=== PATIENT | male | born 1960 | race Caucasian/White ===

== ENCOUNTER 2016-06-14 14:43 | Emergency (ER) | payer MEDICAID ==
--- NOTE | 2016-06-14 15:14 | ER Document Report ---
ED General - General Mode of Arrival: Medic Information source: Patient TRAVEL OUTSIDE OF THE [place] IN LAST 30 DAYS: No - HPI Onset: This morning Quality of pain: No pain Associated symptoms: Weakness Exacerbated by: Denies Relieved by: Denies Similar symptoms previously: Yes Recently seen / treated by doctor: No <KATJA FELTON - Last Filed: 06/14/16 19:02> <YRN ISRAEL - Last Filed: 06/15/16 01:12> - General Chief Complaint: Low Blood Sugar Stated Complaint: LOW BLOOD SUGAR,WEAKNESS Notes: Patient presents to the emergency department with complaints of hypoglycemia. Patient reports that he became very weak with blurred vision and was drooling this morning because his blood glucose was low. His blood glucose was 50 when EMS checked him pto. He reports he took his metformin 500 mg this morning. He also reports he's drank 3 boost, ate a PBJ sandwich. Patient has long history of CHF, NE hypo-kalemia diabete, pacemaker- AICD. Patient reports he has chronic short of breath. He denies change. Patient denies fever vomiting diarrhea. (KATJA FELTON) - Related Data Allergies/Adverse Reactions: No Known Allergies Allergy (Unverified 08/30/15 01:10) Past Medical History - General Information source: Patient - Social History Smoking Status: Current Every Day Smoker Cigarette use (# per day): Yes - 3-5 cpd Chew tobacco use (# tins/day): No Frequency of alcohol use: Heavy - 72 oz of strawmaritias Drug Abuse: None Lives with: Family Family History: None - Past Medical History Cardiac Medical History: Reports: Hx Congestive Heart Failure, Hx Heart Attack, Hx Hypercholesterolemia, Hx Hypertension Endocrine Medical History: Reports: Hx Diabetes Mellitus Type 2 Past Surgical History: Reports: Hx Appendectomy, Hx Cardiac Catheterization, Hx Cardiac Surgery - 5 stents, pacer/defib <KATJA FELTON - Last Filed: 06/14/16 19:02> Review of Systems <KATJA FELTON - Last Filed: 06/14/16 19:02> <YRN ISRAEL - Last Filed: 06/15/16 01:12> - Review of Systems Notes: Review HPI for review of systems., All other systems negative (KATJA FELTON) Physical Exam <KATJA FELTON - Last Filed: 06/14/16 19:02> <YRN ISRAEL - Last Filed: 06/15/16 01:12> - Vital signs Vitals: Resp Pulse Ox 14 100 06/14/16 15:27 06/14/16 15:27 (YRN ISRAEL) - Notes Notes: PHYSICAL EXAMINATION: GENERAL: Well-appearing and in no acute distress nontoxic HEAD: Atraumatic, normocephalic. EYES: Pupils equal round extraocular movements intact, sclera anicteric, conjunctiva are normal. ENT: nares patent, Moist mucous membranes. NECK: Normal range of motion, supple without lymphadenopathy LUNGS: CTAB and equal. No wheezes rales or rhonchi. HEART: Regular rate and rhythm without murmurs ABDOMEN:Tight, large, no tenderness. No guarding, no rebound - patient reports normal for him BACK: Denies pain EXTREMITIES: Normal range of motion, no pitting edema. No cyanosis. PVD NEUROLOGICAL: Cranial nerves grossly intact. Normal sensory/motor exams. PSYCH: Normal mood, normal affect. SKIN: Warm, Dry, normal turgor, no rashes (KATJA FELTON) Course - Laboratory Result Diagrams: 06/14/16 16:25 06/14/16 17:00 <KATJA FELTON - Last Filed: 06/14/16 19:02> - Laboratory Result Diagrams: 06/14/16 16:25 06/14/16 17:00 <YRN ISRAEL - Last Filed: 06/15/16 01:12> - Re-evaluation Re-evalutation: 06/14/16 18:15 Patient is sitting in bed eating [employer]. He reports he feels good no problems. patient updated on all labs. I have consulted the attending provider dr israel per [facility] guidelines, she agrees with discharge 06/14/16 dr israel in to assess patient agrees with discharge (KATJA FELTON) - Vital Signs Vital signs: Temp Pulse Resp BP Pulse Ox 97.4 F 69 18 113/80 96 06/14/16 19:01 06/14/16 19:01 06/14/16 19:01 06/14/16 19:01 06/14/16 19:01 (YRN ISRAEL) - Laboratory Laboratory results interpreted by me: 06/14/16 06/14/16 06/14/16 16:25 17:00 17:00 RBC 3.51 L Hgb 10.9 L Hct 31.8 L RDW 16.8 H Lymphocytes % 11.7 L Sodium 130.0 L Potassium 3.3 L Chloride 83 L Carbon Dioxide 37 H Creatinine 1.42 H Est GFR (Non-Af Amer) 52 L Glucose 69 L ALT 13 L NT-Pro-B Natriuret Pep 8910 H (YRN ISRAEL) Discharge <KATJA FELTON - Last Filed: 06/14/16 19:02> <YRN ISRAEL - Last Filed: 06/15/16 01:12> - Discharge Clinical Impression: Hypoglycemia, Weakness Condition: Stable Disposition: HOME, SELF-CARE Instructions: Hypoglycemia ([facility]), Hypoglycemia Diet ([facility]), Weakness ([facility]), Congestive Heart Failure ([facility]) Additional Instructions: *You have been evaluated for weakness hypoglycemia history of congestive heart failure *Take your medication as prescribed *Monitor your glucose *Monitor your diet *Follow up with dr lopez within 3 days for recheck *Return to ED for worsening condition, changes, needs, concerns, low blood glucose, difficulty breathing, Forms: Smoking Cessation Education
[2016-06-14 16:42] LABS: ABSOLUTE BASOPHILS # (AUTO) 0.1 10^3/uL (0.0-0.2); ABSOLUTE EOSINOPHILS # (AUTO) 0.1 10^3/uL (0.0-0.6); ABSOLUTE LYMPHOCYTES (AUTO) 0.9 10^3/uL (0.5-4.7); ABSOLUTE MONOCYTES (AUTO) 0.7 10^3/uL (0.1-1.4); ABSOLUTE NEUT (AUTO) 5.7 10^3/uL (1.7-8.2); EOSINOPHILS % (AUTO) 0.8 % (0-6); HEMATOCRIT 31.8 % (37.9-51.0); HEMOGLOBIN 10.9 g/dL (13.5-17.0); HGB HCT DIFFERENCE 0.9; LYMPHOCYTES % (AUTO) 11.7 % (13-45); MEAN CORPUSCULAR HEMOGLOBIN 31.1 pg (27.0-33.4); MEAN CORPUSCULAR HGB CONC 34.4 g/dL (32.0-36.0); MEAN CORPUSCULAR VOLUME 91 fl (80-97); MONOCYTES % (AUTO) 9.7 % (3-13); RED BLOOD COUNT 3.51 10^6/uL (4.35-5.55); RED CELL DISTRIBUTION WIDTH 16.8 % (11.5-14.0); SEGMENTED NEUTROPHILS % (AUTO) 76.8 % (42-78); WHITE BLOOD COUNT 7.4 10^3/uL (4.0-10.5)
[2016-06-14 17:19] LABS: ALANINE AMINOTRANSFERASE 13 U/L (21-72); ALBUMIN 3.5 g/dL (3.5-5.0); ALKALINE PHOSPHATASE 123 U/L (38-126); ANION GAP 10 (5-19); ASPARTATE AMINO TRANSFERASE 22 U/L (17-59); BILIRUBIN,TOTAL 1.2 mg/dL (0.2-1.3); BLOOD UREA NITROGEN 19 mg/dL (7-20); CALCIUM 9.4 mg/dL (8.4-10.2); CARBON DIOXIDE 37 mmol/L (22-30); CHLORIDE 83 mmol/L (98-107); CREATININE RESULT 1.42 mg/dL (0.52-1.25); GLUCOSE 69 mg/dL (75-110); POTASSIUM 3.3 mmol/L (3.6-5.0); TOTAL PROTEIN 6.8 g/dL (6.3-8.2)
[2016-06-14 19:07] VITALS: BP 113/80
--- NOTE | 2016-06-14 22:16 | EKG REPORT ---
SEVERITY:- ABNORMAL ECG - ATRIAL-SENSED VENTRICULAR-PACED RHYTHM : Confirmed by: Juliana Diaz 14-Jun-2016 22:16:29
== END 2016-06-14 18:36 | disposition home or self-care (01) ==
LOC: ER 14:43
DX: E11.649 Type 2 diabetes mellitus with hypoglycemia without coma (principal); R53.1 Weakness; H53.8 Other visual disturbances; R06.02 Shortness of breath; I25.2 Old myocardial infarction; I10 Essential (primary) hypertension; F17.210 Nicotine dependence, cigarettes, uncomplicated; Z79.84 Long term (current) use of oral hypoglycemic drugs; Z95.810 Presence of automatic (implantable) cardiac defibrillator; Z98.61 Coronary angioplasty status
CPT/HCPCS: 36415; 71010; 80053; 82962; 83880; 85025; 93005; 93010; 99285

== ENCOUNTER 2016-08-25 22:55 | Inpatient (IN) | payer MEDICAID, MEDICARE ==
--- NOTE | 2016-08-25 23:01 | ER Document Report ---
ED General - General Stated Complaint: SHORTNESS OF BREATH Notes: Patient is 56-year-old male presents with complaint of severe swelling and edema throughout the entire body. Feels short of breath. His lab edema in his lower extremities and his abdomen. Patient has a history of cardiomyopathy with the ejection fraction of less than 50%. He has a history of myocardial infarction in the past. Last stent was placed in 2013. Currently is not on any blood thinning medications. He denies taking aspirin. Patient does mention that there are several other medications he is supposed to be on including diabetes medications. Patient says he stopped taking those because his blood sugar was dropping and he was feeling unwell. He says the only medications he actually takes currently are his medications to help take off fluid. No recent chest pain. Patient is followed by Dr. Diaz. He does have an AICD in place. TRAVEL OUTSIDE OF THE [place] IN LAST 30 DAYS: No - Related Data Allergies/Adverse Reactions: No Known Allergies Allergy (Verified 08/26/16 02:06) Past Medical History - Social History Smoking Status: Current Every Day Smoker Frequency of alcohol use: Occasional Drug Abuse: None Family History: None - Past Medical History Cardiac Medical History: Reports: Hx Congestive Heart Failure, Hx Heart Attack, Hx Hypercholesterolemia, Hx Hypertension Pulmonary Medical History: Reports: Hx Bronchitis Endocrine Medical History: Reports: Hx Diabetes Mellitus Type 2 Renal/ Medical History: Denies: Hx Peritoneal Dialysis Past Surgical History: Reports: Hx Appendectomy, Hx Cardiac Catheterization, Hx Cardiac Surgery - 5 stents, pacer/defib Review of Systems - Review of Systems Notes: My Normal Review Basic REVIEW OF SYSTEMS: CONSTITUTIONAL : Denies fever, chills, or sweats. Denies recent illness. EENT: Denies eye, ear, throat, or mouth pain or symptoms. Denies nasal or sinus congestion. CARDIOVASCULAR: Denies chest pain. RESPIRATORY: Some difficulty breathing. GASTROINTESTINAL: Denies abdominal pain. Distended abdomen. Denies nausea, vomiting, or diarrhea. Denies constipation. MUSCULOSKELETAL: Denies neck or back pain or joint pain or swelling. SKIN: Denies rash or skin lesions. NEUROLOGICAL: Denies altered mental status or loss of consciousness. Denies headache. Denies weakness or paralysis or loss of use of either side. Denies problems with gait or speech. Denies sensory or motor loss. ALL OTHER SYSTEMS REVIEWED AND NEGATIVE. Physical Exam - Vital signs Vitals: Resp Pulse Ox 21 H 98 08/25/16 23:11 08/25/16 23:11 - Notes Notes: General Appearance: Well nourished, alert, cooperative, no acute distress, no obvious discomfort. Vitals: reviewed, See vital signs table. Head: no swelling or tenderness to the head Eyes: PERRL, EOMI, Conjuctiva clear Mouth: No decreasd moisture Neck: Supple, no neck tenderness, No thyromegaly Lungs: No wheezing, No rales, No rhonci, No accessory muscle use, good air exchange bilaterally. Heart: Normal rate, Regular rythm, No murmur, no rub Abdomen: Normal BS, soft, No rigidity, No abdominal tenderness, No guarding, no rebound, no abdominal masses, no organomegaly. Very distended abdomen consistent with ascites. Abdomen is nontender to palpation. Extremities: strength 5/5 in all extremities, good pulses in all extremities, no swelling or tenderness in the extremities, 3+ bilateral lower extremity edema. Skin: warm, dry, appropriate color, no rash Neuro: speech clear, oriented x 3, normal affect, responds appropriately to questions. Course - Vital Signs Vital signs: Temp Pulse Resp BP Pulse Ox 97.5 F 89 20 131/92 H 100 08/26/16 03:55 08/26/16 03:55 08/26/16 03:55 08/26/16 03:55 08/26/16 03:55 - Laboratory Result Diagrams: 08/25/16 23:25 08/25/16 23:25 Laboratory results interpreted by me: 08/25/16 08/25/16 08/25/16 23:25 23:25 23:25 RBC 2.50 L Hgb 8.2 L Hct 23.1 L RDW 18.4 H PT 16.7 H Sodium 126.7 L Potassium 2.8 L* Chloride 84 L BUN 26 H Creatinine 1.60 H Est GFR ( Amer) 55 L Est GFR (Non-Af Amer) 45 L Glucose 153 H Magnesium Direct Bilirubin 0.7 H ALT 19 L NT-Pro-B Natriuret Pep Albumin 3.3 L 08/25/16 08/25/16 23:25 23:25 RBC Hgb Hct RDW PT Sodium Potassium Chloride BUN Creatinine Est GFR ( Amer) Est GFR (Non-Af Amer) Glucose Magnesium 1.4 L Direct Bilirubin ALT NT-Pro-B Natriuret Pep 79007 H Albumin - EKG Interpretation by Me Additional EKG results interpreted by me: 08/25/16 23:34 EKG is reviewed and interpreted by me. EKG shows a paced rhythm with a rate of [address] segment changes. No acute change in comparison to his old EKG from 06/14/2014. MA interval is within normal range. QRS duration QTC intervals are prolonged. - Transfer of Care Notes: 08/26/16 05:17 D the patient's excessive edema he will be admitted to the hospital. It's obvious impending dysfunction and stability breathe normally. I did speak with hospice agrees with the patient. I suspect patient says edema is partially due to noncompliance being that he is not taking his medications properly. Also suspect patient probably has some liver cirrhosis causing ascites even though he is not aware of this. I suspect this because patient has admitted to some alcohol use and his INR is 1.3. While this edema is probably related to right- sided heart failure as well. Dictation of this chart was performed using voice recognition software; therefore, there may be some unintended grammatical errors. Discharge - Discharge Clinical Impression: Dyspnea Qualifiers: Dyspnea type: unspecified Qualified Code(s): R06.00 - Dyspnea, unspecified Fluid overload Qualifiers: Hypervolemia type: unspecified Qualified Code(s): E87.70 - Fluid overload, unspecified Admitting Provider: Hospitalist Unit Admitted: [facility]
[2016-08-25] MEDS ORDERED: FUROSEMIDE INJ/PF 40 MG/4 ML SDV IV ONE (23:09)
[2016-08-25 23:52] LABS: ABSOLUTE BASOPHILS # (AUTO) 0.1 10^3/uL (0.0-0.2); ABSOLUTE MONOCYTES (AUTO) 0.9 10^3/uL (0.1-1.4); ABSOLUTE NEUT (AUTO) 5.5 10^3/uL (1.7-8.2); BASOPHILS % (AUTO) 1.1 % (0-2); EOSINOPHILS % (AUTO) 0.5 % (0-6); HEMATOCRIT 23.1 % (37.9-51.0); HEMOGLOBIN 8.2 g/dL (13.5-17.0); HGB HCT DIFFERENCE 1.5; LYMPHOCYTES % (AUTO) 13.1 % (13-45); MEAN CORPUSCULAR HEMOGLOBIN 32.7 pg (27.0-33.4); MEAN CORPUSCULAR HGB CONC 35.4 g/dL (32.0-36.0); MEAN CORPUSCULAR VOLUME 92 fl (80-97); MONOCYTES % (AUTO) 12.5 % (3-13); RED CELL DISTRIBUTION WIDTH 18.4 % (11.5-14.0); SEGMENTED NEUTROPHILS % (AUTO) 72.8 % (42-78); WHITE BLOOD COUNT 7.6 10^3/uL (4.0-10.5)
[2016-08-25 23:59] LABS: ALANINE AMINOTRANSFERASE 19 U/L (21-72); ALBUMIN 3.3 g/dL (3.5-5.0); ALKALINE PHOSPHATASE 109 U/L (38-126); ANION GAP 16 (5-19); ASPARTATE AMINO TRANSFERASE 21 U/L (17-59); BILIRUBIN,DIRECT 0.7 mg/dL (0.0-0.4); BILIRUBIN,TOTAL 1.2 mg/dL (0.2-1.3); BLOOD UREA NITROGEN 26 mg/dL (7-20); CALCIUM 8.5 mg/dL (8.4-10.2); CARBON DIOXIDE 27 mmol/L (22-30); CHLORIDE 84 mmol/L (98-107); CREATINE KINASE 151 U/L (55-170); GLUCOSE 153 mg/dL (75-110); SODIUM 126.7 mmol/L (137-145); TOTAL PROTEIN 6.5 g/dL (6.3-8.2)
[2016-08-26 00:03] LABS: POTASSIUM 2.8 mmol/L (3.6-5.0)
[2016-08-26 00:04] LABS: PROTHROMBIN TIME 16.7 SEC (11.4-15.4)
[2016-08-26 00:12] LABS: CREATINE KINASE MB 1.84 ng/mL (<4.55); TROPONIN I 0.018 ng/mL
[2016-08-26] MEDS ORDERED: POTASSIUM CHLORIDE 10 MEQ TABLET.SA PO ONE ×2 (00:35)
[2016-08-26] MEDS ORDERED: MAGNESIUM HYDROXIDE SUSP 30 ML UDCUP PO PRN (01:15)
[2016-08-26] MEDS ORDERED: ACETAMINOPHEN 325 MG TABLET PO PRN (01:15)
[2016-08-26] MEDS ORDERED: ENALAPRILAT DIHYDRATE INJ/PF 1.25 MG/1 ML SDV IV PRN (01:15)
[2016-08-26] MEDS ORDERED: MAG HYDROX/AL HYDROX/SIMETH SUSP 30 ML UDCUP PO PRN (01:15)
[2016-08-26] MEDS ORDERED: NITROGLYCERIN 5 MG (0.2 MG/HR) PATCH.TD24 TD SCH (01:15)
[2016-08-26] MEDS ORDERED: ONDANSETRON HCL INJ/PF 4 MG/2 ML SDV IV PRN (01:15)
[2016-08-26] MEDS: MAGNESIUM SULFATE/D5W 1 GM/100 ML RTUPB IV SCH ×2 (02:12→03:25)
[2016-08-26 02:22] LABS: URINE BARBITURATES SCREEN NEGATIVE; URINE METHADONE SCREEN NEGATIVE; URINE OPIATES LOW NEGATIVE; URINE PHENCYCLIDINE SCREEN NEGATIVE
--- NOTE | 2016-08-26 02:25 | PDOC H&P ---
History of Present Illness Admission Date/PCP: 08/26/16 01:15 Patient complains of: Shortness of breath and swelling History of Present Illness: KEN ZAYAS is a 56 year old male with a past medical history of diabetes, hypertension, coronary artery disease and congestive heart failure with an ejection fraction of 15% and AICD placed 2 years ago. He denies usual state of health until approximately 12 hours prior to presentation admitting to noncompliance of medications believing they cause both hyponatremia, hypokalemia and subsequently has discontinued all but his Lasix. He further admits to knowledge of a dietary restriction yet drinks strawberry wine and [place] sausage. In the emergency room he is grossly fluid overloaded with anasarca, with hyponatremia, hypokalemia, acute renal failure and anemia. He started on potassium, Lasix and referred to the hospitalist for admission Past Medical History Cardiac Medical History: Reports: Congestive Heart Failure, Myocardial Infarction, Hyperlipidema, Hypertension Pulmonary Medical History: Reports: Bronchitis Endocrine Medical History: Reports: Diabetes Mellitus Type 2 Past Surgical History Past Surgical History: Reports: Appendectomy, Cardiac Catheterization Social History Information Source: Patient Lives with: Family Smoking Status: Current Every Day Smoker Drugs: None Hx Prescription Drug Abuse: No - Advance Directive Resuscitation Status: Full Code Family History Family History: CAD Parental Family History Reviewed: Yes Children Family History Reviewed: Yes Sibling(s) Family History Reviewed.: Yes Medication/Allergy Home Medications: Atorvastatin Calcium [Lipitor 80 mg Tablet] 80 mg PO QHS 08/30/15 Carvedilol 6.25 mg PO BID 08/30/15 Clopidogrel Bisulfate [Plavix 75 mg Tablet] 75 mg PO DAILY 08/30/15 Glimepiride [Amaryl 4 mg Tablet] 4 mg PO DAILY 08/30/15 Lisinopril [Prinivil 2.5 mg Tablet] 5 mg PO BID 08/30/15 Metformin HCl 2 tab PO BID 08/30/15 Potassium Chloride 20 meq PO BID 08/30/15 Spironolactone 25 mg PO BID 08/30/15 Allergies/Adverse Reactions: No Known Allergies Allergy (Verified 08/26/16 02:06) Review of Systems Constitutional: PRESENT: as per HPI, fatigue, weakness, weight gain. ABSENT: fever(s), headache(s), night sweats Eyes: ABSENT: visual disturbances Ears: ABSENT: hearing changes Cardiovascular: PRESENT: dyspnea on exertion, edema, orthropnea. ABSENT: chest pain, palpitations Respiratory: PRESENT: cough, dyspnea. ABSENT: hemoptysis, sputum Gastrointestinal: PRESENT: bloating. ABSENT: abdominal pain, constipation, diarrhea, hematemesis, hematochezia, nausea, vomiting Genitourinary: ABSENT: dysuria, hematuria Musculoskeletal: ABSENT: joint swelling Integumentary: ABSENT: rash, wounds Neurological: ABSENT: abnormal gait, abnormal speech, confusion, dizziness, focal weakness, syncope Psychiatric: ABSENT: anxiety, depression, homidical ideation, suicidal ideation Endocrine: ABSENT: cold intolerance, heat intolerance, polydipsia, polyuria Hematologic/Lymphatic: ABSENT: easy bleeding, easy bruising Physical Exam Vital Signs: Temp Pulse Resp BP Pulse Ox 18 116/75 100 08/26/16 00:16 08/25/16 23:12 08/26/16 00:16 General appearance: PRESENT: cooperative, mild distress, obese Head exam: PRESENT: atraumatic, normocephalic Eye exam: PRESENT: conjunctiva pink, EOMI, PERRLA. ABSENT: scleral icterus Ear exam: PRESENT: normal external ear exam Mouth exam: PRESENT: moist, tongue midline Neck exam: ABSENT: carotid bruit, JVD, lymphadenopathy, thyromegaly Respiratory exam: PRESENT: accessory muscle use, crackles, symmetrical, tachypnea. ABSENT: chest wall tenderness, rales, rhonchi, stridor, wheezes Cardiovascular exam: PRESENT: gallop, RRR. ABSENT: diastolic murmur, rubs, systolic murmur Pulses: PRESENT: normal carotid pulses, normal dorsalis pedis pul Vascular exam: PRESENT: normal capillary refill GI/Abdominal exam: PRESENT: ascites, diminished bowel sounds, distended, firm, hypoactive bowel sounds, soft. ABSENT: guarding, hernia, tenderness Rectal exam: PRESENT: deferred Extremities exam: PRESENT: joint swelling, pedal edema, +2 edema Musculoskeletal exam: PRESENT: full ROM, tenderness Neurological exam: PRESENT: alert, awake, oriented to person, oriented to place , oriented to time, oriented to situation, CN II-XII grossly intact. ABSENT: motor sensory deficit Psychiatric exam: PRESENT: appropriate affect, normal mood. ABSENT: homicidal ideation, suicidal ideation Skin exam: PRESENT: dry, intact. ABSENT: abrasion, cyanosis, erythema Results Impressions: Chest X-Ray 08/25/16 23:10 IMPRESSION: NO ACUTE RADIOGRAPHIC FINDING IN THE CHEST. Assessment & Plan - Diagnosis (1) Acute exacerbation of congestive heart failure Qualifiers: Congestive heart failure type: combined Qualified Code(s): I50.43 - Acute on chronic combined systolic (congestive) and diastolic (congestive) heart failure Is this a current diagnosis for this admission?: YesPlan: Electrolyte repletion, resumption of spironolactone, Lasix and optimization of blood pressure. 2-D echo and education (2) Hypokalemia Is this a current diagnosis for this admission?: YesPlan: Secondary to loop diuretic and noncompliance with spironolactone repletion and reevaluation (3) Hyponatremia Is this a current diagnosis for this admission?: YesPlan: Secondary to noncompliance with dietary restriction. He'll be gently diuresed with reevaluating chemistries (4) Acute renal failure Is this a current diagnosis for this admission?: YesPlan: Secondary to decompensated congestive heart failure avoid nephrotoxic meds and doses gentle diuresis reevaluation of chemistry (5) Diabetes Is this a current diagnosis for this admission?: YesPlan: Discontinue metformin initiate sliding scale insulin and diabetic education (6) Dyspnea Qualifiers: Dyspnea type: unspecified Qualified Code(s): R06.00 - Dyspnea, unspecified Is this a current diagnosis for this admission?: YesPlan: Correction of 1 and supportive care with oxygen and when necessary BiPAP (7) Fluid overload Qualifiers: Hypervolemia type: unspecified Qualified Code(s): E87.70 - Fluid overload, unspecified Is this a current diagnosis for this admission?: YesPlan: Secondary to dietary and medication noncompliance please see above - Time Time Spent: 50 to 70 Minutes - Inpatient Certification Medical Necessity: Need Close Monitoring Due to Risk of Patient Decompensation
[2016-08-26 06:06] LABS: ABSOLUTE BASOPHILS # (AUTO) 0.1 10^3/uL (0.0-0.2); ABSOLUTE EOSINOPHILS # (AUTO) 0.1 10^3/uL (0.0-0.6); ABSOLUTE LYMPHOCYTES (AUTO) 0.9 10^3/uL (0.5-4.7); ABSOLUTE MONOCYTES (AUTO) 0.8 10^3/uL (0.1-1.4); ABSOLUTE NEUT (AUTO) 5.2 10^3/uL (1.7-8.2); BASOPHILS % (AUTO) 1.3 % (0-2); EOSINOPHILS % (AUTO) 0.9 % (0-6); HEMOGLOBIN 8.4 g/dL (13.5-17.0); HGB HCT DIFFERENCE 1.2; LYMPHOCYTES % (AUTO) 12.9 % (13-45); MEAN CORPUSCULAR HEMOGLOBIN 32.3 pg (27.0-33.4); MEAN CORPUSCULAR HGB CONC 35.2 g/dL (32.0-36.0); MEAN CORPUSCULAR VOLUME 92 fl (80-97); MONOCYTES % (AUTO) 11.7 % (3-13); RED BLOOD COUNT 2.61 10^6/uL (4.35-5.55); RED CELL DISTRIBUTION WIDTH 18.3 % (11.5-14.0); SEGMENTED NEUTROPHILS % (AUTO) 73.2 % (42-78); WHITE BLOOD COUNT 7.2 10^3/uL (4.0-10.5)
[2016-08-26] MEDS: HEPARIN SOD (PORCINE) 5,000 UNIT/ML 1 ML SYRINGE SUBCUT SCH ×3 (06:26→21:19)
[2016-08-26 06:28] LABS: ANION GAP 13 (5-19); BLOOD UREA NITROGEN 27 mg/dL (7-20); CALCIUM 8.9 mg/dL (8.4-10.2); CARBON DIOXIDE 31 mmol/L (22-30); CHLORIDE 84 mmol/L (98-107); CREATINE KINASE 142 U/L (55-170); CREATININE RESULT 1.57 mg/dL (0.52-1.25); GLUCOSE 117 mg/dL (75-110); POTASSIUM 3.1 mmol/L (3.6-5.0); SODIUM 128.2 mmol/L (137-145)
[2016-08-26 06:40] LABS: CREATINE KINASE MB 2.51 ng/mL (<4.55); TROPONIN I 0.019 ng/mL
[2016-08-26] MEDS ORDERED: POTASSI CL 20 MEQ/50 ML RIDER 50 ML IV SCH (07:45)
--- NOTE | 2016-08-26 09:08 | EKG REPORT ---
SEVERITY:- ABNORMAL ECG - ATRIAL-SENSED VENTRICULAR-PACED RHYTHM : Confirmed by: Yadiel Peter MD 26-Aug-2016 09:08:24
[2016-08-26] MEDS: FUROSEMIDE INJ/PF 40 MG/4 ML SDV IV SCH ×2 (09:50→21:19)
[2016-08-26] MEDS: POTASSIUM CHLORIDE 10 MEQ TABLET.SA PO SCH ×2 (09:51→21:20)
[2016-08-26] MEDS ORDERED: ASPIRIN 81 MG TABLET, ENT COATED PO SCH (10:00)
[2016-08-26] MEDS ORDERED: DOCUSATE SODIUM 100 MG CAPSULE PO SCH (10:00)
--- NOTE | 2016-08-26 10:58 | PDOC PROGRESS REPORT ---
Subjective Progress Note for:: 08/26/16 Subjective:: Patient reports that his shortness of breath has improved. Physical Exam Vital Signs: Temp Pulse Resp BP Pulse Ox 97.7 F 89 22 H 103/78 100 08/26/16 08:24 08/26/16 08:24 08/26/16 08:24 08/26/16 08:24 08/26/16 08:24 Intake & Output 08/25/16 08/26/16 08/27/16 06:59 06:59 06:59 Intake Total 10 Output Total 300 Balance -290 Weight 141.5 kg General appearance: PRESENT: no acute distress Eye exam: PRESENT: conjunctiva pink. ABSENT: scleral icterus Mouth exam: PRESENT: moist, tongue midline Neck exam: ABSENT: JVD Respiratory exam: PRESENT: crackles. ABSENT: wheezes Cardiovascular exam: PRESENT: RRR. ABSENT: diastolic murmur, rubs, systolic murmur GI/Abdominal exam: PRESENT: normal bowel sounds, soft. ABSENT: distended, guarding, mass, organolmegaly, rebound, tenderness Extremities exam: PRESENT: pedal edema. ABSENT: calf tenderness, clubbing Neurological exam: PRESENT: alert, awake, oriented to person, oriented to place , oriented to time, oriented to situation, CN II-XII grossly intact. ABSENT: motor sensory deficit Psychiatric exam: PRESENT: appropriate affect Skin exam: PRESENT: dry, intact, warm. ABSENT: cyanosis, rash Results Laboratory Results: 08/26/16 05:37 08/26/16 05:37 08/26/16 08/26/16 05:37 05:37 WBC 7.2 RBC 2.61 L Hgb 8.4 L Hct 24.0 L MCV 92 MCH 32.3 MCHC 35.2 RDW 18.3 H Plt Count 240 Seg Neutrophils % 73.2 Lymphocytes % 12.9 L Monocytes % 11.7 Eosinophils % 0.9 Basophils % 1.3 Absolute Neutrophils 5.2 Absolute Lymphocytes 0.9 Absolute Monocytes 0.8 Absolute Eosinophils 0.1 Absolute Basophils 0.1 Sodium 128.2 L Potassium 3.1 L Chloride 84 L Carbon Dioxide 31 H Anion Gap 13 BUN 27 H Creatinine 1.57 H Est GFR ( Amer) 56 L Est GFR (Non-Af Amer) 46 L Glucose 117 H Calcium 8.9 08/26/16 08/26/16 05:37 05:37 Creatine Kinase 142 CK-MB (CK-2) 2.51 Troponin I 0.019 Impressions: Chest X-Ray 08/25/16 23:10 IMPRESSION: NO ACUTE RADIOGRAPHIC FINDING IN THE CHEST. Assessment & Plan - Diagnosis (1) Acute exacerbation of congestive heart failure Qualifiers: Congestive heart failure type: combined Qualified Code(s): I50.43 - Acute on chronic combined systolic (congestive) and diastolic (congestive) heart failure Is this a current diagnosis for this admission?: YesPlan: We'll continue with the IV Lasix. (2) Acute renal failure Is this a current diagnosis for this admission?: YesPlan: Probably due to the congestive heart failure however will need to watch closely as we give IV diuretics. (3) Diabetes Is this a current diagnosis for this admission?: YesPlan: Continue with sliding scale insulin. (4) Hypokalemia Is this a current diagnosis for this admission?: YesPlan: We'll replace and continue to monitor. (5) Hyponatremia Is this a current diagnosis for this admission?: YesPlan: Most likely secondary to the diuretic use. - Time Time Spent with patient: 25-34 minutes - Inpatient Certification Medical Necessity: Need Close Monitoring Due to Risk of Patient Decompensation
[2016-08-26 12:19] LABS: ANION GAP 11 (5-19); BLOOD UREA NITROGEN 29 mg/dL (7-20); CARBON DIOXIDE 33 mmol/L (22-30); CHLORIDE 85 mmol/L (98-107); CREATINE KINASE 135 U/L (55-170); CREATININE RESULT 1.49 mg/dL (0.52-1.25); GLUCOSE 129 mg/dL (75-110); POTASSIUM 3.4 mmol/L (3.6-5.0); SODIUM 128.8 mmol/L (137-145)
[2016-08-26 12:34] LABS: CREATINE KINASE MB 2.24 ng/mL (<4.55); TROPONIN I 0.017 ng/mL
[2016-08-26 18:22] LABS: CREATINE KINASE MB 2.47 ng/mL (<4.55); TROPONIN I 0.019 ng/mL
[2016-08-26 22:36] LABS: ANION GAP 11 (5-19); BLOOD UREA NITROGEN 30 mg/dL (7-20); CARBON DIOXIDE 33 mmol/L (22-30); CHLORIDE 84 mmol/L (98-107); CREATININE RESULT 1.56 mg/dL (0.52-1.25); GLUCOSE 117 mg/dL (75-110); POTASSIUM 3.5 mmol/L (3.6-5.0); SODIUM 128.4 mmol/L (137-145)
[2016-08-27 04:53] LABS: ABSOLUTE BASOPHILS # (AUTO) 0.1 10^3/uL (0.0-0.2); ABSOLUTE EOSINOPHILS # (AUTO) 0.1 10^3/uL (0.0-0.6); ABSOLUTE LYMPHOCYTES (AUTO) 1.2 10^3/uL (0.5-4.7); ABSOLUTE MONOCYTES (AUTO) 0.9 10^3/uL (0.1-1.4); ABSOLUTE NEUT (AUTO) 4.8 10^3/uL (1.7-8.2); HEMATOCRIT 23.6 % (37.9-51.0); HEMOGLOBIN 8.4 g/dL (13.5-17.0); HGB HCT DIFFERENCE 1.6; LYMPHOCYTES % (AUTO) 16.7 % (13-45); MEAN CORPUSCULAR HEMOGLOBIN 32.9 pg (27.0-33.4); MEAN CORPUSCULAR HGB CONC 35.8 g/dL (32.0-36.0); MEAN CORPUSCULAR VOLUME 92 fl (80-97); MONOCYTES % (AUTO) 13.2 % (3-13); RED BLOOD COUNT 2.57 10^6/uL (4.35-5.55); RED CELL DISTRIBUTION WIDTH 18.7 % (11.5-14.0); SEGMENTED NEUTROPHILS % (AUTO) 68.1 % (42-78)
[2016-08-27 05:14] LABS: ANION GAP 12 (5-19); BLOOD UREA NITROGEN 29 mg/dL (7-20); CALCIUM 9.1 mg/dL (8.4-10.2); CARBON DIOXIDE 32 mmol/L (22-30); CHLORIDE 86 mmol/L (98-107); CHOLESTEROL 99.83 mg/dL (0-200); CREATININE RESULT 1.49 mg/dL (0.52-1.25); Direct HDL 30 mg/dL (>40); GLUCOSE 111 mg/dL (75-110); SODIUM 129.9 mmol/L (137-145); TRIGLYCERIDES 69 mg/dL (<150)
[2016-08-27 05:25] LABS: DIRECT LDL 46 mg/dL (<100)
[2016-08-27] MEDS: HEPARIN SOD (PORCINE) 5,000 UNIT/ML 1 ML SYRINGE SUBCUT SCH (06:46)
[2016-08-27 10:00] VITALS: BP 131/92
--- NOTE | 2016-08-27 15:39 | PDOC DISCHARGE SUMMARY ---
General - Admit/Disc Date/PCP Admission Date/Primary Care Provider: 08/26/16 01:15 Discharge Date: 08/27/16 - Discharge Diagnosis (1) Acute exacerbation of congestive heart failure Is this a current diagnosis for this admission?: Yes (2) Acute renal failure Is this a current diagnosis for this admission?: Yes (3) Diabetes Is this a current diagnosis for this admission?: Yes (4) Hypokalemia Is this a current diagnosis for this admission?: Yes (5) Hyponatremia Is this a current diagnosis for this admission?: Yes - Additional Information Resuscitation Status: Full Code Discharge Diet: Cardiac, Diabetic Discharge Activity: Activity As Tolerated, Weigh Daily Home Medications: Atorvastatin Calcium [Lipitor 80 mg Tablet] 80 mg PO QHS 08/30/15 Carvedilol 6.25 mg PO BID 08/30/15 Clopidogrel Bisulfate [Plavix 75 mg Tablet] 75 mg PO DAILY 08/30/15 Glimepiride [Amaryl 4 mg Tablet] 4 mg PO DAILY 08/30/15 Lisinopril [Prinivil 2.5 mg Tablet] 5 mg PO BID 08/30/15 Metformin HCl 2 tab PO BID 08/30/15 Potassium Chloride 20 meq PO BID 08/30/15 Spironolactone 25 mg PO BID 08/30/15 Aspirin [Ecotrin 81 mg EC Tablet] 81 mg PO DAILY tabec 08/27/16 Furosemide 20 mg PO BID #60 tablet 08/27/16 Nitroglycerin [Nitro-Dur 5 mg (0.2 mg/Hr) Transdermal Patch] 1 each TD DAILY # 30 patch.td24 08/27/16 History of Present Illness History of Present Illness: KEN ZAYAS is a 56 year old male who has a history of diabetes, hypertension and coronary artery disease as well as systolic congestive heart failure with ejection fraction of 15% who presented with shortness of breath. The patient was found to have acute on chronic congestive heart failure. Patient reports that he has been noncompliant with his diet has been eating pork sausage and drinking fine. The patient is admitted for diuresis. He also is noted have hyponatremia and hypokalemia along with acute renal failure felt secondary to his underlying congestive heart failure. Hospital Course Hospital Course: 56-year-old gentleman with diabetes, coronary artery disease, systolic congestive heart failure presented with acute on chronic systolic congestive heart failure. Patient had been noncompliant with his diet and eating pork sausage. Patient also reports that he had not been taking his Lasix either. Patient was started on IV Lasix and had improvement in his respiratory status. He also was noted to have hypokalemia and hyponatremia when he presented. His hyponatremia has improved but not resolved but his hypokalemia has resolved. The patient was noted have acute renal failure and with diuresis his creatinine did improve some. Patient was at his baseline respiratory status was felt that he was stable for discharge to home. He has been instructed on diet and weighing daily. He will start taking his Lasix again. His other medical palms were stable during this hospitalization. Physical Exam Vital Signs: Temp Pulse Resp BP Pulse Ox 98.0 F 87 18 131/92 H 100 08/27/16 09:58 08/27/16 09:58 08/27/16 09:58 08/27/16 09:58 08/27/16 09:58 Intake & Output 08/26/16 08/27/16 08/28/16 06:59 06:59 06:59 Intake Total 10 2487 Output Total 300 2295 Balance -290 192 Weight 141.5 kg 141.6 kg General appearance: PRESENT: no acute distress Eye exam: PRESENT: conjunctiva pink. ABSENT: scleral icterus Mouth exam: PRESENT: moist, tongue midline Neck exam: ABSENT: JVD Respiratory exam: PRESENT: clear to auscultation sanjeev. ABSENT: rales, rhonchi, wheezes Cardiovascular exam: PRESENT: RRR. ABSENT: diastolic murmur, rubs, systolic murmur GI/Abdominal exam: PRESENT: normal bowel sounds, soft. ABSENT: distended, guarding, mass, organolmegaly, rebound, tenderness Extremities exam: ABSENT: calf tenderness, clubbing, pedal edema Neurological exam: PRESENT: alert, awake, oriented to person, oriented to place , oriented to time, oriented to situation, CN II-XII grossly intact. ABSENT: motor sensory deficit Psychiatric exam: PRESENT: appropriate affect Skin exam: PRESENT: dry, intact, warm. ABSENT: cyanosis, rash Results Laboratory Results: 08/27/16 04:27 08/27/16 04:27 08/26/16 08/27/16 08/27/16 22:07 04:27 04:27 WBC 7.0 RBC 2.57 L Hgb 8.4 L Hct 23.6 L MCV 92 MCH 32.9 MCHC 35.8 RDW 18.7 H Plt Count 234 Seg Neutrophils % 68.1 Lymphocytes % 16.7 Monocytes % 13.2 H Eosinophils % 1.0 Basophils % 1.0 Absolute Neutrophils 4.8 Absolute Lymphocytes 1.2 Absolute Monocytes 0.9 Absolute Eosinophils 0.1 Absolute Basophils 0.1 Sodium 128.4 L 129.9 L Potassium 3.5 L 4.0 Chloride 84 L 86 L Carbon Dioxide 33 H 32 H Anion Gap 11 12 BUN 30 H 29 H Creatinine 1.56 H 1.49 H Est GFR ( Amer) 56 L 59 L Est GFR (Non-Af Amer) 46 L 49 L Glucose 117 H 111 H Calcium 9.0 9.1 Triglycerides 69 Cholesterol 99.83 LDL Cholesterol Direct 46 VLDL Cholesterol 14.0 HDL Cholesterol 30 L 08/26/16 08/26/16 08/26/16 05:37 05:37 11:35 Creatine Kinase 142 CK-MB (CK-2) 2.51 2.24 Troponin I 0.019 0.017 08/26/16 08/26/16 08/26/16 11:35 17:40 17:40 Creatine Kinase 135 115 CK-MB (CK-2) 2.47 Troponin I 0.019 Impressions: Chest X-Ray 08/25/16 23:10 IMPRESSION: NO ACUTE RADIOGRAPHIC FINDING IN THE CHEST. Qualifiers PATEINT BEING DISCHARGED WITH ANY OF THE FOLLOWING DIAGNOSIS?: Heart Failure HF Pt being discharged on ACEI for LVEF less than 40%?: Yes HF Pt being discharged on ARBS for LVEF less than 40%?: No HF Pt discharged on evidence-based Beta [place]:: Yes Plan Discharge Plan: Patient is discharged home in stable condition. He will follow-up with his primary care doctor in 2 weeks. He has been instructed to weigh daily and adjust his Lasix dose based on his weight. Time Spent: Greater than 30 Minutes
--- NOTE | 2016-08-27 19:14 | XCELERA REPORT ---
[address] [address] Transthoracic Echocardiogram Report Name: KEN ZAYAS Age: 56 yrs Gender: Male : 1960 Patient Status: Inpatient Patient Location: [id number]\S\335\S\A Study Date: 08/27/2016 09:39 AM Height: 75 in Weight: 311 lb BSA: 2.6 m2 Procedure: A complete two-dimensional transthoracic echocardiogram was performed (2D, M-mode, spectral and color flow Doppler). The study was technically difficult with many images being suboptimal in quality. Reason For Study: systolic murmur Ordering Physician: CHUY REYES Performed By: Ai Vila Interpretation Summary The study was technically difficult with many images being suboptimal in quality. The Ejection Fraction estimate is 40-45% Left ventricular systolic function is mildly reduced. There is borderline concentric left ventricular hypertrophy. The left ventricle is grossly normal size. Doppler measurements suggest pseudonormalized left ventricular relaxation, which is associated with grade II/IV or mild to moderate diastolic dysfunction Regional wall motion abnormalities cannot be excluded due to limited visualization. The right ventricle is moderately dilated. Right ventricular function cannot be assessed due to poor image quality. The left atrium is moderately dilated. The right atrium is moderately dilated. There is no mitral valve stenosis. There is a mild amount of mitral regurgitation There is no aortic valve stenosis There is a trace amount of aortic regurgitation There is a moderate amount of tricuspid regurgitation There is moderate pulmonary hypertension by echo Best estimated right ventricular systolic pressure is elevated at 50- 60mmHg. The aortic root is not well visualized. The inferior vena cava appeared normal and decreased < 50% with respiration (RAP 10-15 mmHg) There is no pericardial effusion. MMode/2D Measurements \T\ Calculations RVDd: 4.6 cm LVIDd: 5.7 cm FS: 19.3 % Ao root diam: 3.5 cm IVSd: 1.0 cm LVIDs: 4.6 cm EDV(Teich): 158.9 ml LVPWd: 0.96 cmESV(Teich): 96.5 ml Ao root area: 9.5 cm2 EF(Teich): 39.3 % LA dimension: 5.4 cm LVOT diam: 2.3 cm LVOT area: 4.0 cm2 Doppler Measurements \T\ Calculations MV E max johny: MV P1/2t max johny: Ao V2 max: LV V1 max P.6 cm/sec 111.1 cm/sec 112.0 cm/sec 4.5 mmHg MV A max johny: MV P1/2t: 47.0 msec Ao max PG: LV V1 max: 37.0 cm/sec MVA(P1/2t): 4.7 cm2 5.0 mmHg 105.9 cm/sec MV E/A: 3.0 MV dec slope: JOAQUIN(V,D): 3.8 cm2 691.8 cm/sec2 PA V2 max: PI end-d johny: TR max johny: 66.1 cm/sec 165.3 cm/sec 336.6 cm/sec PA max PG: TR max P.7 mmHg 45.3 mmHg Left Ventricle The left ventricle is grossly normal size. There is borderline concentric left ventricular hypertrophy. Left ventricular systolic function is mildly reduced. The Ejection Fraction estimate is 40-45%. Doppler measurements suggest pseudonormalized left ventricular relaxation, which is associated with grade II/IV or mild to moderate diastolic dysfunction. Regional wall motion abnormalities cannot be excluded due to limited visualization. Right Ventricle The right ventricle is moderately dilated. There is normal right ventricular wall thickness. Right ventricular function cannot be assessed due to poor image quality. Atria The right atrium is moderately dilated. The left atrium is moderately dilated. Interarterial septum not well visualized and not well dopplered. Cannot comment on ASD/PFO presence. Mitral Valve There is mild mitral leaflet calcification. There is mild mitral annular calcification. There is no mitral valve stenosis. There is a mild amount of mitral regurgitation. Aortic Valve The aortic valve is mildly calcified. There is no aortic valve stenosis. There is a trace amount of aortic regurgitation. Tricuspid Valve The tricuspid valve is not well visualized secondary to technical limitations. There is no tricuspid stenosis. There is a moderate amount of tricuspid regurgitation. There is moderate pulmonary hypertension by echo. Best estimated right ventricular systolic pressure is elevated at 50- 60mmHg. Pulmonic Valve The pulmonic valve is not well visualized. There is a mild amount of pulmonic regurgitation. Great Vessels The aortic root is not well visualized. The inferior vena cava appeared normal and decreased < 50% with respiration (RAP 10-15 mmHg). Effusions There is no pericardial effusion. : CHUY REYES > Juliana Diaz
== END 2016-08-27 10:27 | disposition home or self-care (01) | DRG 292 ==
LOC: ER 22:55 → EH 08-26 01:15 → UNDOADMIN 08-26 01:50 → EH 08-26 01:50 → 3S 08-26 03:44
PROVIDERS: ADMIT Internal Medicine; ATTEND Internal Medicine
DX: I11.0 Hypertensive heart disease with heart failure (principal); N17.9 Acute kidney failure, unspecified; E87.1 Hypo-osmolality and hyponatremia; R18.8 Other ascites; I50.43 Acute on chronic combined systolic (congestive) and diastolic (congestive) heart failure; E11.9 Type 2 diabetes mellitus without complications; E87.6 Hypokalemia; I25.10 Atherosclerotic heart disease of native coronary artery without angina pectoris; E78.5 Hyperlipidemia, unspecified; F17.210 Nicotine dependence, cigarettes, uncomplicated; E78.00 Pure hypercholesterolemia, unspecified; I25.2 Old myocardial infarction; Z79.899 Other long term (current) drug therapy; Z91.11 Patient's noncompliance with dietary regimen; Z82.49 Family history of ischemic heart disease and other diseases of the circulatory system
CPT/HCPCS: 36415; 71010; 80048; 80053; 80061; 80307; 82550; 82553; 82962; 83735; 83880; 84443; 84484; 85025; 85610; 93005; 93010; 93306; 96374; 99285; J1644; J1940; J3475; J3490

== ENCOUNTER 2016-10-14 23:59 | Inpatient (IN) | payer MEDICARE ==
[2016-10-15] MEDS ORDERED: FUROSEMIDE INJ/PF 40 MG/4 ML SDV IV ONE ×2 (00:24→10:00)
[2016-10-15 00:38] LABS: ABSOLUTE BASOPHILS # (AUTO) 0.1 10^3/uL (0.0-0.2); ABSOLUTE EOSINOPHILS # (AUTO) 0.1 10^3/uL (0.0-0.6); ABSOLUTE LYMPHOCYTES (AUTO) 1.3 10^3/uL (0.5-4.7); ABSOLUTE MONOCYTES (AUTO) 0.6 10^3/uL (0.1-1.4); ABSOLUTE NEUT (AUTO) 3.7 10^3/uL (1.7-8.2); BASOPHILS % (AUTO) 1.3 % (0-2); EOSINOPHILS % (AUTO) 1.8 % (0-6); HEMATOCRIT 27.6 % (37.9-51.0); HEMOGLOBIN 9.1 g/dL (13.5-17.0); HGB HCT DIFFERENCE -0.3; LYMPHOCYTES % (AUTO) 22.1 % (13-45); MEAN CORPUSCULAR HEMOGLOBIN 29.6 pg (27.0-33.4); MEAN CORPUSCULAR VOLUME 90 fl (80-97); MONOCYTES % (AUTO) 10.9 % (3-13); RED BLOOD COUNT 3.08 10^6/uL (4.35-5.55); RED CELL DISTRIBUTION WIDTH 18.2 % (11.5-14.0); SEGMENTED NEUTROPHILS % (AUTO) 63.9 % (42-78); WHITE BLOOD COUNT 5.7 10^3/uL (4.0-10.5)
--- NOTE | 2016-10-15 00:40 | ER Document Report ---
ED General - General Stated Complaint: ABDOMINAL PAIN Time Seen by Provider: 10/15/16 00:05 Mode of Arrival: Medic Information source: Patient, [facility] Records Notes: This is a 56-year-old male with a history of diabetes, hypertension, CHF and cardiomyopathy with an EF of less than 15%, who presents for severe swelling throughout his body. He specifically reporting increased abdominal swelling and scrotal swelling. He states that his swelling has been so severe that he has been unable to get up and walk for the past week. He states that he has not been taking his medication for the past few weeks because it is too difficult to get up and get his medicine. He has a history of noncompliance in the past with medications and with diet. His last food intake was fried Spam today. Chart review reveals his last admission was in August of this year for similar presentation. He denies any fevers or chills. He denies any vomiting or diarrhea. He has had no chest pain. TRAVEL OUTSIDE OF THE [place] IN LAST 30 DAYS: No - Related Data Allergies/Adverse Reactions: No Known Allergies Allergy (Verified 10/15/16 01:26) Past Medical History - General Information source: Patient, [facility] Records - Social History Smoking Status: Unknown if Ever Smoked Lives with: Alone Family History: None - Past Medical History Cardiac Medical History: Reports: Hx Congestive Heart Failure, Hx Heart Attack, Hx Hypercholesterolemia, Hx Hypertension Pulmonary Medical History: Reports: Hx Bronchitis Endocrine Medical History: Reports: Hx Diabetes Mellitus Type 2 Renal/ Medical History: Denies: Hx Peritoneal Dialysis Psychiatric Medical History: Reports: Hx Depression Past Surgical History: Reports: Hx Appendectomy, Hx Cardiac Catheterization, Hx Cardiac Surgery - 5 stents, pacer/defib - Immunizations Hx Diphtheria, Pertussis, Tetanus Vaccination: Yes Review of Systems - Review of Systems Constitutional: Weight gain. denies: Chills, Fever EENT: No symptoms reported Cardiovascular: No symptoms reported. denies: Chest pain Respiratory: See HPI, Short of breath Gastrointestinal: See HPI, Abdomen distended, Abdominal pain. denies: Nausea, Vomiting Genitourinary: See HPI, Other - scrotal edema. denies: Burning, Dysuria Musculoskeletal: See HPI, Leg swelling Skin: No symptoms reported Hematologic/Lymphatic: No symptoms reported Neurological/Psychological: No symptoms reported Physical Exam - Vital signs Vitals: Pulse Ox 100 10/15/16 00:23 - Notes Notes: PHYSICAL EXAMINATION: GENERAL: Alert adult male who is pleasant and conversant. He has mild conversational dyspnea. No acute distress. HEAD: Atraumatic, normocephalic. EYES: Pupils equal round and reactive to light, extraocular movements intact, sclera anicteric, conjunctiva are normal. ENT: nares patent, oropharynx clear without exudates. Moist mucous membranes. NECK: Normal range of motion, supple without lymphadenopathy LUNGS: Faint bibasilar crackles with good air movement bilaterally. No wheezes or rhonchi. HEART: Regular rate and rhythm without murmurs ABDOMEN: Tense and protuberant, nontender, bowel sounds active. No guarding rebound or rigidity. : Scrotum is edematous, no erythema/warmth/tenderness EXTREMITIES: 4+ pitting edema bilateral lower extremities with venous stasis changes. NEUROLOGICAL: Cranial nerves grossly intact. Motor strength +5/5 bilateral upper and lower extremities. Sensation grossly intact PSYCH: Normal mood, normal affect. SKIN: Warm, Dry Course - Re-evaluation Re-evalutation: 10/15/16 03:18 Patient is hemodynamically stable. He did refuse his chest x-ray. He has been given IV Lasix and at this point patient would benefit from admission for continued diuresis. He lives alone and is unable to take care of himself in the state and has been noncompliant with all his medications, for the reason that he states he is unable to get up and walk. Hospitalist has been paged. - Vital Signs Vital signs: Temp Pulse Resp BP Pulse Ox 98.2 F 13 139/91 H 99 10/15/16 03:30 10/15/16 03:30 10/15/16 03:30 10/15/16 03:30 - Laboratory Result Diagrams: 10/15/16 00:29 10/15/16 00:29 Laboratory results interpreted by me: 10/15/16 10/15/16 10/15/16 00:29 00:29 00:29 RBC 3.08 L Hgb 9.1 L Hct 27.6 L RDW 18.2 H Potassium 3.3 L BUN 23 H Creatinine 1.63 H Est GFR ( Amer) 53 L Est GFR (Non-Af Amer) 44 L Direct Bilirubin 0.6 H NT-Pro-B Natriuret Pep 55355 H Albumin 3.3 L Urine Protein Urine Blood Urine Urobilinogen Ur Leukocyte Esterase 10/15/16 01:47 RBC Hgb Hct RDW Potassium BUN Creatinine Est GFR ( Amer) Est GFR (Non-Af Amer) Direct Bilirubin NT-Pro-B Natriuret Pep Albumin Urine Protein 100 H Urine Blood SMALL H Urine Urobilinogen 2.0 H Ur Leukocyte Esterase TRACE H - Diagnostic Test Radiology results interpreted by me: 10/15/16 04:45 pt refused cxr Discharge - Discharge Clinical Impression: Non-compliance, Hypokalemia, Chronic anemia Acute exacerbation of congestive heart failure Qualifiers: Congestive heart failure type: combined Qualified Code(s): I50.43 - Acute on chronic combined systolic (congestive) and diastolic (congestive) heart failure Acute renal failure Qualifiers: Acute renal failure type: unspecified Qualified Code(s): N17.9 - Acute kidney failure, unspecified Condition: Fair Disposition: ADMITTED OBSERVATION Admitting Provider: Hospitalist - Dr. King Unit Admitted: [facility]
[2016-10-15 00:55] LABS: ALANINE AMINOTRANSFERASE 22 U/L (21-72); ALBUMIN 3.3 g/dL (3.5-5.0); ALCOHOL < 10 mg/dL (NONE DETECTED); ALKALINE PHOSPHATASE 109 U/L (38-126); ANION GAP 12 (5-19); ASPARTATE AMINO TRANSFERASE 19 U/L (17-59); BILIRUBIN,DIRECT 0.6 mg/dL (0.0-0.4); BILIRUBIN,TOTAL 1.2 mg/dL (0.2-1.3); BLOOD UREA NITROGEN 23 mg/dL (7-20); CALCIUM 8.9 mg/dL (8.4-10.2); CARBON DIOXIDE 28 mmol/L (22-30); CHLORIDE 99 mmol/L (98-107); CREATINE KINASE 119 U/L (55-170); CREATININE RESULT 1.63 mg/dL (0.52-1.25); GLUCOSE 100 mg/dL (75-110); POTASSIUM 3.3 mmol/L (3.6-5.0); SODIUM 138.9 mmol/L (137-145); TOTAL PROTEIN 7.4 g/dL (6.3-8.2)
[2016-10-15 01:06] LABS: CREATINE KINASE MB 2.48 ng/mL (<4.55); TROPONIN I 0.014 ng/mL
[2016-10-15 02:25] LABS: APPEARANCE,URINE CLEAR; BILIRUBIN,URINE NEGATIVE (NEGATIVE); GLUCOSE, URINE NEGATIVE (NEGATIVE); KETONES,URINE NEGATIVE (NEGATIVE); LEUKOCYTE ESTERASE,URINE TRACE (NEGATIVE); NITRITE,URINE NEGATIVE (NEGATIVE); PROTEIN,URINE 100 mg/dL (NEGATIVE); URINE SPECIFIC GRAVITY 1.014
[2016-10-15] MEDS ORDERED: POTASSIUM CHLORIDE 20 MEQ/15 ML UDCUP PO ONE ×3 (04:35→11:30)
[2016-10-15] MEDS ORDERED: DEXTROSE 40% GEL 15 GM TUBE PO PRN ×2 (07:46)
[2016-10-15] MEDS ORDERED: DEXTROSE 50%-WATER 25 GM/50 ML DISP.SYRIN IV PRN ×2 (07:46)
[2016-10-15] MEDS ORDERED: GLUCAGON,HUMAN RECOMB 1 MG INJ IM PRN (07:46)
[2016-10-15] MEDS ORDERED: INSULIN LISPRO 100 UNIT/ML 3 ML VIAL SUBCUT PRN (07:46)
[2016-10-15] MEDS ORDERED: ACETAMINOPHEN 325 MG TABLET PO PRN (07:58)
[2016-10-15 08:56] LABS: ANION GAP 11 (5-19); BLOOD UREA NITROGEN 24 mg/dL (7-20); CARBON DIOXIDE 28 mmol/L (22-30); CHLORIDE 100 mmol/L (98-107); CREATININE RESULT 1.51 mg/dL (0.52-1.25); GLUCOSE 88 mg/dL (75-110); MAGNESIUM 1.6 mg/dL (1.6-2.3); POTASSIUM 3.3 mmol/L (3.6-5.0); SODIUM 138.8 mmol/L (137-145)
[2016-10-15] MEDS ORDERED: NICOTINE 14 MG/24 HR PATCH.TD24 TD PRN (09:51)
--- NOTE | 2016-10-15 09:56 | PDOC H&P ---
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 Patient has been discussed with emergency room physician who evaluated the patient. Patient describes progressive dyspnea on exertion for the past week or so, along with abdominal and lower extremity swelling. He initially stated that the swelling was so great he was not able to get up and take his medicines. Subsequently simply said he had not been taking most of his medications, with essentially no reason given. Rizwan historian. Appears to have poor insight at best into acute and chronic medical issues and seems poorly motivated to be compliant with medications and diet. Denies fever or chills or chest pain. Half pack a day smoker. Bottle of wine every 2 days. Ate fried spam on the fourth. Currently resting quietly, chest pain-free. Hospitalized on our service basically overnight, with admission on August 26. Discharge diagnoses include acute on chronic congestive heart failure, and acute renal failure. Patient had been eating pork sausage and drinking wine. History and physical and discharge summary have been reviewed. Laboratory results are listed in [facility] and are reviewed. Patient initially refused chest x-ray, stating that he gets a bill each time and the x-ray shows "nothing." However, he has agreed to have the study, with study pending. EKG reviewed and compared to a tracing from August 25 of this year.. Social history/personal habits: . 4 children. Lives alone. Disability. Personal habits as noted above. Denies illicit drug use. No known drug allergies. Home medications initially autopopulated into [facility] may not accurately reflect patient's true medications, dosages, and/or frequencies. termite technician to reconcile medications. Unfortunately, patient not certain of all medications/dosages/frequencies. REVIEW OF SYSTEMS: Constitutional: No fever or chills. Eyes: Wears glasses. ENT: Occasional mild dysphagia without aspiration. Infrequent complaint. Strongly encouraged him to notify staff at Dr. Diaz's office of same. Denies hearing loss. Pulmonary: See history and present illness. Cardiovascular: No current complaints, including chest pain. Gastrointestinal: See history and present illness. Skin: Occasional tiny cracks in the skin of his calves, ankles, and feet due to repeated swelling and shrinkage. Hematologic: Denies easy bruising. Neurologic: Diabetic neuropathy involving his feet. Musculoskeletal: No current or chronic joint complaints, such as arthritis. Psychiatric: Mild anxiety and depression. Denies suicidal or homicidal ideation. Endocrine: No current complaints, including polyuria. Genitourinary: No current complaints, including dysuria. PHYSICAL EXAMINATION: 6 feet 2 inches tall. 143.6 kg. BMI 40.6 kg/m. Blood pressure 136/98. Pulse 88 and regular. 97% saturation on room air. Respirations are 18 and unlabored. Temperature 98.2. Morbidly obese somewhat chronically ill-appearing male who appears a bit older than his stated age. Reasonably pleasant, awake alert and cooperative. Mildly anxious, without agitation. Skin is warm and dry. No grossly obvious evidence of rash in areas of skin examined. No subcutaneous nodules palpated. Has chronic thickening and plaque like formation of his lower extremities, as is sometimes seen in venous stasis disease. No evidence of infection. ENT: Hearing grossly normal to normal conversation. Tongue midline on protrusion pink and slightly tacky. Eyes: No scleral icterus. Pupils equal and reactive to light at 4 mm. [place] conjunctivae. Neck is supple and nontender to gentle active range of motion and palpation. Midline trachea. No palpable thyroid nodule mass enlargement or tenderness. Lymphatic: No palpable cervical or clavicular nodes. Neck and lymphatic exams limited by patient body habitus. Psychiatric: At best poor insight into acute and chronic medical issues. Oriented to time location and why here. Lungs: Auscultation reveals clear and equal breath sounds bilaterally. No use of accessory respiratory muscles. Cardiovascular: Heart regular rate and rhythm, without gallop murmur or rub. No carotid or abdominal aortic bruits. Mild bilateral slightly pitting symmetric calf, ankle, and pedal edema. Not sure I can palpate dorsalis pedis or posterior tibial pulses on either side, due to swelling, but toes are warm and dry with excellent capillary refill. Abdomen:soft obese nontender with positive bowel sounds. Unable to adequately evaluate abdomen for masses or organomegaly due to body habitus. Extremities: Feet are warm and dry. No calf tenderness to compression. Gentle manipulation of lower extremities fails to reveal any obvious evidence of injury or instability to knees hips or ankles. Neurologic: Moves upper extremities grossly normally. Patellar reflexes absent. Absent Babinski. Light touch is decreased at feet, a chronic problem according to patient, without recent change.. Dorsiflexion and plantarflexion of feet 5 / 5 and symmetric. Past Medical History Cardiac Medical History: Reports: Congestive Heart Failure - Combined systolic and diastolic., Myocardial Infarction, Hyperlipidema, Hypertension Denies: Pulmonary Embolism Pulmonary Medical History: Reports: Bronchitis, Sleep Apnea - CPAP, pressure 15. No home oxygen. Denies: Chronic Obstructive Pulmonary Disease (COPD) EENT Medical History: Reports: Eyes - Glasses, Throat - Occasional mild dysphagia, without aspiration. Denies: Ears Neurological Medical History: Reports: Other - Diabetic neuropathy involving his feet, with decreased light touch sensation. Denies: Hemorrhagic CVA, Ischemic CVA, Seizures Endocrine Medical History: Reports: Diabetes Mellitus Type 2, Hypothyroidism - States he might be hypothyroid, according to recent test, but not sure. Denies: Diabetes Mellitus Type 1, Hyperthyroidism Renal/ Medical History: Reports: None GI Medical History: Denies: Cirrhosis, Gastroesophageal Reflux Disease, Hepatitis, Peptic Ulcer Disease Musculoskeltal Medical History: Denies: Arthritis Skin Medical History: Reports: Other - Occasional skin cracks in lower extremities, due to intermittent swelling and shrinkage. Psychiatric Medical History: Reports: Depression Hematology: Reports: None Infectious Medical History: Denies: Clostridium Difficile, Hepatitis B, Hepatitis C, Methicillin- Resistant Staph Aureus Past Surgical History Past Surgical History: Reports: Appendectomy, Cardiac Catheterization, Pacemaker - AICD Social History Information Source: Patient, Emergency Med Personnel, [facility] Records Lives with: Alone Smoking Status: Current Every Day Smoker Frequency of Alcohol Use: Social Hx Recreational Drug Use: No Drugs: None Hx Prescription Drug Abuse: No - Advance Directive Resuscitation Status: Full Code Surrogate healthcare decision maker:: Mother Family History Family History: None Parental Family History Reviewed: Yes - Mother with COPD. Father of uncertain cause. Children Family History Reviewed: Yes - Mental health issues. Sibling(s) Family History Reviewed.: Yes - Sister is diabetic. Medication/Allergy Home Medications: Atorvastatin Calcium [Lipitor 80 mg Tablet] 80 mg PO QHS 10/15/16 Carvedilol [Coreg 6.25 mg Tablet] 6.25 mg PO BID 10/15/16 Glimepiride [Amaryl 4 mg Tablet] 4 mg PO DAILY 10/15/16 Levothyroxine Sodium [Synthroid] 25 mcg PO QAM 10/15/16 Lisinopril [Zestril] 5 mg PO Q12 10/15/16 Metformin HCl [Glucophage] 1,000 mg PO BID 10/15/16 RX: Metolazone [Zaroxolyn 5 mg Tablet] 5 mg PO BID 10/15/16 RX: Midodrine HCl 2.5 mg PO QAM 10/15/16 RX: Potassium Chloride [K-Tab ER] 20 mg PO BID 10/15/16 RX: Torsemide [Demadex 20 mg Tablet] 20 mg PO QPM 10/15/16 RX: Torsemide [Demadex 20 mg Tablet] 40 mg PO QAM 10/15/16 Spironolactone [Aldactone 25 mg Tablet] 25 mg PO BID 10/15/16 Tamsulosin HCl [Flomax 0.4 mg Cap.sr] 0.4 mg PO QHS 10/15/16 Allergies/Adverse Reactions: No Known Allergies Allergy (Verified 10/15/16 01:26) Physical Exam Vital Signs: Temp Pulse Resp BP Pulse Ox 98.2 F 19 141/103 H 100 10/15/16 03:30 10/15/16 06:01 10/15/16 06:30 10/15/16 06:30 Assessment & Plan - Diagnosis (1) Abnormal urinalysis Is this a current diagnosis for this admission?: YesPlan: Urine culture. We will forego antibiotics at this point in time. (2) Acute on chronic combined systolic (congestive) and diastolic (congestive) heart failure Is this a current diagnosis for this admission?: YesPlan: Due in large part to noncompliance with both diet and medications. Patient will be admitted under CHF protocol. Repeat troponin. Parenteral Lasix 1 for next dose. Patient is a full code. I have strongly encouraged patient not to get out of bed without notifying staff , to avoid a fall with injury. Knee high SCDs for DVT prophylaxis, along with subcutaneous heparin. Impression and plans were discussed with patient, Time spent in evaluation and management of patient: 65 minutes (3) Chronic anemia Is this a current diagnosis for this admission?: Yes (4) Hypokalemia Is this a current diagnosis for this admission?: YesPlan: Potassium replacement with follow-up chemistry. (5) CKD (chronic kidney disease), stage III Is this a current diagnosis for this admission?: Yes (6) Diabetes mellitus type 2 in obese Is this a current diagnosis for this admission?: YesPlan: Diabetic cardiac prerenal diet. Accu-Cheks with appropriate sliding scale coverage. Resume home medications as appropriate once these have been determined and reviewed. (7) Noncompliance with diet and medication regimen Is this a current diagnosis for this admission?: YesPlan: Patient education. (8) ALEYDA (obstructive sleep apnea) Is this a current diagnosis for this admission?: YesPlan: CPAP per patient settings--room air, pressure 15.
[2016-10-15] MEDS ORDERED: HEPARIN SOD (PORCINE) 5,000 UNIT/ML 1 ML SYRINGE SUBCUT SCH (10:00)
--- NOTE | 2016-10-15 10:00 | Physician Advisory Note ---
Physician Advisor ProgressNote .: Pursuant to the plan for [facility], I have reviewed the medical record for this patient. Physician Advisor Statement: Please consider documentin. "acute on chronic systolic CHFw/EF 15% & ___ cardiomyopathy" [ischemic?] 2. "obesity w/BMI 40.6" 3. "CKD stage 3" 4. "CAD w/5 previous stents" 5. Medical necessity: This Medicare pt has been receiving care since just after MN today, so has spent no MN's yet. His degree of fluid overload is such that this reviewer would be rather surprised to hear he will be ready for d/c home after just 1 MN (severity if illness sounds significant), but initial orders indicate a plan for a couple doses IV Lasix this AM & then changing to a po regimen (intensity of service not clearly indicating need for Inpt care), so status of Observation sounds appropriate to start. If, on 10/16, he is deemed not sufficiently stable for d/c, please document reasons he needs to continue hospital care/monitoring at that point, & may then consider change to Inpt status. Thanks! CK
--- NOTE | 2016-10-15 11:21 | Progress Note ---
Provider Note Provider Note: reason for visit: f/u heart failure, CKD stage 3, medical noncompliance hospital course: per other's notes -"KEN ZAYAS is a 56 year old male with known severe combined systolic and diastolic congestive heart failure , recent ejection fraction noted less than 15%, and with known history of noncompliance with both medications and diet, who presents to the emergency room for evaluation of swelling and SOA. Patient describes progressive dyspnea on exertion for the past week or so, along with abdominal, scrotal and lower extremity swelling. He initially stated that the swelling was so great he was not able to get up and take his medicines. And he just simply said he had not been taking most of his medications, with essentially no reason given. Rizwan historian. Appears to have poor insight at best and do acute and chronic medical issues. Denies fever or chills or chest pain. Half pack a day smoker. Bottle of wine every 2 days. Ate fried spam on the fourth. Currently resting quietly, chest pain-free. Hospitalized on our service basically overnight, with admission on August 26. Discharge diagnoses include acute on chronic congestive heart failure, and acute renal failure. Patient had been eating pork sausage and drinking wine. History and physical and discharge summary have been reviewed. Patient initially refused chest x-ray, stating that he gets a bill each time and the x-ray shows "nothing." However, he has agreed to have the study, with study pending." I find him resting comfortably in the bed in acute distress, respiratory or otherwise, calm and cooperative. He continues to c/o mostly his scrotal swelling and very concerned that we need "to get that fluid out". He notes increased swelling of his abdomen and lower extremities and states it always starts in his abdomen and "goes down". he denies chest pain, he does get breathless with minimal exertion but denies N/V, anorexia, palpitations, total 10 systems reviewed, remaining systems negative. PE: vital reviewed and stable without tachycardia or desats and no fevers; morbidly obese, large neck pannus makes evaluation of JVD difficult, neck is supple, oral mucosa moist, sclera anicteric, EOMI, tongue midline, chest with rales at the bases but no wheeze and no acc muscle use or tachypnea for me, cardio is RRR with distant heart sounds though I think I hear a faint systolic murmur at apex, abdomen is massive, difficult to palpate organomegaly, shifting dullness or fluid wave but has pitting, woody edema from above the umbilicus distally to the feet with chronic acrocyanotic, dry scaling woody edema of the legs, massive scrotal edema swallowing his penis with contreras in place but no signs of ischemic changes to the skin and nontender to the touch; full ROM, no calf tenderness, skin is o/w damp and cool, mood/affect are normal. labs and imaging reviewed. Labs- All tests 24 hr 10/15/16 10/15/16 10/15/16 00:29 00:29 00:29 WBC 5.7 RBC 3.08 L Hgb 9.1 L Hct 27.6 L MCV 90 MCH 29.6 MCHC 33.0 RDW 18.2 H Plt Count 299 Seg Neutrophils % 63.9 Lymphocytes % 22.1 Monocytes % 10.9 Eosinophils % 1.8 Basophils % 1.3 Absolute Neutrophils 3.7 Absolute Lymphocytes 1.3 Absolute Monocytes 0.6 Absolute Eosinophils 0.1 Absolute Basophils 0.1 Sodium 138.9 Potassium 3.3 L Chloride 99 Carbon Dioxide 28 Anion Gap 12 BUN 23 H Creatinine 1.63 H Est GFR ( Amer) 53 L Est GFR (Non-Af Amer) 44 L Glucose 100 POC Glucose Calcium 8.9 Magnesium Total Bilirubin 1.2 Direct Bilirubin 0.6 H Indirect Bilirubin Not Reportable Neonat Total Bilirubin Not Reportable AST 19 ALT 22 Alkaline Phosphatase 109 Creatine Kinase 119 CK-MB (CK-2) 2.48 Troponin I 0.014 NT-Pro-B Natriuret Pep 84441 H Total Protein 7.4 Albumin 3.3 L Urine Color Urine Appearance Urine pH Ur Specific [place] Urine Protein Urine Glucose (UA) Urine Ketones Urine Blood Urine Nitrite Urine Bilirubin Urine Urobilinogen Ur Leukocyte Esterase Urine WBC (Auto) Urine RBC (Auto) Urine Bacteria (Auto) Squamous Epi Cells Auto Urine Mucus (Auto) Urine Ascorbic Acid Serum Alcohol < 10 10/15/16 10/15/16 10/15/16 01:47 08:18 08:18 WBC RBC Hgb Hct MCV MCH MCHC RDW Plt Count Seg Neutrophils % Lymphocytes % Monocytes % Eosinophils % Basophils % Absolute Neutrophils Absolute Lymphocytes Absolute Monocytes Absolute Eosinophils Absolute Basophils Sodium 138.8 Potassium 3.3 L Chloride 100 Carbon Dioxide 28 Anion Gap 11 BUN 24 H Creatinine 1.51 H Est GFR ( Amer) 58 L Est GFR (Non-Af Amer) 48 L Glucose 88 POC Glucose Calcium 9.0 Magnesium 1.6 Total Bilirubin Direct Bilirubin Indirect Bilirubin Neonat Total Bilirubin AST ALT Alkaline Phosphatase Creatine Kinase CK-MB (CK-2) Troponin I 0.016 NT-Pro-B Natriuret Pep Total Protein Albumin Urine Color YELLOW Urine Appearance CLEAR Urine pH 6.0 Ur Specific [place] 1.014 Urine Protein 100 H Urine Glucose (UA) NEGATIVE Urine Ketones NEGATIVE Urine Blood SMALL H Urine Nitrite NEGATIVE Urine Bilirubin NEGATIVE Urine Urobilinogen 2.0 H Ur Leukocyte Esterase TRACE H Urine WBC (Auto) 14 Urine RBC (Auto) 3 Urine Bacteria (Auto) TRACE Squamous Epi Cells Auto 1 Urine Mucus (Auto) RARE Urine Ascorbic Acid NEGATIVE Serum Alcohol 10/15/16 08:44 WBC RBC Hgb Hct MCV MCH MCHC RDW Plt Count Seg Neutrophils % Lymphocytes % Monocytes % Eosinophils % Basophils % Absolute Neutrophils Absolute Lymphocytes Absolute Monocytes Absolute Eosinophils Absolute Basophils Sodium Potassium Chloride Carbon Dioxide Anion Gap BUN Creatinine Est GFR ( Amer) Est GFR (Non-Af Amer) Glucose POC Glucose 90 Calcium Magnesium Total Bilirubin Direct Bilirubin Indirect Bilirubin Neonat Total Bilirubin AST ALT Alkaline Phosphatase Creatine Kinase CK-MB (CK-2) Troponin I NT-Pro-B Natriuret Pep Total Protein Albumin Urine Color Urine Appearance Urine pH Ur Specific [place] Urine Protein Urine Glucose (UA) Urine Ketones Urine Blood Urine Nitrite Urine Bilirubin Urine Urobilinogen Ur Leukocyte Esterase Urine WBC (Auto) Urine RBC (Auto) Urine Bacteria (Auto) Squamous Epi Cells Auto Urine Mucus (Auto) Urine Ascorbic Acid Serum Alcohol no cxr as yet A/P: - acute on chronic systolic heart failure with known severe ischemic CM, last EF 15% - CKD stage 3 - mild hypokalemia - morbid obesity with BMI >40 - chronic NC NC anemia - CAD with prior hx of stents - ALEYDA on home CPAP, possible Pickwickian Syndrome/cor pulmonale continue attempts at diuresis with IV lasix, strict I/Os and follow BMP for renal function, replace and monitor lytes, monitor H/H - no signs of blood loss at present. He has turned around quickly in the past with dietary discretion and resumption of his meds.
--- NOTE | 2016-10-15 14:30 | EKG REPORT ---
SEVERITY:- ABNORMAL ECG - ATRIAL-SENSED VENTRICULAR-PACED RHYTHM : Confirmed by: Juliana Diaz 15-Oct-2016 14:29:31
[2016-10-15] MEDS: HEPARIN SOD (PORCINE) 5,000 UNIT/ML 1 ML SYRINGE SUBCUT SCH ×2 (14:37→21:29)
[2016-10-15] MEDS: POTASSIUM CHLORIDE 10 MEQ TABLET.SA PO SCH (17:17)
[2016-10-15] MEDS: FUROSEMIDE INJ/PF 40 MG/4 ML SDV IV SCH (17:18)
[2016-10-15] MEDS ORDERED: SPIRONOLACTONE 25 MG TABLET PO SCH (18:00)
[2016-10-15] MEDS ORDERED: CARVEDILOL 3.125 MG TABLET PO SCH (18:00)
[2016-10-15] MEDS: CARVEDILOL 6.25 MG TABLET PO SCH (21:29)
[2016-10-15] MEDS: SPIRONOLACTONE 25 MG TABLET PO SCH (21:29)
[2016-10-15] MEDS: ATORVASTATIN CALCIUM 80 MG TABLET PO SCH (21:29)
[2016-10-15] MEDS ORDERED: FUROSEMIDE 20 MG TABLET PO SCH (22:00)
[2016-10-16 04:37] LABS: ABSOLUTE BASOPHILS # (AUTO) 0.1 10^3/uL (0.0-0.2); ABSOLUTE EOSINOPHILS # (AUTO) 0.2 10^3/uL (0.0-0.6); ABSOLUTE LYMPHOCYTES (AUTO) 1.2 10^3/uL (0.5-4.7); ABSOLUTE MONOCYTES (AUTO) 0.7 10^3/uL (0.1-1.4); ABSOLUTE NEUT (AUTO) 4.6 10^3/uL (1.7-8.2); BASOPHILS % (AUTO) 1.4 % (0-2); EOSINOPHILS % (AUTO) 2.3 % (0-6); HEMATOCRIT 27.1 % (37.9-51.0); HGB HCT DIFFERENCE -0.1; LYMPHOCYTES % (AUTO) 17.8 % (13-45); MEAN CORPUSCULAR HGB CONC 33.3 g/dL (32.0-36.0); MEAN CORPUSCULAR VOLUME 90 fl (80-97); MONOCYTES % (AUTO) 10.8 % (3-13); RED BLOOD COUNT 3.02 10^6/uL (4.35-5.55); RED CELL DISTRIBUTION WIDTH 18.6 % (11.5-14.0); SEGMENTED NEUTROPHILS % (AUTO) 67.7 % (42-78); WHITE BLOOD COUNT 6.8 10^3/uL (4.0-10.5)
[2016-10-16 05:00] LABS: ANION GAP 7 (5-19); BLOOD UREA NITROGEN 25 mg/dL (7-20); CALCIUM 8.9 mg/dL (8.4-10.2); CARBON DIOXIDE 30 mmol/L (22-30); CHLORIDE 100 mmol/L (98-107); CREATININE RESULT 1.59 mg/dL (0.52-1.25); GLUCOSE 123 mg/dL (75-110); MAGNESIUM 1.5 mg/dL (1.6-2.3); POTASSIUM 3.7 mmol/L (3.6-5.0); SODIUM 136.5 mmol/L (137-145)
[2016-10-16] MEDS: HEPARIN SOD (PORCINE) 5,000 UNIT/ML 1 ML SYRINGE SUBCUT SCH ×3 (06:44→22:45)
[2016-10-16] MEDS: FUROSEMIDE INJ/PF 40 MG/4 ML SDV IV SCH (06:44)
--- NOTE | 2016-10-16 07:04 | Physician Advisory Note ---
Physician Advisor ProgressNote .: Pursuant to the plan for [facility], I have reviewed the medical record for this patient. Physician Advisor Statement: Summary Physician Advisor note (no need to look at 1st one if reading this one): Please consider documenting [#1-4 are already included in 10/15 progress note]: 1. "acute on chronic systolic CHFw/EF 15% & ___ cardiomyopathy" [ischemic?] 2. "obesity w/BMI 40.6" 3. "CKD stage 3" 4. "CAD w/5 previous stents" 5. "acute hyponatremia, mild, likely due to " 6. Medical necessity: This Medicare pt has been receiving care since just after MN 10/15. His degree of fluid overload is tremendous. Attending on 10/15 changed orders in PM to continue IV Lasix q12h with KCL bid & adding spironolactone, consistent w/pt not responding as well as hoped to initial tx by that point. Nursing note at 22:00 indicates pt still w/3+ pitting edema of abd, BLEs, & scrotum, w/abd firm, distended, & rigid. I/O on 10/15 = net neg 1256ml. If, on 10/16, he is deemed not sufficiently stable for d/c, please document reasons he needs to continue hospital care/monitoring, & consider change to Inpt status. [In support of Inpt status, & for general education about status decision in CHF pts: This reviewer, based on documented extreme degree of fluid overload & response to tx so far - though not having seen this pt personally now or before - would expect several days of aggressive IV diuretic tx w/close monitoring of I /O's, lytes & renal function will be needed to diurese/stabilize pt sufficiently to consider a d/c safe from a quick "bounce-back" readmission. If admitting attending had had, & had documented, this expectation, & initial plan had been to continue IV diuretics initially without quick change to po diuretic , pt would have been appropriate to bring in initially as Inpt. However, given the initial impression of attendings that this pt could diurese profoundly in a very quick amount of time based on prior response, it was appropriate for him to be Obs status initially.] Thanks! CK
[2016-10-16] MEDS: CLOPIDOGREL BISULFATE 75 MG TABLET PO SCH (09:55)
[2016-10-16] MEDS: NITROGLYCERIN 5 MG (0.2 MG/HR) PATCH.TD24 TD SCH (09:55)
[2016-10-16] MEDS: CARVEDILOL 6.25 MG TABLET PO SCH ×2 (09:56→22:45)
[2016-10-16] MEDS: POTASSIUM CHLORIDE 10 MEQ TABLET.SA PO SCH ×2 (09:56→17:46)
[2016-10-16] MEDS: ASPIRIN 81 MG TABLET, ENT COATED PO SCH (09:56)
[2016-10-16] MEDS: SPIRONOLACTONE 25 MG TABLET PO SCH (09:56)
[2016-10-16] MEDS ORDERED: MAGNESIUM SULFATE/D5W 100 ML IV ONE (10:54)
[2016-10-16] MEDS ORDERED: BUMETANIDE INJ/PF 1 MG/4 ML SDV IV SCH (14:00)
--- NOTE | 2016-10-16 16:33 | PDOC PROGRESS REPORT ---
Subjective Progress Note for:: 10/16/16 Subjective:: This is a follow-up visit for acute on chronic combined congestive heart failure. The patient complains of scrotal edema. He is greatly concerned about how long he will need to be in the hospital for financial reasons. He does not think his breathing better, nor does he thinks his swelling is changed. Physical Exam Vital Signs: Temp Pulse Resp BP Pulse Ox 97.7 F 72 18 100/72 98 10/16/16 11:43 10/16/16 11:43 10/16/16 11:43 10/16/16 11:43 10/16/16 11:43 Intake & Output 10/15/16 10/16/16 10/17/16 06:59 06:59 06:59 Intake Total 2895 459 Output Total 3700 400 Balance -805 59 Weight 144 kg Physical exam: General: This is a well-developed and nourished appearing white male resting on the side of his bed currently in no acute distress. HEART: Regular rate and rhythm. No murmurs rubs or gallops Lungs: Diminished breath sounds bilaterally with equal rise and fall of the chest otherwise clear Abdomen: Distended Extremities: No clubbing or cyanosis. Patient has anasarca. The Skin on the legs is tight. Patient does not have any hair on his legs. Changes of venous stasis are obvious. Pulses are not able to be palpated. Neuro: Awake, alert oriented 3. Cranial nerves are grossly intact Results Laboratory Results: 10/16/16 04:26 10/16/16 04:26 10/16/16 10/16/16 04:26 04:26 WBC 6.8 RBC 3.02 L Hgb 9.0 L Hct 27.1 L MCV 90 MCH 30.0 MCHC 33.3 RDW 18.6 H Plt Count 309 Seg Neutrophils % 67.7 Lymphocytes % 17.8 Monocytes % 10.8 Eosinophils % 2.3 Basophils % 1.4 Absolute Neutrophils 4.6 Absolute Lymphocytes 1.2 Absolute Monocytes 0.7 Absolute Eosinophils 0.2 Absolute Basophils 0.1 Sodium 136.5 L Potassium 3.7 Chloride 100 Carbon Dioxide 30 Anion Gap 7 BUN 25 H Creatinine 1.59 H Est GFR ( Amer) 55 L Est GFR (Non-Af Amer) 45 L Glucose 123 H Calcium 8.9 Magnesium 1.5 L 10/15/16 10/16/16 08:18 04:26 Troponin I 0.016 NT-Pro-B Natriuret Pep 65318 H Assessment & Plan - Diagnosis (1) Acute on chronic combined systolic (congestive) and diastolic (congestive) heart failure Is this a current diagnosis for this admission?: YesPlan: The patient is currently on Lasix twice a day. At this point I do not think it is enough. I am going to change him to Bumex q. 8 hour. He is greatly edematous. Continue sodium restriction and fluid restriction. EF 30-35% (2) Diabetes Plan: Continue sliding scale insulin. ADA diet (3) ALEYDA (obstructive sleep apnea) Is this a current diagnosis for this admission?: YesPlan: Continue CPAP (4) Hypokalemia Is this a current diagnosis for this admission?: YesPlan: Resolved (5) CKD (chronic kidney disease), stage III Is this a current diagnosis for this admission?: YesPlan: Stable. Continue to monitor on diuretics (6) Hypomagnesemia Plan: Replace today. - Time Time Spent with patient: 25-34 minutes - Inpatient Certification Medical Necessity: Significant Comorbidiites Make Outpatient Treatment Too Risky
[2016-10-16] MEDS ORDERED: SPIRONOLACTONE 25 MG TABLET PO ONE (20:30)
[2016-10-16] MEDS: METOLAZONE 2.5 MG TABLET PO SCH (21:07)
[2016-10-16] MEDS: ATORVASTATIN CALCIUM 80 MG TABLET PO SCH (22:45)
[2016-10-16] MEDS: BUMETANIDE INJ/PF 1 MG/4 ML SDV IV SCH (22:45)
[2016-10-16] MEDS: TRAZODONE HCL 50 MG TABLET PO SCH (22:46)
[2016-10-17 04:57] LABS: ABSOLUTE BASOPHILS # (AUTO) 0.1 10^3/uL (0.0-0.2); ABSOLUTE EOSINOPHILS # (AUTO) 0.1 10^3/uL (0.0-0.6); ABSOLUTE LYMPHOCYTES (AUTO) 1.4 10^3/uL (0.5-4.7); ABSOLUTE MONOCYTES (AUTO) 0.8 10^3/uL (0.1-1.4); ABSOLUTE NEUT (AUTO) 3.7 10^3/uL (1.7-8.2); BASOPHILS % (AUTO) 1.3 % (0-2); HEMATOCRIT 25.3 % (37.9-51.0); HEMOGLOBIN 8.3 g/dL (13.5-17.0); HGB HCT DIFFERENCE -0.4; LYMPHOCYTES % (AUTO) 22.6 % (13-45); MEAN CORPUSCULAR HEMOGLOBIN 29.4 pg (27.0-33.4); MEAN CORPUSCULAR HGB CONC 33.1 g/dL (32.0-36.0); MEAN CORPUSCULAR VOLUME 89 fl (80-97); MONOCYTES % (AUTO) 13.5 % (3-13); RED BLOOD COUNT 2.84 10^6/uL (4.35-5.55); RED CELL DISTRIBUTION WIDTH 18.3 % (11.5-14.0); SEGMENTED NEUTROPHILS % (AUTO) 60.6 % (42-78); WHITE BLOOD COUNT 6.1 10^3/uL (4.0-10.5)
[2016-10-17 05:11] LABS: ANION GAP 8 (5-19); BLOOD UREA NITROGEN 26 mg/dL (7-20); CALCIUM 8.9 mg/dL (8.4-10.2); CARBON DIOXIDE 29 mmol/L (22-30); CHLORIDE 98 mmol/L (98-107); CREATININE RESULT 1.83 mg/dL (0.52-1.25); GLUCOSE 93 mg/dL (75-110); MAGNESIUM 1.6 mg/dL (1.6-2.3); SODIUM 134.9 mmol/L (137-145)
[2016-10-17] MEDS ORDERED: BUMETANIDE INJ/PF 1 MG/4 ML SDV ONE (05:18)
[2016-10-17] MEDS: METOLAZONE 2.5 MG TABLET PO SCH ×3 (05:23→21:57)
[2016-10-17] MEDS: BUMETANIDE INJ/PF 1 MG/4 ML SDV IV SCH ×3 (06:54→21:58)
[2016-10-17] MEDS: HEPARIN SOD (PORCINE) 5,000 UNIT/ML 1 ML SYRINGE SUBCUT SCH ×3 (06:54→22:10)
[2016-10-17] MEDS: NITROGLYCERIN 5 MG (0.2 MG/HR) PATCH.TD24 TD SCH (10:16)
[2016-10-17] MEDS: SPIRONOLACTONE 25 MG TABLET PO SCH ×2 (10:18→17:47)
[2016-10-17] MEDS: CLOPIDOGREL BISULFATE 75 MG TABLET PO SCH (10:18)
[2016-10-17] MEDS: POTASSIUM CHLORIDE 10 MEQ TABLET.SA PO SCH ×2 (10:19→17:47)
[2016-10-17] MEDS: CARVEDILOL 6.25 MG TABLET PO SCH ×2 (10:19→21:59)
[2016-10-17] MEDS: ASPIRIN 81 MG TABLET, ENT COATED PO SCH (10:19)
[2016-10-17] MEDS: AMOXICILLIN TR/POT CLAVULANATE 500-125 MG TAB PO SCH ×2 (13:38→21:59)
--- NOTE | 2016-10-17 14:55 | PDOC PROGRESS REPORT ---
Subjective Subjective:: This is a follow-up visit for acute on chronic combined congestive heart failure. It did not sleep well last night. He does not think his swelling is any better. Chest pain or worsening shortness of breath Physical Exam Vital Signs: Temp Pulse Resp BP Pulse Ox 98.0 F 67 18 105/77 91 L 10/17/16 04:46 10/17/16 07:00 10/17/16 04:46 10/17/16 04:46 10/17/16 04:46 Intake & Output 10/16/16 10/17/16 10/18/16 06:59 06:59 06:59 Intake Total 2895 1903 Output Total 3700 2145 Balance -805 -242 Weight 144 kg Physical exam: General: This is a well-developed and nourished appearing white male resting on the side of his bed currently in no acute distress. HEART: Regular rate and rhythm. No murmurs rubs or gallops Lungs: Patient is resting on CPAP sleeping. Anteriorly he is clear to auscultation with equal rise and fall of the chest. Abdomen: Distended, tight Extremities: No clubbing or cyanosis. Patient has anasarca. The Skin on the legs is slightly less tight. Patient does not have any hair on his legs. Changes of venous stasis are obvious. Pulses are not able to be palpated. : Large scrotal edema Neuro: Sleeping initially. Then Awake, alert oriented 3. Cranial nerves are grossly intact Results Laboratory Results: 10/17/16 04:04 10/17/16 04:04 10/17/16 10/17/16 04:04 04:04 WBC 6.1 RBC 2.84 L Hgb 8.3 L Hct 25.3 L MCV 89 MCH 29.4 MCHC 33.1 RDW 18.3 H Plt Count 277 Seg Neutrophils % 60.6 Lymphocytes % 22.6 Monocytes % 13.5 H Eosinophils % 2.0 Basophils % 1.3 Absolute Neutrophils 3.7 Absolute Lymphocytes 1.4 Absolute Monocytes 0.8 Absolute Eosinophils 0.1 Absolute Basophils 0.1 Sodium 134.9 L Potassium 4.0 Chloride 98 Carbon Dioxide 29 Anion Gap 8 BUN 26 H Creatinine 1.83 H Est GFR ( Amer) 47 L Est GFR (Non-Af Amer) 39 L Glucose 93 Calcium 8.9 Magnesium 1.6 10/15/16 10/16/16 08:18 04:26 Troponin I 0.016 NT-Pro-B Natriuret Pep 55914 H Assessment & Plan - Diagnosis (1) Acute on chronic combined systolic (congestive) and diastolic (congestive) heart failure Is this a current diagnosis for this admission?: YesPlan: Continue Bumex 2 mg every 8 hours. Continue sodium restriction and fluid restriction 1500. EF 30-35% (2) Diabetes Qualifiers: Diabetes mellitus type: type 2 Diabetes mellitus complication status: with unspecified complications Is this a current diagnosis for this admission?: YesPlan: Continue sliding scale insulin. ADA diet (3) ALEYDA (obstructive sleep apnea) Is this a current diagnosis for this admission?: YesPlan: Continue CPAP (4) Hypokalemia Is this a current diagnosis for this admission?: YesPlan: Resolved (5) CKD (chronic kidney disease), stage III Is this a current diagnosis for this admission?: YesPlan: Stable. Continue to monitor on diuretics (6) Hypomagnesemia Plan: Resolved (7) UTI (urinary tract infection) Plan: Gram positive cocci in chains. Will begin augmentin and await final cultures. No WBC elevation at this point. - Time Time Spent with patient: 25-34 minutes
--- NOTE | 2016-10-17 19:30 | PDOC CONSULTATION ---
Consultation Consult Date: 10/16/16 Attending physician:: ETHAN GARCIA Consult reason:: Anasarca History of Present Illness Admission Date/PCP: 10/15/16 07:42 Patient complains of: Dyspnea and anasarca History of Present Illness: KEN ZAYAS is a 56 year old male with known severe combined systolic and diastolic congestive heart failure, recent ejection fraction noted less than 15%, and with known history of noncompliance with both medications and diet, admitted through the emergency room for evaluation of dyspnea and general anasarca. Patient has been seen in the office in the past. Patient has a history of tobacco smoking and also previous heavy drinking. Patient describes history of prior myocardial infarction. He has been noted to be noncompliant and has poor motivation. Patient describes progressive dyspnea on exertion for the past week or so, along with abdominal and lower extremity swelling. He initially stated that the swelling was so great he was not able to get up and take his medicines. And he just simply said he had not been taking most of his medications, with essentially no reason given. Rizwan historian. Appears to have poor insight at best and do acute and chronic medical issues. Hospitalized overnight, with admission on August 26. Discharge diagnoses include acute on chronic congestive heart failure, and acute renal failure. Patient had been eating pork sausage and drinking wine. This history was reviewed, supplemented and confirmed by me. Past Medical History Cardiac Medical History: Reports: Congestive Heart Failure - Combined systolic and diastolic., Myocardial Infarction, Hyperlipidema, Hypertension, Peripheral Vascular Disease Denies: Pulmonary Embolism Pulmonary Medical History: Reports: Bronchitis, Sleep Apnea - CPAP, pressure 15. No home oxygen. Denies: Chronic Obstructive Pulmonary Disease (COPD) EENT Medical History: Reports: Eyes - Glasses, Throat - Occasional mild dysphagia, without aspiration. Denies: Ears Neurological Medical History: Reports: Other - Diabetic neuropathy involving his feet, with decreased light touch sensation. Denies: Hemorrhagic CVA, Ischemic CVA, Seizures Endocrine Medical History: Reports: Diabetes Mellitus Type 2, Hypothyroidism - States he might be hypothyroid, according to recent test, but not sure. Denies: Diabetes Mellitus Type 1, Hyperthyroidism Renal/ Medical History: Reports: None GI Medical History: Reports: Gastroesophageal Reflux Disease Denies: Cirrhosis, Hepatitis, Peptic Ulcer Disease Musculoskeltal Medical History: Denies: Arthritis Skin Medical History: Reports: Other - Occasional skin cracks in lower extremities, due to intermittent swelling and decrease in swelling. Psychiatric Medical History: Reports: Depression Hematology: Reports: None Infectious Medical History: Denies: Clostridium Difficile, Hepatitis B, Hepatitis C, Methicillin- Resistant Staph Aureus Past Surgical History Past Surgical History: Reports: Appendectomy, Cardiac Catheterization, Internal Defibrillator, Pacemaker - AICD Social History Information Source: Patient Lives with: Alone Smoking Status: Current Every Day Smoker Cigarettes Packs Per Day: 2 Number of Years Smokin Frequency of Alcohol Use: Social Hx Recreational Drug Use: No Drugs: None Hx Prescription Drug Abuse: No - Advance Directive Resuscitation Status: Full Code Surrogate healthcare decision maker:: Patient's son. Family History Family History: None, CAD Parental Family History Reviewed: Yes Children Family History Reviewed: Yes Sibling(s) Family History Reviewed.: Yes Medication/Allergy Home Medications: Atorvastatin Calcium [Lipitor 80 mg Tablet] 80 mg PO QHS 10/15/16 Carvedilol [Coreg 6.25 mg Tablet] 6.25 mg PO BID 10/15/16 Glimepiride [Amaryl 4 mg Tablet] 4 mg PO DAILY 10/15/16 Levothyroxine Sodium [Synthroid] 25 mcg PO QAM 10/15/16 Lisinopril [Zestril] 5 mg PO Q12 10/15/16 Metformin HCl [Glucophage] 1,000 mg PO BID 10/15/16 Metolazone [Zaroxolyn 5 mg Tablet] 5 mg PO BID 10/15/16 Midodrine HCl 2.5 mg PO QAM 10/15/16 Potassium Chloride [K-Tab ER] 20 mg PO BID 10/15/16 Spironolactone [Aldactone 25 mg Tablet] 25 mg PO BID 10/15/16 Tamsulosin HCl [Flomax 0.4 mg Cap.sr] 0.4 mg PO QHS 10/15/16 Torsemide [Demadex 20 mg Tablet] 20 mg PO QPM 10/15/16 Torsemide [Demadex 20 mg Tablet] 40 mg PO QAM 10/15/16 Allergies/Adverse Reactions: No Known Allergies Allergy (Verified 10/15/16 01:26) Review of Systems Constitutional: PRESENT: fatigue, weakness, weight gain. ABSENT: chills, fever( s), headache(s), weight loss Eyes: ABSENT: visual disturbances Ears: ABSENT: hearing changes Cardiovascular: PRESENT: dyspnea on exertion, edema, orthropnea. ABSENT: chest pain, palpitations Respiratory: ABSENT: cough, hemoptysis Gastrointestinal: PRESENT: bloating. ABSENT: abdominal pain, constipation, diarrhea, hematemesis, hematochezia, nausea, vomiting Genitourinary: PRESENT: nocturia. ABSENT: dysuria, hematuria Musculoskeletal: PRESENT: muscle weakness. ABSENT: joint swelling Integumentary: ABSENT: rash, wounds Neurological: PRESENT: weakness. ABSENT: abnormal gait, abnormal speech, confusion, dizziness, focal weakness, syncope Psychiatric: PRESENT: depression. ABSENT: anxiety, homidical ideation, suicidal ideation Endocrine: ABSENT: cold intolerance, heat intolerance, polydipsia, polyuria Hematologic/Lymphatic: ABSENT: easy bleeding, easy bruising Physical Exam Vital Signs: Temp Pulse Resp BP Pulse Ox 97.3 F 78 20 105/73 99 10/16/16 16:42 10/16/16 16:42 10/16/16 16:42 10/16/16 16:42 10/16/16 16:42 Intake & Output 10/15/16 10/16/16 10/17/16 06:59 06:59 06:59 Intake Total 2895 796 Output Total 3700 775 Balance -805 21 Weight 144 kg General appearance: PRESENT: no acute distress, well-developed, well-nourished Head exam: PRESENT: atraumatic, normocephalic Eye exam: PRESENT: conjunctiva pink, EOMI, PERRLA. ABSENT: scleral icterus Ear exam: PRESENT: normal external ear exam Mouth exam: PRESENT: moist, tongue midline Neck exam: PRESENT: JVD - 14 cm. ABSENT: carotid bruit, lymphadenopathy, thyromegaly Respiratory exam: PRESENT: crackles - fine, both bases., rhonchi. ABSENT: rales , wheezes Cardiovascular exam: PRESENT: gallop - S3+, RRR, +S1, +S2, systolic murmur - 1/ 6 EKATERINA Aortic Area and 1/6 EKATERINA apex. ABSENT: diastolic murmur, rubs Pulses: PRESENT: normal dorsalis pedis pul, +1 pedal pulses bilateral Vascular exam: PRESENT: normal capillary refill GI/Abdominal exam: PRESENT: normal bowel sounds, soft. ABSENT: distended, guarding, mass, organolmegaly, rebound, tenderness Rectal exam: PRESENT: deferred Gentrourinary exam: PRESENT: scrotal swelling Extremities exam: PRESENT: full ROM, pedal edema, +2 edema. ABSENT: calf tenderness, clubbing Neurological exam: PRESENT: alert, awake, oriented to person, oriented to place , oriented to time, oriented to situation, CN II-XII grossly intact. ABSENT: motor sensory deficit Psychiatric exam: PRESENT: appropriate affect, normal mood. ABSENT: homicidal ideation, suicidal ideation Skin exam: PRESENT: dry, intact, rash, warm. ABSENT: cyanosis Results Laboratory Results: 10/16/16 04:26 10/16/16 04:26 10/16/16 10/16/16 04:26 04:26 WBC 6.8 RBC 3.02 L Hgb 9.0 L Hct 27.1 L MCV 90 MCH 30.0 MCHC 33.3 RDW 18.6 H Plt Count 309 Seg Neutrophils % 67.7 Lymphocytes % 17.8 Monocytes % 10.8 Eosinophils % 2.3 Basophils % 1.4 Absolute Neutrophils 4.6 Absolute Lymphocytes 1.2 Absolute Monocytes 0.7 Absolute Eosinophils 0.2 Absolute Basophils 0.1 Sodium 136.5 L Potassium 3.7 Chloride 100 Carbon Dioxide 30 Anion Gap 7 BUN 25 H Creatinine 1.59 H Est GFR ( Amer) 55 L Est GFR (Non-Af Amer) 45 L Glucose 123 H Calcium 8.9 Magnesium 1.5 L 10/15/16 10/16/16 08:18 04:26 Troponin I 0.016 NT-Pro-B Natriuret Pep 41916 H EKG Comments: Ventricular paced rhythm Assessment & Plan - Diagnosis (1) Anasarca Is this a current diagnosis for this admission?: Yes (2) Acute on chronic combined systolic (congestive) and diastolic (congestive) heart failure Is this a current diagnosis for this admission?: Yes (3) Diabetes Qualifiers: Diabetes mellitus type: type 2 Diabetes mellitus complication status: with unspecified complications Is this a current diagnosis for this admission?: Yes (4) HLD (hyperlipidemia) Qualifiers: Hyperlipidemia type: other hyperlipidemia Qualified Code(s): E78.4 - Other hyperlipidemia Is this a current diagnosis for this admission?: Yes (5) AELYDA (obstructive sleep apnea) Is this a current diagnosis for this admission?: Yes (6) Tobacco dependency Is this a current diagnosis for this admission?: Yes (7) COPD (chronic obstructive pulmonary disease) Qualifiers: Emphysema type: unspecified Is this a current diagnosis for this admission?: Yes - Notes Notes: Generalized anasarca: Related to CHF. Continue diuretic therapy. Acute on chronic systolic and diastolic heart failure: Have ordered a 2D echo. Continue diuretic therapy, KULDEEP inhibitor/ARB, beta-john therapy. Patient has significant contribution from right heart failure. Improving oxygenation and treatment of COPD will help. Obstructive sleep apnea: Patient has a history of obstructive sleep apnea. Patient will benefit from CPAP therapy. COPD: Patient seems to have severe COPD. Continue aggressive treatment. May consider oxygen supplementation if patient qualifies. Tobacco dependency: Patient has been advised to quit smoking. Diabetes: Recommend good control of blood sugar. However should avoid any hypoglycemia. Patient being expertly managed by primary care M.D. Hyperlipidemia: LDL goal is less than 70. Recommend statin therapy at least intermediate or high dose, of high potency status. - Time Time Spent: 30 to 50 Minutes - CODE STATUS was discussed, patient remains full code. Surrogate decision-maker patient's son. Multiple medical problems were addressed. More than 50% of the time spent coordinating care, discussing management plans with involved caregivers. Management plans discussed with involved personnels. Medical decision making was of moderate to high complexity , patient's has multiple comorbidities. Medications reviewed and adjusted accordingly: Yes
[2016-10-17] MEDS: ATORVASTATIN CALCIUM 80 MG TABLET PO SCH (21:59)
[2016-10-17] MEDS: TRAZODONE HCL 50 MG TABLET PO SCH (21:59)
[2016-10-18] MEDS: BUMETANIDE INJ/PF 1 MG/4 ML SDV IV SCH ×3 (05:43→21:57)
[2016-10-18] MEDS: AMOXICILLIN TR/POT CLAVULANATE 500-125 MG TAB PO SCH ×3 (05:43→21:56)
[2016-10-18] MEDS: METOLAZONE 2.5 MG TABLET PO SCH ×3 (05:45→21:56)
[2016-10-18] MEDS: HEPARIN SOD (PORCINE) 5,000 UNIT/ML 1 ML SYRINGE SUBCUT SCH ×2 (05:53→13:24)
[2016-10-18 08:41] LABS: ABSOLUTE BASOPHILS # (AUTO) 0.1 10^3/uL (0.0-0.2); ABSOLUTE EOSINOPHILS # (AUTO) 0.1 10^3/uL (0.0-0.6); ABSOLUTE LYMPHOCYTES (AUTO) 1.1 10^3/uL (0.5-4.7); ABSOLUTE MONOCYTES (AUTO) 0.8 10^3/uL (0.1-1.4); ABSOLUTE NEUT (AUTO) 4.2 10^3/uL (1.7-8.2); BASOPHILS % (AUTO) 1.2 % (0-2); HEMATOCRIT 26.2 % (37.9-51.0); HEMOGLOBIN 8.7 g/dL (13.5-17.0); HGB HCT DIFFERENCE -0.1; LYMPHOCYTES % (AUTO) 17.1 % (13-45); MEAN CORPUSCULAR HEMOGLOBIN 29.5 pg (27.0-33.4); MEAN CORPUSCULAR HGB CONC 33.3 g/dL (32.0-36.0); MEAN CORPUSCULAR VOLUME 89 fl (80-97); RED BLOOD COUNT 2.96 10^6/uL (4.35-5.55); RED CELL DISTRIBUTION WIDTH 18.2 % (11.5-14.0); SEGMENTED NEUTROPHILS % (AUTO) 67.7 % (42-78); WHITE BLOOD COUNT 6.2 10^3/uL (4.0-10.5)
[2016-10-18 08:54] LABS: ANION GAP 12 (5-19); BLOOD UREA NITROGEN 28 mg/dL (7-20); CARBON DIOXIDE 29 mmol/L (22-30); CHLORIDE 95 mmol/L (98-107); CREATININE RESULT 1.95 mg/dL (0.52-1.25); GLUCOSE 95 mg/dL (75-110); MAGNESIUM 1.5 mg/dL (1.6-2.3); POTASSIUM 3.9 mmol/L (3.6-5.0); SODIUM 135.7 mmol/L (137-145)
[2016-10-18] MEDS: POTASSIUM CHLORIDE 10 MEQ TABLET.SA PO SCH ×2 (09:20→18:01)
[2016-10-18] MEDS: CLOPIDOGREL BISULFATE 75 MG TABLET PO SCH (09:20)
[2016-10-18] MEDS: SPIRONOLACTONE 25 MG TABLET PO SCH ×2 (09:21→18:01)
[2016-10-18] MEDS: NITROGLYCERIN 5 MG (0.2 MG/HR) PATCH.TD24 TD SCH (09:22)
[2016-10-18] MEDS: CARVEDILOL 6.25 MG TABLET PO SCH ×2 (09:22→21:57)
[2016-10-18] MEDS: ASPIRIN 81 MG TABLET, ENT COATED PO SCH (09:23)
--- NOTE | 2016-10-18 16:53 | PDOC PROGRESS REPORT ---
Subjective Progress Note for:: 10/17/16 Subjective:: Patient was seen on morning rounds. He claims to be doing a little bit better than before. Still has significant swelling of his abdomen, scrotum and lower extremities. Patient denied any defibrillator shocks. Patient claims that he has difficulty ambulating because of swelling. Patient claims that he is still smoking until presentation to the hospital but claims to have quit drinking. As noted before his noncompliant with medications. He is also noncompliant with appointments. Physical Exam Vital Signs: Temp Pulse Resp BP Pulse Ox 98.3 F 73 22 H 116/78 98 10/17/16 17:10 10/17/16 17:10 10/17/16 17:10 10/17/16 17:10 10/17/16 17:10 Intake & Output 10/16/16 10/17/16 10/18/16 06:59 06:59 06:59 Intake Total 1444 706 Output Total 1745 1100 Balance -301 -394 Exam: General appearance: PRESENT: no acute distress, well-developed, well-nourished Head exam: PRESENT: atraumatic, normocephalic Eye exam: PRESENT: conjunctiva pink, EOMI, PERRLA. ABSENT: scleral icterus Ear exam: PRESENT: normal external ear exam Mouth exam: PRESENT: moist, tongue midline Neck exam: PRESENT: JVD - 14 cm. ABSENT: carotid bruit, lymphadenopathy, thyromegaly Respiratory exam: PRESENT: crackles - fine, both bases., rhonchi. ABSENT: rales , wheezes Cardiovascular exam: PRESENT: gallop - S3+, RRR, +S1, +S2, systolic murmur - 1/ 6 EKATERINA Aortic Area and 1/6 EKATERINA apex. ABSENT: diastolic murmur, rubs Pulses: PRESENT: normal dorsalis pedis pul, +1 pedal pulses bilateral Vascular exam: PRESENT: normal capillary refill GI/Abdominal exam: PRESENT: normal bowel sounds, Distended with significant ascites being suspected ABSENT: distended, guarding, mass, organolmegaly, rebound, tenderness Rectal exam: PRESENT: deferred Gentrourinary exam: PRESENT: scrotal swelling Extremities exam: PRESENT: full ROM, +3 edema. ABSENT: calf tenderness, clubbing, Neurological exam: PRESENT: alert, awake, oriented to person, oriented to place , oriented to time, oriented to situation, CN II-XII grossly intact. ABSENT: motor sensory deficit Psychiatric exam: PRESENT: appropriate affect, normal mood. ABSENT: homicidal ideation, suicidal ideation Skin exam: PRESENT: dry, intact, Chronic dermatitis rash noted both legs, warm. ABSENT: cyanosis Results Laboratory Results: 10/17/16 04:04 10/17/16 04:04 10/17/16 10/17/16 04:04 04:04 WBC 6.1 RBC 2.84 L Hgb 8.3 L Hct 25.3 L MCV 89 MCH 29.4 MCHC 33.1 RDW 18.3 H Plt Count 277 Seg Neutrophils % 60.6 Lymphocytes % 22.6 Monocytes % 13.5 H Eosinophils % 2.0 Basophils % 1.3 Absolute Neutrophils 3.7 Absolute Lymphocytes 1.4 Absolute Monocytes 0.8 Absolute Eosinophils 0.1 Absolute Basophils 0.1 Sodium 134.9 L Potassium 4.0 Chloride 98 Carbon Dioxide 29 Anion Gap 8 BUN 26 H Creatinine 1.83 H Est GFR ( Amer) 47 L Est GFR (Non-Af Amer) 39 L Glucose 93 Calcium 8.9 Magnesium 1.6 Assessment & Plan - Diagnosis (1) Anasarca Is this a current diagnosis for this admission?: Yes (2) Acute on chronic combined systolic (congestive) and diastolic (congestive) heart failure Is this a current diagnosis for this admission?: Yes (3) Diabetes Qualifiers: Diabetes mellitus type: type 2 Diabetes mellitus complication status: with unspecified complications Is this a current diagnosis for this admission?: Yes (4) HLD (hyperlipidemia) Qualifiers: Hyperlipidemia type: other hyperlipidemia Qualified Code(s): E78.4 - Other hyperlipidemia Is this a current diagnosis for this admission?: Yes (5) ALEYDA (obstructive sleep apnea) Is this a current diagnosis for this admission?: Yes (6) Tobacco dependency Is this a current diagnosis for this admission?: Yes (7) COPD (chronic obstructive pulmonary disease) Qualifiers: Emphysema type: unspecified Is this a current diagnosis for this admission?: Yes (8) Ascites Qualifiers: Ascites type: other type Qualified Code(s): R18.8 - Other ascites Is this a current diagnosis for this admission?: Yes - Notes Notes: Generalized anasarca: Related to CHF. Continue diuretic therapy. Acute on chronic systolic and diastolic heart failure: Have ordered a 2D echo. Continue diuretic therapy, KULDEEP inhibitor/ARB, beta-john therapy. Patient has significant contribution from right heart failure. Improving oxygenation and treatment of COPD will help. Patient noted to have significant ascites. It may be worthwhile to consider ultrasound of the abdomen. Did increase spironolactone yesterday. Patient should continue with salt and fluid restriction. Obstructive sleep apnea: Patient has a history of obstructive sleep apnea. Patient will benefit from CPAP therapy. COPD: Patient seems to have severe COPD. Continue aggressive treatment. May consider oxygen supplementation if patient qualifies. Tobacco dependency: Patient has been advised to quit smoking. Diabetes: Recommend good control of blood sugar. However should avoid any hypoglycemia. Patient being expertly managed by primary care M.D. Hyperlipidemia: LDL goal is less than 70. Recommend statin therapy at least intermediate or high dose, of high potency status. - Time Time with patient: Greater than 35 minutes - Patient currently a full code. Patient's surrogate decision maker is his son. Multiple medical problems were discussed. Patient has severe and significant comorbid diagnosis.
--- NOTE | 2016-10-18 17:11 | PDOC PROGRESS REPORT ---
Subjective Progress Note for:: 10/18/16 Subjective:: Patient was seen on morning rounds. He claims to be doing a little bit better than before. Still has significant swelling of his abdomen, scrotum and lower extremities. Patient denied any defibrillator shocks. Patient claims that he has difficulty ambulating because of swelling. Patient claims that he is still smoking until presentation to the hospital but claims to have quit drinking. Patient was seen again in the morning. It seems patient is unhappy with the progress. He wanted to go home. Patient however he still has significant edema, asitis and scrotal edema. He wanted to see urologist but we do not have one on staff. Patient was recommended that he stays a few days more to see what we can achieve although he was also told that we may not be able to achieve much as he has severe ongoing comorbid problems. I also talked with Dr. Choi and plan is to do a ultrasound of the abdomen, possibly also the scrotum, consider paracentesis. Physical Exam Vital Signs: Temp Pulse Resp BP Pulse Ox 97.6 F 70 16 122/87 H 97 10/18/16 07:46 10/18/16 07:46 10/18/16 07:46 10/18/16 07:46 10/18/16 07:46 Intake & Output 10/17/16 10/18/16 10/19/16 06:59 06:59 06:59 Intake Total 1444 1146 Output Total 1745 2775 Balance -301 -1629 Exam: GEN: NAD, patient alert oriented x3. Appearance and grooming WNL HEENT : Eyes: ASPEN, Ears: No significant abnormalities, Nose: No significant abnormalities. normocephalic atraumatic. Flat midface (-), Receding chin (-) ORAL : Mallampati class III, highly arched palate (-) Tonsils: Not enlarged. NECK: no thyromegaly, no masses, trachea is central, JVD is 12 elevated, carotids are 2+ with bruit (-) RESP: lungs clear to auscultation bilaterally, no rales, wheezes or rhonchi., nonlabored, no use of accessory muscles of respiration CV: NL S1 and S2. 2/6 ejection systolic murmur noted in the aortic area and left sternal border. 1/6 pansystolic murmur noted at the apex. no S3, no S4 noted. No rub noted., gallops, rubs, clicks GI: abd NT to palpation, moderate distention with significant asitis being suspected no masses, bowel sounds present, no guarding or rigidity noted. EXT: no clubbing, (-) cyanosis, edema (2-3+), perpheral pulses diminished (+) MUSC/SKEL: no acute joint swelling noted. Muscle strength is generally intact. NEURO: no tremors. no significant focal neurological deficits are noted., sensation grossly intact, AO x 3 PSYCH: NL mood and affect. judgment and insight noted to be intact.. SKIN: (+) rash, (-)Signs of pruritus, (-) other significant abnormality Results Laboratory Results: 10/18/16 07:58 10/18/16 07:58 10/18/16 10/18/16 07:58 07:58 WBC 6.2 RBC 2.96 L Hgb 8.7 L Hct 26.2 L MCV 89 MCH 29.5 MCHC 33.3 RDW 18.2 H Plt Count 276 Seg Neutrophils % 67.7 Lymphocytes % 17.1 Monocytes % 13.0 Eosinophils % 1.0 Basophils % 1.2 Absolute Neutrophils 4.2 Absolute Lymphocytes 1.1 Absolute Monocytes 0.8 Absolute Eosinophils 0.1 Absolute Basophils 0.1 Sodium 135.7 L Potassium 3.9 Chloride 95 L Carbon Dioxide 29 Anion Gap 12 BUN 28 H Creatinine 1.95 H Est GFR ( Amer) 43 L Est GFR (Non-Af Amer) 36 L Glucose 95 Calcium 9.0 Magnesium 1.5 L Assessment & Plan - Diagnosis (1) Anasarca Is this a current diagnosis for this admission?: Yes (2) Acute on chronic combined systolic (congestive) and diastolic (congestive) heart failure Is this a current diagnosis for this admission?: Yes (3) Diabetes Qualifiers: Diabetes mellitus type: type 2 Diabetes mellitus complication status: with unspecified complications Is this a current diagnosis for this admission?: Yes (4) HLD (hyperlipidemia) Qualifiers: Hyperlipidemia type: other hyperlipidemia Qualified Code(s): E78.4 - Other hyperlipidemia Is this a current diagnosis for this admission?: Yes (5) ALEYDA (obstructive sleep apnea) Is this a current diagnosis for this admission?: Yes (6) Tobacco dependency Is this a current diagnosis for this admission?: Yes (7) COPD (chronic obstructive pulmonary disease) Qualifiers: Emphysema type: unspecified Is this a current diagnosis for this admission?: Yes (8) Ascites Qualifiers: Ascites type: other type Qualified Code(s): R18.8 - Other ascites Is this a current diagnosis for this admission?: Yes - Notes Notes: Generalized anasarca: Related to CHF. Continue diuretic therapy. These were optimized on the day of admission. Acute on chronic systolic and diastolic heart failure: Continue diuretic therapy , KULDEEP inhibitor/ARB, beta-john therapy. Patient has significant contribution from right heart failure. Improving oxygenation and treatment of COPD will help. Ascitis: Patient noted to have significant ascites. It may be worthwhile to consider ultrasound of the abdomen. Did increase spironolactone yesterday. Patient should continue with salt and fluid restriction. Obstructive sleep apnea: Patient has a history of obstructive sleep apnea. Patient will benefit from nightly CPAP therapy. COPD: Patient seems to have severe COPD. Continue aggressive treatment. May consider oxygen supplementation if patient qualifies. Tobacco dependency: Patient has been advised to quit smoking. Diabetes: Recommend good control of blood sugar. However should avoid any hypoglycemia. Patient being expertly managed by primary care MMistyDMisty Hyperlipidemia: LDL goal is less than 70. Recommend statin therapy at least intermediate or high dose, of high potency status. - Time Time with patient: Greater than 35 minutes Medications reviewed and adjusted accordingly: Yes
--- NOTE | 2016-10-18 18:02 | RADIOLOGY REPORT (SQ) ---
EXAM DESCRIPTION: CHEST PA/LAT COMPLETED DATE/TIME: 10/18/2016 5:30 pm REASON FOR STUDY: followup CHF COMPARISON: 08/30/2015 EXAM PARAMETERS: NUMBER OF VIEWS: two views TECHNIQUE: Digital Frontal and Lateral radiographic views of the chest acquired. RADIATION DOSE: NA LIMITATIONS: none FINDINGS: LUNGS AND PLEURA: Lung volumes are low. Subsegmental atelectasis is present in the right base. MEDIASTINUM AND HILAR STRUCTURES: No masses or contour abnormalities. HEART AND VASCULAR STRUCTURES: Cardiomegaly with no evidence of failure. BONES: No acute findings. HARDWARE: Pacemaker/defibrillator on the left. OTHER: No other significant finding. IMPRESSION: Cardiomegaly without CHF. TECHNICAL DOCUMENTATION: JOB ID: [id number] [employer]- All Rights Reserved
[2016-10-18 18:49] LABS: ARTERIAL BLOOD BASE EXCESS 7.7 mmol/L; ARTERIAL BLOOD O2 SATURATION 95.9 % (94-98)
--- NOTE | 2016-10-18 19:09 | PDOC PROGRESS REPORT ---
Subjective Subjective:: This is a follow-up visit for acute on chronic combined congestive heart failure. The patient is quite upset. He wants to leave and go home she feels like nothing is being done for him and that he is made no progress. Physical Exam Vital Signs: Temp Pulse Resp BP Pulse Ox 97.6 F 70 16 122/87 H 97 10/18/16 07:46 10/18/16 07:46 10/18/16 07:46 10/18/16 07:46 10/18/16 07:46 Intake & Output 10/17/16 10/18/16 10/19/16 06:59 06:59 06:59 Intake Total 1444 1146 Output Total 1747 7625 Balance -301 -1099 Physical exam: General: This is a well-developed and nourished appearing white male resting on the side of his bed currently in no acute distress. HEART: Regular rate and rhythm. No murmurs rubs or gallops Lungs: Anteriorly he is clear to auscultation with equal rise and fall of the chest. Abdomen: Distended, tight Extremities: No clubbing or cyanosis. Patient has anasarca. The Skin on the legs is less tight. Patient does not have any hair on his legs. Changes of venous stasis are obvious. Pulses are not able to be palpated. : Large scrotal edema Neuro: Then Awake, alert oriented 3. Cranial nerves are grossly intact Results Laboratory Results: 10/18/16 07:58 10/18/16 07:58 10/18/16 10/18/16 07:58 07:58 WBC 6.2 RBC 2.96 L Hgb 8.7 L Hct 26.2 L MCV 89 MCH 29.5 MCHC 33.3 RDW 18.2 H Plt Count 276 Seg Neutrophils % 67.7 Lymphocytes % 17.1 Monocytes % 13.0 Eosinophils % 1.0 Basophils % 1.2 Absolute Neutrophils 4.2 Absolute Lymphocytes 1.1 Absolute Monocytes 0.8 Absolute Eosinophils 0.1 Absolute Basophils 0.1 Sodium 135.7 L Potassium 3.9 Chloride 95 L Carbon Dioxide 29 Anion Gap 12 BUN 28 H Creatinine 1.95 H Est GFR ( Amer) 43 L Est GFR (Non-Af Amer) 36 L Glucose 95 Calcium 9.0 Magnesium 1.5 L Assessment & Plan - Diagnosis (1) Acute on chronic combined systolic (congestive) and diastolic (congestive) heart failure Is this a current diagnosis for this admission?: YesPlan: Continue Bumex 2 mg every 8 hours. Continue sodium restriction and fluid restriction 1500. EF 30-35% discontinued the patient's orders for ABG because he wants to go home. I will ask Dr. Diaz to come by and speak with him I have encouraged him to stay as well. (2) Diabetes Qualifiers: Diabetes mellitus type: type 2 Diabetes mellitus complication status: with unspecified complications Is this a current diagnosis for this admission?: YesPlan: Continue sliding scale insulin. ADA diet (3) ALEYDA (obstructive sleep apnea) Is this a current diagnosis for this admission?: YesPlan: Continue CPAP (4) Hypokalemia Is this a current diagnosis for this admission?: YesPlan: Resolved (5) CKD (chronic kidney disease), stage III Is this a current diagnosis for this admission?: YesPlan: Stable. Continue to monitor on diuretics (6) Hypomagnesemia Plan: Resolved (7) UTI (urinary tract infection) Plan: Gram positive cocci in chains. Will begin augmentin and await final cultures. No WBC elevation at this point.
[2016-10-18] MEDS: ATORVASTATIN CALCIUM 80 MG TABLET PO SCH (21:56)
[2016-10-18] MEDS: TRAZODONE HCL 50 MG TABLET PO SCH (21:57)
[2016-10-19 05:00] LABS: ABSOLUTE BASOPHILS # (AUTO) 0.1 10^3/uL (0.0-0.2); ABSOLUTE EOSINOPHILS # (AUTO) 0.1 10^3/uL (0.0-0.6); ABSOLUTE MONOCYTES (AUTO) 0.9 10^3/uL (0.1-1.4); ABSOLUTE NEUT (AUTO) 4.7 10^3/uL (1.7-8.2); BASOPHILS % (AUTO) 1.4 % (0-2); EOSINOPHILS % (AUTO) 1.2 % (0-6); HEMATOCRIT 26.3 % (37.9-51.0); HEMOGLOBIN 8.9 g/dL (13.5-17.0); HGB HCT DIFFERENCE 0.4; LYMPHOCYTES % (AUTO) 14.5 % (13-45); MEAN CORPUSCULAR HEMOGLOBIN 29.8 pg (27.0-33.4); MEAN CORPUSCULAR HGB CONC 33.8 g/dL (32.0-36.0); MEAN CORPUSCULAR VOLUME 88 fl (80-97); RED BLOOD COUNT 2.99 10^6/uL (4.35-5.55); SEGMENTED NEUTROPHILS % (AUTO) 69.9 % (42-78); WHITE BLOOD COUNT 6.8 10^3/uL (4.0-10.5)
[2016-10-19 05:07] LABS: PROTHROMBIN TIME 15.5 SEC (11.4-15.4)
[2016-10-19 05:20] LABS: ANION GAP 13 (5-19); BLOOD UREA NITROGEN 30 mg/dL (7-20); CALCIUM 9.1 mg/dL (8.4-10.2); CARBON DIOXIDE 28 mmol/L (22-30); CHLORIDE 95 mmol/L (98-107); CREATININE RESULT 2.02 mg/dL (0.52-1.25); GLUCOSE 103 mg/dL (75-110); MAGNESIUM 1.5 mg/dL (1.6-2.3); POTASSIUM 4.1 mmol/L (3.6-5.0); SODIUM 135.8 mmol/L (137-145)
[2016-10-19] MEDS: METOLAZONE 2.5 MG TABLET PO SCH ×3 (05:43→21:11)
[2016-10-19] MEDS: AMOXICILLIN TR/POT CLAVULANATE 500-125 MG TAB PO SCH ×3 (05:43→21:11)
[2016-10-19] MEDS: BUMETANIDE INJ/PF 1 MG/4 ML SDV IV SCH ×3 (05:44→21:11)
--- NOTE | 2016-10-19 07:03 | RADIOLOGY REPORT (SQ) ---
EXAM DESCRIPTION: U/S ABDOMEN COMPLETE W/O DOP COMPLETED DATE/TIME: 10/19/2016 6:50 am REASON FOR STUDY: abdominal distention R82.90 UNSPECIFIED ABNORMAL FINDINGS IN URINE D64.9 ANEMIA, UNSPECIFIED I50.21 ACUTE SYSTOLIC (CONGESTIVE) HEART FAILURE COMPARISON: None. TECHNIQUE: Dynamic and static grayscale images acquired of the abdomen and recorded on PACS. Additio nal selected color Doppler and spectral images recorded. LIMITATIONS: None. FINDINGS: PANCREAS: Obscured. LIVER: No masses. Echotexture normal. LIVER VASCULATURE: Normal directional flow of the main portal vein and hepatic veins. GALLBLADDER: Echogenic debris -sludge. No acute findings. ULTRASOUND-DETECTED PUENTE'S SIGN: Negative. INTRAHEPATIC DUCTS AND COMMON DUCT: 0.4 cm diameter CBD and intrahepatic ducts normal caliber. No fi lling defects. INFERIOR VENA CAVA: Normal flow. AORTA: No aneurysm. RIGHT KIDNEY: Normal size. Normal echogenicity. No solid or suspicious masses. No hydronephros is. No calcifications. LEFT KIDNEY: Normal size. Normal echogenicity. No solid or suspicious masses. No hydronephrosi s. No calcifications. SPLEEN: Mild enlargement measuring 15.1 cm. PERITONEAL AND PLEURAL SPACES: Moderate-marked ascites. OTHER: No other significant finding. IMPRESSION: Moderate -marked ascites. Mild splenomegaly. Gallbladder sludge. TECHNICAL DOCUMENTATION: JOB ID: [id number]- All Rights Reserved
[2016-10-19] MEDS ORDERED: MAGNESIUM SULFATE/D5W 1 GM/100 ML RTUPB IV ONE (08:00)
[2016-10-19] MEDS: POTASSIUM CHLORIDE 10 MEQ TABLET.SA PO SCH ×2 (09:41→16:58)
[2016-10-19] MEDS: CARVEDILOL 6.25 MG TABLET PO SCH ×2 (09:41→21:11)
[2016-10-19] MEDS: ASPIRIN 81 MG TABLET, ENT COATED PO SCH (09:41)
[2016-10-19] MEDS: NITROGLYCERIN 5 MG (0.2 MG/HR) PATCH.TD24 TD SCH (09:41)
[2016-10-19] MEDS: SPIRONOLACTONE 25 MG TABLET PO SCH ×2 (09:42→16:58)
[2016-10-19] MEDS: CLOPIDOGREL BISULFATE 75 MG TABLET PO SCH (09:48)
--- NOTE | 2016-10-19 11:06 | PDOC PROGRESS REPORT ---
Subjective Progress Note for:: 10/19/16 Subjective:: Patient was seen on morning rounds. He claims to be doing a little bit better than before. Still has significant swelling of his abdomen, scrotum and lower extremities. Patient denied any defibrillator shocks. Patient claims that he has difficulty ambulating because of swelling. Ultrasound of the abdomen report was reviewed. It showed moderate ascites. Leg edema has improved. Patient noted to have good urine output. He still not ambulated much. Telemetry strips reviewed. It showed a sensed V paced rhythm. Physical Exam Vital Signs: Temp Pulse Resp BP Pulse Ox 98.3 F 73 20 125/83 98 10/19/16 07:27 10/19/16 07:27 10/19/16 07:27 10/19/16 07:27 10/19/16 07:27 Intake & Output 10/18/16 10/19/16 10/20/16 06:59 06:59 06:59 Intake Total 1146 780 Output Total 2775 4450 Balance -1629 -3670 Weight 140.6 kg Exam: GENERAL: well-nourished and in no acute distress. Alert and oriented x3 HEAD: Atraumatic, normocephalic. EYES: Pupils equal round and reactive to light, extraocular movements intact, sclera anicteric, conjunctiva are normal. ENT: TMs normal, nares patent, oropharynx clear without exudates. Moist mucous membranes. No oral ulcerations or bleeding gums noted NECK: supple without lymphadenopathy. Trachea is central. No cervical or axillary lymphadenopathy noted. Carotids are 2+, JVD 10-12 cm LUNGS: Respiration seems nonlabored, no significant accessory muscle action noted. Breath sounds clear to auscultation bilaterally and equal noted. No wheezes rales or rhonchi noted. No significant dullness noted on percussion. CHEST: Palpation of the chest wall shows no significant chest wall tenderness. No other significant abnormalities noted. 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 ABDOMEN: Softer, significant ascites noted, no significant tenderness appreciated, normoactive bowel sounds. No guarding, no rebound. No rigidity noted . No masses appreciated. Scrotal edema noted. EXTREMITIES: Pedal pulses are 1-2+, no calf tenderness noted. No clubbing or cyanosis. 2 + pedal edema noted NEUROLOGICAL: Focused neurological exam showed no significant neurologic deficit. Normal speech, no focal weakness appreciated. PSYCH: Normal mood, normal affect. Judgment and insight within normal limits. SKIN: No significant ecchymosis, dermatitis rash noted. MUSCULOSKELETAL EXAM: No significant joint swelling noted. Results Laboratory Results: 10/19/16 04:08 10/19/16 04:08 10/18/16 10/19/16 10/19/16 18:35 04:08 04:08 WBC 6.8 RBC 2.99 L Hgb 8.9 L Hct 26.3 L MCV 88 MCH 29.8 MCHC 33.8 RDW 18.0 H Plt Count 285 Seg Neutrophils % 69.9 Lymphocytes % 14.5 Monocytes % 13.0 Eosinophils % 1.2 Basophils % 1.4 Absolute Neutrophils 4.7 Absolute Lymphocytes 1.0 Absolute Monocytes 0.9 Absolute Eosinophils 0.1 Absolute Basophils 0.1 Carbonic Acid 1.29 HCO3/H2CO3 Ratio 24:1 ABG pH 7.49 H ABG pCO2 42.8 ABG pO2 74.4 L ABG HCO3 31.8 H ABG O2 Saturation 95.9 ABG Base Excess 7.7 FiO2 ROOM AIR Sodium 135.8 L Potassium 4.1 Chloride 95 L Carbon Dioxide 28 Anion Gap 13 BUN 30 H Creatinine 2.02 H Est GFR ( Amer) 42 L Est GFR (Non-Af Amer) 34 L Glucose 103 Calcium 9.1 Magnesium 1.5 L Impressions: Chest X-Ray 10/18/16 16:54 IMPRESSION: Cardiomegaly without CHF. Abdomen Ultrasound 10/19/16 00:00 IMPRESSION: Moderate -marked ascites. Mild splenomegaly. Gallbladder sludge. Assessment & Plan - Diagnosis (1) Anasarca Is this a current diagnosis for this admission?: Yes (2) Acute on chronic combined systolic (congestive) and diastolic (congestive) heart failure Is this a current diagnosis for this admission?: Yes (3) Diabetes Qualifiers: Diabetes mellitus type: type 2 Diabetes mellitus complication status: with unspecified complications Is this a current diagnosis for this admission?: Yes (4) HLD (hyperlipidemia) Qualifiers: Hyperlipidemia type: other hyperlipidemia Qualified Code(s): E78.4 - Other hyperlipidemia Is this a current diagnosis for this admission?: Yes (5) ALEYDA (obstructive sleep apnea) Is this a current diagnosis for this admission?: Yes (6) Tobacco dependency Is this a current diagnosis for this admission?: Yes (7) COPD (chronic obstructive pulmonary disease) Qualifiers: Emphysema type: unspecified Is this a current diagnosis for this admission?: Yes (8) Ascites Qualifiers: Ascites type: other type Qualified Code(s): R18.8 - Other ascites Is this a current diagnosis for this admission?: Yes - Notes Notes: Generalized anasarca: Related to CHF. Continue diuretic therapy. Acute on chronic systolic and diastolic heart failure: Have ordered a 2D echo. Continue diuretic therapy, KULDEEP inhibitor/ARB, beta-john therapy. Patient has significant contribution from right heart failure. Improving oxygenation and treatment of COPD will help. Ascites: Patient noted to have significant ascites. Continue spironolactone therapy. Patient should continue with salt and fluid restriction. Obstructive sleep apnea: Patient has a history of obstructive sleep apnea. Patient will benefit from CPAP therapy. Patient currently wearing CPAP therapy while in the hospital. COPD: Patient seems to have severe COPD. Continue aggressive treatment. May consider oxygen supplementation if patient qualifies. Tobacco dependency: Patient has been advised to quit smoking. Diabetes: Recommend good control of blood sugar. However should avoid any hypoglycemia. Patient being expertly managed by primary care M.D. Hyperlipidemia: LDL goal is less than 70. Recommend statin therapy at least intermediate or high dose, of high potency status. Ascites: Significant. Possible paracentesis later on today. - Time Time with patient: 15-25 minutes - CODE STATUS was discussed, patient remains full code. Surrogate decision-maker unchanged. Multiple medical problems were addressed. More than 50% of the time spent coordinating care, discussing management plans with involved caregivers. Management plans discussed with involved personnels. Medical decision making was of moderate to high complexity , patient's has multiple comorbidities.
--- NOTE | 2016-10-19 12:52 | PDOC PROGRESS REPORT ---
Subjective Progress Note for:: 10/19/16 Subjective:: This is a follow-up visit for acute on chronic combined congestive heart failure. The the patient diuresis 3.6 L overnight. He feels reassured by this. Currently, his paracentesis was not able to be performed because he is currently on Plavix. Physical Exam Vital Signs: Temp Pulse Resp BP Pulse Ox 98.3 F 73 20 125/83 98 10/19/16 07:27 10/19/16 07:27 10/19/16 07:27 10/19/16 07:27 10/19/16 07:27 Intake & Output 10/18/16 10/19/16 10/20/16 06:59 06:59 06:59 Intake Total 1146 780 Output Total 2775 5270 Balance -1629 -3670 Weight 140.6 kg Physical exam: General: This is a well-developed and nourished appearing white male resting in bed on CPAP currently in no acute distress. HEART: Regular rate and rhythm. No murmurs rubs or gallops Lungs: Anteriorly he is clear to auscultation with equal rise and fall of the chest. Abdomen: Distended, tight Extremities: No clubbing or cyanosis. Patient has anasarca. The Skin on the legs is less tight overall somewhat improved. Patient does not have any hair on his legs. Changes of venous stasis are obvious. Pulses are not able to be palpated. : Large scrotal edema Neuro: Then Awake, alert oriented 3. Cranial nerves are grossly intact Results Laboratory Results: 10/19/16 04:08 10/19/16 04:08 10/18/16 10/19/16 10/19/16 18:35 04:08 04:08 WBC 6.8 RBC 2.99 L Hgb 8.9 L Hct 26.3 L MCV 88 MCH 29.8 MCHC 33.8 RDW 18.0 H Plt Count 285 Seg Neutrophils % 69.9 Lymphocytes % 14.5 Monocytes % 13.0 Eosinophils % 1.2 Basophils % 1.4 Absolute Neutrophils 4.7 Absolute Lymphocytes 1.0 Absolute Monocytes 0.9 Absolute Eosinophils 0.1 Absolute Basophils 0.1 Carbonic Acid 1.29 HCO3/H2CO3 Ratio 24:1 ABG pH 7.49 H ABG pCO2 42.8 ABG pO2 74.4 L ABG HCO3 31.8 H ABG O2 Saturation 95.9 ABG Base Excess 7.7 FiO2 ROOM AIR Sodium 135.8 L Potassium 4.1 Chloride 95 L Carbon Dioxide 28 Anion Gap 13 BUN 30 H Creatinine 2.02 H Est GFR ( Amer) 42 L Est GFR (Non-Af Amer) 34 L Glucose 103 Calcium 9.1 Magnesium 1.5 L Impressions: Chest X-Ray 10/18/16 16:54 IMPRESSION: Cardiomegaly without CHF. Abdomen Ultrasound 10/19/16 00:00 IMPRESSION: Moderate -marked ascites. Mild splenomegaly. Gallbladder sludge. Assessment & Plan - Diagnosis (1) Acute on chronic combined systolic (congestive) and diastolic (congestive) heart failure Is this a current diagnosis for this admission?: YesPlan: Continue Bumex 2 mg every 8 hours. Continue sodium restriction and fluid restriction 1500. EF 30-35%. Patient is making slow improvement. (2) Diabetes Qualifiers: Diabetes mellitus type: type 2 Diabetes mellitus complication status: with unspecified complications Is this a current diagnosis for this admission?: YesPlan: Continue sliding scale insulin. ADA diet (3) ALEYDA (obstructive sleep apnea) Is this a current diagnosis for this admission?: YesPlan: Continue CPAP (4) Hypokalemia Is this a current diagnosis for this admission?: YesPlan: Resolved (5) CKD (chronic kidney disease), stage III Is this a current diagnosis for this admission?: YesPlan: Stable. Continue to monitor on diuretics (6) Hypomagnesemia Plan: Resolved (7) UTI (urinary tract infection) Plan: UTI with Enterococcus faecalis. Continue Augmentin. (8) Obesity (BMI 30-39.9) Plan: Oxygen was needed with bilevel Pap for management of ALEYDA in the setting of obesity. The patient is technically obese, he has significant volume overload suspect that his weight and current BMI is actually secondary to this - Time Time Spent with patient: 15-24 minutes - Inpatient Certification Medical Necessity: Need Close Monitoring Due to Risk of Patient Decompensation
[2016-10-19] MEDS: ONDANSETRON HCL INJ/PF 4 MG/2 ML SDV IV PRN (17:28)
[2016-10-19] MEDS: TRAZODONE HCL 50 MG TABLET PO SCH (21:11)
[2016-10-19] MEDS: ATORVASTATIN CALCIUM 80 MG TABLET PO SCH (21:11)
[2016-10-20] MEDS: ONDANSETRON HCL INJ/PF 4 MG/2 ML SDV IV PRN ×3 (02:45→16:19)
[2016-10-20] MEDS: HEPARIN SOD (PORCINE) 5,000 UNIT/ML 1 ML SYRINGE SUBCUT SCH ×3 (05:10→22:07)
[2016-10-20] MEDS: BUMETANIDE INJ/PF 1 MG/4 ML SDV IV SCH ×3 (05:16→21:51)
[2016-10-20] MEDS: METOLAZONE 2.5 MG TABLET PO SCH ×3 (05:17→22:00)
[2016-10-20] MEDS: AMOXICILLIN TR/POT CLAVULANATE 500-125 MG TAB PO SCH ×3 (05:17→21:51)
[2016-10-20 05:47] LABS: ABSOLUTE BASOPHILS # (AUTO) 0.1 10^3/uL (0.0-0.2); ABSOLUTE EOSINOPHILS # (AUTO) 0.1 10^3/uL (0.0-0.6); ABSOLUTE NEUT (AUTO) 4.4 10^3/uL (1.7-8.2); EOSINOPHILS % (AUTO) 1.1 % (0-6); HEMATOCRIT 26.3 % (37.9-51.0); HEMOGLOBIN 8.9 g/dL (13.5-17.0); HGB HCT DIFFERENCE 0.4; MEAN CORPUSCULAR HEMOGLOBIN 29.8 pg (27.0-33.4); MEAN CORPUSCULAR HGB CONC 33.8 g/dL (32.0-36.0); MEAN CORPUSCULAR VOLUME 88 fl (80-97); MONOCYTES % (AUTO) 15.3 % (3-13); RED BLOOD COUNT 2.98 10^6/uL (4.35-5.55); RED CELL DISTRIBUTION WIDTH 17.9 % (11.5-14.0); SEGMENTED NEUTROPHILS % (AUTO) 67.6 % (42-78); WHITE BLOOD COUNT 6.5 10^3/uL (4.0-10.5)
[2016-10-20 05:59] LABS: ANION GAP 9 (5-19); BLOOD UREA NITROGEN 31 mg/dL (7-20); CALCIUM 8.9 mg/dL (8.4-10.2); CARBON DIOXIDE 31 mmol/L (22-30); CHLORIDE 94 mmol/L (98-107); CREATININE RESULT 2.09 mg/dL (0.52-1.25); GLUCOSE 89 mg/dL (75-110); MAGNESIUM 1.5 mg/dL (1.6-2.3); POTASSIUM 4.2 mmol/L (3.6-5.0)
[2016-10-20] MEDS: MAGNESIUM SULFATE/D5W 100 ML IV SCH ×2 (08:57→09:56)
[2016-10-20] MEDS ORDERED: MAGNESIUM OXIDE 400 MG TABLET PO SCH (10:00)
[2016-10-20] MEDS: ASPIRIN 81 MG TABLET, ENT COATED PO SCH (10:24)
[2016-10-20] MEDS: NITROGLYCERIN 5 MG (0.2 MG/HR) PATCH.TD24 TD SCH (10:27)
[2016-10-20] MEDS: CARVEDILOL 6.25 MG TABLET PO SCH ×2 (10:27→21:51)
[2016-10-20] MEDS: SPIRONOLACTONE 25 MG TABLET PO SCH ×2 (10:28→17:45)
[2016-10-20] MEDS: POTASSIUM CHLORIDE 10 MEQ TABLET.SA PO SCH ×2 (10:28→17:45)
--- NOTE | 2016-10-20 11:32 | PDOC PROGRESS REPORT ---
Subjective Progress Note for:: 10/20/16 Subjective:: Patient was seen on morning rounds. He claims to be doing a little bit better than before. Still has significant swelling of his abdomen, scrotum and lower extremities. Patient denied any defibrillator shocks. Patient claims that he has difficulty ambulating because of swelling. Ultrasound of the abdomen report was reviewed. It showed moderate ascites. Leg edema has improved. Patient noted to have good urine output. He still not ambulated much. Telemetry strips reviewed. It showed A sensed V paced rhythm. Patient has had good urine output and his stomach is less firm. Physical Exam Vital Signs: Temp Pulse Resp BP Pulse Ox 97.7 F 73 12 116/72 94 10/20/16 07:10 10/20/16 07:10 10/20/16 07:10 10/20/16 07:10 10/20/16 07:10 Intake & Output 10/19/16 10/20/16 10/21/16 06:59 06:59 06:59 Intake Total 780 477 Output Total 4450 4700 Balance -3670 -4223 Weight 140.6 kg 133.5 kg Exam: GENERAL: well-nourished and in no acute distress. Alert and oriented x3 HEAD: Atraumatic, normocephalic. EYES: Pupils equal round and reactive to light, extraocular movements intact, sclera anicteric, conjunctiva are normal. ENT: TMs normal, nares patent, oropharynx clear without exudates. Moist mucous membranes. No oral ulcerations or bleeding gums noted NECK: supple without lymphadenopathy. Trachea is central. No cervical or axillary lymphadenopathy noted. Carotids are 2+, JVD 8 cm LUNGS: Respiration seems nonlabored, no significant accessory muscle action noted. Breath sounds clear to auscultation bilaterally and equal noted. No wheezes rales or rhonchi noted. No significant dullness noted on percussion. CHEST: Palpation of the chest wall shows no significant chest wall tenderness. No other significant abnormalities noted. 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 ABDOMEN: Soft, abdominal distention is less, no significant tenderness appreciated, normoactive bowel sounds. No guarding, no rebound. No rigidity noted . No masses appreciated. EXTREMITIES: Pedal pulses are 1-2+, no calf tenderness noted. No clubbing or cyanosis. 1+ pedal edema noted NEUROLOGICAL: Focused neurological exam showed no significant neurologic deficit. Normal speech, no focal weakness appreciated. PSYCH: Normal mood, normal affect. Judgment and insight within normal limits. SKIN: No significant ecchymosis, bilateral chronic dermatitis changes noted lower extremities. MUSCULOSKELETAL EXAM: No significant joint swelling noted. Results Laboratory Results: 10/20/16 04:51 10/20/16 04:51 10/20/16 10/20/16 04:51 04:51 WBC 6.5 RBC 2.98 L Hgb 8.9 L Hct 26.3 L MCV 88 MCH 29.8 MCHC 33.8 RDW 17.9 H Plt Count 271 Seg Neutrophils % 67.6 Lymphocytes % 15.0 Monocytes % 15.3 H Eosinophils % 1.1 Basophils % 1.0 Absolute Neutrophils 4.4 Absolute Lymphocytes 1.0 Absolute Monocytes 1.0 Absolute Eosinophils 0.1 Absolute Basophils 0.1 Sodium 134.0 L Potassium 4.2 Chloride 94 L Carbon Dioxide 31 H Anion Gap 9 BUN 31 H Creatinine 2.09 H Est GFR ( Amer) 40 L Est GFR (Non-Af Amer) 33 L Glucose 89 Calcium 8.9 Magnesium 1.5 L Impressions: Chest X-Ray 10/18/16 16:54 IMPRESSION: Cardiomegaly without CHF. Abdomen Ultrasound 10/19/16 00:00 IMPRESSION: Moderate -marked ascites. Mild splenomegaly. Gallbladder sludge. Assessment & Plan - Diagnosis (1) Anasarca Is this a current diagnosis for this admission?: Yes (2) Acute on chronic combined systolic (congestive) and diastolic (congestive) heart failure Is this a current diagnosis for this admission?: Yes (3) Diabetes Qualifiers: Diabetes mellitus type: type 2 Diabetes mellitus complication status: with unspecified complications Is this a current diagnosis for this admission?: Yes (4) HLD (hyperlipidemia) Qualifiers: Hyperlipidemia type: other hyperlipidemia Qualified Code(s): E78.4 - Other hyperlipidemia Is this a current diagnosis for this admission?: Yes (5) ALEYDA (obstructive sleep apnea) Is this a current diagnosis for this admission?: Yes (6) Tobacco dependency Is this a current diagnosis for this admission?: Yes (7) COPD (chronic obstructive pulmonary disease) Qualifiers: Emphysema type: unspecified Is this a current diagnosis for this admission?: Yes (8) Ascites Qualifiers: Ascites type: other type Qualified Code(s): R18.8 - Other ascites Is this a current diagnosis for this admission?: Yes - Notes Notes: Generalized anasarca: Related to CHF. Continue diuretic therapy. This has improved. Continue to monitor electrolytes. Acute on chronic systolic and diastolic heart failure: Continue diuretic therapy , KULDEEP inhibitor/ARB, beta-john therapy. Patient has significant contribution from right heart failure. Improving oxygenation and treatment of COPD will help. Ascites: Patient noted to have significant ascites. Continue spironolactone therapy. Patient should continue with salt and fluid restriction. Obstructive sleep apnea: Patient has a history of obstructive sleep apnea. Patient will benefit from CPAP therapy. Patient currently wearing CPAP therapy while in the hospital. COPD: Patient seems to have severe COPD. Continue aggressive treatment. May consider oxygen supplementation if patient qualifies. Tobacco dependency: Patient has been advised to quit smoking. Diabetes: Recommend good control of blood sugar. However should avoid any hypoglycemia. Patient being expertly managed by primary care MMistyD. Hyperlipidemia: LDL goal is less than 70. Recommend statin therapy at least intermediate or high dose, of high potency status. Ascites: Significant. Possible paracentesis later on Saturday. - Time Time with patient: 15-25 minutes - CODE STATUS was discussed, patient remains full code. Surrogate decision-maker unchanged. Multiple medical problems were addressed. More than 50% of the time spent coordinating care, discussing management plans with involved caregivers. Management plans discussed with involved personnels. Medical decision making was of moderate to high complexity , patient's has multiple comorbidities. Medications reviewed and adjusted accordingly: Yes
--- NOTE | 2016-10-20 13:30 | PDOC PROGRESS REPORT ---
Subjective Progress Note for:: 10/20/16 Subjective:: This is a follow-up visit for acute on chronic combined congestive heart failure. The the patient diuresis 4 L overnight. Is angry today because of his current situation. Currently, his paracentesis was not able to be performed because he is currently on Plavix. Denies chest pain or shortness of breath. Physical Exam Vital Signs: Temp Pulse Resp BP Pulse Ox 97.7 F 73 12 116/72 94 10/20/16 07:10 10/20/16 07:10 10/20/16 07:10 10/20/16 07:10 10/20/16 07:10 Intake & Output 10/19/16 10/20/16 10/21/16 06:59 06:59 06:59 Intake Total 780 477 Output Total 4450 4700 Balance -3670 -4223 Weight 140.6 kg 133.5 kg Physical exam: General: This is a well-developed and nourished appearing white male resting in bed on CPAP currently in no acute distress. HEART: Regular rate and rhythm. No murmurs rubs or gallops Lungs: Anteriorly he is clear to auscultation with equal rise and fall of the chest. Abdomen: Distended, tight Extremities: No clubbing or cyanosis. Patient has anasarca. The Skin on the legs is overall somewhat improved. Patient does not have any hair on his legs. Changes of venous stasis are obvious. : Large scrotal edema is less edematous today. Neuro: Then Awake, alert oriented 3. Cranial nerves are grossly intact Results Laboratory Results: 10/20/16 04:51 10/20/16 04:51 10/20/16 10/20/16 04:51 04:51 WBC 6.5 RBC 2.98 L Hgb 8.9 L Hct 26.3 L MCV 88 MCH 29.8 MCHC 33.8 RDW 17.9 H Plt Count 271 Seg Neutrophils % 67.6 Lymphocytes % 15.0 Monocytes % 15.3 H Eosinophils % 1.1 Basophils % 1.0 Absolute Neutrophils 4.4 Absolute Lymphocytes 1.0 Absolute Monocytes 1.0 Absolute Eosinophils 0.1 Absolute Basophils 0.1 Sodium 134.0 L Potassium 4.2 Chloride 94 L Carbon Dioxide 31 H Anion Gap 9 BUN 31 H Creatinine 2.09 H Est GFR ( Amer) 40 L Est GFR (Non-Af Amer) 33 L Glucose 89 Calcium 8.9 Magnesium 1.5 L Impressions: Chest X-Ray 10/18/16 16:54 IMPRESSION: Cardiomegaly without CHF. Abdomen Ultrasound 10/19/16 00:00 IMPRESSION: Moderate -marked ascites. Mild splenomegaly. Gallbladder sludge. Assessment & Plan - Diagnosis (1) Acute on chronic combined systolic (congestive) and diastolic (congestive) heart failure Is this a current diagnosis for this admission?: YesPlan: Continue Bumex 2 mg every 8 hours. Continue sodium restriction and fluid restriction 1500. EF 30-35%. Patient is making slow improvement. (2) Diabetes Qualifiers: Diabetes mellitus type: type 2 Diabetes mellitus complication status: with unspecified complications Is this a current diagnosis for this admission?: YesPlan: Continue sliding scale insulin. ADA diet (3) ALEYDA (obstructive sleep apnea) Is this a current diagnosis for this admission?: YesPlan: Continue CPAP (4) Hypokalemia Is this a current diagnosis for this admission?: YesPlan: Resolved (5) CKD (chronic kidney disease), stage III Is this a current diagnosis for this admission?: YesPlan: Stable. Continue to monitor on diuretics (6) Hypomagnesemia Plan: Resolved (7) UTI (urinary tract infection) Plan: UTI with Enterococcus faecalis. Continue Augmentin. (8) Obesity (BMI 30-39.9) Plan: Oxygen was needed with bilevel Pap for management of ALEYDA in the setting of obesity. The patient is technically obese, he has significant volume overload suspect that his weight and current BMI is actually secondary to this - Time Time Spent with patient: 25-34 minutes - Inpatient Certification Medical Necessity: Need Close Monitoring Due to Risk of Patient Decompensation
[2016-10-20] MEDS: TRAZODONE HCL 50 MG TABLET PO SCH (21:51)
[2016-10-20] MEDS: ATORVASTATIN CALCIUM 80 MG TABLET PO SCH (21:51)
[2016-10-21] MEDS: HEPARIN SOD (PORCINE) 5,000 UNIT/ML 1 ML SYRINGE SUBCUT SCH ×3 (05:08→22:10)
[2016-10-21 05:12] LABS: ANION GAP 12 (5-19); BLOOD UREA NITROGEN 32 mg/dL (7-20); CALCIUM 8.8 mg/dL (8.4-10.2); CARBON DIOXIDE 31 mmol/L (22-30); CHLORIDE 92 mmol/L (98-107); CREATININE RESULT 2.26 mg/dL (0.52-1.25); GLUCOSE 79 mg/dL (75-110); MAGNESIUM 1.6 mg/dL (1.6-2.3); POTASSIUM 4.3 mmol/L (3.6-5.0)
[2016-10-21] MEDS: BUMETANIDE INJ/PF 1 MG/4 ML SDV IV SCH ×3 (06:41→22:18)
[2016-10-21] MEDS: METOLAZONE 2.5 MG TABLET PO SCH ×3 (06:41→22:18)
[2016-10-21] MEDS: AMOXICILLIN TR/POT CLAVULANATE 500-125 MG TAB PO SCH ×3 (06:42→22:18)
[2016-10-21] MEDS ORDERED: MAGNESIUM SULFATE/D5W 1 GM/100 ML RTUPB IV ONE ×2 (07:18→07:35)
[2016-10-21] MEDS: NITROGLYCERIN 5 MG (0.2 MG/HR) PATCH.TD24 TD SCH (07:38)
[2016-10-21] MEDS: CARVEDILOL 6.25 MG TABLET PO SCH ×2 (07:39→22:18)
[2016-10-21] MEDS: POTASSIUM CHLORIDE 10 MEQ TABLET.SA PO SCH ×2 (07:39→18:26)
[2016-10-21] MEDS: SPIRONOLACTONE 25 MG TABLET PO SCH ×2 (07:39→18:25)
[2016-10-21] MEDS: ASPIRIN 81 MG TABLET, ENT COATED PO SCH (07:40)
[2016-10-21] MEDS: MAGNESIUM OXIDE 400 MG TABLET PO SCH ×2 (09:17→18:25)
--- NOTE | 2016-10-21 12:15 | PDOC PROGRESS REPORT ---
Subjective Progress Note for:: 10/21/16 Subjective:: Patient was seen on morning rounds. He claims to be doing a little bit better than before very slow progress. Patient to weight has gone down by approximately 13 kg since admission. Still has significant swelling of his abdomen, scrotum and lower extremities. Patient denied any defibrillator shocks. Patient claims that he has difficulty ambulating because of swelling. Ultrasound of the abdomen report was reviewed. It showed moderate ascites. Leg edema has improved. Patient noted to have good urine output. He still not ambulated much. Telemetry strips reviewed. It showed A sensed V paced rhythm. Patient has had good urine output and his stomach is less firm. Physical Exam Vital Signs: Temp Pulse Resp BP Pulse Ox 98.1 F 67 16 110/74 98 10/21/16 07:22 10/21/16 07:22 10/21/16 08:10 10/21/16 07:22 10/21/16 08:10 Intake & Output 10/20/16 10/21/16 10/22/16 06:59 06:59 06:59 Intake Total 477 1396 Output Total 4700 3750 Balance -4223 -2354 Weight 133.5 kg 131.5 kg Exam: GENERAL: well-nourished and in no acute distress. Alert and oriented x3 HEAD: Atraumatic, normocephalic. EYES: Pupils equal round and reactive to light, extraocular movements intact, sclera anicteric, conjunctiva are normal. ENT: TMs normal, nares patent, oropharynx clear without exudates. Moist mucous membranes. No oral ulcerations or bleeding gums noted NECK: supple without lymphadenopathy. Trachea is central. No cervical or axillary lymphadenopathy noted. Carotids are 2+, JVD WNL LUNGS: Respiration seems nonlabored, no significant accessory muscle action noted. Breath sounds clear to auscultation bilaterally and equal noted. No wheezes rales or rhonchi noted. No significant dullness noted on percussion. CHEST: Palpation of the chest wall shows no significant chest wall tenderness. No other significant abnormalities noted. HEART: [place] [employer]GER, No PSH, 1/6 EKATERINA aortic area, 1/6 negron systolic murmur mitral area, no rubs, no gallops. ABDOMEN: Soft, distention noted with moderate ascites being present. No significant tenderness appreciated, normoactive bowel sounds. No guarding, no rebound. No rigidity noted . No masses appreciated. EXTREMITIES: Pedal pulses are 1-2+, no calf tenderness noted. No clubbing or cyanosis.trace to 1+ pedal edema noted NEUROLOGICAL: Focused neurological exam showed no significant neurologic deficit. Normal speech, no focal weakness appreciated. PSYCH: Normal mood, normal affect. Judgment and insight within normal limits. SKIN: No significant ecchymosis, dermatitis changes, chronic both lower legs but no signs of pruritus noted. MUSCULOSKELETAL EXAM: No significant joint swelling noted. Results Laboratory Results: 10/20/16 04:51 10/21/16 04:05 10/21/16 04:05 Sodium 135.0 L Potassium 4.3 Chloride 92 L Carbon Dioxide 31 H Anion Gap 12 BUN 32 H Creatinine 2.26 H Est GFR ( Amer) 37 L Est GFR (Non-Af Amer) 30 L Glucose 79 Calcium 8.8 Magnesium 1.6 Impressions: Chest X-Ray 10/18/16 16:54 IMPRESSION: Cardiomegaly without CHF. Abdomen Ultrasound 10/19/16 00:00 IMPRESSION: Moderate -marked ascites. Mild splenomegaly. Gallbladder sludge. Assessment & Plan - Diagnosis (1) Anasarca Is this a current diagnosis for this admission?: Yes (2) Acute on chronic combined systolic (congestive) and diastolic (congestive) heart failure Is this a current diagnosis for this admission?: Yes (3) Diabetes Qualifiers: Diabetes mellitus type: type 2 Diabetes mellitus complication status: with unspecified complications Is this a current diagnosis for this admission?: Yes (4) HLD (hyperlipidemia) Qualifiers: Hyperlipidemia type: other hyperlipidemia Qualified Code(s): E78.4 - Other hyperlipidemia Is this a current diagnosis for this admission?: Yes (5) ALEYDA (obstructive sleep apnea) Is this a current diagnosis for this admission?: Yes (6) Tobacco dependency Is this a current diagnosis for this admission?: Yes (7) COPD (chronic obstructive pulmonary disease) Qualifiers: Emphysema type: unspecified Is this a current diagnosis for this admission?: Yes (8) Ascites Qualifiers: Ascites type: other type Qualified Code(s): R18.8 - Other ascites Is this a current diagnosis for this admission?: Yes (9) CKD (chronic kidney disease), stage III Is this a current diagnosis for this admission?: Yes - Notes Notes: Anasarca: Significantly improved. Pedal edema has resolved. Patient now noted to have just ascites which may take several days to reabsorb. CHF: Seems compensated except for ascites being present. Diabetes: Stable Chronic kidney disease: Possibly currently may be at baseline BUN creatinine. Obstructive sleep apnea: Continue with nightly bilevel therapy. COPD: Continue with management plans as outlined. Ascites: Patient for paracentesis hopefully tomorrow. - Time Time with patient: 15-25 minutes - CODE STATUS was discussed, patient remains full code. Surrogate decision-maker patient's mother, previously used to be his son. Multiple medical problems were addressed. More than 50% of the time spent coordinating care, discussing management plans with involved caregivers. Management plans discussed with involved personnels. Medical decision making was of moderate to high complexity, patient's has multiple comorbidities.
--- NOTE | 2016-10-21 12:57 | PDOC PROGRESS REPORT ---
Subjective Progress Note for:: 10/21/16 Subjective:: This is a follow-up visit for acute on chronic combined congestive heart failure. The the patient diuresis 2.2 L overnight. Paracentesis was not able to be performed because he is currently on Plavix. Hopefully it will get done tomorrow. Denies chest pain or shortness of breath. Physical Exam Vital Signs: Temp Pulse Resp BP Pulse Ox 98.1 F 67 16 110/74 98 10/21/16 07:22 10/21/16 07:22 10/21/16 08:10 10/21/16 07:22 10/21/16 08:10 Intake & Output 10/20/16 10/21/16 10/22/16 06:59 06:59 06:59 Intake Total 477 1396 Output Total 4700 0630 Balance -1153 -0832 Weight 133.5 kg 131.5 kg Physical exam: General: This is a well-developed and nourished appearing white male resting in bed on CPAP currently in no acute distress. HEART: Regular rate and rhythm. No murmurs rubs or gallops Lungs: Anteriorly he is clear to auscultation with equal rise and fall of the chest. Abdomen: Distended, tight Extremities: No clubbing or cyanosis. Patient has anasarca. The Skin on the legs is overall significantly improved. Patient does not have any hair on his legs. Changes of venous stasis are obvious. : Large scrotal edema is less edematous today. Neuro: Then Awake, alert oriented 3. Cranial nerves are grossly intact Results Laboratory Results: 10/20/16 04:51 10/21/16 04:05 10/21/16 04:05 Sodium 135.0 L Potassium 4.3 Chloride 92 L Carbon Dioxide 31 H Anion Gap 12 BUN 32 H Creatinine 2.26 H Est GFR ( Amer) 37 L Est GFR (Non-Af Amer) 30 L Glucose 79 Calcium 8.8 Magnesium 1.6 Impressions: Chest X-Ray 10/18/16 16:54 IMPRESSION: Cardiomegaly without CHF. Abdomen Ultrasound 10/19/16 00:00 IMPRESSION: Moderate -marked ascites. Mild splenomegaly. Gallbladder sludge. Assessment & Plan - Diagnosis (1) Acute on chronic combined systolic (congestive) and diastolic (congestive) heart failure Is this a current diagnosis for this admission?: YesPlan: Reduce bumex 1.5 mg every 8 hours due to worsening renal failure. Continue sodium restriction and fluid restriction 1500. EF 30-35%. Patient is making slow improvement. (2) Diabetes Qualifiers: Diabetes mellitus type: type 2 Diabetes mellitus complication status: with unspecified complications Is this a current diagnosis for this admission?: YesPlan: Continue sliding scale insulin. ADA diet (3) ALEYDA (obstructive sleep apnea) Is this a current diagnosis for this admission?: YesPlan: Continue CPAP (4) Hypokalemia Is this a current diagnosis for this admission?: YesPlan: Resolved (5) CKD (chronic kidney disease), stage III Is this a current diagnosis for this admission?: YesPlan: Acute on chronic kidney failure stage III. His creatinine is starting to creep up. It is due to aggressive diuresis for his anasarca. We are going to back down some on the patient's dose of medications and continue to follow. Continue to monitor on diuretics (6) Hypomagnesemia Plan: Replaced. (7) UTI (urinary tract infection) Plan: UTI with Enterococcus faecalis. Continue Augmentin. (8) Obesity (BMI 30-39.9) Plan: Oxygen was needed with bilevel Pap for management of ALEYDA in the setting of obesity. The patient is technically obese, he has significant volume overload suspect that his weight and current BMI is actually secondary to this - Time Time Spent with patient: 15-24 minutes - Inpatient Certification Based on my medical assessment, after consideration of the patient's comorbidities, presenting symptoms, or acuity I expect that the services needed warrant INPATIENT care.: Yes Medical Necessity: Need Close Monitoring Due to Risk of Patient Decompensation
[2016-10-21] MEDS: ATORVASTATIN CALCIUM 80 MG TABLET PO SCH (22:18)
[2016-10-21] MEDS: TRAZODONE HCL 50 MG TABLET PO SCH (22:18)
[2016-10-22 05:16] LABS: ANION GAP 11 (5-19); BLOOD UREA NITROGEN 37 mg/dL (7-20); CALCIUM 9.2 mg/dL (8.4-10.2); CARBON DIOXIDE 34 mmol/L (22-30); CHLORIDE 90 mmol/L (98-107); CREATININE RESULT 2.41 mg/dL (0.52-1.25); GLUCOSE 101 mg/dL (75-110); MAGNESIUM 1.8 mg/dL (1.6-2.3); POTASSIUM 4.7 mmol/L (3.6-5.0); SODIUM 135.3 mmol/L (137-145)
[2016-10-22] MEDS: HEPARIN SOD (PORCINE) 5,000 UNIT/ML 1 ML SYRINGE SUBCUT SCH ×3 (05:42→23:32)
[2016-10-22] MEDS: BUMETANIDE INJ/PF 1 MG/4 ML SDV IV SCH ×3 (05:45→23:32)
[2016-10-22] MEDS: AMOXICILLIN TR/POT CLAVULANATE 500-125 MG TAB PO SCH ×3 (05:46→23:29)
[2016-10-22] MEDS: METOLAZONE 2.5 MG TABLET PO SCH ×3 (05:46→23:32)
[2016-10-22] MEDS: ONDANSETRON HCL INJ/PF 4 MG/2 ML SDV IV PRN (07:22)
--- NOTE | 2016-10-22 09:36 | EKG REPORT ---
SEVERITY:- ABNORMAL ECG - ATRIAL-SENSED VENTRICULAR-PACED COMPLEXES RBBB AND LPFB : Confirmed by: Juliana Diaz 22-Oct-2016 09:34:41
[2016-10-22] MEDS: NITROGLYCERIN 5 MG (0.2 MG/HR) PATCH.TD24 TD SCH (10:42)
[2016-10-22] MEDS: CARVEDILOL 6.25 MG TABLET PO SCH ×2 (10:43→23:29)
[2016-10-22] MEDS: POTASSIUM CHLORIDE 10 MEQ TABLET.SA PO SCH ×2 (10:43→17:58)
[2016-10-22] MEDS: ASPIRIN 81 MG TABLET, ENT COATED PO SCH (10:43)
[2016-10-22] MEDS: SPIRONOLACTONE 25 MG TABLET PO SCH ×2 (10:43→17:58)
[2016-10-22] MEDS: MAGNESIUM OXIDE 400 MG TABLET PO SCH ×2 (10:43→17:58)
--- NOTE | 2016-10-22 16:22 | RADIOLOGY REPORT (SQ) ---
EXAM DESCRIPTION: U/S ABD PARACENTESIS COMPLETED DATE/TIME: 10/22/2016 4:12 pm REASON FOR STUDY: abdominal distention/ascities COMPARISON None. LIMITATIONS: None. PROCEDURE: After obtaining informed consent, the patient was brought to the ultrasound suite. The p rocedure was performed with the patient on a gurney. Ultrasound was used to identify a prominent poc ket of ascites in the right lower quadrant.. An appropriate access site was selected. The patient w as prepped and draped in usual sterile fashion. The access site was anesthetized with 10 mL 1% lido анна. A Civn-K-Xwmhlcyu needle was advanced into the fluid. After aspiration of fluid the needle, the catheter was advanced off the needle into the fluid. A total of 6,000 mL of yellow fluid was rem davonte. The patient tolerated the procedure well left the department in satisfactory condition. IMPRESSION: Successful ultrasound-guided paracentesis. Fluid was sent for laboratory testing. COMMENT: Patient medication list reviewed: Yes- Quality ID# [id number]:Eligible professional attests to doc umenting in the medical record they obtained, updated, or reviewed the patient's current medications. Quality ID #[id number]: The patient was prepped and draped using maximum sterile barrier technique including cap, mask, sterile gown, sterile gloves, a large sterile sheet, hand hygiene, and 2% Chlorhexidine fo r cutaneous antisepsis. When ultrasound is used, sterile ultrasound techniques are followed requiring sterile gel and sterile probes. Quality ID #[id number]: Final reports for procedures using fluoroscopy that document radiation exposure hong victorina, or exposure time and number of fluorographic images (if radiation exposure indices are not avail able) TECHNICAL DOCUMENTATION: JOB ID: [id number] [employer]- All Rights Reserved
[2016-10-22 16:54] LABS: FLUID TYPE PERITONEAL
[2016-10-22 16:55] LABS: FLUID APPEARANCE CLEAR; FLUID RBC DILUENT USED NONE USED; FLUID RBC DILUTION FACTOR 1; FLUID RBC SIDE 1 19; FLUID RBC SIDE 2 29; TOTAL RBC SQUARES COUNTED FLD 225
--- NOTE | 2016-10-22 18:25 | PDOC DISCHARGE SUMMARY ---
General - Admit/Disc Date/PCP Admission Date/Primary Care Provider: 10/16/16 17:50 Discharge Date: 10/22/16 - Discharge Diagnosis (1) Acute on chronic combined systolic (congestive) and diastolic (congestive) heart failure Is this a current diagnosis for this admission?: YesSummary: Patient was initially being diuresed with Lasix. This was changed to Bumex 1 mg 3 times daily. Subsequently this was changed to Bumex 2 mg 3 times daily. With this the patient diuresed over 12 L while he was here and also underwent paracentesis and for another 6 L to be removed. Albumin prior to leaving. And will be sent home on Bumex 2 mg twice a day. Follow-up with Dr. Diaz in 1 week. (2) Diabetes Is this a current diagnosis for this admission?: YesSummary: Controlled continue home medicines. Diabetic diet. (3) ALEYDA (obstructive sleep apnea) Is this a current diagnosis for this admission?: YesSummary: Continue CPAP (4) Hypokalemia Is this a current diagnosis for this admission?: YesSummary: Resolved. (5) CKD (chronic kidney disease), stage III Is this a current diagnosis for this admission?: YesSummary: Acute on chronic CKD 3. This is secondary to paresis. We have backed down from the dose of diuretics. Hopefully this will help. He should have a repeat Chem-7 in the office with Dr. Diaz. (6) Hypomagnesemia Summary: Replaced and resolved. (7) UTI (urinary tract infection) Summary: Enterococcus faecalis UTI. It was discovered on admission and not a catheter related urinary tract infection. Continue antibiotic treatment for another 2 days. - Additional Information Resuscitation Status: Full Code Discharge Activity: Activity As Tolerated, Balance Activity w/Rest, Weigh Daily Home Medications: Atorvastatin Calcium [Lipitor 80 mg Tablet] 80 mg PO QHS 10/15/16 Carvedilol [Coreg 6.25 mg Tablet] 6.25 mg PO BID 10/15/16 Glimepiride [Amaryl 4 mg Tablet] 4 mg PO DAILY 10/15/16 Levothyroxine Sodium [Synthroid] 25 mcg PO QAM 10/15/16 Metformin HCl [Glucophage] 1,000 mg PO BID 10/15/16 Tamsulosin HCl [Flomax 0.4 mg Cap.sr] 0.4 mg PO QHS 10/15/16 Amox Tr/Potassium Clavulanate [Augmentin "500" Tablet] 1 tab PO Q8 #6 tablet Aspirin [Ecotrin 81 mg EC Tablet] 81 mg PO DAILY tabec 10/22/16 Atorvastatin Calcium [Lipitor 80 mg Tablet] 80 mg PO QHS tablet 10/22/16 Clopidogrel Bisulfate [Plavix 75 mg Tablet] 75 mg PO DAILY tablet 10/22/16 Magnesium Oxide [Mag-Ox 400 mg Tablet] 400 mg PO BID #14 tablet 10/22/16 Metolazone [Zaroxolyn 2.5 mg Tablet] 2.5 mg PO BIDLS #60 tablet 10/23/16 History of Present Illness History of Present Illness: This is the patient's H&P as per the admitting physician: History of Present Illness Admission Date/PCP: 10/15/16 04:45 PCP & Cards Emily Patient complains of: SOB, LE swelling History of Present Illness: KEN ZAYAS is a 56 year old male with known severe combined systolic and diastolic congestive heart failure, recent ejection fraction noted less than 15%, and with known history of noncompliance with both medications and diet, who presents to the emergency room for evaluation of above complaints. Patient has been discussed with emergency room physician who evaluated the patient. Patient describes progressive dyspnea on exertion for the past week or so, along with abdominal and lower extremity swelling. He initially stated that the swelling was so great he was not able to get up and take his medicines. Subsequently simply said he had not been taking most of his medications, with essentially no reason given. Rizwan historian. Appears to have poor insight at best into acute and chronic medical issues and seems poorly motivated to be compliant with medications and diet. Denies fever or chills or chest pain. Half pack a day smoker. Bottle of wine every 2 days. Ate fried spam on the fourth. Currently resting quietly, chest pain-free. Hospitalized on our service basically overnight, with admission on August 26. Discharge diagnoses include acute on chronic congestive heart failure, and acute renal failure. Patient had been eating pork sausage and drinking wine. History and physical and discharge summary have been reviewed. Laboratory results are listed in [facility] and are reviewed. Patient initially refused chest x-ray, stating that he gets a bill each time and the x-ray shows "nothing." However, he has agreed to have the study, with study pending. EKG reviewed and compared to a tracing from August 25 of this year.. Hospital Course Hospital Course: For the last 7 days the patient has been aggressively diuresed. He was switched from Lasix to Bumex. Cardiology consult was then placed and they increase his Bumex to 2 mg 3 times daily. Patient diuresed about 12 L off after that change was made. He then went for paracentesis where they took off 4 L of fluid. A marked reduction in his scrotal size. As well as reduced edema of the lower extremities. Fortunately, even with these efforts the patient with still disheartened that he did not have as much function leaving the hospital. I did encourage the patient to stay continue to get diuresis a little bit more. To this I encouraged him to stay so that he could be placed in a rehab facility for week or 2 to get his strength back. He did work with physical therapy and was quite weekend during his hospital stay here. The patient however refused and wanted to go home. After discussing it with her pt sitter, Dr. Diaz, it was decided to let the patient follow up with Dr. Diaz in 1 week. Physical Exam Vital Signs: Temp Pulse Resp BP Pulse Ox 98.4 F 71 19 103/70 89 L 10/22/16 11:13 10/22/16 16:19 10/22/16 11:13 10/22/16 11:13 10/22/16 11:13 Intake & Output 10/21/16 10/22/16 10/23/16 06:59 06:59 06:59 Intake Total 1396 960 0 Output Total 3750 3600 1000 Balance -8237 -0220 -1000 Weight 131.5 kg 126.7 kg Physical exam: General: This is a well-developed and nourished appearing white male resting in bed on CPAP currently in no acute distress. HEART: Regular rate and rhythm. No murmurs rubs or gallops Lungs: Anteriorly he is clear to auscultation with equal rise and fall of the chest. Abdomen: Distended, tight Extremities: No clubbing or cyanosis. Patient has anasarca. The Skin on the legs is overall significantly improved. Patient does not have any hair on his legs. Changes of venous stasis are obvious. : Large scrotal edema is less edematous today. Neuro: Then Awake, alert oriented 3. Cranial nerves are grossly intact Results Laboratory Results: 10/20/16 04:51 10/22/16 03:44 10/22/16 10/22/16 03:44 15:05 Sodium 135.3 L Potassium 4.7 Chloride 90 L Carbon Dioxide 34 H Anion Gap 11 BUN 37 H Creatinine 2.41 H Est GFR ( Amer) 34 L Est GFR (Non-Af Amer) 28 L Glucose 101 Calcium 9.2 Magnesium 1.8 Fluid Type PERITONEAL Fluid Source ASCITES Fluid Color YELLOW Fluid Appearance CLEAR Fluid Viscosity LIQUID Fluid WBC 14 Fluid RBC 26 10/22/16 03:44 NT-Pro-B Natriuret Pep 56167 H Impressions: Chest X-Ray 10/18/16 16:54 IMPRESSION: Cardiomegaly without CHF. Abdomen Ultrasound 10/19/16 00:00 IMPRESSION: Moderate -marked ascites. Mild splenomegaly. Gallbladder sludge. Paracentesis Ultrasound 10/22/16 00:00 IMPRESSION: Successful ultrasound-guided paracentesis. Fluid was sent for laboratory testing. Qualifiers PATEINT BEING DISCHARGED WITH ANY OF THE FOLLOWING DIAGNOSIS?: No Plan Time Spent: Greater than 30 Minutes
[2016-10-22] MEDS ORDERED: ALBUMIN HUMAN 50 ML IV ONE (18:30)
--- NOTE | 2016-10-22 20:17 | PDOC PROGRESS REPORT ---
Subjective Progress Note for:: 10/22/16 Subjective:: Patient was seen on morning rounds. He claims to be doing a little bit better than before very slow progress. Patient had paracentesis today. He had approximately 6 L removed. Results are pending. Leg edema has improved. Patient noted to have good urine output. Telemetry strips reviewed. It showed A sensed V paced rhythm. Patient has had good urine output and his stomach is less firm. Physical Exam Vital Signs: Temp Pulse Resp BP Pulse Ox 98.4 F 71 19 103/70 89 L 10/22/16 11:13 10/22/16 16:19 10/22/16 11:13 10/22/16 11:13 10/22/16 11:13 Intake & Output 10/21/16 10/22/16 10/23/16 06:59 06:59 06:59 Intake Total 1396 960 588 Output Total 3750 3600 1400 Balance -2354 -2640 -812 Weight 131.5 kg 126.7 kg Exam: GENERAL: well-nourished and in no acute distress. Alert and oriented x3 HEAD: Atraumatic, normocephalic. EYES: Pupils equal round and reactive to light, extraocular movements intact, sclera anicteric, conjunctiva are normal. ENT: TMs normal, nares patent, oropharynx clear without exudates. Moist mucous membranes. No oral ulcerations or bleeding gums noted NECK: supple without lymphadenopathy. Trachea is central. No cervical or axillary lymphadenopathy noted. Carotids are 2+, JVD WNL LUNGS: Respiration seems nonlabored, no significant accessory muscle action noted. Breath sounds clear to auscultation bilaterally and equal noted. No wheezes rales or rhonchi noted. No significant dullness noted on percussion. CHEST: Palpation of the chest wall shows no significant chest wall tenderness. No other significant abnormalities noted. Defibrillator noted on the left side. 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 ABDOMEN: Soft, moderate ascites noted, no significant tenderness appreciated, normoactive bowel sounds. No guarding, no rebound. No rigidity noted . No masses appreciated. EXTREMITIES: Pedal pulses are 1-2+, no calf tenderness noted. No clubbing or cyanosis. 1+ pedal edema noted NEUROLOGICAL: Focused neurological exam showed no significant neurologic deficit. Normal speech, no focal weakness appreciated. PSYCH: Normal mood, normal affect. Judgment and insight within normal limits. SKIN: No significant ecchymosis, rash, ulcerations or signs of pruritus noted. MUSCULOSKELETAL EXAM: No significant joint swelling noted. Results Laboratory Results: 10/20/16 04:51 10/22/16 03:44 10/22/16 10/22/16 03:44 15:05 Sodium 135.3 L Potassium 4.7 Chloride 90 L Carbon Dioxide 34 H Anion Gap 11 BUN 37 H Creatinine 2.41 H Est GFR ( Amer) 34 L Est GFR (Non-Af Amer) 28 L Glucose 101 Calcium 9.2 Magnesium 1.8 Fluid Type PERITONEAL Fluid Source ASCITES Fluid Color YELLOW Fluid Appearance CLEAR Fluid Viscosity LIQUID Fluid WBC 14 Fluid RBC 26 10/22/16 03:44 NT-Pro-B Natriuret Pep 39352 H Impressions: Chest X-Ray 10/18/16 16:54 IMPRESSION: Cardiomegaly without CHF. Abdomen Ultrasound 10/19/16 00:00 IMPRESSION: Moderate -marked ascites. Mild splenomegaly. Gallbladder sludge. Paracentesis Ultrasound 10/22/16 00:00 IMPRESSION: Successful ultrasound-guided paracentesis. Fluid was sent for laboratory testing. Assessment & Plan - Diagnosis (1) Anasarca Is this a current diagnosis for this admission?: Yes (2) Acute on chronic combined systolic (congestive) and diastolic (congestive) heart failure Is this a current diagnosis for this admission?: Yes (3) Diabetes Qualifiers: Diabetes mellitus type: type 2 Diabetes mellitus complication status: with unspecified complications Is this a current diagnosis for this admission?: Yes (4) HLD (hyperlipidemia) Qualifiers: Hyperlipidemia type: other hyperlipidemia Qualified Code(s): E78.4 - Other hyperlipidemia Is this a current diagnosis for this admission?: Yes (5) ALEYDA (obstructive sleep apnea) Is this a current diagnosis for this admission?: Yes (6) Tobacco dependency Is this a current diagnosis for this admission?: Yes (7) COPD (chronic obstructive pulmonary disease) Qualifiers: Emphysema type: unspecified Is this a current diagnosis for this admission?: Yes (8) Ascites Qualifiers: Ascites type: other type Qualified Code(s): R18.8 - Other ascites Is this a current diagnosis for this admission?: Yes (9) CKD (chronic kidney disease), stage III Is this a current diagnosis for this admission?: Yes - Notes Notes: Anasarca: Significantly improved. Pedal edema has resolved. Patient now noted to have just ascites which may take several days to reabsorb. Patient is also status post paracentesis of 6 L. CHF: Seems compensated except for ascites being present. Diabetes: Stable Chronic kidney disease: There has been some slight worsening but I believe that this will be stabilized. Obstructive sleep apnea: Continue with nightly bilevel therapy. COPD: Continue with management plans as outlined. Patient encouraged in compliance with medication and diet. Patient's overall prognosis is guarded because of severely depressed LVEF. Patient claims that he is being discharged tomorrow otherwise he will just leave by himself.. - Time Time with patient: 15-25 minutes - CODE STATUS was discussed, patient remains full code. Surrogate decision-maker patient's mother. Multiple medical problems were addressed. More than 50% of the time spent coordinating care, discussing management plans with involved caregivers. Management plans discussed with involved personnels. Medical decision making was of moderate to high complexity, patient's has multiple comorbidities. Medications reviewed and adjusted accordingly: Yes
[2016-10-22] MEDS: ATORVASTATIN CALCIUM 80 MG TABLET PO SCH (23:29)
[2016-10-22] MEDS: TRAZODONE HCL 50 MG TABLET PO SCH (23:30)
[2016-10-23] MEDS: METOLAZONE 2.5 MG TABLET PO SCH (05:21)
[2016-10-23] MEDS: BUMETANIDE INJ/PF 1 MG/4 ML SDV IV SCH (05:21)
[2016-10-23] MEDS: HEPARIN SOD (PORCINE) 5,000 UNIT/ML 1 ML SYRINGE SUBCUT SCH (05:21)
[2016-10-23] MEDS: AMOXICILLIN TR/POT CLAVULANATE 500-125 MG TAB PO SCH (05:23)
[2016-10-23 05:45] LABS: ANION GAP 7 (5-19); BLOOD UREA NITROGEN 38 mg/dL (7-20); CALCIUM 8.5 mg/dL (8.4-10.2); CARBON DIOXIDE 34 mmol/L (22-30); CHLORIDE 89 mmol/L (98-107); CREATININE RESULT 2.74 mg/dL (0.52-1.25); GLUCOSE 88 mg/dL (75-110); SODIUM 130.4 mmol/L (137-145)
[2016-10-23 06:15] LABS: POTASSIUM 4.7 mmol/L (3.6-5.0)
[2016-10-23] MEDS: CARVEDILOL 6.25 MG TABLET PO SCH (10:15)
[2016-10-23] MEDS: SPIRONOLACTONE 25 MG TABLET PO SCH (10:15)
[2016-10-23] MEDS: NITROGLYCERIN 5 MG (0.2 MG/HR) PATCH.TD24 TD SCH (10:15)
[2016-10-23] MEDS: MAGNESIUM OXIDE 400 MG TABLET PO SCH (10:29)
[2016-10-23] MEDS: CLOPIDOGREL BISULFATE 75 MG TABLET PO SCH (10:29)
[2016-10-23] MEDS: ASPIRIN 81 MG TABLET, ENT COATED PO SCH (10:29)
[2016-10-23] MEDS: POTASSIUM CHLORIDE 10 MEQ TABLET.SA PO SCH (10:30)
[2016-10-23 12:13] LABS: PATH REVIEW PATHOLOGIST REVIEWED
[2016-10-23 12:19] VITALS: BP 74/45
--- NOTE | 2016-10-23 16:40 | Progress Note ---
Provider Note Provider Note: the patient was kept overnight due to borderline low BPs and his diuretic therapy was adjusted with stabilization in his condition. He should continue the Bumex bid and f/u with dr lopez as instructed. return to the hospital for worsening condition. at the time of discharge he is sitting up in bed in no acute distress, breathing easily, abdomen less distended than presentation, wrinkles in his lower extremities but with persistent 1+ edema, he is ambulatory in the room, speech is clear and lucid, mood and affect are appropriate. he is stable for d/ c home at this time. labs reviewed, d/c orders reviewed.
--- NOTE | 2016-10-23 19:34 | PDOC PROGRESS REPORT ---
Subjective Progress Note for:: 10/23/16 Subjective:: Patient was seen on morning rounds. He is expecting to be discharged today. He is quite happy with the progress have been lost significant weight and also significant improvement in his ascites. His renal function abnormality is of some concern. Patient denied any defibrillator shocks. Patient claims that he has difficulty ambulating because of swelling. Ultrasound of the abdomen report was reviewed. It showed moderate ascites. Leg edema has improved. Patient noted to have good urine output. He still not ambulated much. Telemetry strips reviewed. It showed A sensed V paced rhythm. Physical Exam Vital Signs: Temp Pulse Resp BP Pulse Ox 98.2 F 64 19 74/45 L 99 10/23/16 11:26 10/23/16 11:26 10/23/16 11:26 10/23/16 11:26 10/23/16 11:26 Intake & Output 10/22/16 10/23/16 10/24/16 06:59 06:59 06:59 Intake Total 960 1188 355 Output Total 3600 2200 275 Balance -2640 -1012 80 Weight 126.7 kg 121.3 kg Exam: GENERAL: well-nourished and in no acute distress. Alert and oriented x3 HEAD: Atraumatic, normocephalic. EYES: Pupils equal round and reactive to light, extraocular movements intact, sclera anicteric, conjunctiva are normal. ENT: TMs normal, nares patent, oropharynx clear without exudates. Moist mucous membranes. No oral ulcerations or bleeding gums noted NECK: supple without lymphadenopathy. Trachea is central. No cervical or axillary lymphadenopathy noted. Carotids are 2+, JVD WNL LUNGS: Respiration seems nonlabored, no significant accessory muscle action noted. Breath sounds clear to auscultation bilaterally and equal noted. No wheezes rales or rhonchi noted. No significant dullness noted on percussion. CHEST: Palpation of the chest wall shows no significant chest wall tenderness. No other significant abnormalities noted. 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 ABDOMEN: Much more soft, ascites significantly decreased, no significant tenderness appreciated, normoactive bowel sounds. No guarding, no rebound. No rigidity noted . No masses appreciated. EXTREMITIES: Pedal pulses are 1-2+, no calf tenderness noted. No clubbing or cyanosis.trace to 1+ pedal edema noted NEUROLOGICAL: Focused neurological exam showed no significant neurologic deficit. Normal speech, no focal weakness appreciated. PSYCH: Normal mood, normal affect. Judgment and insight within normal limits. SKIN: No significant ecchymosis, rash, superficial ulceration and signs of dermatitis noted both lower legs. MUSCULOSKELETAL EXAM: No significant joint swelling noted. Results Laboratory Results: 10/20/16 04:51 10/23/16 04:29 10/22/16 10/23/16 15:05 04:29 Sodium 130.4 L Potassium 4.7 Chloride 89 L Carbon Dioxide 34 H Anion Gap 7 BUN 38 H Creatinine 2.74 H Est GFR ( Amer) 29 L Est GFR (Non-Af Amer) 24 L Glucose 88 Calcium 8.5 Fluid Type PERITONEAL Fluid Source ASCITES Fluid Color YELLOW Fluid Appearance CLEAR Fluid Viscosity LIQUID Fluid WBC 14 Fluid RBC 26 10/22/16 03:44 NT-Pro-B Natriuret Pep 99233 H Impressions: Chest X-Ray 10/18/16 16:54 IMPRESSION: Cardiomegaly without CHF. Abdomen Ultrasound 10/19/16 00:00 IMPRESSION: Moderate -marked ascites. Mild splenomegaly. Gallbladder sludge. Paracentesis Ultrasound 10/22/16 00:00 IMPRESSION: Successful ultrasound-guided paracentesis. Fluid was sent for laboratory testing. Assessment & Plan - Diagnosis (1) Anasarca Is this a current diagnosis for this admission?: Yes (2) Acute on chronic combined systolic (congestive) and diastolic (congestive) heart failure Is this a current diagnosis for this admission?: Yes (3) Diabetes Qualifiers: Diabetes mellitus type: type 2 Diabetes mellitus complication status: with unspecified complications Is this a current diagnosis for this admission?: Yes (4) HLD (hyperlipidemia) Qualifiers: Hyperlipidemia type: other hyperlipidemia Qualified Code(s): E78.4 - Other hyperlipidemia Is this a current diagnosis for this admission?: Yes (5) ALEYDA (obstructive sleep apnea) Is this a current diagnosis for this admission?: Yes (6) Tobacco dependency Is this a current diagnosis for this admission?: Yes (7) COPD (chronic obstructive pulmonary disease) Qualifiers: Emphysema type: unspecified Is this a current diagnosis for this admission?: Yes (8) Ascites Qualifiers: Ascites type: other type Qualified Code(s): R18.8 - Other ascites Is this a current diagnosis for this admission?: Yes (9) CKD (chronic kidney disease), stage III Is this a current diagnosis for this admission?: Yes - Notes Notes: Anasarca: Significantly improved. Pedal edema has resolved. Patient now noted to have just ascites which may take several days to reabsorb. Patient is also status post paracentesis of 6 L. Patient tolerated paracentesis well. CHF: Seems compensated except for ascites being present. This is significantly improved Diabetes: Stable Chronic kidney disease: There has been significant worsening of renal function since admission but I believe that this will be stabilized. Will follow renal functions as an outpatient Obstructive sleep apnea: Continue with nightly bilevel therapy. COPD: Continue with management plans as outlined. Patient encouraged in compliance with medication and diet. Patient's overall prognosis is guarded because of severely depressed LVEF. Patient claims that he is being discharged. 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 - Time Time with patient: 15-25 minutes - CODE STATUS was discussed, patient remains full code. Surrogate decision-maker patient's mother. Multiple medical problems were addressed. More than 50% of the time spent coordinating care, discussing management plans with involved caregivers. Management plans discussed with involved personnels. Medical decision making was of moderate to high complexity, patient's has multiple comorbidities. Medications reviewed and adjusted accordingly: Yes
== END 2016-10-23 12:44 | disposition home or self-care (01) | DRG 291 ==
LOC: ER 23:59 → UNDOADMOB 10-15 04:45 → EH 10-15 04:45 → 3N 10-15 14:13 → OBSVTOIN 10-16 17:50
PROVIDERS: ADMIT Family Medicine; ATTEND Family Medicine
PROC: 5A09557 Assistance with Respiratory Ventilation, Greater than 96 Consecutive Hours, Continuous Positive Airway Pressure (ICD-10-PCS; 2016-10-15)
PROC: 0W9G3ZZ Drainage of Peritoneal Cavity, Percutaneous Approach (ICD-10-PCS; principal; 2016-10-22)
DX: I13.0 Hypertensive heart and chronic kidney disease with heart failure and stage 1 through stage 4 chronic kidney disease, or unspecified chronic kidney disease (principal); I50.43 Acute on chronic combined systolic (congestive) and diastolic (congestive) heart failure; N39.0 Urinary tract infection, site not specified; R18.8 Other ascites; N17.9 Acute kidney failure, unspecified; Z68.41 Body mass index [BMI] 40.0-44.9, adult; N18.3 Chronic kidney disease, stage 3 (moderate); E11.22 Type 2 diabetes mellitus with diabetic chronic kidney disease; G47.33 Obstructive sleep apnea (adult) (pediatric); E87.6 Hypokalemia; E83.42 Hypomagnesemia; B95.2 Enterococcus as the cause of diseases classified elsewhere; E78.5 Hyperlipidemia, unspecified; E11.51 Type 2 diabetes mellitus with diabetic peripheral angiopathy without gangrene; E11.40 Type 2 diabetes mellitus with diabetic neuropathy, unspecified; N50.89 Other specified disorders of the male genital organs; F32.9 Major depressive disorder, single episode, unspecified; J44.9 Chronic obstructive pulmonary disease, unspecified; F17.210 Nicotine dependence, cigarettes, uncomplicated; F41.9 Anxiety disorder, unspecified; I42.9 Cardiomyopathy, unspecified; E66.01 Morbid (severe) obesity due to excess calories; I25.2 Old myocardial infarction; Z95.5 Presence of coronary angioplasty implant and graft; Z60.2 Problems related to living alone; Z79.899 Other long term (current) drug therapy; Z91.11 Patient's noncompliance with dietary regimen; Z91.14 Patient's other noncompliance with medication regimen; Z95.810 Presence of automatic (implantable) cardiac defibrillator; Z82.49 Family history of ischemic heart disease and other diseases of the circulatory system; Z83.6 Family history of other diseases of the respiratory system; Z83.3 Family history of diabetes mellitus
CPT/HCPCS: 36415; 36600; 49083; 51702; 71020; 76700; 80048; 80053; 80307; 81001; 82550; 82553; 82803; 82962; 83735; 83880; 84484; 85025; 85610; 87070; 87075; 87086; 87088; 87186; 87205; 89050; 93005; 93010; 94660; 96374; 96376; 99285; G0378; G8978-GP; G8979-GP; J1644; J1815; J1940; J2405; J3475; J3490; P9047

== ENCOUNTER 2017-01-12 22:03 | Inpatient (IN) | payer MEDICARE ==
--- NOTE | 2017-01-12 22:33 | ER Document Report ---
ED General - General Mode of Arrival: Ambulatory Information source: Patient TRAVEL OUTSIDE OF THE [place] IN LAST 30 DAYS: No <VIKA HUTCHISON - Last Filed: 01/13/17 03:01> <YRN SPRAGUE - Last Filed: 01/13/17 03:45> - General Chief Complaint: Low Blood Pressure Stated Complaint: BLOOD SUGAR PROBLEMS Time Seen by Provider: 01/12/17 22:07 Notes: Patient is a 56 year old male that presents to the emergency department today with complaints of a low BGL. According to the patient, his mom found him passed out, and on EMS arrival the patient had a BGL of 21. Patient has extensive ascites which he states he believes is from his EF of 50%. Patient states to his knowledge he has not been diagnosed with any liver disease. Patient states he is very non-complaint with his medications and he is usually unable to eat secondary to not being able to keep anything down because of his abdominal swelling. Patient states he "randomly took a glipizide" today and he believes that bottomed out his glucose level. Patient states he has never had his abdomen drained because "he was told they do not do that here". (VIKA HUTCHISON) - Related Data Allergies/Adverse Reactions: No Known Allergies Allergy (Verified 01/12/17 22:34) Home Medications: Current Home Medications Lisinopril [Prinivil 5 mg Tablet] 5 mg PO BID 01/13/17 [History] Sacubitril/Valsartan [Entresto 24 mg-26 mg Tablet] 1 tab PO BID 01/13/17 [ History] Torsemide [Demadex 20 mg Tablet] 40 mg PO ASDIR PRN 01/13/17 [History] Past Medical History - General Information source: Patient - Social History Smoking Status: Never Smoker Cigarette use (# per day): No Frequency of alcohol use: None Drug Abuse: None Lives with: Family Family History: None - Past Medical History Cardiac Medical History: Reports: Hx Congestive Heart Failure - Combined systolic and diastolic., Hx Heart Attack, Hx Hypercholesterolemia, Hx Hypertension, Hx Peripheral Vascular Disease Pulmonary Medical History: Reports: Hx Bronchitis, Hx Sleep Apnea - CPAP, pressure 15. No home oxygen. Endocrine Medical History: Reports: Hx Diabetes Mellitus Type 2, Hx Hypothyroidism - States he might be hypothyroid, according to recent test, but not sure. Psychiatric Medical History: Reports: Hx Depression Past Surgical History: Reports: Hx Appendectomy, Hx Cardiac Catheterization, Hx Cardiac Surgery - 5 stents, pacer/defib, Hx Internal Defibrillator, Hx Pacemaker - AICD - Immunizations Hx Diphtheria, Pertussis, Tetanus Vaccination: Yes <VIKA HUTCHISON - Last Filed: 01/13/17 03:01> Review of Systems - Review of Systems Constitutional: See HPI, Other - low blood sugar EENT: No symptoms reported Cardiovascular: No symptoms reported Respiratory: See HPI, Short of breath Gastrointestinal: See HPI, Other - ascities Genitourinary: No symptoms reported Male Genitourinary: No symptoms reported Musculoskeletal: See HPI, Joint pain Skin: No symptoms reported Hematologic/Lymphatic: No symptoms reported Neurological/Psychological: No symptoms reported -: Yes All other systems reviewed and negative <VIKA HUTCHISON - Last Filed: 01/13/17 03:01> Physical Exam <VIKA HUTCHISON - Last Filed: 01/13/17 03:01> <YRN SPRAGUE - Last Filed: 01/13/17 03:45> - Vital signs Vitals: Resp Pulse Ox 18 100 01/12/17 22:07 01/12/17 22:07 - Notes Notes: Physical Exam: General: Alert, appears uncomfortable. HEENT: Normocephalic. Atraumatic. PERRL. Extraocular movements intact. Oropharynx clear. Neck: Supple. Non-tender. Respiratory: No respiratory distress. Clear and equal breath sounds bilaterally. Cardiovascular: Regular rate and rhythm. Abdominal: Protuberant and tense. Normal Bowel Sounds. Back: Non-tender. No deformity or step off. Extremities: Moves all four extremities. Upper extremities: Normal inspection. Normal ROM. Lower extremities: Normal inspection. No edema. Normal ROM. Neurological: Normal cognition. AAOx4. Normal speech. Psychological: Normal affect. Normal Mood. Skin: Warm. Dry. Normal color. (VIKA HUTCHISON) Course - Laboratory Result Diagrams: 01/12/17 23:03 01/12/17 23:03 <VIKA HUTCHISON - Last Filed: 01/13/17 03:01> - Laboratory Result Diagrams: 01/12/17 23:03 01/12/17 23:03 <YRN SPRAGUE - Last Filed: 01/13/17 03:45> - Re-evaluation Re-evalutation: 01/13/17 01:38 Patient presents emergency department via EMS with low blood sugar. Patient got called out to EMS and his home earlier today with low blood sugar they gave him an amp of D50 and he refused to come to the ER. Long his mother again found him as he lives at home alone unresponsive Accu-Chek at 21. They gave him an amp of D50 prior to arrival. Persistently hypoglycemic when he got here. We gave an additional amp of D50 and gave him something to eat he persistently continued to drop his blood sugars. He is very noncompliant with his medications and randomly takes them. He randomly decided to take his oral hypoglycemic today which he does not take on a regular basis. He has a history of congestive heart failure for MIs with 5 stents. In addition to that he is hypertensive and last known ejection fraction of 15% with a history of massive ascites and anasarca. He is on chronic diuretics and has paracentesis done last admission 612 where they radha 6000 mL off. He has not been told he had chronic cirrhosis but is a drinker and continues to drink and smoke on occasion. He states in terms of his primary care physician he sees Dr. 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 He has numerous medications listed but that takes them randomly. He will at times take potassium and increase his Lasix without being monitored and is historically noncompliant. He also has such massive ascites in his abdomen that he does not eat. Due to the increased weight he has to sit upright and barely ambulates out of his home. He has chronic knee and back pain as well. He is not short of breath on arrival he denies any chest pain or chest pressure. He has a right bundle branch block on EKG paced. 01/13/17 01:42 Patient is baseline anemic no white count elevation BNP slightly elevated chest x-ray nonacute no overt congestive heart failure respiratory distress and negative acute troponin no acute renal failure. Will admit on iv dextrose fluids with suspected consultation for ascites upon admission 01/13/17 02:16 (YRN SPRAGUE) - Vital Signs Vital signs: Temp Pulse Resp BP Pulse Ox 97.3 F 79 21 H 101/80 100 01/13/17 03:08 01/13/17 03:08 01/13/17 03:08 01/13/17 03:08 01/13/17 03:08 - Laboratory Laboratory results interpreted by me: 01/12/17 01/12/17 01/12/17 23:03 23:03 23:03 RBC 3.49 L Hgb 10.0 L Hct 28.7 L RDW 19.1 H Seg Neutrophils % 80.9 H Lymphocytes % 9.9 L Sodium 135.9 L Potassium 3.5 L Chloride 96 L BUN 22 H Glucose 27 L* POC Glucose Direct Bilirubin ALT NT-Pro-B Natriuret Pep 92812 H Albumin TSH 01/12/17 01/12/17 01/12/17 23:03 23:03 23:44 RBC Hgb Hct RDW Seg Neutrophils % Lymphocytes % Sodium Potassium Chloride BUN Glucose POC Glucose 46 L Direct Bilirubin 0.6 H ALT 10 L NT-Pro-B Natriuret Pep Albumin 3.2 L TSH 13.40 H 01/13/17 00:48 RBC Hgb Hct RDW Seg Neutrophils % Lymphocytes % Sodium Potassium Chloride BUN Glucose POC Glucose 43 L Direct Bilirubin ALT NT-Pro-B Natriuret Pep Albumin TSH - EKG Interpretation by Me Additional EKG results interpreted by me: 01/13/17 02:31 Paced rhythm (YRN SPRAGUE) Critical Care Note - Critical Care Note Total time excluding time spent on procedures (mins): 65 <YRN SPRAGUE - Last Filed: 01/13/17 03:45> Discharge <VIKA HUTCHISON - Last Filed: 01/13/17 03:01> - Discharge Admitting Provider: Hospitalist Unit Admitted: [facility] <YRN SPRAGUE - Last Filed: 01/13/17 03:45> - Discharge Clinical Impression: Acute hypoglycemia on oral hypoglycemic, chronic systolic heart failure Ascites Qualifiers: Ascites type: other type Qualified Code(s): R18.8 - Other ascites Condition: Stable Disposition: ADMITTED INPATIENT Scribe Attestation: 01/13/17 02:30 I personally performed the services described in the documentation reviewed the documentation recorded by my scribe in my presence and it accurately and completely records my words and actions (YRN SPRAGUE) Scribe Documentation - Scribe Written by Coral:: Coral Montes De Oca, 01/12/2017 [id number] acting as scribe for :: Chris <VIKA HUTCHISON - Last Filed: 01/13/17 03:01>
--- NOTE | 2017-01-12 23:17 | EKG REPORT ---
SEVERITY:- ABNORMAL ECG - VENTRICULAR-PACED COMPLEXES RIGHT BUNDLE BRANCH BLOCK : Confirmed by: Juliana Diaz 12-Jan-2017 23:16:56
[2017-01-12 23:23] LABS: ABSOLUTE BASOPHILS # (AUTO) 0.1 10^3/uL (0.0-0.2); ABSOLUTE EOSINOPHILS # (AUTO) 0.1 10^3/uL (0.0-0.6); ABSOLUTE LYMPHOCYTES (AUTO) 0.8 10^3/uL (0.5-4.7); ABSOLUTE MONOCYTES (AUTO) 0.6 10^3/uL (0.1-1.4); ABSOLUTE NEUT (AUTO) 6.9 10^3/uL (1.7-8.2); BASOPHILS % (AUTO) 0.9 % (0-2); EOSINOPHILS % (AUTO) 1.3 % (0-6); HEMATOCRIT 28.7 % (37.9-51.0); HGB HCT DIFFERENCE 1.3; LYMPHOCYTES % (AUTO) 9.9 % (13-45); MEAN CORPUSCULAR HEMOGLOBIN 28.5 pg (27.0-33.4); MEAN CORPUSCULAR HGB CONC 34.7 g/dL (32.0-36.0); MEAN CORPUSCULAR VOLUME 82 fl (80-97); RED BLOOD COUNT 3.49 10^6/uL (4.35-5.55); RED CELL DISTRIBUTION WIDTH 19.1 % (11.5-14.0); SEGMENTED NEUTROPHILS % (AUTO) 80.9 % (42-78); WHITE BLOOD COUNT 8.5 10^3/uL (4.0-10.5)
[2017-01-12 23:35] LABS: ANION GAP 10 (5-19); BLOOD UREA NITROGEN 22 mg/dL (7-20); CALCIUM 9.1 mg/dL (8.4-10.2); CARBON DIOXIDE 30 mmol/L (22-30); CHLORIDE 96 mmol/L (98-107); POTASSIUM 3.5 mmol/L (3.6-5.0); SODIUM 135.9 mmol/L (137-145)
[2017-01-12 23:42] LABS: GLUCOSE 27 mg/dL (75-110)
[2017-01-12] MEDS ORDERED: DEXTROSE 50%-WATER 25 GM/50 ML DISP.SYRIN IV ONE (23:49)
[2017-01-13] MEDS ORDERED: KETOROLAC TROMETHAMINE 60 MG/2 ML SDV IM ONE (00:04)
[2017-01-13] MEDS ORDERED: DEXTROSE 50%-WATER 25 GM/50 ML DISP.SYRIN IV ONE ×2 (00:51→00:53)
[2017-01-13] MEDS ORDERED: DEXTROSE 5%-1/2 NORMAL SALINE 500 ML IV ONE (00:51)
--- NOTE | 2017-01-13 01:13 | RADIOLOGY REPORT (SQ) ---
EXAM DESCRIPTION: CHEST SINGLE VIEW COMPLETED DATE/TIME: 01/13/2017 1:03 am REASON FOR STUDY: history chf COMPARISON: Chest x-ray 10/18/2016, 06/14/2016. EXAM PARAMETERS: NUMBER OF VIEWS: One view. TECHNIQUE: Single frontal radiographic view of the chest acquired. RADIATION DOSE: NA LIMITATIONS: None. FINDINGS: LUNGS AND PLEURA: Atelectatic changes at the right lung base. No pleural effusion or pneu mothorax. MEDIASTINUM AND HILAR STRUCTURES: No masses. Contour normal. HEART AND VASCULAR STRUCTURES: The heart is upper normal limit in size. No overt vascular congestion . BONES: No acute findings. HARDWARE: There is a left-sided pacemaker. IMPRESSION: Right basilar atelectasis. TECHNICAL DOCUMENTATION: JOB ID: [id number]
[2017-01-13 01:49] LABS: ALANINE AMINOTRANSFERASE 10 U/L (21-72); ALBUMIN 3.2 g/dL (3.5-5.0); ALKALINE PHOSPHATASE 99 U/L (38-126); ASPARTATE AMINO TRANSFERASE 21 U/L (17-59); BILIRUBIN,DIRECT 0.6 mg/dL (0.0-0.4); BILIRUBIN,TOTAL 0.8 mg/dL (0.2-1.3); TOTAL PROTEIN 7.3 g/dL (6.3-8.2)
[2017-01-13] MEDS ORDERED: MAG HYDROX/AL HYDROX/SIMETH SUSP 30 ML UDCUP PO PRN (02:23)
[2017-01-13] MEDS ORDERED: GLUCAGON,HUMAN RECOMB 1 MG INJ IM PRN (02:23)
[2017-01-13] MEDS ORDERED: DEXTROSE 50%-WATER 25 GM/50 ML DISP.SYRIN IV PRN (02:23)
[2017-01-13] MEDS ORDERED: DEXTROSE 40% GEL 15 GM TUBE PO PRN ×2 (02:23)
[2017-01-13 02:48] LABS: MAGNESIUM 1.9 mg/dL (1.6-2.3)
[2017-01-13] MEDS: DEXTROSE 50%-WATER 25 GM/50 ML DISP.SYRIN IV PRN ×9 (03:15→19:21)
--- NOTE | 2017-01-13 04:12 | PDOC H&P ---
History of Present Illness Admission Date/PCP: 01/13/17 02:23 Patient complains of: Hypoglycemia and abdominal pain History of Present Illness: KEN ZAYAS is a 56 year old male with a past medical history of diabetes, hypertension, coronary artery disease, congestive heart failure with ejection fraction 50% and AICD placement 2 years ago, recurrent abdominal ascites and dietary indiscretion. Patient been in his usual state of health until approximately 12 hours prior to presentation he was found difficult to arouse from sleep EMS was called discovering hyperglycemia in the 20s he received D50 but refused ER evaluation however several hours later he became unresponsive and EMS returned finding his blood sugar at 27 he receives dextrose and brought to the emergency room for evaluation. He complains of new abdominal pain and sudden worsening of distention and is referred to the hospitalist for admission. Patient admits to reinitiating his home Amaryl with poor p.o. intake. In addition to new abdominal pain some nausea without fever or diarrhea. Past Medical History Cardiac Medical History: Reports: Congestive Heart Failure - Combined systolic and diastolic., Myocardial Infarction, Hyperlipidema, Hypertension, Peripheral Vascular Disease Denies: Pulmonary Embolism Pulmonary Medical History: Reports: Bronchitis, Sleep Apnea - CPAP, pressure 15. No home oxygen. Denies: Chronic Obstructive Pulmonary Disease (COPD) Neurological Medical History: Denies: Seizures Endocrine Medical History: Reports: Diabetes Mellitus Type 2, Hypothyroidism - States he might be hypothyroid, according to recent test, but not sure. Denies: Diabetes Mellitus Type 1, Hyperthyroidism GI Medical History: Denies: Cirrhosis, Gastroesophageal Reflux Disease, Hepatitis Musculoskeltal Medical History: Denies: Arthritis Psychiatric Medical History: Reports: Depression Infectious Medical History: Denies: Clostridium Difficile, Methicillin-Resistant Staph Aureus Past Surgical History Past Surgical History: Reports: Appendectomy, Cardiac Catheterization, Internal Defibrillator, Pacemaker - AICD Social History Information Source: [facility], [facility], [facility] Records Lives with: Family Smoking Status: Never Smoker Frequency of Alcohol Use: Social Hx Recreational Drug Use: No Drugs: None Hx Prescription Drug Abuse: No - Advance Directive Resuscitation Status: Full Code Family History Family History: Hypertension Parental Family History Reviewed: Yes Children Family History Reviewed: Yes Sibling(s) Family History Reviewed.: Yes Medication/Allergy Home Medications: Atorvastatin Calcium [Lipitor 80 mg Tablet] 80 mg PO QHS 10/15/16 Carvedilol [Coreg 6.25 mg Tablet] 6.25 mg PO BID 10/15/16 Glimepiride [Amaryl 4 mg Tablet] 4 mg PO DAILY 10/15/16 Tamsulosin HCl [Flomax 0.4 mg Cap.sr] 0.4 mg PO QHS 10/15/16 Lisinopril [Prinivil 5 mg Tablet] 5 mg PO BID 01/13/17 Sacubitril/Valsartan [Entresto 24 mg-26 mg Tablet] 1 tab PO BID 01/13/17 Torsemide [Demadex 20 mg Tablet] 40 mg PO ASDIR PRN 01/13/17 Allergies/Adverse Reactions: No Known Allergies Allergy (Verified 01/12/17 22:34) Review of Systems Constitutional: PRESENT: anorexia, chills, fatigue, weakness, weight gain. ABSENT: headache(s) Eyes: ABSENT: visual disturbances Ears: ABSENT: hearing changes Cardiovascular: PRESENT: dyspnea on exertion, edema, orthropnea. ABSENT: chest pain, palpitations Respiratory: PRESENT: dyspnea. ABSENT: cough, hemoptysis, sputum Gastrointestinal: PRESENT: abdominal pain, bloating, nausea. ABSENT: coffee ground emesis, constipation, diarrhea, dysphagia, heartburn, vomiting Genitourinary: ABSENT: dysuria, hematuria Musculoskeletal: ABSENT: joint swelling Integumentary: ABSENT: rash, wounds Neurological: ABSENT: abnormal gait, abnormal speech, confusion, dizziness, focal weakness, syncope Psychiatric: ABSENT: anxiety, depression, homidical ideation, suicidal ideation Endocrine: ABSENT: cold intolerance, heat intolerance, polydipsia, polyuria Hematologic/Lymphatic: ABSENT: easy bleeding, easy bruising Physical Exam Vital Signs: Temp Pulse Resp BP Pulse Ox 97.3 F 79 21 H 101/80 100 01/13/17 03:08 01/13/17 03:08 01/13/17 03:08 01/13/17 03:08 01/13/17 03:08 General appearance: PRESENT: no acute distress, cooperative Head exam: PRESENT: atraumatic, normocephalic Eye exam: PRESENT: conjunctiva pink, EOMI, PERRLA. ABSENT: scleral icterus Ear exam: PRESENT: normal external ear exam Mouth exam: PRESENT: moist, tongue midline Neck exam: ABSENT: carotid bruit, JVD, lymphadenopathy, thyromegaly Respiratory exam: PRESENT: accessory muscle use, crackles, decreased breath sounds, prolonged expiratory phas, symmetrical, tachypnea. ABSENT: chest wall tenderness, clear to auscultation sanjeev, rhonchi, stridor, wheezes Cardiovascular exam: PRESENT: +S1, +S2, tachycardia Pulses: PRESENT: normal dorsalis pedis pul GI/Abdominal exam: PRESENT: ascites, diminished bowel sounds, distended, firm, hypoactive bowel sounds, tenderness. ABSENT: guarding, Sofia's sign, normal bowel sounds, organolmegaly Rectal exam: PRESENT: deferred Extremities exam: PRESENT: +2 edema Neurological exam: PRESENT: alert, awake, oriented to person, oriented to place , oriented to time, oriented to situation, CN II-XII grossly intact. ABSENT: motor sensory deficit Psychiatric exam: PRESENT: appropriate affect, normal mood. ABSENT: homicidal ideation, suicidal ideation Skin exam: PRESENT: dry, intact, warm. ABSENT: cyanosis, rash Results Impressions: Chest X-Ray 01/13/17 00:47 IMPRESSION: Right basilar atelectasis. Assessment & Plan - Diagnosis (1) Spontaneous bacterial peritonitis Is this a current diagnosis for this admission?: Yes Plan: New abdominal pain with rapid increase of abdominal distention, severe ascites and hyperglycemia concerning for SBP, ultrasound-guided paracentesis for therapeutic and diagnostic evaluation. Empiric Rocephin initiated follow-up CBC and cultures (2) Hypoglycemia Is this a current diagnosis for this admission?: Yes Plan: Likely secondary to sepsis discontinue Amaryl sliding scale insulin only. (3) Heart failure Is this a current diagnosis for this admission?: Yes Plan: Compensated though hypotensive will likely require midodrine or dobutamine to tolerate paracentesis, will consult cardiology. (4) ALEYDA (obstructive sleep apnea) Is this a current diagnosis for this admission?: Yes Plan: BiPAP - Time Time Spent: 50 to 70 Minutes - Inpatient Certification Medical Necessity: Need Close Monitoring Due to Risk of Patient Decompensation
[2017-01-13] MEDS ORDERED: ALBUMIN HUMAN 100 ML IV ONE (04:31)
[2017-01-13] MEDS: ALBUMIN HUMAN 50 ML IV SCH ×4 (04:39→08:59)
[2017-01-13] MEDS: HEPARIN SOD (PORCINE) 5,000 UNIT/ML 1 ML SYRINGE SUBCUT SCH ×2 (05:42→13:43)
[2017-01-13 05:53] LABS: PROTHROMBIN TIME 15.3 SEC (11.4-15.4)
[2017-01-13 05:57] LABS: AMORPHOUS SEDIMENT,URINE TRACE /HPF; APPEARANCE,URINE SLIGHTLY-CLOUDY; BILIRUBIN,URINE NEGATIVE (NEGATIVE); GLUCOSE, URINE NEGATIVE (NEGATIVE); KETONES,URINE NEGATIVE (NEGATIVE); LEUKOCYTE ESTERASE,URINE NEGATIVE (NEGATIVE); NITRITE,URINE NEGATIVE (NEGATIVE); PROTEIN,URINE 30 mg/dL (NEGATIVE); URINE SPECIFIC GRAVITY 1.011; UROBILINOGEN,URINE NEGATIVE mg/dL (<2.0)
[2017-01-13 06:01] LABS: ALANINE AMINOTRANSFERASE 13 U/L (21-72); ALBUMIN 3.2 g/dL (3.5-5.0); ALKALINE PHOSPHATASE 94 U/L (38-126); ANION GAP 11 (5-19); ASPARTATE AMINO TRANSFERASE 21 U/L (17-59); BILIRUBIN,DIRECT 0.6 mg/dL (0.0-0.4); BILIRUBIN,TOTAL 0.8 mg/dL (0.2-1.3); BLOOD UREA NITROGEN 23 mg/dL (7-20); CALCIUM 8.5 mg/dL (8.4-10.2); CARBON DIOXIDE 29 mmol/L (22-30); CHLORIDE 97 mmol/L (98-107); CREATININE RESULT 1.36 mg/dL (0.52-1.25); POTASSIUM 3.6 mmol/L (3.6-5.0); SODIUM 136.8 mmol/L (137-145); TOTAL PROTEIN 7.2 g/dL (6.3-8.2)
[2017-01-13 06:02] LABS: URINE BARBITURATES SCREEN NEGATIVE; URINE METHADONE SCREEN NEGATIVE; URINE OPIATES LOW NEGATIVE; URINE PHENCYCLIDINE SCREEN NEGATIVE
[2017-01-13] MEDS ORDERED: ALBUMIN HUMAN 50 ML IV ONE ×2 (06:02→09:00)
[2017-01-13 06:26] LABS: GLUCOSE 36 mg/dL (75-110)
[2017-01-13] MEDS ORDERED: DEXTROSE 10%-WATER 1,000 ML IV PRN (08:04)
[2017-01-13] MEDS: IPRATROPIUM/ALBUTEROL 0.5-2.5 MG/3 ML AMPUL NEB SCH ×3 (08:06→23:38)
[2017-01-13] MEDS: CARVEDILOL 6.25 MG TABLET PO SCH ×2 (09:35→18:48)
[2017-01-13] MEDS: DEXTROSE 10%-WATER 1,000 ML with SODIUM CHLORIDE 77 MEQ IV PRN ×4 (09:36→19:22)
[2017-01-13] MEDS ORDERED: LISINOPRIL 5 MG TABLET PO SCH (10:00)
[2017-01-13] MEDS ORDERED: TORSEMIDE 20 MG TABLET PO SCH (10:00)
[2017-01-13] MEDS ORDERED: LIDOCAINE 1% INJ-PF (10 MG/ML) 30 ML SDV ONE (10:45)
--- NOTE | 2017-01-13 12:11 | PDOC CONSULTATION ---
Consultation Consult Date: 01/13/17 Attending physician:: CHUY REYES Consult reason:: Congestive heart failure History of Present Illness Admission Date/PCP: 01/13/17 02:23 Patient complains of: Abdominal distention History of Present Illness: KEN ZAYAS is a 56 year old male with a past medical history of diabetes, hypertension, coronary artery disease, congestive heart failure with low ejection fraction and AICD placement 2 years ago, recurrent abdominal ascites and dietary indiscretion. Patient been in his usual state of health until approximately 12 hours prior to presentation he was found difficult to arouse from sleep. EMS was called discovering hypoglycemia in the 20s he received D50 but refused ER evaluation however several hours later he became unresponsive and EMS returned finding his blood sugar at 27. He receives dextrose and brought to the emergency room for evaluation. He complains of new abdominal pain and sudden worsening of distention and is referred to the hospitalist for admission. Patient admits to reinitiating his home Amaryl with poor p.o. intake. In addition to new abdominal pain some nausea without fever or diarrhea. On questioning patient admitted to progressive abdominal distention and some mild increased pedal edema. Patient however denied any chest pain. Patient has been noncompliant with physician visits and also medications. Patient tells me that his son decided not to take care of him therefore he does not have much transportation. Past Medical History Cardiac Medical History: Reports: Congestive Heart Failure - Combined systolic and diastolic., Myocardial Infarction, Hyperlipidema, Hypertension, Peripheral Vascular Disease Denies: Pulmonary Embolism Pulmonary Medical History: Reports: Bronchitis, Sleep Apnea - CPAP, pressure 15. No home oxygen. Denies: Chronic Obstructive Pulmonary Disease (COPD) Neurological Medical History: Denies: Seizures Endocrine Medical History: Reports: Diabetes Mellitus Type 2, Hypothyroidism - States he might be hypothyroid, according to recent test, but not sure. Denies: Diabetes Mellitus Type 1, Hyperthyroidism GI Medical History: Denies: Cirrhosis, Gastroesophageal Reflux Disease, Hepatitis Musculoskeltal Medical History: Denies: Arthritis Psychiatric Medical History: Reports: Depression Infectious Medical History: Denies: Clostridium Difficile, Methicillin-Resistant Staph Aureus Past Surgical History Past Surgical History: Reports: Appendectomy, Cardiac Catheterization, Internal Defibrillator, Pacemaker - AICD Social History Information Source: Patient Lives with: Family Smoking Status: Smoker,Current Status Unk Cigarettes Packs Per Day: 1 Number of Years Smokin Frequency of Alcohol Use: Social Hx Recreational Drug Use: No Drugs: None Hx Prescription Drug Abuse: No - Advance Directive Resuscitation Status: Full Code Surrogate healthcare decision maker:: Patient did not want to identify a surrogate decision maker. Family History Family History: Hypertension Parental Family History Reviewed: Yes Children Family History Reviewed: Yes Sibling(s) Family History Reviewed.: Yes Medication/Allergy Home Medications: Atorvastatin Calcium [Lipitor 80 mg Tablet] 80 mg PO QHS 10/15/16 Carvedilol [Coreg 6.25 mg Tablet] 6.25 mg PO Q12 10/15/16 Glimepiride [Amaryl 4 mg Tablet] 4 mg PO DAILY 10/15/16 Tamsulosin HCl [Flomax 0.4 mg Cap.sr] 0.4 mg PO QHS 10/15/16 Lisinopril [Prinivil 5 mg Tablet] 5 mg PO Q12 01/13/17 Sacubitril/Valsartan [Entresto 24 mg-26 mg Tablet] 1 tab PO Q12 01/13/17 Torsemide [Demadex 20 mg Tablet] 20 mg PO QHS 01/13/17 Torsemide [Demadex 20 mg Tablet] 40 mg PO DAILY 01/13/17 Allergies/Adverse Reactions: No Known Allergies Allergy (Verified 01/12/17 22:34) Review of Systems Review of Systems: Please see history of present illness and past medical history as wall. Constitutional: No fever or chills reported. Head : No recent chronic headaches, recent head injury. Eyes: No recent eye pain, diplopia, redness, discharge, acute visual changes. Ears: No recent chronic ear pain, acute hearing loss, ear discharge. Oral cavity: No recent ulcerations, bleeding, oral cavity discomfort. Neck: No recent acute neck pain reported. Hematologic: No recent easy bruising or bleeding or hematologic malignancy reported. Lymphatic: No recent lymphatic malignancy, chronic lymphadenopathy reported yet Cardiovascular system review: See history of present illness. Respiratory system review: No recent chronic cough, hemoptysis, blood clots in the lungs reported. Moderate shortness of breath on exertion. Chronic pedal edema Gastrointestinal system review: Negative for any recent acute or chronic abdominal pain, hematemesis, melena, recent change in bowel habits. Patient claims increased abdominal distention. Genitourinary system review: No recent acute or chronic hematuria, flank pain, UTI etc. reported. Skin system review: Negative for any recent abnormal bruising, no rash, no pruritus reported. Neurologic: No prior history of strokes, mini strokes, seizure disorder. Psychologic: No history of major psychosis or major depression reported. Musculoskeletal: Minor aches and pains reported. No acute joint swelling reported. Endocrine: No recent polyuria, polydipsia, recent heat or cold intolerance. Physical Exam Vital Signs: Temp Pulse Resp BP Pulse Ox 97.1 F 82 14 115/71 98 01/13/17 07:27 01/13/17 08:08 01/13/17 08:08 01/13/17 07:27 01/13/17 08:08 Intake & Output 01/12/17 01/13/17 01/14/17 06:59 06:59 06:59 Intake Total 100 Output Total 100 Balance 0 Weight 142.9 kg Exam: GENERAL: well-nourished and in no acute distress. Alert and oriented x3 HEAD: Atraumatic, normocephalic. EYES: Pupils equal round and reactive to light, extraocular movements intact, sclera anicteric, conjunctiva are normal. ENT: TMs normal, nares patent, oropharynx clear without exudates. Moist mucous membranes. No oral ulcerations or bleeding gums noted NECK: supple without lymphadenopathy. Trachea is central. No cervical or axillary lymphadenopathy noted. Carotids are 2+, JVD 12 cm LUNGS: Respiration seems nonlabored, no significant accessory muscle action noted. Breath sounds clear to auscultation bilaterally and equal noted. No wheezes rales or rhonchi noted. No significant dullness noted on percussion. CHEST: Palpation of the chest wall shows no significant chest wall tenderness. No other significant abnormalities noted. 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 ABDOMEN: Soft, no significant tenderness appreciated, normoactive bowel sounds. No guarding, no rebound. No rigidity noted . No masses appreciated. Marked distention noted from ascites. EXTREMITIES: Pedal pulses are 1-2+, no calf tenderness noted. No clubbing or cyanosis. 2 + pedal edema noted NEUROLOGICAL: Focused neurological exam showed no significant neurologic deficit. Normal speech, no focal weakness appreciated. PSYCH: Normal mood, normal affect. Judgment and insight within normal limits. SKIN: No significant ecchymosis, no signs of pruritus but ichthyosis noted both lower legs.. MUSCULOSKELETAL EXAM: No significant joint swelling noted. Results Laboratory Results: 01/13/17 05:32 01/13/17 01/13/17 05:10 05:32 Sodium 136.8 L Potassium 3.6 Chloride 97 L Carbon Dioxide 29 Anion Gap 11 BUN 23 H Creatinine 1.36 H Est GFR ( Amer) > 60 Est GFR (Non-Af Amer) 54 L Glucose 36 L* Calcium 8.5 Total Bilirubin 0.8 AST 21 ALT 13 L Alkaline Phosphatase 94 Total Protein 7.2 Albumin 3.2 L Urine Color YELLOW Urine Appearance SLIGHTLY-CLOUDY Urine pH 5.0 Ur Specific [place] 1.011 Urine Protein 30 H Urine Glucose (UA) NEGATIVE Urine Ketones NEGATIVE Urine Blood LARGE H Urine Nitrite NEGATIVE Ur Leukocyte Esterase NEGATIVE Urine WBC (Auto) 2 Urine RBC (Auto) 9 EKG Comments: AV paced rhythm. Impressions: Chest X-Ray 01/13/17 00:47 IMPRESSION: Right basilar atelectasis. Assessment & Plan - Diagnosis (1) Ascites Qualifiers: Ascites type: other type Qualified Code(s): R18.8 - Other ascites Is this a current diagnosis for this admission?: Yes (2) Acute on chronic combined systolic (congestive) and diastolic (congestive) heart failure Is this a current diagnosis for this admission?: Yes (3) COPD (chronic obstructive pulmonary disease) Qualifiers: Emphysema type: unspecified Is this a current diagnosis for this admission?: Yes (4) Hyponatremia Is this a current diagnosis for this admission?: Yes (5) ALEYDA (obstructive sleep apnea) Is this a current diagnosis for this admission?: Yes (6) Hypoglycemia Is this a current diagnosis for this admission?: Yes (7) Cardiomyopathy Qualifiers: Cardiomyopathy type: ischemic Qualified Code(s): I25.5 - Ischemic cardiomyopathy Is this a current diagnosis for this admission?: Yes (8) Coronary artery disease Qualifiers: Coronary Disease-Associated Artery/Lesion type: sun'aq artery [place] vs. transplanted heart: sun'aq heart Associated angina: angina presence unspecified Qualified Code(s): I25.10 - Atherosclerotic heart disease of sun'aq coronary artery without angina pectoris Is this a current diagnosis for this admission?: Yes (9) Cardiac defibrillator in situ Is this a current diagnosis for this admission?: Yes - Notes Notes: Ascites: This is a chronic recurrent problem. Agree with paracentesis for symptomatic relief. Recommend spironolactone and other diuretic therapy. Patient would benefit from salt and fluid restriction and also compliance with medications. Acute on chronic combined systolic and diastolic heart failure. Patient has some right heart failure as well. Continue with salt and fluid restriction and also diuretic therapy. Will try optimize CHF management. Cardiomyopathy: Ischemic in nature but no ongoing ischemia clinically. Will try optimize medical management. COPD: Currently stable. Patient has been advised on tobacco cessation. Hyponatremia: Most likely related to CHF and fluid retention. Recommend fluid restriction. Obstructive sleep apnea: Patient has been advised once compliance with CPAP therapy. Hypoglycemia: Currently improved. Patient at risk for future hypoglycemia. Patient may have underlying cirrhosis of the liver. Defibrillator in situ: Patient does have a functioning biventricular defibrillator in place. No recent shocks reported by the patient. - Time Time Spent: 30 to 50 Minutes - CODE STATUS was discussed, patient remains full code. Surrogate decision-maker: Patient does not want to identify a surrogate decision-maker. Multiple medical problems were addressed. More than 50% of the time spent coordinating care, discussing management plans with involved caregivers. Management plans discussed with involved personnels. Medical decision making was of moderate to high complexity, patient's has multiple comorbidities. Medications reviewed and adjusted accordingly: Yes
--- NOTE | 2017-01-13 12:12 | RADIOLOGY REPORT (SQ) ---
EXAM DESCRIPTION: U/S ABD PARACENTESIS COMPLETED DATE/TIME: 01/13/2017 12:00 pm REASON FOR STUDY: Therapeutic and diagnostic para, firm ascites, COMPARISON Abdominal ultrasound dated 10/19/2016. LIMITATIONS: Procedure was discontinued due to hypotension. PROCEDURE: After obtaining informed consent, the patient was brought to the ultrasound suite. The p rocedure was performed with the patient on a gurney. Ultrasound was used to identify a prominent poc ket of ascites right lower left quadrant. An appropriate access site was selected. The patient was prepped and draped in usual sterile fashion. The access site was anesthetized with 3 mL 1% lidocain e. A [id number] needle was advanced into the fluid. After aspiration of fluid the needle, the catheter was advanced off the needle into the fluid. A total of 4,000 mL of yellow straw-colored flu id was removed. The patient tolerated the procedure well left the department in satisfactory conditio n. The procedure was discussed due to hypertension. Patient's blood pressure was 79/56 after discontinu ing paracentesis and patient having a 250 cc bolus of fluids. Patient's heart rate remained normal y ears maintaining well. Ordering physician was notified. IMPRESSION: Successful ultrasound-guided paracentesis COMMENT: Patient medication list reviewed: Yes- Quality ID# [id number]:Eligible professional attests to doc umenting in the medical record they obtained, updated, or reviewed the patient's current medications. Quality ID #[id number]: The patient was prepped and draped using maximum sterile barrier technique including cap, mask, sterile gown, sterile gloves, a large sterile sheet, hand hygiene, and 2% Chlorhexidine fo r cutaneous antisepsis. When ultrasound is used, sterile ultrasound techniques are followed requiring sterile gel and sterile probes. Quality ID #[id number]: Final reports for procedures using fluoroscopy that document radiation exposure hong victorina, or exposure time and number of fluorographic images (if radiation exposure indices are not avail able) TECHNICAL DOCUMENTATION: JOB ID: [id number] NC-62 2010 [employer]- All Rights Reserved
[2017-01-13 12:39] LABS: FLUID TYPE PERITONEAL
[2017-01-13 12:49] LABS: FLUID APPEARANCE SLIGHTLY HAZY
[2017-01-13 12:50] LABS: FLUID RBC AVERAGE 14.5; FLUID RBC DILUENT USED NONE USED; FLUID RBC DILUTION FACTOR 1; FLUID RBC SIDE 1 15; FLUID RBC SIDE 2 14; TOTAL RBC SQUARES COUNTED FLD 225
[2017-01-13] MEDS ORDERED: THIAMINE HCL 100 MG TABLET PO ONE (17:04)
--- NOTE | 2017-01-13 18:13 | Progress Note ---
Provider Note Provider Note: Patient was admitted earlier today. He is a 56-year-old male that presents with tense ascites. I have reviewed the history and physical. I have examined the patient. I have reviewed the patient's labs and studies to date. I have also reviewed the patient's previous hospitalizations. Does not appear that the patient has had an evaluation for his ascites. We are assuming this is from heart failure. At this point time the patient will need further evaluation by a GI specialist. He did have a 4 L paracentesis today studies are pending. He is being covered for SBP. His hypoglycemia was likely induced by taking Amaryl and drinking 3 beers yesterday. This has corrected with several doses of dextrose, a D10 drip and glucagon. He is receiving thiamine for prophylaxis. Once his blood pressure stabilizes I agree with adding Spironolactone and Lasix.
[2017-01-13] MEDS ORDERED: THIAMINE HCL 100 MG in NORMAL SALINE 50 ML IV ONE (18:30)
[2017-01-13] MEDS ORDERED: THIAMINE HCL INJ 200 MG/2 ML VIAL ONE (18:54)
[2017-01-13] MEDS: TAMSULOSIN HCL 0.4 MG CAP.SR.24H PO SCH (21:22)
[2017-01-13] MEDS: ATORVASTATIN CALCIUM 80 MG TABLET PO SCH (21:22)
[2017-01-14 06:45] LABS: ALANINE AMINOTRANSFERASE 15 U/L (21-72); ALBUMIN 2.6 g/dL (3.5-5.0); ALKALINE PHOSPHATASE 79 U/L (38-126); ANION GAP 6 (5-19); ASPARTATE AMINO TRANSFERASE 18 U/L (17-59); BILIRUBIN,DIRECT 0.6 mg/dL (0.0-0.4); BILIRUBIN,TOTAL 0.7 mg/dL (0.2-1.3); BLOOD UREA NITROGEN 26 mg/dL (7-20); CALCIUM 8.5 mg/dL (8.4-10.2); CARBON DIOXIDE 29 mmol/L (22-30); CHLORIDE 97 mmol/L (98-107); GLUCOSE 75 mg/dL (75-110); POTASSIUM 3.9 mmol/L (3.6-5.0); SODIUM 131.7 mmol/L (137-145); TOTAL PROTEIN 5.8 g/dL (6.3-8.2)
[2017-01-14] MEDS: IPRATROPIUM/ALBUTEROL 0.5-2.5 MG/3 ML AMPUL NEB SCH (08:08)
--- NOTE | 2017-01-14 10:47 | PDOC PROGRESS REPORT ---
Subjective Progress Note for:: 01/14/17 Subjective:: The patient is a 56-year-old male who has a history of known ascites. He was last hospitalized in November and underwent large-volume paracentesis. I have reviewed the patient's notes that are available and I do not see that an evaluation has been completed regarding why the patient has ascites. The patient has biventricular heart failure. In the past, he has had an ejection fraction as low as 15%, but, according to his most recent echocardiogram in August 2016 his ejection fraction was 30-35%. The patient does have known coronary artery disease. The patient is status post pacemaker with AICD. The patient came into the hospital 2 days ago with severe and refractory hypoglycemia. The patient apparently took 1 dose of glimepiride. He drank 3 beers in an attempt to get his sugars up. He initially refused transport by EMS , but, his mother whom he lives with called EMS after he became comatose and he was brought to the hospital. The patient was given multiple amps of dextrose. This was followed by glucagon and a D10 drip. Yesterday, the patient underwent a large volume paracentesis with removal of 4 L of fluid. The PMN count appears to be borderline at 240. The patient is receiving SBP treatment with Rocephin. Patient has a long history of noncompliance. He generally takes his diuretics but has not been using his Aldactone at home. Again, the patient has not been evaluated by a examining chair assembler as far as I can tell in the medical records and according to what the patient does tell me. He states that he would be willing to go to a GI specialist. I have recommended that he see [facility] for gastroenterology as they are closest to where he lives. Physical Exam Vital Signs: Temp Pulse Resp BP Pulse Ox 98.0 F 69 15 96/69 L 100 01/14/17 07:20 01/14/17 07:20 01/14/17 07:20 01/14/17 07:20 01/14/17 07:20 Intake & Output 01/13/17 01/14/17 01/15/17 06:59 06:59 06:59 Intake Total 100 3267 Output Total 100 1475 Balance 0 1792 Weight 142.9 kg 141.5 kg General appearance: PRESENT: no acute distress, cooperative Head exam: PRESENT: atraumatic Eye exam: PRESENT: conjunctiva pale, EOMI Ear exam: PRESENT: normal external ear exam Mouth exam: PRESENT: moist, neck supple Respiratory exam: PRESENT: decreased breath sounds, unlabored Cardiovascular exam: PRESENT: RRR GI/Abdominal exam: PRESENT: distended, firm, normal bowel sounds Rectal exam: PRESENT: deferred Extremities exam: PRESENT: +2 edema Neurological exam: PRESENT: alert, awake Psychiatric exam: PRESENT: appropriate affect - Patient's skin has changes consistent with chronic venous stasis with darkening of the color. He has some flakiness but no areas of weeping are noted. Results Laboratory Results: 01/14/17 05:13 01/13/17 01/14/17 10:44 05:13 Sodium 131.7 L Potassium 3.9 Chloride 97 L Carbon Dioxide 29 Anion Gap 6 BUN 26 H Creatinine 1.60 H Est GFR ( Amer) 55 L Est GFR (Non-Af Amer) 45 L Glucose 75 Calcium 8.5 Total Bilirubin 0.7 AST 18 ALT 15 L Alkaline Phosphatase 79 Total Protein 5.8 L Albumin 2.6 L Fluid Type PERITONEAL Fluid Source ASCITES Fluid Color YELLOW Fluid Appearance SLIGHTLY HAZY Fluid Viscosity SLIGHTLY VISCOUS Fluid WBC 21 Fluid RBC 16 Impressions: Paracentesis Ultrasound 01/13/17 00:00 IMPRESSION: Successful ultrasound-guided paracentesis Chest X-Ray 01/13/17 00:47 IMPRESSION: Right basilar atelectasis. Assessment & Plan - Diagnosis (1) Ascites Qualifiers: Ascites type: other type Qualified Code(s): R18.8 - Other ascites Is this a current diagnosis for this admission?: Yes Plan: The patient is status post large volume paracentesis with removal of 4 L. Will consult gastroenterology. Patient will need serologies, hepatitis panel, etc. to exclude diagnoses such as hemochromatosis, Pete's disease, hepatitis, etc. (2) Cardiomyopathy Qualifiers: Cardiomyopathy type: ischemic Qualified Code(s): I25.5 - Ischemic cardiomyopathy Is this a current diagnosis for this admission?: Yes Plan: Most recent ejection fraction is 30-35%. (3) Coronary artery disease Qualifiers: Coronary Disease-Associated Artery/Lesion type: [place] artery [place] vs. transplanted heart: [place] heart Associated angina: angina presence unspecified Qualified Code(s): I25.10 - Atherosclerotic heart disease of [place] coronary artery without angina pectoris Is this a current diagnosis for this admission?: Yes Plan: Continue medical management. Cardiology is following. (4) Hypoglycemia Is this a current diagnosis for this admission?: Yes Plan: I have decreased blood sugars checks to before meals and at bedtime. Hypoglycemia is significantly improved. (5) Spontaneous bacterial peritonitis Is this a current diagnosis for this admission?: Yes Plan: PMN count is borderline. Continue ceftriaxone. (6) Acute renal failure Qualifiers: Acute renal failure type: unspecified Qualified Code(s): N17.9 - Acute kidney failure, unspecified Plan: I do not recommend repeat paracentesis at this point. Patient has had a slight increase in creatinine overnight. Will very gradually add diuretic therapy. (7) Non-compliance Plan: I do not think that the patient understands the gravity of his situation. Yesterday, I discussed how serious his liver failure is. We discussed his drinking. He told me that he started drinking again 4 years ago but says he does not drink very much. He is not willing to cease alcohol consumption. (8) Diabetes mellitus type 2 in obese Plan: The patient should not be on any long-acting hypoglycemics at this time. (9) Acute on chronic combined systolic (congestive) and diastolic (congestive) heart failure Is this a current diagnosis for this admission?: Yes Plan: I appreciate assistance from cardiology. They can assist with management of diuretics, but, I would recommend the traditional Lasix and Aldactone at this point. - Time Time Spent with patient: 25-34 minutes - Inpatient Certification Medical Necessity: Significant Comorbidiites Make Outpatient Treatment Too Risky , Need Close Monitoring Due to Risk of Patient Decompensation, Need for IV Antibiotics, Risk of Complication if Not Cared For in Hospital
[2017-01-14] MEDS: THIAMINE HCL 100 MG in NORMAL SALINE 50 ML IV SCH (11:47)
[2017-01-14] MEDS: THIAMINE HCL 100 MG TABLET PO SCH (11:48)
[2017-01-14] MEDS: CEFTRIAXONE 1 GM/D5W RTU 1 GM/50 ML RTUPB IV SCH (11:48)
[2017-01-14 12:01] LABS: ABSOLUTE BASOPHILS # (AUTO) 0.1 10^3/uL (0.0-0.2); ABSOLUTE EOSINOPHILS # (AUTO) 0.2 10^3/uL (0.0-0.6); ABSOLUTE LYMPHOCYTES (AUTO) 1.3 10^3/uL (0.5-4.7); ABSOLUTE MONOCYTES (AUTO) 0.7 10^3/uL (0.1-1.4); ABSOLUTE NEUT (AUTO) 3.9 10^3/uL (1.7-8.2); BASOPHILS % (AUTO) 1.7 % (0-2); EOSINOPHILS % (AUTO) 2.5 % (0-6); HEMATOCRIT 24.2 % (37.9-51.0); HEMOGLOBIN 8.2 g/dL (13.5-17.0); HGB HCT DIFFERENCE 0.4; LYMPHOCYTES % (AUTO) 20.6 % (13-45); MEAN CORPUSCULAR HEMOGLOBIN 28.4 pg (27.0-33.4); MEAN CORPUSCULAR HGB CONC 33.7 g/dL (32.0-36.0); MEAN CORPUSCULAR VOLUME 84 fl (80-97); MONOCYTES % (AUTO) 10.7 % (3-13); RED BLOOD COUNT 2.87 10^6/uL (4.35-5.55); RED CELL DISTRIBUTION WIDTH 19.2 % (11.5-14.0); SEGMENTED NEUTROPHILS % (AUTO) 64.5 % (42-78); WHITE BLOOD COUNT 6.1 10^3/uL (4.0-10.5)
[2017-01-14 12:21] LABS: ANION GAP 8 (5-19); BLOOD UREA NITROGEN 26 mg/dL (7-20); CALCIUM 8.4 mg/dL (8.4-10.2); CARBON DIOXIDE 27 mmol/L (22-30); CHLORIDE 96 mmol/L (98-107); CREATININE RESULT 1.55 mg/dL (0.52-1.25); GLUCOSE 92 mg/dL (75-110); MAGNESIUM 1.9 mg/dL (1.6-2.3); POTASSIUM 4.1 mmol/L (3.6-5.0); SODIUM 131.1 mmol/L (137-145)
--- NOTE | 2017-01-14 12:30 | PDOC PROGRESS REPORT ---
Subjective Progress Note for:: 01/14/17 Subjective:: Patient claims to be feeling somewhat better. He said paracentesis was stopped after 4 L because of problems with low blood pressure. Currently blood pressure is more stable. Patient did get some albumin infusion yesterday. Telemetry strips shows AV paced rhythm.. Physical Exam Vital Signs: Temp Pulse Resp BP Pulse Ox 98.0 F 71 15 96/69 L 100 01/14/17 07:20 01/14/17 08:08 01/14/17 08:08 01/14/17 07:20 01/14/17 08:08 Intake & Output 01/13/17 01/14/17 01/15/17 06:59 06:59 06:59 Intake Total 100 3267 Output Total 100 1475 Balance 0 1792 Weight 142.9 kg 141.5 kg Exam: GENERAL: well-nourished and in no acute distress. Alert and oriented x3 HEAD: Atraumatic, normocephalic. EYES: Pupils equal round and reactive to light, extraocular movements intact, sclera anicteric, conjunctiva are normal. ENT: TMs normal, nares patent, oropharynx clear without exudates. Moist mucous membranes. No oral ulcerations or bleeding gums noted NECK: supple without lymphadenopathy. Trachea is central. No cervical or axillary lymphadenopathy noted. Carotids are 2+, JVD 10 cm LUNGS: Respiration seems nonlabored, no significant accessory muscle action noted. Breath sounds clear to auscultation bilaterally and equal noted. No wheezes rales or rhonchi noted. No significant dullness noted on percussion. CHEST: Palpation of the chest wall shows no significant chest wall tenderness. No other significant abnormalities noted. HEART: [place] TAX ADJUSTER, No PSH, 1/6 [place] aortic area, 1/6 negron systolic murmur mitral area, no rubs, no gallops. ABDOMEN: Soft, no significant tenderness appreciated, normoactive bowel sounds. No guarding, no rebound. No rigidity noted . No masses appreciated. Marked abdominal distention consistent with ascites noted. EXTREMITIES: Pedal pulses are 1-2+, no calf tenderness noted. No clubbing or cyanosis. 1-2 + pedal edema noted NEUROLOGICAL: Focused neurological exam showed no significant neurologic deficit. Normal speech, no focal weakness appreciated. PSYCH: Normal mood, normal affect. Judgment and insight within normal limits. SKIN: No significant ecchymosis, rash, ulcerations or signs of pruritus noted. Ichthyosis noted both legs. MUSCULOSKELETAL EXAM: No significant joint swelling noted. Results Laboratory Results: 01/14/17 11:54 01/13/17 01/14/17 01/14/17 10:44 05:13 11:54 WBC 6.1 RBC 2.87 L Hgb 8.2 L Hct 24.2 L MCV 84 MCH 28.4 MCHC 33.7 RDW 19.2 H Plt Count 244 Seg Neutrophils % 64.5 Lymphocytes % 20.6 Monocytes % 10.7 Eosinophils % 2.5 Basophils % 1.7 Absolute Neutrophils 3.9 Absolute Lymphocytes 1.3 Absolute Monocytes 0.7 Absolute Eosinophils 0.2 Absolute Basophils 0.1 Sodium 131.7 L Potassium 3.9 Chloride 97 L Carbon Dioxide 29 Anion Gap 6 BUN 26 H Creatinine 1.60 H Est GFR ( Amer) 55 L Est GFR (Non-Af Amer) 45 L Glucose 75 Calcium 8.5 Total Bilirubin 0.7 AST 18 ALT 15 L Alkaline Phosphatase 79 Total Protein 5.8 L Albumin 2.6 L Fluid Type PERITONEAL Fluid Source ASCITES Fluid Color YELLOW Fluid Appearance SLIGHTLY HAZY Fluid Viscosity SLIGHTLY VISCOUS Fluid WBC 21 Fluid RBC 16 Impressions: Paracentesis Ultrasound 01/13/17 00:00 IMPRESSION: Successful ultrasound-guided paracentesis Chest X-Ray 01/13/17 00:47 IMPRESSION: Right basilar atelectasis. Assessment & Plan - Diagnosis (1) Ascites Qualifiers: Ascites type: other type Qualified Code(s): R18.8 - Other ascites Is this a current diagnosis for this admission?: Yes (2) Acute on chronic combined systolic (congestive) and diastolic (congestive) heart failure Is this a current diagnosis for this admission?: Yes (3) COPD (chronic obstructive pulmonary disease) Qualifiers: Emphysema type: unspecified Is this a current diagnosis for this admission?: Yes (4) Hyponatremia Is this a current diagnosis for this admission?: Yes (5) ALEYDA (obstructive sleep apnea) Is this a current diagnosis for this admission?: Yes (6) Hypoglycemia Is this a current diagnosis for this admission?: Yes (7) Cardiomyopathy Qualifiers: Cardiomyopathy type: ischemic Qualified Code(s): I25.5 - Ischemic cardiomyopathy Is this a current diagnosis for this admission?: Yes (8) Coronary artery disease Qualifiers: Coronary Disease-Associated Artery/Lesion type: [place] artery [place] vs. transplanted heart: [place] heart Associated angina: angina presence unspecified Qualified Code(s): I25.10 - Atherosclerotic heart disease of [place] coronary artery without angina pectoris Is this a current diagnosis for this admission?: Yes - Notes Notes: Ascites: This is a chronic recurrent problem. Patient had yesterday paracentesis for symptomatic relief. Recommend spironolactone and other diuretic therapy. Patient would benefit from salt and fluid restriction and also compliance with medications. Acute on chronic combined systolic and diastolic heart failure. Patient has some right heart failure as well. Continue with salt and fluid restriction and also diuretic therapy. Will try optimize CHF management. Cardiomyopathy: Ischemic in nature but no ongoing ischemia clinically. Will try optimize medical management. Patient does have a functioning biventricular pacemaker. Patient today claims that he was compliant with entresto therapy. There is some difficulty in optimizing patient's medications because of low blood pressure. COPD: Currently stable. Patient has been advised on tobacco cessation. Hyponatremia: Most likely related to CHF and fluid retention. Recommend fluid restriction. Obstructive sleep apnea: Patient has been advised compliance with PAP therapy. Currently in hospital Pap therapy. Hypoglycemia: Currently improved. Patient at risk for future hypoglycemia. Patient may have underlying cirrhosis of the liver. Patient has history of prior alcohol abuse. Dr. Arce to cover from tomorrow. - Time Time with patient: Greater than 35 minutes - CODE STATUS was discussed, patient remains full code. Surrogate decision-maker currently patient's mother. Multiple medical problems were addressed. More than 50% of the time spent coordinating care, discussing management plans with involved caregivers. Management plans discussed with involved personnels. Medical decision making was of moderate to high complexity, patient's has multiple comorbidities. Medications reviewed and adjusted accordingly: Yes
[2017-01-14] MEDS: ATORVASTATIN CALCIUM 80 MG TABLET PO SCH (21:22)
[2017-01-14] MEDS: TAMSULOSIN HCL 0.4 MG CAP.SR.24H PO SCH (21:23)
[2017-01-14] MEDS: CARVEDILOL 3.125 MG TABLET PO SCH (21:23)
[2017-01-15 05:35] VITALS: BP 102/75
[2017-01-15] MEDS ORDERED: SPIRONOLACTONE 25 MG TABLET PO SCH (10:00)
[2017-01-15] MEDS ORDERED: FUROSEMIDE 20 MG TABLET PO SCH (10:00)
[2017-01-15] MEDS: CARVEDILOL 3.125 MG TABLET PO SCH (10:08)
[2017-01-15] MEDS: THIAMINE HCL 100 MG TABLET PO SCH (10:08)
[2017-01-15] MEDS: CEFTRIAXONE 1 GM/D5W RTU 1 GM/50 ML RTUPB IV SCH (10:08)
[2017-01-15] MEDS: THIAMINE HCL 100 MG in NORMAL SALINE 50 ML IV SCH (11:00)
--- NOTE | 2017-01-15 17:42 | PDOC DISCHARGE SUMMARY ---
General - Admit/Disc Date/PCP Admission Date/Primary Care Provider: 01/13/17 02:23 Discharge Date: 01/15/17 - Discharge Diagnosis (1) Acute on chronic combined systolic (congestive) and diastolic (congestive) heart failure Is this a current diagnosis for this admission?: Yes (3) Ascites Is this a current diagnosis for this admission?: Yes (4) Cardiomyopathy Is this a current diagnosis for this admission?: Yes (5) Coronary artery disease Is this a current diagnosis for this admission?: Yes (7) Hypoglycemia Is this a current diagnosis for this admission?: Yes (9) Spontaneous bacterial peritonitis Is this a current diagnosis for this admission?: Yes - Additional Information Resuscitation Status: Full Code Discharge Diet: Cardiac, Diabetic Discharge Activity: Activity As Tolerated, Balance Activity w/Rest, Weigh Daily Home Medications: Atorvastatin Calcium [Lipitor 80 mg Tablet] 80 mg PO QHS 10/15/16 Carvedilol [Coreg 6.25 mg Tablet] 6.25 mg PO Q12 10/15/16 Glimepiride [Amaryl 4 mg Tablet] 4 mg PO DAILY 10/15/16 Tamsulosin HCl [Flomax 0.4 mg Cap.sr] 0.4 mg PO QHS 10/15/16 Lisinopril [Prinivil 5 mg Tablet] 5 mg PO Q12 01/13/17 Sacubitril/Valsartan [Entresto 24 mg-26 mg Tablet] 1 tab PO Q12 01/13/17 Torsemide [Demadex 20 mg Tablet] 20 mg PO QHS 01/13/17 Torsemide [Demadex 20 mg Tablet] 40 mg PO DAILY 01/13/17 History of Present Illness History of Present Illness: KEN ZAYAS is a 56 year old male with a past medical history of diabetes, hypertension, coronary artery disease, congestive heart failure with ejection fraction 50% and AICD placement 2 years ago, recurrent abdominal ascites and dietary indiscretion. Patient been in his usual state of health until approximately 12 hours prior to presentation he was found difficult to arouse from sleep EMS was called discovering hyperglycemia in the 20s he received D50 but refused ER evaluation however several hours later he became unresponsive and EMS returned finding his blood sugar at 27 he receives dextrose and brought to the emergency room for evaluation. He complains of new abdominal pain and sudden worsening of distention and is referred to the hospitalist for admission. Patient admits to reinitiating his home Am[place] with poor p.o. intake. In addition to new abdominal pain some nausea without fever or diarrhea. Hospital Course Hospital Course: Ascites. Patient underwent a large-volume paracentesis with removal of 4 L of fluid. Gastroenterology was consulted. Additional workup was being considered to find out the cause of patient's hepatic failure however patient left AGAINST MEDICAL ADVICE on 01/15/2017. Cardiomyopathy patient has EF of 30-35%. Patient was evaluated being evaluated by cardiology however did become upset with the probation worker and left AGAINST MEDICAL ADVICE. Hypo-glycemia is thought to be due to medication patient was initially started on dextrose drip which was weaned off and patient sugars were maintaining. Continues bacterial peritonitis. PMN count borderline patient was started on ceftriaxone Acute renal failure patient appears to have underlying CKD stage III with his creatinine being 1.55. This could be a result of patient having hepatic failure in addition to cardiomyopathy. Noncompliance. Patient has hepatic failure most likely the result of drinking which patient has started drinking again about 4 years ago. Patient states that he does not drink very much and therefore is not willing to change his drinking habits. Type 2 diabetes and obese. Patient should not be on any long-acting hypoglycemics as this resulted in his persistent hypoglycemia on this admission. On chronic combined systolic and diastolic heart failure. Patient is being followed by cardiology in this regard. Medications are being adjusted by them. Patient was on Lasix and Aldactone. Physical Exam Vital Signs: Temp Pulse Resp BP Pulse Ox 98.0 F 76 17 102/75 98 01/15/17 03:51 01/15/17 07:00 01/15/17 08:00 01/15/17 03:51 01/15/17 04:24 Intake & Output 01/14/17 01/15/17 01/16/17 06:59 06:59 06:59 Intake Total 3267 1385 Output Total 1475 1575 Balance 1792 -190 Weight 141.5 kg 145.2 kg Additional comments: Patient left AGAINST MEDICAL ADVICE prior to being seen therefore no physical examination was completed. Results Laboratory Results: 01/14/17 11:54 01/14/17 11:54 Impressions: Paracentesis Ultrasound 01/13/17 00:00 IMPRESSION: Successful ultrasound-guided paracentesis Chest X-Ray 01/13/17 00:47 IMPRESSION: Right basilar atelectasis. Plan Time Spent: Less than 30 Minutes - Patient left AGAINST MEDICAL ADVICE
== END 2017-01-15 11:28 | disposition left against medical advice (07) | DRG 637 ==
LOC: ER 22:03 → EH 01-13 02:23 → 3S 01-13 03:37
PROVIDERS: ADMIT Internal Medicine; ATTEND Internal Medicine
PROC: 0W9G3ZX Drainage of Peritoneal Cavity, Percutaneous Approach, Diagnostic (ICD-10-PCS; principal; 2017-01-13)
DX: E11.649 Type 2 diabetes mellitus with hypoglycemia without coma (principal); K65.2 Spontaneous bacterial peritonitis; I50.43 Acute on chronic combined systolic (congestive) and diastolic (congestive) heart failure; I13.0 Hypertensive heart and chronic kidney disease with heart failure and stage 1 through stage 4 chronic kidney disease, or unspecified chronic kidney disease; R18.8 Other ascites; E87.1 Hypo-osmolality and hyponatremia; N17.9 Acute kidney failure, unspecified; E11.22 Type 2 diabetes mellitus with diabetic chronic kidney disease; N18.3 Chronic kidney disease, stage 3 (moderate); I25.5 Ischemic cardiomyopathy; G47.33 Obstructive sleep apnea (adult) (pediatric); E78.5 Hyperlipidemia, unspecified; I73.9 Peripheral vascular disease, unspecified; E03.9 Hypothyroidism, unspecified; I25.10 Atherosclerotic heart disease of native coronary artery without angina pectoris; F32.9 Major depressive disorder, single episode, unspecified; Z79.899 Other long term (current) drug therapy; Z91.11 Patient's noncompliance with dietary regimen; Z95.810 Presence of automatic (implantable) cardiac defibrillator; I25.2 Old myocardial infarction
CPT/HCPCS: 36415; 49083; 71010; 80048; 80053; 80076; 80307; 81001; 82042; 82962; 83735; 83880; 84100; 84157; 84439; 84443; 84484; 85025; 85610; 85730; 87070; 87075; 87205; 89050; 93005; 93010; 94640; 94660; 96365; 96372; 96375; 99291; J0696; J1610; J1644; J1885; J3411; J3490; J7620; P9047

== ENCOUNTER 2017-05-14 19:11 | Inpatient (IN) | payer MEDICARE ==
--- NOTE | 2017-05-14 19:38 | ER Document Report ---
ED General - General Stated Complaint: SHORTNESS OF BREATH Time Seen by Provider: 05/14/17 19:23 Notes: 57-year-old male presents with shortness of breath "there is too much fluid on me" and on for about a week. He complains of increasing abdominal distention and leg edema. He has no wheezing. He has no chest pain. He has a history of congestive heart failure and is on torsemide, but this is not helping. He is now so dyspneic he can barely move. He has been using his nighttime CPAP to help him breathe during the day. TRAVEL OUTSIDE OF THE [place] IN LAST 30 DAYS: No - Related Data Allergies/Adverse Reactions: No Known Allergies Allergy (Verified 01/12/17 22:34) Past Medical History - Social History Smoking Status: Current Every Day Smoker Smoking Education Provided: Yes - The patient ED visit today was directly related to their abuse of tobacco. Family History: Hypertension - Past Medical History Cardiac Medical History: Reports: Hx Congestive Heart Failure - Combined systolic and diastolic., Hx Heart Attack, Hx Hypercholesterolemia, Hx Hypertension, Hx Peripheral Vascular Disease Denies: Hx Pulmonary Embolism Pulmonary Medical History: Reports: Hx Bronchitis, Hx Sleep Apnea - CPAP, pressure 15. No home oxygen. Denies: Hx COPD Neurological Medical History: Denies: Hx Seizures Endocrine Medical History: Reports: Hx Diabetes Mellitus Type 2, Hx Hypothyroidism - States he might be hypothyroid, according to recent test, but not sure.. Denies: Hx Diabetes Mellitus Type 1, Hx Hyperthyroidism Renal/ Medical History: Denies: Hx Peritoneal Dialysis GI Medical History: Denies: Hx Cirrhosis, Hx Gastroesophageal Reflux Disease, Hx Hepatitis Musculoskeltal Medical History: Denies Hx Arthritis Psychiatric Medical History: Reports: Hx Depression Infectious Medical History: Denies: Hx C-Diff, Hx Hepatitis, Hx MRSA Past Surgical History: Reports: Hx Appendectomy, Hx Cardiac Catheterization, Hx Cardiac Surgery - 5 stents, pacer/defib, Hx Internal Defibrillator, Hx Pacemaker - AICD - Immunizations Hx Diphtheria, Pertussis, Tetanus Vaccination: Yes Review of Systems - Review of Systems Notes: REVIEW OF SYSTEMS GEN: Denies fever, chills, weight loss ENT: Denies sore throat, nasal discharge, ear pain EYES: Denies blurry vision, eye pain, discharge CV: Denies chest pain, palpitations, edema RESP: S of breath, swelling GI: Denies abdominal pain, nausea, vomiting, diarrhea MSK: Denies joint pain/swelling, edema, SKIN: Denies rash, skin lesions LYMPH: Denies swollen glands/lymph nodes NEURO: Denies headache, focal weakness or numbness, dizziness PSYCH: Denies depression, suicidal or homicidal ideation PHYSICAL EXAMINATION General: Mild distress Head: Atraumatic, normocephalic ENT: Mouth normal, oropharynx moist, no exudates or tonsillar enlargement Eyes: Conjunctiva normal, pupils equal, lids normal Neck: No JVD, supple, no guarding CVS: Normal rate, regular rhythm, no murmurs Resp: No resp distress, equal and normal breath sounds bilaterally GI: Grossly distended abdomen nontender, firm Ext: No deformities, chronic symmetric edema in both legs. Back: No CVA or midline TTP Skin: No rash, warm Lymphatic: No lymphadeopathy noted Neuro: Awake, alert. Face symmetric. GCS 15. Physical Exam - Vital signs Vitals: Resp 24 H 05/14/17 19:21 Course - Re-evaluation Re-evalutation: 05/14/17 19:38 57-year-old male with CHF presents with abdominal distention leg swelling and shortness of breath. He was hypoxic prehospital been stable on a couple of liters of nasal oxygen. He has signs of right heart failure on exam. His EKG is unchanged although is read paced I think that is actually a bundle branch block. His differential includes exacerbation less likely COPD exacerbation. Sent labs. 05/14/17 20:33 Patient has pleural effusion on the right. He has a tense abdomen but it is not tender so I doubt bacterial peritonitis. BNP is grossly elevated. We will give a dose of Lasix. Discussed with Dr. Gandara for admission to [facility]. - Vital Signs Vital signs: Temp Pulse Resp BP Pulse Ox 97.9 F 34 H 132/114 H 05/14/17 19:22 05/14/17 19:22 05/14/17 19:22 - Laboratory Result Diagrams: 05/14/17 19:25 05/14/17 19:25 Laboratory results interpreted by me: 05/14/17 05/14/17 05/14/17 19:25 19:25 19:25 RBC 3.50 L Hgb 9.3 L Hct 28.1 L MCH 26.4 L RDW 18.6 H BUN 25 H Creatinine 1.26 H Est GFR (Non-Af Amer) 59 L Glucose 145 H NT-Pro-B Natriuret Pep 93863 H - Diagnostic Test Radiology reviewed: Image reviewed, Reports reviewed - EKG Interpretation by Me EKG shows normal: Sinus rhythm Rate: Normal, Tachycardia Rhythm: NSR [place]/QRS: LBBB When compared to previous EKG there are: No significant change Discharge - Discharge Clinical Impression: Pleural effusion Acute exacerbation of CHF (congestive heart failure) Qualifiers: Congestive heart failure type: combined Qualified Code(s): I50.43 - Acute on chronic combined systolic (congestive) and diastolic (congestive) heart failure Condition: Fair Disposition: ADMITTED INPATIENT Admitting Provider: Hospitalist Unit Admitted: [facility]
[2017-05-14 19:44] LABS: ABSOLUTE BASOPHILS # (AUTO) 0.1 10^3/uL (0.0-0.2); ABSOLUTE EOSINOPHILS # (AUTO) 0.1 10^3/uL (0.0-0.6); ABSOLUTE LYMPHOCYTES (AUTO) 0.9 10^3/uL (0.5-4.7); ABSOLUTE MONOCYTES (AUTO) 0.5 10^3/uL (0.1-1.4); ABSOLUTE NEUT (AUTO) 4.8 10^3/uL (1.7-8.2); BASOPHILS % (AUTO) 1.3 % (0-2); EOSINOPHILS % (AUTO) 1.5 % (0-6); HEMATOCRIT 28.1 % (37.9-51.0); HEMOGLOBIN 9.3 g/dL (13.5-17.0); LYMPHOCYTES % (AUTO) 14.5 % (13-45); MEAN CORPUSCULAR HEMOGLOBIN 26.4 pg (27.0-33.4); MEAN CORPUSCULAR VOLUME 80 fl (80-97); PLATELET COUNT 328 10^3/uL (150-450); RED CELL DISTRIBUTION WIDTH 18.6 % (11.5-14.0); SEGMENTED NEUTROPHILS % (AUTO) 74.7 % (42-78); TOTAL CELLS COUNTED % (AUTO) 100 %; WHITE BLOOD COUNT 6.4 10^3/uL (4.0-10.5)
--- NOTE | 2017-05-14 19:56 | RADIOLOGY REPORT (SQ) ---
EXAM DESCRIPTION: CHEST SINGLE VIEW COMPLETED DATE/TIME: 05/14/2017 7:44 pm REASON FOR STUDY: CHF SOB COMPARISON: 01/13/2017 EXAM PARAMETERS: NUMBER OF VIEWS: One view. TECHNIQUE: Single frontal radiographic view of the chest acquired. RADIATION DOSE: NA LIMITATIONS: None. FINDINGS: LUNGS AND PLEURA: A large right pleural effusion is now seen, covering 1/2 the lower right chest. infiltrate/atelectatic change right lung field as well. Left lung field grossly clear. MEDIASTINUM AND HILAR STRUCTURES: Stable. HEART AND VASCULAR STRUCTURES: Cardiomegaly. No overt CHF. BONES: No acute findings. HARDWARE: Transvenous pacer. OTHER: No other significant finding. IMPRESSION: New large right pleural effusion with some parenchymal consolidation. TECHNICAL DOCUMENTATION: JOB ID: [id number] [employer]- All Rights Reserved
[2017-05-14 20:08] LABS: ANION GAP 10 (5-19); BLOOD UREA NITROGEN 25 mg/dL (7-20); CALCIUM 9.2 mg/dL (8.4-10.2); CARBON DIOXIDE 28 mmol/L (22-30); CHLORIDE 102 mmol/L (98-107); GLUCOSE 145 mg/dL (75-110); POTASSIUM 4.4 mmol/L (3.6-5.0)
[2017-05-14 20:18] LABS: TROPONIN I 0.019 ng/mL
[2017-05-14] MEDS ORDERED: FUROSEMIDE INJ/PF 40 MG/4 ML SDV IV ONE (20:32)
[2017-05-14] MEDS ORDERED: ENALAPRILAT DIHYDRATE INJ/PF 1.25 MG/1 ML SDV IV PRN (20:34)
[2017-05-14] MEDS ORDERED: MAG HYDROX/AL HYDROX/SIMETH SUSP 30 ML UDCUP PO PRN (20:34)
[2017-05-14] MEDS ORDERED: DEXTROSE 40% GEL 15 GM TUBE PO PRN ×2 (20:38)
[2017-05-14] MEDS ORDERED: GLUCAGON,HUMAN RECOMB 1 MG INJ IM PRN (20:38)
[2017-05-14] MEDS ORDERED: DEXTROSE 50%-WATER 25 GM/50 ML DISP.SYRIN IV PRN ×2 (20:38)
[2017-05-14] MEDS ORDERED: INSULIN LISPRO 100 UNIT/ML 3 ML VIAL SUBCUT PRN (20:38)
[2017-05-14 20:47] LABS: INTERNATIONAL RATION (INR) 1.26; PROTHROMBIN TIME 16.6 SEC (11.4-15.4)
[2017-05-14 20:54] LABS: ALANINE AMINOTRANSFERASE 14 U/L (21-72); ALBUMIN 3.5 g/dL (3.5-5.0); ALKALINE PHOSPHATASE 105 U/L (38-126); ASPARTATE AMINO TRANSFERASE 14 U/L (17-59); BILIRUBIN,DIRECT 0.6 mg/dL (0.0-0.4); BILIRUBIN,TOTAL 0.8 mg/dL (0.2-1.3); CREATINE KINASE 125 U/L (55-170); TOTAL PROTEIN 7.5 g/dL (6.3-8.2)
[2017-05-14] MEDS ORDERED: LACTULOSE SYRUP 20 GM/30 ML UDCUP PO ONE (21:30)
[2017-05-14] MEDS: TAMSULOSIN HCL 0.4 MG CAP.SR.24H PO SCH (22:02)
[2017-05-14] MEDS: FUROSEMIDE INJ/PF 40 MG/4 ML SDV IV SCH (22:03)
[2017-05-14] MEDS: ATORVASTATIN CALCIUM 80 MG TABLET PO SCH (22:03)
[2017-05-14] MEDS: HEPARIN SOD (PORCINE) 5,000 UNIT/ML 1 ML SYRINGE SUBCUT SCH (22:04)
[2017-05-15 02:06] LABS: CREATINE KINASE MB 2.33 ng/mL (<4.55); TROPONIN I 0.02 ng/mL
[2017-05-15] MEDS: LISINOPRIL 5 MG TABLET PO SCH ×2 (03:36→11:41)
--- NOTE | 2017-05-15 05:00 | PDOC H&P ---
History of Present Illness Admission Date/PCP: 05/14/17 20:40 Patient complains of: Shortness of breath, abdominal distention and leg edema History of Present Illness: KEN ZAYAS is a 57 year old male with a past medical history of coronary artery disease, cardiac stents, permanent pacemaker diastolic and systolic congestive heart heart failure with ejection fraction of 30% pulmonary hypertension with an RVSP of 60, obstructive sleep apnea, noncompliance with BiPAP, tobacco dependence, diabetes, end-stage liver disease from unknown cause and noncompliance. Patient presents with approximately a week of acute on chronic leg and abdominal distention, orthopnea and dyspnea with exertion. Patient denies recent change in medications he denies dietary indiscretion. In the emergency room is found to have anasarca with bilateral pleural effusions, ascites and a BNP of 20,000. He started on IV Lasix and referred to the hospitalist for admission. Patient denies chest pain Past Medical History Cardiac Medical History: Reports: Congestive Heart Failure - Combined systolic and diastolic., Myocardial Infarction, Hyperlipidema, Hypertension, Peripheral Vascular Disease Denies: Pulmonary Embolism Pulmonary Medical History: Reports: Bronchitis, Sleep Apnea - CPAP, pressure 15. No home oxygen. Denies: Chronic Obstructive Pulmonary Disease (COPD) Neurological Medical History: Denies: Seizures Endocrine Medical History: Reports: Diabetes Mellitus Type 2, Hypothyroidism - States he might be hypothyroid, according to recent test, but not sure. Denies: Diabetes Mellitus Type 1, Hyperthyroidism GI Medical History: Denies: Cirrhosis, Gastroesophageal Reflux Disease, Hepatitis Musculoskeltal Medical History: Denies: Arthritis Psychiatric Medical History: Denies: Depression Infectious Medical History: Denies: Clostridium Difficile, Methicillin-Resistant Staph Aureus Past Surgical History Past Surgical History: Reports: Appendectomy, Cardiac Catheterization, Internal Defibrillator, Pacemaker - AICD Social History Information Source: Patient Smoking Status: Current Every Day Smoker Cigarettes Packs Per Day: 0.2 Number of Years Smokin Last Time Smoked: 05/14/2016 Frequency of Alcohol Use: Rare Hx Recreational Drug Use: No Drugs: None Hx Prescription Drug Abuse: No Family History Family History: Hypertension Parental Family History Reviewed: Yes Children Family History Reviewed: Yes Sibling(s) Family History Reviewed.: Yes Medication/Allergy Home Medications: Atorvastatin Calcium [Lipitor 80 mg Tablet] 80 mg PO QHS 05/14/17 Sacubitril/Valsartan [Entresto 24 mg-26 mg Tablet] 1 tab PO Q12 05/14/17 Torsemide [Demadex 20 mg Tablet] 20 mg PO QPM 05/14/17 Torsemide [Demadex 20 mg Tablet] 40 mg PO QAM 05/14/17 Allergies/Adverse Reactions: No Known Allergies Allergy (Verified 01/12/17 22:34) Review of Systems Constitutional: PRESENT: as per HPI, fatigue, weakness, weight gain. ABSENT: fever(s), headache(s), night sweats Eyes: ABSENT: visual disturbances Ears: ABSENT: hearing changes Cardiovascular: PRESENT: as per HPI, dyspnea on exertion, edema, orthropnea. ABSENT: palpitations Respiratory: PRESENT: as per HPI, cough, dyspnea Gastrointestinal: PRESENT: as per HPI, abdominal pain, bloating, nausea. ABSENT : coffee ground emesis, constipation, diarrhea, dysphagia Genitourinary: ABSENT: dysuria, hematuria Musculoskeletal: ABSENT: joint swelling Integumentary: ABSENT: rash, wounds Neurological: ABSENT: abnormal gait, abnormal speech, confusion, dizziness, focal weakness, syncope Psychiatric: ABSENT: anxiety, depression, homidical ideation, suicidal ideation Endocrine: ABSENT: cold intolerance, heat intolerance, polydipsia, polyuria Hematologic/Lymphatic: ABSENT: easy bleeding, easy bruising Physical Exam Vital Signs: Temp Pulse Resp BP Pulse Ox 97.6 F 98 26 H 142/94 H 100 05/14/17 23:18 05/14/17 23:32 05/15/17 00:00 05/14/17 23:18 05/14/17 23:18 Intake & Output 05/13/17 05/14/17 05/15/17 11:59 11:59 11:59 Weight 144.8 kg General appearance: PRESENT: mild distress, morbidly obese Head exam: PRESENT: atraumatic, normocephalic Eye exam: PRESENT: conjunctiva pink, EOMI, PERRLA. ABSENT: scleral icterus Ear exam: PRESENT: normal external ear exam Mouth exam: PRESENT: moist, tongue midline Neck exam: PRESENT: JVD. ABSENT: carotid bruit, lymphadenopathy, thyromegaly Respiratory exam: PRESENT: accessory muscle use, crackles, decreased breath sounds, prolonged expiratory phas, retraction, tachypnea. ABSENT: rhonchi, wheezes Cardiovascular exam: PRESENT: gallop, RRR, +S1, +S2, systolic murmur, tachycardia Pulses: PRESENT: normal dorsalis pedis pul Vascular exam: PRESENT: normal capillary refill GI/Abdominal exam: PRESENT: ascites, distended, firm. ABSENT: guarding, hernia , tenderness Rectal exam: PRESENT: deferred Extremities exam: PRESENT: full ROM, +2 edema. ABSENT: calf tenderness, clubbing, pedal edema Neurological exam: PRESENT: alert, awake, oriented to person, oriented to place , oriented to time, oriented to situation, CN II-XII grossly intact. ABSENT: motor sensory deficit Psychiatric exam: PRESENT: appropriate affect, normal mood. ABSENT: homicidal ideation, suicidal ideation Skin exam: PRESENT: dry, intact, warm. ABSENT: cyanosis, rash Results Laboratory Results: 05/15/17 01:27 CK-MB (CK-2) 2.33 Troponin I 0.020 Impressions: Chest X-Ray 05/14/17 19:23 IMPRESSION: New large right pleural effusion with some parenchymal consolidation. Assessment & Plan - Diagnosis (1) Acute exacerbation of congestive heart failure Qualifiers: Congestive heart failure type: combined Qualified Code(s): I50.43 - Acute on chronic combined systolic (congestive) and diastolic (congestive) heart failure Is this a current diagnosis for this admission?: Yes Plan: Congestive heart failure exacerbation care set, education, fluid restriction, diuresis and nitrates follow-up chemistry, CBC and cardiac enzymes. (2) Pleural effusion Is this a current diagnosis for this admission?: Yes Plan: Secondary to CHF conservative management with diuresis. Consider reevaluation of imaging or thoracentesis. (3) Anasarca Is this a current diagnosis for this admission?: Yes Plan: Secondary to #1 and reevaluate TSH. Continue diuresis. (4) Ascites Qualifiers: Ascites type: other type Qualified Code(s): R18.8 - Other ascites Is this a current diagnosis for this admission?: Yes Plan: Secondary to #1 medical management. (5) Diabetes Qualifiers: Diabetes mellitus type: type 2 Diabetes mellitus complication status: with unspecified complications Is this a current diagnosis for this admission?: Yes Plan: Home regiment, sliding scale insulin (6) Noncompliance with diet and medication regimen Is this a current diagnosis for this admission?: Yes Plan: Education (7) ALEYDA (obstructive sleep apnea) Is this a current diagnosis for this admission?: Yes Plan: BiPAP and education (8) Tobacco dependency Is this a current diagnosis for this admission?: Yes Plan: Tobacco Dependence patient received tobacco cessation counseling and offered nicotine replacement options - Time Time Spent: 50 to 70 Minutes - Inpatient Certification Medical Necessity: Need Close Monitoring Due to Risk of Patient Decompensation
[2017-05-15] MEDS: FUROSEMIDE INJ/PF 40 MG/4 ML SDV IV SCH ×3 (06:32→22:11)
[2017-05-15] MEDS: HEPARIN SOD (PORCINE) 5,000 UNIT/ML 1 ML SYRINGE SUBCUT SCH ×3 (06:33→22:11)
[2017-05-15 07:48] LABS: ABSOLUTE BASOPHILS # (AUTO) 0.1 10^3/uL (0.0-0.2); ABSOLUTE EOSINOPHILS # (AUTO) 0.1 10^3/uL (0.0-0.6); ABSOLUTE MONOCYTES (AUTO) 0.6 10^3/uL (0.1-1.4); ABSOLUTE NEUT (AUTO) 3.9 10^3/uL (1.7-8.2); BASOPHILS % (AUTO) 1.3 % (0-2); EOSINOPHILS % (AUTO) 2.5 % (0-6); HEMATOCRIT 25.8 % (37.9-51.0); HEMOGLOBIN 8.6 g/dL (13.5-17.0); LYMPHOCYTES % (AUTO) 17.2 % (13-45); MEAN CORPUSCULAR HGB CONC 33.3 g/dL (32.0-36.0); MEAN CORPUSCULAR VOLUME 81 fl (80-97); MONOCYTES % (AUTO) 10.6 % (3-13); PLATELET COUNT 310 10^3/uL (150-450); RED BLOOD COUNT 3.19 10^6/uL (4.35-5.55); RED CELL DISTRIBUTION WIDTH 18.5 % (11.5-14.0); SEGMENTED NEUTROPHILS % (AUTO) 68.4 % (42-78); TOTAL CELLS COUNTED % (AUTO) 100 %; WHITE BLOOD COUNT 5.7 10^3/uL (4.0-10.5)
[2017-05-15] MEDS ORDERED: INFLUENZA ADLT QUAD (36MOS+) 2017-18 VAC 0.5 ML SYR IM PRN (07:52)
[2017-05-15 08:15] LABS: ANION GAP 9 (5-19); BLOOD UREA NITROGEN 24 mg/dL (7-20); CALCIUM 9.1 mg/dL (8.4-10.2); CARBON DIOXIDE 30 mmol/L (22-30); CHLORIDE 103 mmol/L (98-107); GLUCOSE 87 mg/dL (75-110); POTASSIUM 4.3 mmol/L (3.6-5.0); SODIUM 142.3 mmol/L (137-145)
[2017-05-15 08:28] LABS: CREATINE KINASE MB 1.87 ng/mL (<4.55); TROPONIN I 0.018 ng/mL
[2017-05-15] MEDS ORDERED: GLIMEPIRIDE 4 MG TABLET PO SCH (10:00)
[2017-05-15] MEDS ORDERED: NITROGLYCERIN 5 MG (0.2 MG/HR) PATCH.TD24 TD SCH (10:00)
--- NOTE | 2017-05-15 10:29 | EKG REPORT ---
SEVERITY:- ABNORMAL ECG - VENTRICULAR-PACED RHYTHM : Confirmed by: Juliana Diaz 15-May-2017 10:28:54
[2017-05-15] MEDS: ASPIRIN 81 MG TABLET, ENT COATED PO SCH (10:56)
[2017-05-15] MEDS: SACUBITRIL/VALSARTAN 24 MG/26 MG TABLET PO SCH ×2 (11:41→22:13)
--- NOTE | 2017-05-15 13:02 | RADIOLOGY REPORT (SQ) ---
EXAM DESCRIPTION: CHEST SINGLE VIEW COMPLETED DATE/TIME: 05/15/2017 12:45 pm REASON FOR STUDY: dyspnea; eval stability of pleural effusion COMPARISON: 05/14/2017 EXAM PARAMETERS: NUMBER OF VIEWS: One view. TECHNIQUE: Single frontal radiographic view of the chest acquired. RADIATION DOSE: NA LIMITATIONS: None. FINDINGS: LUNGS AND PLEURA: The previously described right pleural effusion demonstrates only minima l if any interval decrease in size. There is associated airspace consolidation. The left lung remai ns clear. MEDIASTINUM AND HILAR STRUCTURES: No masses. Contour normal. HEART AND VASCULAR STRUCTURES: The configuration of the heart and mediastinal structures is unchanged . BONES: No acute findings. HARDWARE: AICD device is unchanged in position. OTHER: No other significant finding. IMPRESSION: Only minimal if any interval decrease in size of the right pleural effusion. There is a ssociated air space consolidation. Other findings as noted above TECHNICAL DOCUMENTATION: JOB ID: [id number] [email or web address]- All Rights Reserved
--- NOTE | 2017-05-15 13:29 | PDOC PROGRESS REPORT ---
Subjective Progress Note for:: 05/15/17 Subjective:: The patient is seen on morning rounds. He is found resting in bed comfortably on BiPAP. He tells me that he continues to have difficulty breathing, especially lying supine or left lateral. He is most comfortable lying the right tilt. He states that he has had generalized edema and some abdominal swelling chronically for several months to years but that it suddenly became worse approximately 1 week ago. He reports that he is breathing worsened approximately the same time. He asks that we do "whatever is necessary to help me breathe." He also asks to have his diet change to a regular diet, stating that he eats a very small amount secondary to early satiety and abdominal fullness. He denies fever, chills, body aches, headache, chest pain, cough, abdominal pain , nausea vomiting or diarrhea. He has no other questions or concerns at this time. Reason For Visit: PLEURAL EFF,ACITIES,END STAGE LIVER,HEART FAILURE, Physical Exam Vital Signs: Temp Pulse Resp BP Pulse Ox 97.7 F 84 18 90/76 L 100 05/15/17 10:55 05/15/17 10:55 05/15/17 12:00 05/15/17 12:19 05/15/17 12:00 Intake & Output 05/14/17 05/15/17 05/16/17 06:59 06:59 06:59 Intake Total 4 Output Total 1700 Balance -1696 Weight 144.3 kg General appearance: PRESENT: no acute distress, well-developed, other - Anasarca. ABSENT: well-nourished Head exam: PRESENT: atraumatic, normocephalic Eye exam: PRESENT: conjunctiva pink, EOMI, PERRLA. ABSENT: scleral icterus Ear exam: PRESENT: normal external ear exam Mouth exam: PRESENT: moist, tongue midline Neck exam: ABSENT: carotid bruit, JVD, lymphadenopathy, thyromegaly Respiratory exam: PRESENT: crackles, decreased breath sounds - Left base; absent to the right lower field, prolonged expiratory phas, symmetrical, other - Currently on continuous BiPAP. ABSENT: rales, rhonchi, wheezes Cardiovascular exam: PRESENT: gallop, RRR, +S1, systolic murmur, tachycardia. ABSENT: diastolic murmur, rubs Pulses: PRESENT: normal dorsalis pedis pul Vascular exam: PRESENT: normal capillary refill GI/Abdominal exam: PRESENT: ascites - Taught, distended, firm, normal bowel sounds. ABSENT: guarding, mass, organolmegaly, rebound, tenderness Rectal exam: PRESENT: deferred Extremities exam: PRESENT: full ROM, +2 edema. ABSENT: calf tenderness, clubbing, pedal edema Neurological exam: PRESENT: alert, awake, oriented to person, oriented to place , oriented to time, oriented to situation, CN II-XII grossly intact. ABSENT: motor sensory deficit Psychiatric exam: PRESENT: appropriate affect, normal mood. ABSENT: homicidal ideation, suicidal ideation Skin exam: PRESENT: dry, intact, warm. ABSENT: cyanosis, rash Results Laboratory Results: 05/15/17 07:17 05/15/17 07:17 05/15/17 05/15/17 07:17 07:17 WBC 5.7 RBC 3.19 L Hgb 8.6 L Hct 25.8 L MCV 81 MCH 27.0 MCHC 33.3 RDW 18.5 H Plt Count 310 Seg Neutrophils % 68.4 Lymphocytes % 17.2 Monocytes % 10.6 Eosinophils % 2.5 Basophils % 1.3 Absolute Neutrophils 3.9 Absolute Lymphocytes 1.0 Absolute Monocytes 0.6 Absolute Eosinophils 0.1 Absolute Basophils 0.1 Sodium 142.3 Potassium 4.3 Chloride 103 Carbon Dioxide 30 Anion Gap 9 BUN 24 H Creatinine 1.34 H Est GFR ( Amer) > 60 Est GFR (Non-Af Amer) 55 L Glucose 87 Calcium 9.1 05/15/17 05/15/17 05/15/17 01:27 07:17 07:17 Creatine Kinase 78 CK-MB (CK-2) 2.33 1.87 Troponin I 0.020 0.018 Impressions: Chest X-Ray 05/15/17 00:00 IMPRESSION: Only minimal if any interval decrease in size of the right pleural effusion. There is associated air space consolidation. Other findings as noted above Assessment & Plan - Diagnosis (1) Acute on chronic combined systolic (congestive) and diastolic (congestive) heart failure Is this a current diagnosis for this admission?: Yes Plan: The patient is admitted to [facility] on continuous cardiac telemetry. He is receiving scheduled IV furosemide for diuresis. He is supported with BiPAP and supplemental oxygen. We will continue Vasotec, lisinopril, and Entresto, and spironolactone as blood pressures allow. Cardiology is consulted; appreciate their recommendations. Will ask Palliative Care to meet with the patient. (2) Pleural effusion Is this a current diagnosis for this admission?: Yes Plan: Secondary to CHF exacerbation. Repeat CXR today is essentially unchanged. Will continue with diuresis, BiPAP and supplemental oxygen. Anticipate some improvement following paracentesis scheduled today. (3) Anasarca Is this a current diagnosis for this admission?: Yes Plan: Secondary to CHF exacerbation. Plan as above. (4) Ascites Qualifiers: Ascites type: other type Qualified Code(s): R18.8 - Other ascites Is this a current diagnosis for this admission?: Yes Plan: Secondary to CHF exacerbation. Paracentesis has been scheduled for today. Remaining plan as above. (5) Diabetes Qualifiers: Diabetes mellitus type: type 2 Diabetes mellitus complication status: with unspecified complications Is this a current diagnosis for this admission?: Yes Plan: We will continue the patient's home medications. He has provided Humalog for sliding scale coverage. Will ask the patient educator and registered dietitian to meet with him. (6) ALEYDA (obstructive sleep apnea) Is this a current diagnosis for this admission?: Yes Plan: BiPAP qHS and as needed (7) Tobacco dependency Is this a current diagnosis for this admission?: Yes Plan: Smoking cessation is encouraged and tobacco replacement therapies are offered. (8) Non-compliance Is this a current diagnosis for this admission?: Yes Plan: Will ask the patient navigator, transitions gymnastics coach or instructor, tobacco prevention health educator and registered pharmacy technician to meet with him. - Time Time Spent with patient: 35 or more minutes Medications reviewed and adjusted accordingly: Yes - Inpatient Certification Based on my medical assessment, after consideration of the patient's comorbidities, presenting symptoms, or acuity I expect that the services needed warrant INPATIENT care.: Yes I certify that my determination is in accordance with my understanding of Medicare's requirements for reasonable and necessary INPATIENT services [42 CFR 412.3e].: Yes Medical Necessity: Failure to Improve With Outpatient Therapy, Need Close Monitoring Due to Risk of Patient Decompensation, Need For Continuous Telemetry Monitoring
[2017-05-15] MEDS ORDERED: LIDOCAINE 1% INJ-PF (10 MG/ML) 30 ML SDV ONE (13:47)
[2017-05-15 13:57] LABS: CREATINE KINASE MB 1.84 ng/mL (<4.55); TROPONIN I 0.02 ng/mL
--- NOTE | 2017-05-15 14:55 | PDOC CONSULTATION ---
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 Patient presents with approximately a week of acute on chronic leg and abdominal distention, orthopnea and dyspnea with exertion. Patient denies recent change in medications he denies dietary indiscretion. In the emergency room is found to have anasarca with bilateral pleural effusions, ascites and a BNP of 20,000. He started on IV Lasix and referred to the hospitalist for admission. Patient denies chest pain. Patient well-known to me from previous admission and also at least one office visit. Patient has known history of noncompliance both to dietary restrictions as well as to medication. He also does not seem to have much of social support. His only support is an elderly mother. She is also the surrogate decision maker. Past Medical History Cardiac Medical History: Reports: Congestive Heart Failure - Combined systolic and diastolic., Myocardial Infarction, Hyperlipidema, Hypertension, Peripheral Vascular Disease Denies: Pulmonary Embolism Pulmonary Medical History: Reports: Bronchitis, Sleep Apnea - CPAP, pressure 15. No home oxygen. Denies: Chronic Obstructive Pulmonary Disease (COPD) Neurological Medical History: Denies: Seizures Endocrine Medical History: Reports: Diabetes Mellitus Type 2, Hypothyroidism - States he might be hypothyroid, according to recent test, but not sure. Denies: Diabetes Mellitus Type 1, Hyperthyroidism GI Medical History: Denies: Cirrhosis, Gastroesophageal Reflux Disease, Hepatitis Musculoskeltal Medical History: Denies: Arthritis Psychiatric Medical History: Denies: Depression Infectious Medical History: Denies: Clostridium Difficile, Methicillin-Resistant Staph Aureus Past Surgical History Past Surgical History: Reports: Appendectomy, Cardiac Catheterization, Internal Defibrillator, Pacemaker - AICD Social History Information Source: Patient Smoking Status: Current Every Day Smoker Cigarettes Packs Per Day: 0.2 Number of Years Smokin Last Time Smoked: 05/14/2016 Frequency of Alcohol Use: Rare Hx Recreational Drug Use: No Drugs: None Hx Prescription Drug Abuse: No - Advance Directive Resuscitation Status: Full Code Surrogate healthcare decision maker:: Patient's mother is the surrogate decision-maker Family History Family History: Hypertension Parental Family History Reviewed: Yes Children Family History Reviewed: Yes Sibling(s) Family History Reviewed.: Yes Medication/Allergy Home Medications: Atorvastatin Calcium [Lipitor 80 mg Tablet] 80 mg PO QHS 05/14/17 Sacubitril/Valsartan [Entresto 24 mg-26 mg Tablet] 1 tab PO Q12 05/14/17 Torsemide [Demadex 20 mg Tablet] 20 mg PO QPM 05/14/17 Torsemide [Demadex 20 mg Tablet] 40 mg PO QAM 05/14/17 Allergies/Adverse Reactions: glimepiride Allergy (Severe, Verified 05/15/17 11:41) Coma Review of Systems Review of Systems: Please see history of present illness and past medical history as wall. Constitutional: No fever or chills reported. Head : No recent chronic headaches, recent head injury. Eyes: No recent eye pain, diplopia, redness, discharge, acute visual changes. Ears: No recent chronic ear pain, acute hearing loss, ear discharge. Oral cavity: No recent ulcerations, bleeding, oral cavity discomfort. Neck: No recent acute neck pain reported. Hematologic: No recent easy bruising or bleeding or hematologic malignancy reported. Lymphatic: No recent lymphatic malignancy, chronic lymphadenopathy reported yet Cardiovascular system review: See history of present illness. No recent defibrillator discharges Respiratory system review: No recent chronic cough, hemoptysis, blood clots in the lungs reported. Shortness of breath on exertion. Increasing pedal edema Gastrointestinal system review: Negative for any recent acute or chronic abdominal pain, hematemesis, melena, recent change in bowel habits. Increasing ascites, abdominal distention. Genitourinary system review: No recent acute or chronic hematuria, flank pain, UTI etc. reported. Skin system review: Negative for any recent abnormal bruising, no rash, no pruritus reported. Neurologic: No prior history of strokes, mini strokes, seizure disorder. Psychologic: No history of major psychosis or major depression reported. Musculoskeletal: Minor aches and pains reported. No acute joint swelling reported. Endocrine: No recent polyuria, polydipsia, recent heat or cold intolerance. I Physical Exam Vital Signs: Temp Pulse Resp BP Pulse Ox 97.7 F 84 18 90/76 L 100 05/15/17 10:55 05/15/17 10:55 05/15/17 12:00 05/15/17 12:19 05/15/17 12:00 Intake & Output 05/14/17 05/15/17 05/16/17 06:59 06:59 06:59 Intake Total 4 Output Total 1700 Balance -1696 Weight 144.3 kg 144.3 kg Exam: GENERAL: well-nourished and in no acute distress. Alert and oriented x3 HEAD: Atraumatic, normocephalic. EYES: Pupils equal round and reactive to light, extraocular movements intact, sclera anicteric, conjunctiva are normal. ENT: TMs normal, nares patent, oropharynx clear without exudates. Moist mucous membranes. No oral ulcerations or bleeding gums noted NECK: supple without lymphadenopathy. Trachea is central. No cervical or axillary lymphadenopathy noted. Carotids are 2+, JVD 8-10 cm LUNGS: Respiration seems nonlabored, no significant accessory muscle action noted. Bibasilar fine crackles noted. No wheezes rales or rhonchi noted. No significant dullness noted on percussion. CHEST: Palpation of the chest wall shows no significant chest wall tenderness. No other significant abnormalities noted. HEART: Leigh [employer], No PSH, 1/6 EKATERINA aortic area, 1/6 negron systolic murmur mitral area, no rubs, no gallops. ABDOMEN: Soft with massive distention secondary to ascites, no significant tenderness appreciated, normoactive bowel sounds. No guarding, no rebound. No rigidity noted . No masses appreciated but difficult to exclude due to significant ascites. EXTREMITIES: Pedal pulses are 1-2+, no calf tenderness noted. No clubbing or cyanosis. 3 + pedal edema noted NEUROLOGICAL: Focused neurological exam showed no significant neurologic deficit. Normal speech, no focal weakness appreciated. PSYCH: Normal mood, normal affect. Judgment and insight within normal limits. SKIN: No significant ecchymosis, rash, ulcerations or signs of pruritus noted. MUSCULOSKELETAL EXAM: No significant joint swelling noted. Results Laboratory Results: 05/15/17 07:17 05/15/17 07:17 05/15/17 05/15/17 07:17 07:17 WBC 5.7 RBC 3.19 L Hgb 8.6 L Hct 25.8 L MCV 81 MCH 27.0 MCHC 33.3 RDW 18.5 H Plt Count 310 Seg Neutrophils % 68.4 Lymphocytes % 17.2 Monocytes % 10.6 Eosinophils % 2.5 Basophils % 1.3 Absolute Neutrophils 3.9 Absolute Lymphocytes 1.0 Absolute Monocytes 0.6 Absolute Eosinophils 0.1 Absolute Basophils 0.1 Sodium 142.3 Potassium 4.3 Chloride 103 Carbon Dioxide 30 Anion Gap 9 BUN 24 H Creatinine 1.34 H Est GFR ( Amer) > 60 Est GFR (Non-Af Amer) 55 L Glucose 87 Calcium 9.1 05/15/17 05/15/17 05/15/17 01:27 07:17 07:17 Creatine Kinase 78 CK-MB (CK-2) 2.33 1.87 Troponin I 0.020 0.018 05/15/17 05/15/17 13:10 13:10 Creatine Kinase 77 CK-MB (CK-2) 1.84 Troponin I 0.020 Impressions: Chest X-Ray 05/15/17 00:00 IMPRESSION: Only minimal if any interval decrease in size of the right pleural effusion. There is associated air space consolidation. Other findings as noted above Assessment & Plan - Diagnosis (1) Acute on chronic combined systolic (congestive) and diastolic (congestive) heart failure Is this a current diagnosis for this admission?: Yes (2) Anasarca Is this a current diagnosis for this admission?: Yes (3) Ascites Qualifiers: Ascites type: other type Qualified Code(s): R18.8 - Other ascites Is this a current diagnosis for this admission?: Yes (4) COPD (chronic obstructive pulmonary disease) Qualifiers: Emphysema type: unspecified Is this a current diagnosis for this admission?: Yes (5) Cardiac defibrillator in situ Is this a current diagnosis for this admission?: Yes (6) Cardiomyopathy Qualifiers: Cardiomyopathy type: ischemic Qualified Code(s): I25.5 - Ischemic cardiomyopathy Is this a current diagnosis for this admission?: Yes (7) Diabetes Qualifiers: Diabetes mellitus type: type 2 Diabetes mellitus complication status: with unspecified complications Diabetes mellitus rn long term care insulin use: unspecified rn long term care insulin use status Qualified Code(s): E11.8 - Type 2 diabetes mellitus with unspecified complications Is this a current diagnosis for this admission?: Yes (8) CKD (chronic kidney disease), stage III Is this a current diagnosis for this admission?: Yes (9) Noncompliance with diet and medication regimen Is this a current diagnosis for this admission?: Yes (10) ALEYDA (obstructive sleep apnea) Is this a current diagnosis for this admission?: Yes (11) Tobacco dependency Is this a current diagnosis for this admission?: Yes - Notes Notes: Have stopped enalapril since patient on entresto. Recommend adding carvedilol once blood pressure is stable. Currently blood pressure is somewhat on the low side. We will add digoxin. Acute on chronic congestive heart failure. Patient has both significant systolic and diastolic dysfunction with component of right heart failure. This is primarily being aggravated by noncompliance to dietary restrictions, medications etc. Recommend salt and fluid restriction, dietary and social work associate consultation as patient has basically very little social support. Coronary artery disease: Patient has history of prior myocardial infarction and history of stents. Currently stable with cardiac enzymes being negative. Patient also without any chest pain. Ascites: This is a chronic recurrent problem. Agree with paracentesis for symptomatic relief. Recommend spironolactone and other diuretic therapy. Patient would benefit from salt and fluid restriction and also compliance with medications. Cardiomyopathy: Ischemic in nature but no ongoing ischemia clinically. Will try optimize medical management. COPD: Currently stable. Patient has been advised on tobacco cessation. Obstructive sleep apnea: Patient has been advised once compliance with CPAP therapy. Defibrillator in situ: Patient does have a functioning biventricular defibrillator in place. No recent shocks reported by the patient. - Time Time Spent: 30 to 50 Minutes - CODE STATUS was discussed, patient remains full code. Surrogate decision-maker patient's mother. Multiple medical problems were addressed. More than 50% of the time spent coordinating care, discussing management plans with involved caregivers. Management plans discussed with involved personnels. Medical decision making was of moderate to high complexity , patient's has multiple comorbidities. Medications reviewed and adjusted accordingly: Yes
[2017-05-15 15:29] LABS: FLUID APPEARANCE SLIGHTLY HAZY; FLUID COLOR YELLOW; FLUID SOURCE ASCITES; FLUID TYPE PERITONEAL; FLUID VISCOSITY LIQUID
--- NOTE | 2017-05-15 15:37 | PDOC CONSULTATION ---
Consultation Consult Date: 05/15/17 Attending physician:: EVENS SCHWARTZ Consult reason:: ? liver failure History of Present Illness Admission Date/PCP: 05/14/17 20:40 History of Present Illness: I am asked to see this patient for possible liver failure. He did present with ascites however patient has a poor systolic EF, previous 30%, perhaps much less now, but also with pedal edema and a pleural effusion patient likely has significant passive congestion as well in the liver parenchyma patient's LFT actually are normal with low transaminase levels as well denies any hematemesis patient has had significant cardiac history long with stent placement and other hardware patient likely having secondary effects of poor systolic output with passive congestion of the liver, pleural effusion and dependant edema based on more cardiac issues than with the liver did discuss case with the hospitalist physician Past Medical History Cardiac Medical History: Reports: Congestive Heart Failure - Combined systolic and diastolic., Myocardial Infarction, Hyperlipidema, Hypertension, Peripheral Vascular Disease Denies: Pulmonary Embolism Pulmonary Medical History: Reports: Bronchitis, Sleep Apnea - CPAP, pressure 15. No home oxygen. Denies: Chronic Obstructive Pulmonary Disease (COPD) Neurological Medical History: Denies: Seizures Endocrine Medical History: Reports: Diabetes Mellitus Type 2, Hypothyroidism - States he might be hypothyroid, according to recent test, but not sure. Denies: Diabetes Mellitus Type 1, Hyperthyroidism GI Medical History: Denies: Cirrhosis, Gastroesophageal Reflux Disease, Hepatitis Musculoskeltal Medical History: Denies: Arthritis Psychiatric Medical History: Denies: Depression Infectious Medical History: Denies: Clostridium Difficile, Methicillin-Resistant Staph Aureus Past Surgical History Past Surgical History: Reports: Appendectomy, Cardiac Catheterization, Internal Defibrillator, Pacemaker - AICD Social History Smoking Status: Current Every Day Smoker Cigarettes Packs Per Day: 0.2 Number of Years Smokin Last Time Smoked: 05/14/2016 Frequency of Alcohol Use: Rare Hx Recreational Drug Use: No Drugs: None Hx Prescription Drug Abuse: No - Advance Directive Resuscitation Status: Full Code Family History Family History: Hypertension Parental Family History Reviewed: Yes Children Family History Reviewed: Unknown Sibling(s) Family History Reviewed.: Unknown Medication/Allergy Home Medications: Atorvastatin Calcium [Lipitor 80 mg Tablet] 80 mg PO QHS 05/14/17 Sacubitril/Valsartan [Entresto 24 mg-26 mg Tablet] 1 tab PO Q12 05/14/17 Torsemide [Demadex 20 mg Tablet] 20 mg PO QPM 05/14/17 Torsemide [Demadex 20 mg Tablet] 40 mg PO QAM 05/14/17 Allergies/Adverse Reactions: glimepiride Allergy (Severe, Verified 05/15/17 11:41) Coma Review of Systems Constitutional: ABSENT: fever(s), headache(s), night sweats, weakness Eyes: ABSENT: visual disturbances Ears: ABSENT: hearing changes Nose, Mouth, and Throat: ABSENT: mouth pain, sore throat Cardiovascular: PRESENT: dyspnea on exertion, orthropnea Respiratory: PRESENT: dyspnea. ABSENT: hemoptysis Gastrointestinal: ABSENT: diarrhea, hematemesis, hematochezia, melena Genitourinary: ABSENT: dysuria, hematuria Musculoskeletal: ABSENT: joint swelling Neurological: ABSENT: focal weakness, syncope, tingling, tremor(s), vertigo Endocrine: ABSENT: polydipsia, polyphagia, polyuria Physical Exam Vital Signs: Temp Pulse Resp BP Pulse Ox 97.7 F 84 18 90/76 L 100 05/15/17 10:55 05/15/17 10:55 05/15/17 12:00 05/15/17 12:19 05/15/17 12:00 Intake & Output 05/14/17 05/15/17 05/16/17 06:59 06:59 06:59 Intake Total 4 Output Total 1700 Balance -1696 Weight 144.3 kg 144.3 kg General appearance: PRESENT: well-developed, well-nourished Head exam: PRESENT: atraumatic, normocephalic Eye exam: PRESENT: EOMI, PERRLA. ABSENT: nystagmus, periorbital swelling, scleral icterus Throat exam: ABSENT: tonsillar exudate, tonsillogmegaly Neck exam: ABSENT: meningismus, tenderness, thyromegaly Respiratory exam: PRESENT: rhonchi, symmetrical, tachypnea. ABSENT: unlabored Cardiovascular exam: PRESENT: RRR, +S1, +S2 GI/Abdominal exam: PRESENT: ascites, diminished bowel sounds, firm. ABSENT: rebound Extremities exam: PRESENT: pedal edema. ABSENT: joint swelling Musculoskeletal exam: PRESENT: full ROM Neurological exam: PRESENT: oriented to time, oriented to situation, CN II-XII grossly intact Skin exam: PRESENT: normal color. ABSENT: mottled, pallor, petechiae, urticaria , vesicles Results Laboratory Results: 05/15/17 07:17 05/15/17 07:17 05/15/17 05/15/17 07:17 07:17 WBC 5.7 RBC 3.19 L Hgb 8.6 L Hct 25.8 L MCV 81 MCH 27.0 MCHC 33.3 RDW 18.5 H Plt Count 310 Seg Neutrophils % 68.4 Lymphocytes % 17.2 Monocytes % 10.6 Eosinophils % 2.5 Basophils % 1.3 Absolute Neutrophils 3.9 Absolute Lymphocytes 1.0 Absolute Monocytes 0.6 Absolute Eosinophils 0.1 Absolute Basophils 0.1 Sodium 142.3 Potassium 4.3 Chloride 103 Carbon Dioxide 30 Anion Gap 9 BUN 24 H Creatinine 1.34 H Est GFR ( Amer) > 60 Est GFR (Non-Af Amer) 55 L Glucose 87 Calcium 9.1 05/15/17 05/15/17 05/15/17 01:27 07:17 07:17 Creatine Kinase 78 CK-MB (CK-2) 2.33 1.87 Troponin I 0.020 0.018 05/15/17 05/15/17 13:10 13:10 Creatine Kinase 77 CK-MB (CK-2) 1.84 Troponin I 0.020 Impressions: Chest X-Ray 05/15/17 00:00 IMPRESSION: Only minimal if any interval decrease in size of the right pleural effusion. There is associated air space consolidation. Other findings as noted above Assessment & Plan - Diagnosis (1) Anasarca Is this a current diagnosis for this admission?: Yes Plan: patient has symptoms to suggest end stage heart failure there is a pleural effusion, along with anasarca, and edema patient has normal liver functions likely has passive congestion of the liver as well if ascites is significant, then may need paracentesis but may not be helpful since reaccumulation may rapidly reoccur does not need GI intervention for now consult cardiology for further recommendations regarding his poor systolic output ? possible repeat ECHO etc - Time Time Spent: 50 to 70 Minutes
[2017-05-15] MEDS ORDERED: DIGOXIN 0.125 MG TABLET PO ONE (16:00)
--- NOTE | 2017-05-15 19:02 | XCELERA REPORT ---
[address] [address] Transthoracic Echocardiogram Report Name: KEN ZAYAS Age: 57 yrs Gender: Male : 1960 Patient Status: Inpatient Patient Location: [address] [place] [address] Study Date: 05/15/2017 04:18 PM Height: 75 in Weight: 318 lb BSA: 2.7 m2 Procedure: A complete two-dimensional transthoracic echocardiogram was performed (2D, M-mode, spectral and color flow Doppler). The study was technically difficult with many images being suboptimal in quality. Reason For Study: CHF exacerbation Ordering Physician: JACKY WHALEN Performed By: Ai Vila Interpretation Summary Left ventricular systolic function is moderately reduced. The Ejection Fraction estimate is 35-40% Doppler measurements suggest reversible restrictive left ventricular relaxation, which is associated with grade III/IV or moderate diastolic dysfunction There is mild concentric left ventricular hypertrophy. The left ventricle is mildly dilated. There is distal anterior wall akinesis There is apical wall akinesis The right ventricular systolic function is mildly reduced. The right ventricle is mild to moderately dilated. The right ventricle appears to be hypertrophied The left atrium is moderately dilated. The right atrium is moderately dilated. There is a mild amount of mitral regurgitation There is no mitral valve stenosis. No aortic regurgitation is present. There is no aortic valve stenosis There is a mild to moderate amount of tricuspid regurgitation There is moderate pulmonary hypertension by echo Right ventricular systolic pressure is estimated to be elevated at 50- 60mmHg. The aortic root is not well visualized but is probably normal size. The inferior vena cava appeared normal and decreased < 50% with respiration (RAP 10-15 mmHg) Minimal pericardial effusion. MMode/2D Measurements & Calculations RVDd: 4.7 cm LVIDd: 6.3 cm FS: 17.1 % Ao root diam: 3.4 cm IVSd: 1.1 cm LVIDs: 5.2 cm EDV(Teich): 199.7 ml LVPWd: 0.96 cmESV(Teich): 129.7 mlAo root area: 9.0 cm2 EF(Teich): 35.1 % LVOT diam: 2.2 cm LVOT area: 3.6 cm2 Doppler Measurements & Calculations MV E max johny: MV dec slope: Ao V2 max: LV V1 max P.3 cm/sec 740.7 cm/sec2 140.0 cm/sec 6.1 mmHg MV A max johny: MV dec time: Ao max PG: LV V1 max: 35.9 cm/sec 0.16 sec 7.8 mmHg 123.8 cm/sec MV E/A: 3.4 JOAQUIN(V,D): 3.2 cm2 PA V2 max: PI end-d johny: TR max johny: 73.3 cm/sec 139.9 cm/sec 322.6 cm/sec PA max P.1 mmHg TR max P.0 mmHg Left Ventricle The left ventricle is mildly dilated. There is mild concentric left ventricular hypertrophy. Left ventricular systolic function is moderately reduced. The Ejection Fraction estimate is 35-40%. Doppler measurements suggest reversible restrictive left ventricular relaxation, which is associated with grade III/IV or moderate diastolic dysfunction. There is distal anterior wall akinesis. There is apical wall akinesis. Right Ventricle The right ventricle is mild to moderately dilated. The right ventricle appears to be hypertrophied. The right ventricular systolic function is mildly reduced. Atria The right atrium is moderately dilated. The left atrium is moderately dilated. Interarterial septum not well visualized and not well dopplered. Cannot comment on ASD/PFO presence. Mitral Valve The mitral valve leaflets are sclerotic, but show no functional abnormalities. There is no mitral valve stenosis. There is a mild amount of mitral regurgitation. Aortic Valve The aortic valve is not well visualized secondary to technical limitations. There is no aortic valve stenosis. No aortic regurgitation is present. Tricuspid Valve The tricuspid valve is not well visualized, but is grossly normal. There is no tricuspid stenosis. There is a mild to moderate amount of tricuspid regurgitation. There is moderate pulmonary hypertension by echo. Right ventricular systolic pressure is estimated to be elevated at 50-60mmHg. Pulmonic Valve The pulmonic valve is not well visualized. Great Vessels The aortic root is not well visualized but is probably normal size. The inferior vena cava appeared normal and decreased < 50% with respiration (RAP 10-15 mmHg). Effusions Minimal pericardial effusion. Incidental Findings Pacemaker wire noted. : JACKY WHALEN > Juliana Diaz
--- NOTE | 2017-05-15 19:06 | EKG REPORT ---
SEVERITY:- ABNORMAL ECG - VENTRICULAR-PACED RHYTHM : Confirmed by: Juliana Diaz 15-May-2017 19:05:44
[2017-05-15] MEDS: TAMSULOSIN HCL 0.4 MG CAP.SR.24H PO SCH (22:11)
[2017-05-15] MEDS: ATORVASTATIN CALCIUM 80 MG TABLET PO SCH (22:11)
[2017-05-16 05:02] LABS: HEMATOCRIT 23.2 % (37.9-51.0); MEAN CORPUSCULAR HGB CONC 33.6 g/dL (32.0-36.0); MEAN CORPUSCULAR VOLUME 81 fl (80-97); PLATELET COUNT 251 10^3/uL (150-450); RED BLOOD COUNT 2.88 10^6/uL (4.35-5.55); RED CELL DISTRIBUTION WIDTH 18.3 % (11.5-14.0)
[2017-05-16 05:03] LABS: HEMOGLOBIN 7.8 g/dL (13.5-17.0)
[2017-05-16 05:12] LABS: ANION GAP 6 (5-19); BLOOD UREA NITROGEN 27 mg/dL (7-20); CALCIUM 8.4 mg/dL (8.4-10.2); CARBON DIOXIDE 29 mmol/L (22-30); CHLORIDE 103 mmol/L (98-107); GLUCOSE 94 mg/dL (75-110); POTASSIUM 4.2 mmol/L (3.6-5.0)
[2017-05-16] MEDS: HEPARIN SOD (PORCINE) 5,000 UNIT/ML 1 ML SYRINGE SUBCUT SCH ×3 (05:48→21:33)
[2017-05-16] MEDS: MIDODRINE HCL 5 MG TABLET PO SCH ×3 (05:48→15:02)
[2017-05-16] MEDS: FUROSEMIDE INJ/PF 40 MG/4 ML SDV IV SCH (05:51)
--- NOTE | 2017-05-16 08:14 | RADIOLOGY REPORT (SQ) ---
EXAM DESCRIPTION: U/S ABD PARACENTESIS COMPLETED DATE/TIME: 05/15/2017 4:21 pm REASON FOR STUDY: Massive ascietes COMPARISON Abdominal ultrasound 10/19/2016, 10/22/2016 Paracentesis 01/13/2017 LIMITATIONS: None. PROCEDURE: After obtaining informed consent, the patient was brought to the ultrasound suite. The p rocedure was performed with the patient on a gurney. Ultrasound was used to identify a prominent poc ket of ascites in the left lower quadrant. An appropriate access site was selected. The patient was prepped and draped in usual sterile fashion. The access site was anesthetized with 8 mL 1% lidocai ne. A [id number] needle was advanced into the fluid. After aspiration of fluid the needle, the catheter was advanced off the needle into the fluid. A total of 13,200 mL of clear yellow fluid was removed. The patient tolerated the procedure well left the department in satisfactory condition. Fluid was sent for testing. Patient received IV albumin after the procedure IMPRESSION: Successful ultrasound-guided diagnostic and therapeutic paracentesis COMMENT: Patient medication list reviewed: Yes- Quality ID# [id number]:Eligible professional attests to doc umenting in the medical record they obtained, updated, or reviewed the patient's current medications. Quality ID #[id number]: The patient was prepped and draped using maximum sterile barrier technique including cap, mask, sterile gown, sterile gloves, a large sterile sheet, hand hygiene, and 2% Chlorhexidine fo r cutaneous antisepsis. When ultrasound is used, sterile ultrasound techniques are followed requiring sterile gel and sterile probes. Quality ID #[id number]: Final reports for procedures using fluoroscopy that document radiation exposure hong victorina, or exposure time and number of fluorographic images (if radiation exposure indices are not avail able) TECHNICAL DOCUMENTATION: JOB ID: [id number] [employer]- All Rights Reserved
[2017-05-16] MEDS: SACUBITRIL/VALSARTAN 24 MG/26 MG TABLET PO SCH ×2 (09:24→21:32)
[2017-05-16] MEDS: DIGOXIN 0.125 MG TABLET PO SCH (09:26)
[2017-05-16] MEDS: SPIRONOLACTONE 25 MG TABLET PO SCH (09:26)
[2017-05-16] MEDS: ASPIRIN 81 MG TABLET, ENT COATED PO SCH (09:27)
[2017-05-16] MEDS ORDERED: MIDODRINE HCL 5 MG TABLET PO SCH (10:00)
[2017-05-16] MEDS: ALBUMIN HUMAN 50 ML IV SCH ×4 (10:46→12:57)
[2017-05-16] MEDS ORDERED: NORMAL SALINE 250 ML IV PRN ×2 (11:42)
--- NOTE | 2017-05-16 11:57 | PDOC PROGRESS REPORT ---
Subjective Progress Note for:: 05/16/17 Subjective:: The patient is seen on morning rounds. He is found resting in bed comfortably on BiPAP. He states that he continues to have difficulty breathing, especially when sitting upright and feels most comfortable when reclined to approximately 30. He reports relief of pressure to his abdomen and right hip, however, reports that he feels that the fluid is already beginning to reaccumulate. He seems to be in poor spirits today and asks how long he has to live. We discussed having palliative care meet with him, to which he is agreeable. Reason For Visit: PLEURAL EFF,ACITIES,END STAGE LIVER,HEART FAILURE, Physical Exam Vital Signs: Temp Pulse Resp BP Pulse Ox 97.8 F 72 15 95/55 L 99 05/16/17 07:24 05/16/17 07:24 05/16/17 07:56 05/16/17 07:24 05/16/17 07:56 Intake & Output 05/15/17 05/16/17 05/17/17 06:59 06:59 06:59 Intake Total 4 636 Output Total 1700 2400 Balance -1696 -1764 Weight 144.3 kg 143 kg General appearance: PRESENT: no acute distress, well-developed, well-nourished Head exam: PRESENT: atraumatic, normocephalic Eye exam: PRESENT: conjunctiva pink, EOMI, PERRLA. ABSENT: scleral icterus Ear exam: PRESENT: normal external ear exam Mouth exam: PRESENT: moist, tongue midline Neck exam: ABSENT: carotid bruit, JVD, lymphadenopathy, thyromegaly Respiratory exam: PRESENT: crackles, decreased breath sounds - Right greater than left, rhonchi, symmetrical, tachypnea. ABSENT: rales, wheezes Cardiovascular exam: PRESENT: RRR, +S1, +S2. ABSENT: diastolic murmur, rubs, systolic murmur Pulses: PRESENT: normal dorsalis pedis pul Vascular exam: PRESENT: normal capillary refill GI/Abdominal exam: PRESENT: ascites, distended, normal bowel sounds, soft. ABSENT: guarding, mass, organolmegaly, rebound, tenderness Rectal exam: PRESENT: deferred Extremities exam: PRESENT: full ROM, +2 edema. ABSENT: calf tenderness, clubbing, pedal edema Neurological exam: PRESENT: alert, awake, oriented to person, oriented to place , oriented to time, oriented to situation, CN II-XII grossly intact. ABSENT: motor sensory deficit Psychiatric exam: PRESENT: appropriate affect, normal mood - Appropriately sad. ABSENT: homicidal ideation, suicidal ideation Skin exam: PRESENT: dry, intact, warm. ABSENT: cyanosis, rash Results Laboratory Results: 05/16/17 04:28 05/16/17 04:28 05/15/17 05/16/17 05/16/17 14:07 04:28 04:28 WBC 5.0 RBC 2.88 L Hgb 7.8 L Hct 23.2 L MCV 81 MCH 27.0 MCHC 33.6 RDW 18.3 H Plt Count 251 Sodium 138.0 Potassium 4.2 Chloride 103 Carbon Dioxide 29 Anion Gap 6 BUN 27 H Creatinine 1.37 H Est GFR ( Amer) > 60 Est GFR (Non-Af Amer) 54 L Glucose 94 Calcium 8.4 Fluid Type PERITONEAL Fluid Source ASCITES Fluid Color YELLOW Fluid Appearance SLIGHTLY HAZY Fluid Viscosity LIQUID Fluid WBC 15 Fluid RBC 718 05/15/17 16:30 Ascities Fluid Nocardia Susceptibility - Final Not Reportable 05/15/17 16:30 Ascities Fluid Microbiology Comment - Final Not Reportable 05/15/17 05/15/17 05/15/17 01:27 07:17 07:17 Creatine Kinase 78 CK-MB (CK-2) 2.33 1.87 Troponin I 0.020 0.018 NT-Pro-B Natriuret Pep 05/15/17 05/15/17 05/16/17 13:10 13:10 04:28 Creatine Kinase 77 CK-MB (CK-2) 1.84 Troponin I 0.020 NT-Pro-B Natriuret Pep 01700 H Impressions: Chest X-Ray 05/15/17 00:00 IMPRESSION: Only minimal if any interval decrease in size of the right pleural effusion. There is associated air space consolidation. Other findings as noted above Paracentesis Ultrasound 05/15/17 12:06 IMPRESSION: Successful ultrasound-guided diagnostic and therapeutic paracentesis Assessment & Plan - Diagnosis (1) Hypotension Is this a current diagnosis for this admission?: Yes Plan: Hypotension secondary to fluid volume depletion in the setting stage CHF and status post paracentesis with removal of 12 L of fluid. We will hold furosemide. He has been started on Midodrine 3 times daily. He is currently receiving albumin. Will transfuse 2 units packed red blood cells. (2) Acute on chronic combined systolic (congestive) and diastolic (congestive) heart failure Is this a current diagnosis for this admission?: Yes Plan: The patient is admitted to [facility] on continuous cardiac telemetry. He is supported with BiPAP and supplemental oxygen. He underwent paracentesis yesterday with removal of 12 L of fluid. He is now hypotensive so we will hold Lasix and monitor for additional diuretic need in the future. Cardiology is consulted; appreciate their recommendations. Continue digoxin, Entresto, and Aldactone. Will ask Palliative Care to meet with the patient. (3) Pleural effusion Is this a current diagnosis for this admission?: Yes Plan: Secondary to CHF exacerbation. Repeat CXR yesterday was essentially unchanged following diuresis with IV Lasix. Will continue BiPAP and supplemental oxygen. (4) Anasarca Is this a current diagnosis for this admission?: Yes Plan: Secondary to CHF exacerbation. Plan as above. (5) Ascites Qualifiers: Ascites type: other type Qualified Code(s): R18.8 - Other ascites Is this a current diagnosis for this admission?: Yes Plan: Secondary to CHF exacerbation. The patient underwent paracentesis yesterday with removal of 12 L of clear, yellow, fluid. Remaining plan as above. (6) Diabetes Qualifiers: Diabetes mellitus type: type 2 Diabetes mellitus complication status: with unspecified complications Diabetes mellitus retirement insulin use: unspecified retirement insulin use status Qualified Code(s): E11.8 - Type 2 diabetes mellitus with unspecified complications Is this a current diagnosis for this admission?: Yes Plan: We will continue the patient's home medications. Will liberalize diet as the patient has poor overall p.o. intake. He has been provided Humalog for sliding scale coverage. Will ask the patient educator and registered dietitian to meet with him. (7) ALEYDA (obstructive sleep apnea) Is this a current diagnosis for this admission?: Yes Plan: BiPAP qHS and as needed (8) Tobacco dependency Is this a current diagnosis for this admission?: Yes Plan: Smoking cessation is encouraged and tobacco replacement therapies are offered. (9) Non-compliance Is this a current diagnosis for this admission?: Yes Plan: Will ask the patient navigator, transitions dramatic coach, chemical educator and travel registered nurse oncology to meet with him. - Time Time Spent with patient: 25-34 minutes Medications reviewed and adjusted accordingly: Yes
--- NOTE | 2017-05-16 14:06 | EKG REPORT ---
SEVERITY:- ABNORMAL ECG - VENTRICULAR-PACED RHYTHM : Confirmed by: Juliana Diaz 16-May-2017 14:05:32
[2017-05-16 15:51] LABS: ABSOLUTE BASOPHILS # (AUTO) 0.1 10^3/uL (0.0-0.2); ABSOLUTE EOSINOPHILS # (AUTO) 0.1 10^3/uL (0.0-0.6); ABSOLUTE MONOCYTES (AUTO) 0.6 10^3/uL (0.1-1.4); ABSOLUTE NEUT (AUTO) 3.7 10^3/uL (1.7-8.2); BASOPHILS % (AUTO) 1.2 % (0-2); EOSINOPHILS % (AUTO) 2.5 % (0-6); HEMATOCRIT 23.8 % (37.9-51.0); LYMPHOCYTES % (AUTO) 17.6 % (13-45); MEAN CORPUSCULAR HEMOGLOBIN 26.3 pg (27.0-33.4); MEAN CORPUSCULAR VOLUME 80 fl (80-97); MONOCYTES % (AUTO) 10.7 % (3-13); PLATELET COUNT 270 10^3/uL (150-450); RED BLOOD COUNT 2.98 10^6/uL (4.35-5.55); RED CELL DISTRIBUTION WIDTH 18.3 % (11.5-14.0); TOTAL CELLS COUNTED % (AUTO) 100 %; WHITE BLOOD COUNT 5.4 10^3/uL (4.0-10.5)
[2017-05-16 16:00] LABS: HEMOGLOBIN 7.8 g/dL (13.5-17.0)
[2017-05-16] MEDS: ATORVASTATIN CALCIUM 80 MG TABLET PO SCH (21:32)
[2017-05-16] MEDS: TAMSULOSIN HCL 0.4 MG CAP.SR.24H PO SCH (21:32)
[2017-05-17] MEDS: MIDODRINE HCL 5 MG TABLET PO SCH ×3 (05:05→15:25)
[2017-05-17] MEDS: HEPARIN SOD (PORCINE) 5,000 UNIT/ML 1 ML SYRINGE SUBCUT SCH ×3 (05:06→21:25)
[2017-05-17 05:45] LABS: HEMATOCRIT 26.7 % (37.9-51.0); HEMOGLOBIN 9.1 g/dL (13.5-17.0); MEAN CORPUSCULAR HGB CONC 34.2 g/dL (32.0-36.0); MEAN CORPUSCULAR VOLUME 79 fl (80-97); PLATELET COUNT 260 10^3/uL (150-450); RED BLOOD COUNT 3.39 10^6/uL (4.35-5.55); RED CELL DISTRIBUTION WIDTH 17.9 % (11.5-14.0); WHITE BLOOD COUNT 5.5 10^3/uL (4.0-10.5)
[2017-05-17 06:11] LABS: ANION GAP 6 (5-19); BLOOD UREA NITROGEN 26 mg/dL (7-20); CALCIUM 8.7 mg/dL (8.4-10.2); CARBON DIOXIDE 30 mmol/L (22-30); CHLORIDE 103 mmol/L (98-107); GLUCOSE 85 mg/dL (75-110); SODIUM 138.8 mmol/L (137-145)
--- NOTE | 2017-05-17 10:45 | PDOC PROGRESS REPORT ---
Subjective Progress Note for:: 05/17/17 Subjective:: The patient is seen on morning rounds for follow-up of dyspnea related to CHF exacerbation, right pleural effusion, ascites. The patient states that his breathing has not improved much overnight. He continues to have orthopnea especially when lying supine, left lateral, or sitting upright related to his massive ascites. He does state that he feels that his abdomen is beginning to enlarge again, however, it does remain soft. He denies chest pain, cough, abdominal pain, nausea vomiting and diarrhea. He asks about his prognosis and is agreeable and appreciative of a palliative care consult. He also expresses hopefulness to be ready for discharge within the next 2-3 days. He does state that he understands that his respiratory status will not allow for that today and unlikely tomorrow. He also expresses understanding that his symptoms will likely recur secondary to his heart failure. He seems understandably sad today. Reason For Visit: PLEURAL EFF,ACITIES,END STAGE LIVER,HEART FAILURE, Physical Exam Vital Signs: Temp Pulse Resp BP Pulse Ox 97.5 F 72 18 100/62 98 05/17/17 08:24 05/17/17 08:24 05/17/17 08:25 05/17/17 08:24 05/17/17 08:25 Intake & Output 05/16/17 05/17/17 05/18/17 06:59 06:59 06:59 Intake Total 636 1936 Output Total 2400 600 Balance -1764 1336 Weight 143 kg General appearance: PRESENT: no acute distress, well-developed, other - Anasarca. ABSENT: well-nourished Head exam: PRESENT: atraumatic, normocephalic Eye exam: PRESENT: conjunctiva pink, EOMI, PERRLA. ABSENT: scleral icterus Ear exam: PRESENT: normal external ear exam Mouth exam: PRESENT: moist, tongue midline Neck exam: ABSENT: carotid bruit, JVD, lymphadenopathy, thyromegaly Respiratory exam: PRESENT: crackles, decreased breath sounds - Right middle and lower [place], rhonchi, tachypnea, other - Continuous BiPAP use. ABSENT: rales, wheezes Cardiovascular exam: PRESENT: RRR. ABSENT: diastolic murmur, rubs, systolic murmur Pulses: PRESENT: normal dorsalis pedis pul Vascular exam: PRESENT: normal capillary refill GI/Abdominal exam: PRESENT: ascites, distended, normal bowel sounds, soft. ABSENT: guarding, mass, organolmegaly, rebound, tenderness Rectal exam: PRESENT: deferred Extremities exam: PRESENT: full ROM. ABSENT: calf tenderness, clubbing, pedal edema Neurological exam: PRESENT: alert, awake, oriented to person, oriented to place , oriented to time, oriented to situation, CN II-XII grossly intact. ABSENT: motor sensory deficit Psychiatric exam: PRESENT: appropriate affect - Understandably sad, normal mood. ABSENT: homicidal ideation, suicidal ideation Skin exam: PRESENT: dry, intact, warm. ABSENT: cyanosis, rash Results Laboratory Results: 05/17/17 04:42 05/17/17 04:42 05/16/17 05/16/17 05/17/17 12:17 15:25 04:42 WBC 5.4 RBC 2.98 L Hgb 7.8 L Hct 23.8 L MCV 80 MCH 26.3 L MCHC 33.0 RDW 18.3 H Plt Count 270 Seg Neutrophils % 68.0 Lymphocytes % 17.6 Monocytes % 10.7 Eosinophils % 2.5 Basophils % 1.2 Absolute Neutrophils 3.7 Absolute Lymphocytes 1.0 Absolute Monocytes 0.6 Absolute Eosinophils 0.1 Absolute Basophils 0.1 Sodium 138.8 Potassium 4.0 Chloride 103 Carbon Dioxide 30 Anion Gap 6 BUN 26 H Creatinine 1.32 H Est GFR ( Amer) > 60 Est GFR (Non-Af Amer) 56 L Glucose 85 Calcium 8.7 Blood Type A POSITIVE Antibody Screen NEGATIVE 05/17/17 04:42 WBC 5.5 RBC 3.39 L Hgb 9.1 L Hct 26.7 L MCV 79 L MCH 27.0 MCHC 34.2 RDW 17.9 H Plt Count 260 Seg Neutrophils % Lymphocytes % Monocytes % Eosinophils % Basophils % Absolute Neutrophils Absolute Lymphocytes Absolute Monocytes Absolute Eosinophils Absolute Basophils Sodium Potassium Chloride Carbon Dioxide Anion Gap BUN Creatinine Est GFR ( Amer) Est GFR (Non-Af Amer) Glucose Calcium Blood Type Antibody Screen 05/15/17 05/15/17 05/15/17 01:27 07:17 07:17 Creatine Kinase 78 CK-MB (CK-2) 2.33 1.87 Troponin I 0.020 0.018 NT-Pro-B Natriuret Pep 05/15/17 05/15/17 05/16/17 13:10 13:10 04:28 Creatine Kinase 77 CK-MB (CK-2) 1.84 Troponin I 0.020 NT-Pro-B Natriuret Pep 01309 H 05/17/17 04:42 Creatine Kinase CK-MB (CK-2) Troponin I NT-Pro-B Natriuret Pep 73802 H Impressions: Chest X-Ray 05/15/17 00:00 IMPRESSION: Only minimal if any interval decrease in size of the right pleural effusion. There is associated air space consolidation. Other findings as noted above Paracentesis Ultrasound 05/15/17 12:06 IMPRESSION: Successful ultrasound-guided diagnostic and therapeutic paracentesis Assessment & Plan - Diagnosis (1) Anemia Qualifiers: Chronic kidney disease stage: stage 3 (moderate) Is this a current diagnosis for this admission?: Yes Plan: Anemia of chronic disease that was worsened secondary to fluid volume overloaded in the setting of end-stage heart failure. Is improved today following 2 units packed red blood cells transfused overnight. Current hemoglobin of 9.1 with a baseline of 9. No signs of active bleeding. Will continue to monitor and transfuse for hemoglobin less than 8. (2) Hypotension Is this a current diagnosis for this admission?: Yes Plan: The patient remains mildly hypotensive; this is somewhat improved today. Hypotension secondary to fluid volume depletion in the setting stage CHF and status post paracentesis with removal of 12 L of fluid. We will hold furosemide. He has been started on Midodrine 3 times daily. He has received albumin and 2 units packed red blood cells. We will continue to monitor closely. (3) Acute on chronic combined systolic (congestive) and diastolic (congestive) heart failure Is this a current diagnosis for this admission?: Yes Plan: The patient is admitted to [facility] on continuous cardiac telemetry. BNP is trending down, however, the patient continues to be symptomatic with fatigue, dyspnea, and orthopnea requiring continuous BiPAP use. He is supported with BiPAP and supplemental oxygen. He underwent paracentesis with removal of 12 L of fluid. He is now mildly hypotensive so we will hold Lasix and monitor for additional diuretic need in the future. Cardiology is consulted; appreciate their recommendations. Continue digoxin, Entresto, and Aldactone. Will ask Palliative Care to meet with the patient. (4) Pleural effusion Is this a current diagnosis for this admission?: Yes Plan: Secondary to CHF exacerbation. Repeat CXR was essentially unchanged following diuresis with IV Lasix. The patient underwent paracentesis with 12 L of fluid removed. His lung sounds remain diminished to the right middle and lower [place]. Consider follow-up imaging. Will continue BiPAP and supplemental oxygen. (5) Anasarca Is this a current diagnosis for this admission?: Yes Plan: Secondary to CHF exacerbation. Plan as above. (6) Ascites Qualifiers: Ascites type: other type Qualified Code(s): R18.8 - Other ascites Is this a current diagnosis for this admission?: Yes Plan: Secondary to CHF exacerbation. The patient underwent paracentesis with removal of 12 L of clear, yellow, fluid. Laboratory evaluation is pending. Remaining plan as above. (7) Diabetes Qualifiers: Diabetes mellitus type: type 2 Diabetes mellitus complication status: with unspecified complications Diabetes mellitus long-term insulin use: unspecified long-term insulin use status Qualified Code(s): E11.8 - Type 2 diabetes mellitus with unspecified complications Is this a current diagnosis for this admission?: Yes Plan: We will continue the patient's home medications. Will liberalize diet as the patient has poor overall p.o. intake. He has been provided Humalog for sliding scale coverage. Will ask the patient educator and registered dietitian to meet with him. (8) ALEYDA (obstructive sleep apnea) Is this a current diagnosis for this admission?: Yes Plan: BiPAP qHS and as needed (9) Tobacco dependency Is this a current diagnosis for this admission?: Yes Plan: Smoking cessation is encouraged and tobacco replacement therapies are offered. (10) Non-compliance Is this a current diagnosis for this admission?: Yes Plan: Will ask the patient navigator, transitions assistant golf coach, harness maker and registered nursing professor to meet with him. He has been appropriate and cooperative with me thus far. - Time Time Spent with patient: 25-34 minutes Medications reviewed and adjusted accordingly: Yes
[2017-05-17] MEDS: DIGOXIN 0.125 MG TABLET PO SCH (10:51)
[2017-05-17] MEDS: ASPIRIN 81 MG TABLET, ENT COATED PO SCH (10:52)
[2017-05-17] MEDS: SPIRONOLACTONE 25 MG TABLET PO SCH (10:52)
[2017-05-17] MEDS: SACUBITRIL/VALSARTAN 24 MG/26 MG TABLET PO SCH ×2 (10:54→21:25)
--- NOTE | 2017-05-17 13:34 | Physician Advisory Note ---
Physician Advisor ProgressNote .: Pursuant to the plan for Jamin Childress, I have reviewed the medical record for this patient. Physician Advisor Statement: Nice documentation of Anemia of CKD, Ac-on-chr syst & diast CHF. Please consider documenting, if you agree: 1. "Acute Hypoxemic Respiratory Failure initially, evidenced by being ' hypoxemic pre-hospital' & 'so dyspneic he can barely move' & needing to use his nighttime CPAP during the day, ongoing need for Bipap & O2." (per ED dr note) Thanks! CK
[2017-05-17] MEDS: TAMSULOSIN HCL 0.4 MG CAP.SR.24H PO SCH (21:24)
[2017-05-17] MEDS: ATORVASTATIN CALCIUM 80 MG TABLET PO SCH (21:24)
--- NOTE | 2017-05-17 23:58 | PROGRESS NOTE E ---
Progress Note NAME: KEN ZAYAS : 1960 AGE: 57Y DATE: 05/17/2017 ROOM: 313 SUBJECTIVE: The patient denies any chest pain or discomfort. He continues to have orthopnea and shortness of breath. The shortness of breath has occurred since the increase of his ascites. He still has leg edema. He has no anginal chest pains. There is no PND. There is no firing of his defibrillator. He now is using CPAP. He still has pedal edema with some chronic venous stasis dermatitis changes. OBJECTIVE: VITAL SIGNS: The patient is afebrile with a temperature of 97.5 degrees Fahrenheit. Pulse is 68 beats per minute. Blood pressure is 104/70. Respirations are 18 per minute. O2 sat is 100% on CPAP with FiO2 of 30%. GENERAL: The patient is in mild respiratory distress but appears to be chronically ill. He is alert and oriented x3. HEAD: Atraumatic, normocephalic. EYES: Pupils equal, round, and reactive to light and accommodation. Extraocular movements are normal. Sclerae are without any icterus. There is no conjunctival pallor. EARS: Tympanic membranes are normal. NOSE: Nares are patent. There is no inflammation of the nasal mucous membranes. MOUTH AND THROAT: Oropharynx is clear without exudates. There is no redness of the oropharynx. The mucous membranes are moist. There are no ulcerations or bleeding from the gums noted. NECK: Supple, without lymphadenopathy. Trachea is central. There is mild JVD present. Carotids are 2+ without any bruits. There is no goiter. LUNGS: No axillary muscles of respiration used. He has bibasilar fine crackles noted. No wheezes or rales or rhonchi. There is no chest-wall tenderness. HEART: S1 and S2 are heard. There is no S3 gallop. There is no S4 gallop. There is no rub. There is a systolic murmur in the aorta area and a systolic murmur in the mitral area. ABDOMEN: Soft with massive distention secondary to ascites. There is shifting dullness present. There is no tenderness. There is no hepatosplenomegaly. There is no guarding, no rebound, no rigidity, no masses appreciated, but difficult to exclude due to significant ascites. EXTREMITIES: Pedal pulses are reduced. There is no calf tenderness noted. There is no clubbing or cyanosis. There is 2- pedal edema with chronic venous stasis dermatitis changes. CENTRAL NERVOUS SYSTEM: The patient is conscious, awake, alert, oriented x3, with no focal deficits. PSYCHIATRIC: The patient's judgement and insight are intact. His affect is normal. SKIN: There is chronic venous stasis dermatitis of his legs, but otherwise there are no petechiae or ecchymosis. There is no evidence of cellulitis of the extremities. MUSCULOSKELETAL: There is no significant joint swelling. INTAKE/OUTPUT: The patient's 24-hour intake is 1936 mL, output is 600 mL. LABORATORY DATA: The patient's sodium is 138.8, potassium is 4.0, chloride is 103, CO2 is 30. The patient's BUN is 26, creatinine is 1.32, GFR is reduced at 56 mL. His glucose is 102, and his calcium is 8.7. His NT-ProBNP is 10,300; this has come down from 14,400. The patient's white blood cell count is 5500, hemoglobin is 9.1, hematocrit is 26.7, and his platelet count is 260,000. ASSESSMENT: 1. ACUTE ON CHRONIC, COMBINED SYSTOLIC AND DIASTOLIC HEART FAILURE. *------* ASCITES CAUSING SHORTNESS OF BREATH. 2. ANASARCA. 3. ASCITES. THE CAUSE OF THIS IS MOST LIKELY CIRRHOSIS. 4. SYNCOPE. 5. CORONARY ARTERY DISEASE, HISTORY OF STENTS. NO ANGINAL SYMPTOMS. 6. CARDIAC DEFIBRILLATOR IN SITU. IT HAS NOT FIRED. 7. CARDIOMYOPATHY, ISCHEMIC, WITH AN EJECTION FRACTION OF 30%. 8. DIABETES MELLITUS TYPE 2 WITH CHRONIC KIDNEY DISEASE. 9. CHRONIC KIDNEY DISEASE, STAGE 3. GFR IS SLIGHTLY IMPROVED FROM 54 TO NOW 56. 10. NONCOMPLIANCE OF DIET AND MEDICATION REGIMEN. 11. OBSTRUCTIVE SLEEP APNEA. THE PATIENT AT PRESENT IS WEARING CPAP. 12. TOBACCO DEPENDENCY. THE PATIENT HAS PROMISED TO QUIT. RECOMMENDATIONS: Note that the patient is now on Entresto; continue this and increase as tolerated. Continue aspirin, and would recommend putting the patient on Corgard, since not only he will be on a beta john, but this will also help his ascites / presumed cirrhosis. The patient is being educated on dietary and medication compliance and also physician visit, and also has been asked to take his weight, and if there is any weight gain, to report to the physician. Of note, the patient has a history of prior myocardial infarction and history of stents, and patient has no anginal symptoms. Note, the patient has recurrent ascites, though if TIPS will be indicated, I will let the product marketing programs manager decide this. Note, 30 minutes spent on this patient, with more than 50% of the time spent on direct patient care. Note, his medications have been reviewed. His blood pressure is slightly better; will wait and see. Would recommend discussions with the product marketing programs manager to see if anything else can be done for his recurrent ascites. Note, medical decision making is of high complexity, in view of the recurrent ascites in addition to cardiomyopathy and coronary artery disease and chronic kidney disease. Discussed with other physicians and planned management plan of care of the patient. DICTATING PHYSICIAN: JOHNATHON HARDEN M.D. [id number] COLE#: [id number] ID: [id number] JOB#: [id number] ACCT: [id number] cc: >
[2017-05-18 05:09] LABS: HEMATOCRIT 27.7 % (37.9-51.0); HEMOGLOBIN 9.2 g/dL (13.5-17.0); MEAN CORPUSCULAR HEMOGLOBIN 26.5 pg (27.0-33.4); MEAN CORPUSCULAR HGB CONC 33.2 g/dL (32.0-36.0); MEAN CORPUSCULAR VOLUME 80 fl (80-97); PLATELET COUNT 260 10^3/uL (150-450); RED BLOOD COUNT 3.47 10^6/uL (4.35-5.55); RED CELL DISTRIBUTION WIDTH 17.6 % (11.5-14.0); WHITE BLOOD COUNT 6.2 10^3/uL (4.0-10.5)
[2017-05-18] MEDS: MIDODRINE HCL 5 MG TABLET PO SCH ×3 (05:13→14:27)
[2017-05-18] MEDS: HEPARIN SOD (PORCINE) 5,000 UNIT/ML 1 ML SYRINGE SUBCUT SCH ×3 (05:13→22:05)
[2017-05-18 05:31] LABS: ANION GAP 6 (5-19); BLOOD UREA NITROGEN 26 mg/dL (7-20); CALCIUM 8.8 mg/dL (8.4-10.2); CARBON DIOXIDE 32 mmol/L (22-30); CHLORIDE 101 mmol/L (98-107); GLUCOSE 104 mg/dL (75-110); POTASSIUM 4.7 mmol/L (3.6-5.0); SODIUM 138.5 mmol/L (137-145)
[2017-05-18] MEDS: SPIRONOLACTONE 25 MG TABLET PO SCH (09:33)
[2017-05-18] MEDS: ASPIRIN 81 MG TABLET, ENT COATED PO SCH (09:33)
[2017-05-18] MEDS: SACUBITRIL/VALSARTAN 24 MG/26 MG TABLET PO SCH ×2 (09:34→22:02)
[2017-05-18] MEDS: DIGOXIN 0.125 MG TABLET PO SCH (09:34)
--- NOTE | 2017-05-18 14:36 | PROGRESS NOTE E ---
Progress Note NAME: KEN ZAYAS : 1960 AGE: 57Y DATE: 05/16/2017 ROOM: 313 SUBJECTIVE: The patient states that he is short of breath because his ascites has come back. He denies any chest pain or discomfort. He is wearing the BiPAP but lying down flat. There is no . OBJECTIVE: GENERAL: On examination, the patient is mildly obese, in some distress due to shortness of breath. The patient complains of being slightly short of breath in spite of the BiPAP but he states that he is better than yesterday. He attributes this to his ascites recurrence. VITAL SIGNS: He is afebrile with a temperature of 97.5 degrees Fahrenheit, pulse is 60 beats per minute, blood pressure is 95/65, respirations are 18 per minute, O2 sats are 98% on a BiPAP with an oxygen percentage of 40%. HEENT: Head atraumatic, normocephalic. Eyes: Pupils are equal, round, regular, reactive to light and accommodation. Extraocular movements are normal. There is no conjunctival pallor. There is no scleral icterus. Tympanic membrane are intact. The nares are patent. There is no inflammation of nasal mucous membranes. Mouth is moist. The tongue is moist. Oropharynx is clear without any exudates or redness. NECK: Supple. There is mild JVD present. The carotids are equal without any bruits. Trachea central. LYMPHATIC: There is no cervical or axillary lymphadenopathy. LUNGS: Respiration is nonlabored on the BiPAP. There is no significant accessory muscles of action. There are bibasilar fine crackles noted. No wheezes or rhonchi noted. There is no dullness on palpation. Palpation of the chest shows no chest wall tenderness. HEART: S1 and S2 are heard. There is no S3 gallop. There is no S4 gallop. There is a systolic murmur in the aortic area and 1/6 pansystolic murmur in the mitral area. ABDOMEN: Soft with natural distension secondary to ascites which recurred. There is no tenderness. Unable to feel the spleen or the liver. There is no rebound, guarding or rigidity. EXTREMITIES: Pedal pulses are mildly reduced. Femorals are mildly reduced. There are no femoral bruits. There is 1-2+ pedal edema bilaterally. There is no cyanosis or clubbing. There is no cellulitis. There is no calf tenderness. CENTRAL NERVOUS SYSTEM: The patient is conscious, awake, alert, oriented x3 and moves all 4 extremities without any neurological deficits. PSYCHIATRIC: The patient's judgment and insight are intact. His affect is normal. SKIN: There is no significant ecchymosis, rash or ulcerations. DIAGNOSTIC STUDIES: The patient's EKG shows ventricular paced rhythm. Note, yesterday the patient's echocardiogram shows that the left ventricular systolic function is moderately reduced and is 35-40%. There is grade 2/4 diastolic dysfunction. There is mild concentric left ventricular hypertrophy. The left ventricle is mildly dilated. There is distal anterior wall akinesis. There is apical wall akinesis. The right ventricular systolic function is mildly reduced. The right ventricle is mildly to moderately dilated. The right ventricle appears to be hypertrophic. The left atrium is moderately dilated. The right atrium is moderately dilated. There is a mild amount of mitral regurgitation. There is no mitral valve stenosis. There is no aortic regurgitation. There is no aortic stenosis. There is a mild to moderate amount of tricuspid regurgitation. There is moderate pulmonary hypertension by echo. Right ventricular systolic pressure is 50-60 mmHg as per the report done yesterday by Dr. Diaz. INTAKE/OUTPUT: The patient's 24-hour intake has been 636 mL. Output is 2400 mL. LABORATORY DATA: The patient's white count is 5400; hemoglobin has dropped to 7.8; hematocrit is 23.8; and the platelet count is 270,000. Patient's sodium is 138, potassium is 4.2; the patient's chloride is 103, the CO2 is 29. The patient's BUN is 27, creatinine is 1.37, GFR is reduced to 54 mL and his glucose is 115. His NT-proBNP is 14,400. Note that the patient's prior troponin I was negative in the previous days. IMPRESSION: 1. 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 2. Anasarca. 3. Ascites. 4. Chronic obstructive pulmonary disease, at present stable. 5. Prior history of cardiac defibrillator in situ. 6. Cardiomyopathy secondary to ischemic cardiomyopathy. 7. 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 8. Chronic kidney disease stage 3. 9. Noncompliance with diet and medication regimen. 10. Obstructive sleep apnea, patient on BiPAP. 11. Tobacco dependence. 12. Coronary artery disease. The patient has no anginal symptoms. 13. Hypotension. Patient asymptomatic. Patient on a small dose of midodrine. RECOMMENDATIONS: Continue aspirin. Continue atorvastatin. Continue antidiabetic hypoglycemic precautions with glucose gel orally and 50% dextrose intravenously for hypoglycemia. Patient on digoxin 0.125 mg p.o. daily. The patient is on midodrine 2.5 mg p.o. t.i.d. He is also on Entresto 24/26 mg tablet. Would recommend continuing these. Note: His medications have been reviewed. Discussed the EKG with the patient. Re-discussed the echo with the patient. Note: Thirty minutes spent on this patient with more than 50% of the time spent on direct patient care. Also need for compliance with diet and medications has been stressed with the patient. Recommend salt and fluid restriction and dietary and social service consultation, admit the patient as basically there is no social support. In spite of the paracentesis, the ascites is coming back. pulmonary hypertension. Patient has been advised to stop tobacco. CODE STATUS: The patient is a FULL CODE. His mother is the surrogate healthcare decision maker. We will follow with you. DICTATING PHYSICIAN: JOHNATHON HARDEN M.D. [id number] COLE#: [id number] ID: [id number] JOB#: [id number] ACCT: [id number] cc: >
--- NOTE | 2017-05-18 14:56 | PDOC PROGRESS REPORT ---
Subjective Progress Note for:: 05/18/17 Subjective:: The patient is seen on morning rounds for follow-up of dyspnea related to CHF exacerbation, right pleural effusion, ascites. The patient states that his breathing is slightly improved today, though is frustrated that he has not made a more dramatic recovery. He talks about his desire to return to home and that he is frustrated that at this time he is not breathing well enough even to ambulate to the bathroom. We discussed the recommendations of both cardiology and gastroenterology regarding his ascites and pleural effusions. We talked about the options of being discharged to home with hospice services, to a correction facility with hospice or transfer to tertiary care for evaluation and recommendations as a second opinion. The patient indicated that he wanted to go home and asked that I speak with his sister, Hilary, to describe the options so that she could help him decide. We also discussed the option of a perc drain for management of his ascites for comfort at home. I spoke with the patient's sister, Hilary, who was pleased that we had presented hospice to him as an option. She called back later to state that they were both interested in home hospice but would like to pursue the perc drain if possible. Reason For Visit: PLEURAL EFF,ACITIES,END STAGE LIVER,HEART FAILURE, Physical Exam Vital Signs: Temp Pulse Resp BP Pulse Ox 97.6 F 78 24 H 118/79 100 05/18/17 11:36 05/18/17 11:36 05/18/17 12:27 05/18/17 11:36 05/18/17 12:27 Intake & Output 05/17/17 05/18/17 05/19/17 06:59 06:59 06:59 Intake Total 1936 1242 118 Output Total 600 2250 300 Balance 1336 -1008 -182 Weight 142 kg General appearance: PRESENT: no acute distress, cooperative, well-developed. ABSENT: well-nourished Head exam: PRESENT: atraumatic, normocephalic Eye exam: PRESENT: conjunctiva pink, EOMI, PERRLA. ABSENT: scleral icterus Ear exam: PRESENT: normal external ear exam Mouth exam: PRESENT: moist, tongue midline Neck exam: ABSENT: carotid bruit, JVD, lymphadenopathy, thyromegaly Respiratory exam: PRESENT: decreased breath sounds - Absent to the right middle and lower field, tachypnea. ABSENT: rales, rhonchi, wheezes Cardiovascular exam: PRESENT: RRR, +S1, +S2. ABSENT: diastolic murmur, rubs, systolic murmur Pulses: PRESENT: normal dorsalis pedis pul Vascular exam: PRESENT: normal capillary refill GI/Abdominal exam: PRESENT: ascites, distended - Secondary to ascites, firm, normal bowel sounds. ABSENT: guarding, mass, organolmegaly, rebound, tenderness Rectal exam: PRESENT: deferred Extremities exam: PRESENT: full ROM, +2 edema - Slight improvement from yesterday. ABSENT: calf tenderness, clubbing, pedal edema Neurological exam: PRESENT: alert, awake, oriented to person, oriented to place , oriented to time, oriented to situation, CN II-XII grossly intact. ABSENT: motor sensory deficit Psychiatric exam: PRESENT: appropriate affect - Understandably sad, normal mood. ABSENT: homicidal ideation, suicidal ideation Skin exam: PRESENT: dry, intact, warm. ABSENT: cyanosis, rash Results Laboratory Results: 05/18/17 04:26 05/18/17 04:26 05/18/17 05/18/17 04:26 04:26 WBC 6.2 RBC 3.47 L Hgb 9.2 L Hct 27.7 L MCV 80 MCH 26.5 L MCHC 33.2 RDW 17.6 H Plt Count 260 Sodium 138.5 Potassium 4.7 Chloride 101 Carbon Dioxide 32 H Anion Gap 6 BUN 26 H Creatinine 1.30 H Est GFR ( Amer) > 60 Est GFR (Non-Af Amer) 57 L Glucose 104 Calcium 8.8 05/15/17 14:07 Ascities Fluid Gram Stain - Final 05/15/17 05/15/17 05/15/17 01:27 07:17 07:17 Creatine Kinase 78 CK-MB (CK-2) 2.33 1.87 Troponin I 0.020 0.018 NT-Pro-B Natriuret Pep 05/15/17 05/15/17 05/16/17 13:10 13:10 04:28 Creatine Kinase 77 CK-MB (CK-2) 1.84 Troponin I 0.020 NT-Pro-B Natriuret Pep 35402 H 05/17/17 04:42 Creatine Kinase CK-MB (CK-2) Troponin I NT-Pro-B Natriuret Pep 14240 H Impressions: Chest X-Ray 05/15/17 00:00 IMPRESSION: Only minimal if any interval decrease in size of the right pleural effusion. There is associated air space consolidation. Other findings as noted above Paracentesis Ultrasound 05/15/17 12:06 IMPRESSION: Successful ultrasound-guided diagnostic and therapeutic paracentesis Assessment & Plan - Diagnosis (1) Anemia Qualifiers: Anemia type: due to chronic kidney disease Chronic kidney disease stage: stage 3 (moderate) Qualified Code(s): N18.3 - Chronic kidney disease, stage 3 (moderate); D63.1 - Anemia in chronic kidney disease; D63.1 - Anemia in chronic kidney disease Is this a current diagnosis for this admission?: Yes Plan: Stable. Anemia of chronic disease that was worsened secondary to fluid volume overloaded in the setting of end-stage heart failure. Is improved following 2 units packed red blood cells. Current hemoglobin of 9.2 with a baseline of 9. No signs of active bleeding. Will continue to monitor and transfuse for hemoglobin less than 8. (2) Hypotension Is this a current diagnosis for this admission?: Yes Plan: Improved; the patient remains mildly hypotensive. Hypotension secondary to fluid volume depletion in the setting stage CHF and status post paracentesis with removal of 12 L of fluid. We will hold furosemide. He has been started on Midodrine 3 times daily. He has received albumin and 2 units packed red blood cells. We will continue to monitor closely. (3) Acute on chronic combined systolic (congestive) and diastolic (congestive) heart failure Is this a current diagnosis for this admission?: Yes Plan: Tthe patient is admitted to [facility] on continuous cardiac telemetry. BNP is trending down, however, the patient continues to be symptomatic with fatigue, dyspnea, and orthopnea requiring BiPAP use. He is supported with BiPAP and supplemental oxygen. He underwent paracentesis with removal of 12 L of fluid. Then became anemic and hypotensive so we will hold Lasix and monitor for additional diuretic need in the future. Cardiology is consulted; appreciate their recommendations. Continue digoxin, Entresto, and Aldactone. If blood pressures continue to trend upwards and allow for it, the patient will benefit from increased Entresto dosing. Will ask Palliative Care to meet with the patient. The patient is now expressing interest in hospice services. I have contacted the [facility] referral [place] and requested a consultation. (4) Pleural effusion Is this a current diagnosis for this admission?: Yes Plan: Secondary to CHF exacerbation. Repeat CXR was essentially unchanged following diuresis with IV Lasix. The patient underwent paracentesis with 12 L of fluid removed. His lung sounds remain diminished to the right middle and lower [place]. Consider follow-up imaging. Will continue BiPAP and supplemental oxygen. (5) Ascites Qualifiers: Ascites type: other type Qualified Code(s): R18.8 - Other ascites Is this a current diagnosis for this admission?: Yes Plan: Secondary to CHF exacerbation. The patient underwent paracentesis with removal of 12 L of clear, yellow, fluid. Laboratory evaluation is pending. Interventional radiology will be available on Saturday should the patient determined that he would like to pursue the percutaneous drain. Remaining plan as above. (6) Anasarca Is this a current diagnosis for this admission?: Yes Plan: Secondary to CHF exacerbation. Plan as above. (7) Diabetes Qualifiers: Diabetes mellitus type: type 2 Diabetes mellitus complication status: with unspecified complications Diabetes mellitus prison insulin use: unspecified prison insulin use status Qualified Code(s): E11.8 - Type 2 diabetes mellitus with unspecified complications Is this a current diagnosis for this admission?: Yes Plan: We will continue the patient's home medications. Will liberalize diet as the patient has poor overall p.o. intake. He has been provided Humalog for sliding scale coverage. Will ask the patient educator and registered dietitian to meet with him. (8) ALEYDA (obstructive sleep apnea) Is this a current diagnosis for this admission?: Yes Plan: BiPAP qHS and as needed (9) Tobacco dependency Is this a current diagnosis for this admission?: Yes Plan: Smoking cessation is encouraged and tobacco replacement therapies are offered. (10) Non-compliance Is this a current diagnosis for this admission?: Yes Plan: Will ask the patient navigator, transitions riding coach, staff educator and psychiatric registered nurse to meet with him. He has been appropriate and cooperative with me thus far. (11) Acute hypoxemic respiratory failure Is this a current diagnosis for this admission?: Yes Plan: Improved. The patient presented to the emergency department "so dyspneic that he could barely move "and requiring use of his CPAP machine continuously. He is somewhat improved today and now is will to come off BiPAP for long periods throughout the day but does continue to use it continuously overnight and intermittently during the day. Has significant dyspnea at rest. This is multifactorial secondary to end-stage congestive heart failure, pleural effusion , and massive ascites. - Time Time Spent with patient: 35 or more minutes Medications reviewed and adjusted accordingly: Yes
--- NOTE | 2017-05-18 16:38 | PROGRESS NOTE E ---
Progress Note NAME: KEN ZAYAS : 1960 AGE: 57Y DATE: ROOM: 313 BRIEF NOTE: Note when I spoke to the patient he still states that he has recurrent ascites and his breathing status is the same. He has decided he wants to go on home hospice therapy, after he discussed with the family members and he wants to go home and prior to going home wants a Pleurx drain catheter to drain his ascites. Hence no further cardiology follow up. We will sign off the case. Thank you for helping me with this case. There will be no charge to the patient. DICTATING PHYSICIAN: JOHNATHON HARDEN M.D. [id number] COLE#: [id number] ID: [id number] JOB#: [id number] ACCT: [id number] cc: >
[2017-05-18] MEDS: TAMSULOSIN HCL 0.4 MG CAP.SR.24H PO SCH (22:02)
[2017-05-18] MEDS: ATORVASTATIN CALCIUM 80 MG TABLET PO SCH (22:02)
[2017-05-19 04:57] LABS: HEMATOCRIT 27.3 % (37.9-51.0); MEAN CORPUSCULAR HEMOGLOBIN 26.5 pg (27.0-33.4); MEAN CORPUSCULAR HGB CONC 32.8 g/dL (32.0-36.0); MEAN CORPUSCULAR VOLUME 81 fl (80-97); PLATELET COUNT 253 10^3/uL (150-450); RED BLOOD COUNT 3.39 10^6/uL (4.35-5.55); RED CELL DISTRIBUTION WIDTH 17.9 % (11.5-14.0); WHITE BLOOD COUNT 6.1 10^3/uL (4.0-10.5)
[2017-05-19 05:20] LABS: ANION GAP 8 (5-19); BLOOD UREA NITROGEN 25 mg/dL (7-20); CALCIUM 8.7 mg/dL (8.4-10.2); CARBON DIOXIDE 30 mmol/L (22-30); CHLORIDE 100 mmol/L (98-107); GLUCOSE 101 mg/dL (75-110); POTASSIUM 4.2 mmol/L (3.6-5.0)
[2017-05-19] MEDS: HEPARIN SOD (PORCINE) 5,000 UNIT/ML 1 ML SYRINGE SUBCUT SCH ×3 (06:11→22:16)
[2017-05-19] MEDS: MIDODRINE HCL 5 MG TABLET PO SCH ×3 (06:11→14:29)
[2017-05-19] MEDS: DIGOXIN 0.125 MG TABLET PO SCH (10:28)
[2017-05-19] MEDS: SPIRONOLACTONE 25 MG TABLET PO SCH (10:29)
[2017-05-19] MEDS: ASPIRIN 81 MG TABLET, ENT COATED PO SCH (10:29)
[2017-05-19] MEDS: SACUBITRIL/VALSARTAN 24 MG/26 MG TABLET PO SCH ×2 (10:31→22:21)
--- NOTE | 2017-05-19 10:41 | PDOC PROGRESS REPORT ---
Subjective Progress Note for:: 05/19/17 Subjective:: The patient was seen on morning rounds. He is found resting in bed with BiPAP in place. He wakes easily upon my entering the room. He states that his breathing is unchanged, he continues to have shortness of breath is positional and with minimal activity. He states that he feels that his ascites is reaccumulating and approximately the same as it was prior to the paracentesis. He does complain of abdominal fullness, difficulty with mobility, and positional dyspnea related to his distended abdomen. He confirms today that he wishes to have the Pleurx drain placed tomorrow in preparation for discharge to home with hospice. Reason For Visit: PLEURAL EFF,ACITIES,END STAGE LIVER,HEART FAILURE, Physical Exam Vital Signs: Temp Pulse Resp BP Pulse Ox 97.7 F 77 18 110/74 100 05/19/17 07:53 05/19/17 07:53 05/19/17 09:44 05/19/17 07:53 05/19/17 09:44 Intake & Output 05/18/17 05/19/17 05/20/17 06:59 06:59 06:59 Intake Total 1242 718 Output Total 2250 950 Balance -1008 -232 Weight 142 kg 143.7 kg General appearance: PRESENT: no acute distress, well-developed. ABSENT: well- nourished Head exam: PRESENT: atraumatic, normocephalic Eye exam: PRESENT: conjunctiva pink, EOMI, PERRLA. ABSENT: scleral icterus Ear exam: PRESENT: normal external ear exam Mouth exam: PRESENT: moist, tongue midline Neck exam: ABSENT: carotid bruit, JVD, lymphadenopathy, thyromegaly Respiratory exam: PRESENT: decreased breath sounds - Absent Rt middle and lower [place]go., symmetrical, other - Currently on BiPAP. ABSENT: rales, rhonchi, tachypnea, wheezes Cardiovascular exam: PRESENT: RRR, +S1, +S2. ABSENT: diastolic murmur, rubs, systolic murmur Pulses: PRESENT: normal dorsalis pedis pul Vascular exam: PRESENT: normal capillary refill GI/Abdominal exam: PRESENT: ascites, distended, firm, normal bowel sounds. ABSENT: guarding, mass, organolmegaly, rebound, tenderness Rectal exam: PRESENT: deferred Extremities exam: PRESENT: full ROM. ABSENT: calf tenderness, clubbing, pedal edema Neurological exam: PRESENT: alert, awake, oriented to person, oriented to place , oriented to time, oriented to situation, CN II-XII grossly intact. ABSENT: motor sensory deficit Psychiatric exam: PRESENT: appropriate affect, normal mood. ABSENT: homicidal ideation, suicidal ideation Skin exam: PRESENT: dry, intact, warm. ABSENT: cyanosis, rash Results Laboratory Results: 05/19/17 04:16 05/19/17 04:16 05/19/17 05/19/17 04:16 04:16 WBC 6.1 RBC 3.39 L Hgb 9.0 L Hct 27.3 L MCV 81 MCH 26.5 L MCHC 32.8 RDW 17.9 H Plt Count 253 Sodium 138.0 Potassium 4.2 Chloride 100 Carbon Dioxide 30 Anion Gap 8 BUN 25 H Creatinine 1.21 Est GFR ( Amer) > 60 Est GFR (Non-Af Amer) > 60 Glucose 101 Calcium 8.7 05/15/17 14:07 Ascities Fluid Gram Stain - Final 05/15/17 14:07 Ascities Fluid Body Fluid Culture - Final NO AEROBIC OR ANAEROBIC ORGANISMS RECOVERED 05/15/17 05/15/17 05/15/17 01:27 07:17 07:17 Creatine Kinase 78 CK-MB (CK-2) 2.33 1.87 Troponin I 0.020 0.018 NT-Pro-B Natriuret Pep 05/15/17 05/15/17 05/16/17 13:10 13:10 04:28 Creatine Kinase 77 CK-MB (CK-2) 1.84 Troponin I 0.020 NT-Pro-B Natriuret Pep 89559 H 05/17/17 04:42 Creatine Kinase CK-MB (CK-2) Troponin I NT-Pro-B Natriuret Pep 39158 H Impressions: Chest X-Ray 05/15/17 00:00 IMPRESSION: Only minimal if any interval decrease in size of the right pleural effusion. There is associated air space consolidation. Other findings as noted above Paracentesis Ultrasound 05/15/17 12:06 IMPRESSION: Successful ultrasound-guided diagnostic and therapeutic paracentesis Assessment & Plan - Diagnosis (1) Anemia Qualifiers: Anemia type: due to chronic kidney disease Chronic kidney disease stage: stage 3 (moderate) Qualified Code(s): N18.3 - Chronic kidney disease, stage 3 (moderate); D63.1 - Anemia in chronic kidney disease; D63.1 - Anemia in chronic kidney disease Is this a current diagnosis for this admission?: Yes Plan: Stable. Anemia of chronic disease that was worsened secondary to fluid volume overloaded in the setting of end-stage heart failure. Improved following 2 units packed red blood cells. No signs of active bleeding. Will continue to monitor and transfuse for hemoglobin less than 8. (2) Hypotension Is this a current diagnosis for this admission?: Yes Plan: Improved. Hypotension secondary to fluid volume depletion in the setting stage CHF and status post paracentesis with removal of 12 L of fluid. We will hold furosemide. He has been started on Midodrine 3 times daily. He has received albumin and 2 units packed red blood cells. We will continue to monitor closely. (3) Acute on chronic combined systolic (congestive) and diastolic (congestive) heart failure Is this a current diagnosis for this admission?: Yes Plan: The patient is admitted to [facility] on continuous cardiac telemetry. BNP is trending down, however, the patient continues to be symptomatic with fatigue, dyspnea, and orthopnea requiring BiPAP use. He is supported with BiPAP and supplemental oxygen. He underwent paracentesis with removal of 12 L of fluid. Then became anemic and hypotensive so we will hold Lasix and monitor for additional diuretic need in the future. Cardiology is consulted; appreciate their recommendations, they have now signed off. Continue digoxin, Entresto, and Aldactone. If blood pressures continue to trend upwards and allow for it, the patient will benefit from increased Entresto dosing. Will ask Palliative Care to meet with the patient. The patient is now desiring hospice services. I have contacted the [facility] referral center and requested a consultation. (4) Pleural effusion Is this a current diagnosis for this admission?: Yes Plan: Secondary to CHF exacerbation. Repeat CXR was essentially unchanged following diuresis with IV Lasix. The patient underwent paracentesis with 12 L of fluid removed. His lung sounds remain diminished to the right middle and lower [place]go. Consider follow-up imaging. Will continue BiPAP and supplemental oxygen. (5) Ascites Qualifiers: Ascites type: other type Qualified Code(s): R18.8 - Other ascites Is this a current diagnosis for this admission?: Yes Plan: Secondary to CHF exacerbation. The patient underwent paracentesis with removal of 12 L of clear, yellow, fluid. Laboratory evaluation is pending. GI was consulted to evaluate for liver involvement; determined to be r/t passive congestion secondary to CHF. They have since signed off. Interventional radiology to place Percutaneous drain tomorrow. Remaining plan as above. (6) Anasarca Is this a current diagnosis for this admission?: Yes Plan: Secondary to CHF exacerbation. Plan as above. 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 Will liberalize diet as the patient has poor overall p.o. intake. He has been provided Humalog for sliding scale coverage. Will ask the patient educator and registered dietitian to meet with him. (8) ALEYDA (obstructive sleep apnea) Is this a current diagnosis for this admission?: Yes Plan: BiPAP qHS and as needed (9) Tobacco dependency Is this a current diagnosis for this admission?: Yes Plan: Smoking cessation is encouraged and tobacco replacement therapies are offered. (10) Non-compliance Is this a current diagnosis for this admission?: Yes Plan: Will ask the patient navigator, transitions women's basketball coach, inclusion special educator and registered account administrator to meet with him. He has been appropriate and cooperative with me thus far. (11) Acute hypoxemic respiratory failure Is this a current diagnosis for this admission?: Yes Plan: Improved. The patient presented to the emergency department "so dyspneic that he could barely move "and requiring use of his CPAP machine continuously. He is somewhat improved today and now is will to come off BiPAP for long periods throughout the day but does continue to use it continuously overnight and intermittently during the day. Has significant dyspnea at rest. This is multifactorial secondary to end-stage congestive heart failure, pleural effusion , and massive ascites. - Time Time Spent with patient: 15-24 minutes Medications reviewed and adjusted accordingly: Yes Anticipated discharge: Hospice Within: within 48 hours
[2017-05-19] MEDS: ATORVASTATIN CALCIUM 80 MG TABLET PO SCH (22:21)
[2017-05-19] MEDS: TAMSULOSIN HCL 0.4 MG CAP.SR.24H PO SCH (22:21)
[2017-05-20 05:17] LABS: HEMOGLOBIN 8.8 g/dL (13.5-17.0); MEAN CORPUSCULAR HEMOGLOBIN 26.4 pg (27.0-33.4); MEAN CORPUSCULAR HGB CONC 32.6 g/dL (32.0-36.0); MEAN CORPUSCULAR VOLUME 81 fl (80-97); PLATELET COUNT 222 10^3/uL (150-450); RED BLOOD COUNT 3.33 10^6/uL (4.35-5.55); RED CELL DISTRIBUTION WIDTH 18.1 % (11.5-14.0); WHITE BLOOD COUNT 5.7 10^3/uL (4.0-10.5)
[2017-05-20] MEDS: MIDODRINE HCL 5 MG TABLET PO SCH ×3 (05:24→14:32)
[2017-05-20 05:44] LABS: INTERNATIONAL RATION (INR) 1.26; PROTHROMBIN TIME 16.6 SEC (11.4-15.4)
[2017-05-20 05:45] LABS: PARTIAL THROMBOPLASTIN TIME 49.6 SEC (23.5-35.8)
[2017-05-20] MEDS: DIGOXIN 0.125 MG TABLET PO SCH (10:33)
[2017-05-20] MEDS: SPIRONOLACTONE 25 MG TABLET PO SCH (10:33)
[2017-05-20] MEDS: SACUBITRIL/VALSARTAN 24 MG/26 MG TABLET PO SCH ×2 (10:33→21:57)
[2017-05-20] MEDS: ASPIRIN 81 MG TABLET, ENT COATED PO SCH (10:34)
--- NOTE | 2017-05-20 11:13 | PDOC PROGRESS REPORT ---
Subjective Progress Note for:: 05/20/17 Subjective:: The patient was seen on morning rounds. He is found resting in bed with BiPAP in place. He states there has been no improvement in his respiratory status and reports that his abdomen has increased in size. He is understandably disappointed at how quickly the fluid reaccumulated although he was fashioned that this was likely to occur. He is scheduled to have a Pleurx drain placed this afternoon by surgery and is hopeful that he will be discharged home with hospice shortly thereafter. Reason For Visit: PLEURAL EFF,ACITIES,END STAGE LIVER,HEART FAILURE, Physical Exam Vital Signs: Temp Pulse Resp BP Pulse Ox 98.1 F 82 24 H 103/65 100 05/20/17 07:59 05/20/17 07:59 05/20/17 09:00 05/20/17 07:59 05/20/17 09:00 Intake & Output 05/19/17 05/20/17 05/21/17 06:59 06:59 06:59 Intake Total 718 419 Output Total 950 375 Balance -232 44 Weight 143.7 kg 142.4 kg General appearance: PRESENT: no acute distress, well-developed. ABSENT: well- nourished Head exam: PRESENT: atraumatic, normocephalic Eye exam: PRESENT: conjunctiva pink, EOMI, PERRLA. ABSENT: scleral icterus Ear exam: PRESENT: normal external ear exam Mouth exam: PRESENT: moist, tongue midline Neck exam: ABSENT: carotid bruit, JVD, lymphadenopathy, thyromegaly Respiratory exam: PRESENT: decreased breath sounds - Rt middle/lower lobes, rhonchi - Left [place]go. ABSENT: rales, wheezes Cardiovascular exam: PRESENT: RRR, +S1, +S2. ABSENT: diastolic murmur, rubs, systolic murmur Pulses: PRESENT: normal dorsalis pedis pul Vascular exam: PRESENT: normal capillary refill GI/Abdominal exam: PRESENT: ascites, diminished bowel sounds, distended, firm, normal bowel sounds. ABSENT: guarding, mass, organolmegaly, rebound, tenderness Rectal exam: PRESENT: deferred Extremities exam: PRESENT: full ROM, +2 edema, other - Chronic venous stasis changes to bilateral lower extremity. ABSENT: calf tenderness, clubbing, pedal edema Neurological exam: PRESENT: alert, awake, oriented to person, oriented to place , oriented to time, oriented to situation, CN II-XII grossly intact. ABSENT: motor sensory deficit Psychiatric exam: PRESENT: agitated, appropriate affect, normal mood. ABSENT: homicidal ideation, suicidal ideation Skin exam: PRESENT: dry, intact, warm. ABSENT: cyanosis, rash Results Laboratory Results: 05/20/17 04:44 05/19/17 04:16 05/20/17 04:44 WBC 5.7 RBC 3.33 L Hgb 8.8 L Hct 27.0 L MCV 81 MCH 26.4 L MCHC 32.6 RDW 18.1 H Plt Count 222 05/15/17 14:07 Ascities Fluid Gram Stain - Final 05/15/17 14:07 Ascities Fluid Body Fluid Culture - Final NO AEROBIC OR ANAEROBIC ORGANISMS RECOVERED 05/15/17 05/15/17 05/15/17 01:27 07:17 07:17 Creatine Kinase 78 CK-MB (CK-2) 2.33 1.87 Troponin I 0.020 0.018 NT-Pro-B Natriuret Pep 05/15/17 05/15/17 05/16/17 13:10 13:10 04:28 Creatine Kinase 77 CK-MB (CK-2) 1.84 Troponin I 0.020 NT-Pro-B Natriuret Pep 26560 H 05/17/17 04:42 Creatine Kinase CK-MB (CK-2) Troponin I NT-Pro-B Natriuret Pep 01061 H Impressions: Chest X-Ray 05/15/17 00:00 IMPRESSION: Only minimal if any interval decrease in size of the right pleural effusion. There is associated air space consolidation. Other findings as noted above Paracentesis Ultrasound 05/15/17 12:06 IMPRESSION: Successful ultrasound-guided diagnostic and therapeutic paracentesis Assessment & Plan - Diagnosis (1) Anemia Qualifiers: Anemia type: due to chronic kidney disease Chronic kidney disease stage: stage 3 (moderate) Qualified Code(s): N18.3 - Chronic kidney disease, stage 3 (moderate); D63.1 - Anemia in chronic kidney disease; D63.1 - Anemia in chronic kidney disease Is this a current diagnosis for this admission?: Yes Plan: Stable. Anemia of chronic disease that was worsened secondary to fluid volume overloaded in the setting of end-stage heart failure. Improved following 2 units packed red blood cells. No signs of active bleeding. Will continue to monitor and transfuse for hemoglobin less than 8. (2) Hypotension Is this a current diagnosis for this admission?: Yes Plan: Improved; stable. Hypotension secondary to fluid volume depletion in the setting stage CHF and status post paracentesis with removal of 12 L of fluid. We will hold furosemide. He has been started on Midodrine 3 times daily. He has received albumin and 2 units packed red blood cells. We will continue to monitor closely. (3) Acute on chronic combined systolic (congestive) and diastolic (congestive) heart failure Is this a current diagnosis for this admission?: Yes Plan: The patient is admitted to [facility] on continuous cardiac telemetry. BNP is trending down, however, the patient continues to be symptomatic with fatigue, dyspnea, and orthopnea requiring BiPAP use. He is supported with BiPAP and supplemental oxygen. He underwent paracentesis with removal of 12 L of fluid. Then became anemic and hypotensive so we will hold Lasix and monitor for additional diuretic need in the future. Cardiology is consulted; appreciate their recommendations, they have now signed off. Continue digoxin, Entresto, and Aldactone. If blood pressures continue to trend upwards and allow for it, the patient will benefit from increased Entresto dosing. The patient is now desiring hospice services. I have contacted the [facility] referral center and requested a consultation. (4) Pleural effusion Is this a current diagnosis for this admission?: Yes Plan: Secondary to CHF exacerbation. Repeat CXR was essentially unchanged following diuresis with IV Lasix. The patient underwent paracentesis with 12 L of fluid removed. His lung sounds remain absent to the right middle and lower [place]go. Consider follow-up imaging. Will continue BiPAP and supplemental oxygen. (5) Ascites Qualifiers: Ascites type: other type Qualified Code(s): R18.8 - Other ascites Is this a current diagnosis for this admission?: Yes Plan: Secondary to CHF exacerbation. The patient underwent paracentesis with removal of 12 L of clear, yellow, fluid. Laboratory evaluation is pending. GI was consulted to evaluate for liver involvement; determined to be r/t passive congestion secondary to CHF. They have since signed off. Pleurx drain to be placed by surgery today; appreciate Dr. Byrd assistance. Remaining plan as above. (6) Anasarca Is this a current diagnosis for this admission?: Yes Plan: Secondary to CHF exacerbation. Plan as above. 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 Will liberalize diet as the patient has poor overall p.o. intake. He has been provided Humalog for sliding scale coverage. Will ask the patient educator and registered dietitian to meet with him. (8) ALEYDA (obstructive sleep apnea) Is this a current diagnosis for this admission?: Yes Plan: BiPAP qHS and as needed (9) Tobacco dependency Is this a current diagnosis for this admission?: Yes Plan: Smoking cessation is encouraged and tobacco replacement therapies are offered. (10) Non-compliance Is this a current diagnosis for this admission?: Yes Plan: Will ask the patient navigator, transitions head strength and conditioning coach, doctor of naprapathic medicine and registered nurse bone marrow transplant to meet with him. He has been appropriate and cooperative with me thus far. (11) Acute hypoxemic respiratory failure Is this a current diagnosis for this admission?: Yes Plan: Improved. The patient presented to the emergency department "so dyspneic that he could barely move "and requiring use of his CPAP machine continuously. He is somewhat improved today and now is will to come off BiPAP for long periods throughout the day but does continue to use it continuously overnight and intermittently during the day. Has significant dyspnea at rest. This is multifactorial secondary to end-stage congestive heart failure, pleural effusion , and massive ascites. - Time Time Spent with patient: 25-34 minutes Medications reviewed and adjusted accordingly: Yes Anticipated discharge: Hospice
[2017-05-20] MEDS ORDERED: FENTANYL CITRATE INJ/PF 100 MCG/2 ML AMPUL ONE (12:29)
[2017-05-20] MEDS ORDERED: MIDAZOLAM 2 MG/2 ML INJ ONE (12:29)
[2017-05-20] MEDS ORDERED: BACITRACIN INJ 50,000 UNIT VIAL ONE (13:28)
[2017-05-20] MEDS ORDERED: LIDOCAINE 0.5% INJ-PF (5 MG/ML) 50 ML SDV ONE (13:32)
--- NOTE | 2017-05-20 14:13 | Operative Report ---
Operative Report DATE OF SURGERY: 05/20/17 PREOPERATIVE DIAGNOSIS: Massive ascites. Multiple comorbidities. POSTOPERATIVE DIAGNOSIS: Post insertion of Pleurx abdominal catheter.Massive ascites. Multiple comorbidities. OPERATION: Ultrasound guided insertion of abdominal Pleurx drainage catheter. SURGEON: BRITANY TAVERA VENIPUNCTURIST: None ANESTHESIA: Local TISSUE REMOVED OR ALTERED: About 500 mils of clear ascitic fluid removed. COMPLICATIONS: None. ESTIMATED BLOOD LOSS: 5 mL. INTRAOPERATIVE FINDINGS: Over the extremely distended abdomen. 12 L of fluid were removed a few days ago. The subcutaneous tissues were thinned out over the fascia. The procedure was uneventful except for slight tension closing the skin and subcutaneous tissues because of the distention. Satisfactory tension- free approximation accomplished. Good visualization of a safe area of ascites was noted on ultrasound. PROCEDURE: After obtaining informed consent the patient was taken to the Magazine Repairer and positioned supine. The abdomen was prepared with chlorhexidine and draped in sterile linen. Ultrasound evaluation of the right upper abdomen was done in a safe area for insertion of Pleurx catheter ascertained. The proposed position of the catheter was marked on the skin aiming for about 8 cm from the entry site and positioning so the tip of the cuff was about 2 cm from the skin exit site. Satisfactory and safe real-time access was obtained after obtaining local anesthesia beside the ultrasound probe. This was done with needle and catheter. The needle was now withdrawn and a 0.035 guidewire inserted. Local anesthesia was not infiltrated at the exit site incised and the catheter introduced retrograde from the exit site to the insertion site. The cough was kept good 5 cm away from the insertion site. The dilated there was now placed over the guidewire followed by the introducer sheath. The distal catheter was now placed after removal of the dilator, through the introducer sheath. A Pleurx catheter still has not fixed to the port of the catheter and 500 mils of ascitic fluid easily removed. The catheter was now anchored to the skin using 3-0 silk using a crossing suture. A Biopatch was also placed at the exit site and taped in place using Steri-Strips. A cap was placed on the catheter. The insertion site was now closed. Subcutaneous tissue was closure was attempted however there was too much tension. A U stitch stating about a centimeter and a half away from the skin edges was now done allowing nice tension-free approximation of the insertion site, just snugly so as to preserve vascularity. This was reinforced with Steri-Strips over benzoin. Dressings applied and the procedure concluded. Cough is dictated report.
--- NOTE | 2017-05-20 16:03 | RADIOLOGY REPORT (SQ) ---
EXAM DESCRIPTION: PLEURX PERITONEAL CATH INSERT; GUIDANCE FLUOROSCOPIC COMPLETED DATE/TIME: 05/20/2017 2:49 pm REASON FOR STUDY: ACITES COMPARISON: None. FLUOROSCOPY TIME: Less than 10 seconds 6 series of digital images saved to PACS. TECHNIQUE: Intra-operative images acquired during surgical procedure to evaluate progress. NUMBER OF IMAGES: 6 series of digital images LIMITATIONS: None. FINDINGS: Imaging and fluoro during placement of a tunneled catheter for palliative drainage of asci chester. Please see Dr. Byrd operative report for further details IMPRESSION: Intra procedural imaging and fluoro COMMENT: Quality ID [id number]: Final reports for procedures using fluoroscopy that document radiation exp osure indices, or exposure time and number of fluorographic images (if radiation exposure indices are not available) Please consult full operative report of the attending physician for description of the procedure. TECHNICAL DOCUMENTATION: JOB ID: [id number] [employer]- All Rights Reserved
[2017-05-20] MEDS: TAMSULOSIN HCL 0.4 MG CAP.SR.24H PO SCH (21:57)
[2017-05-20] MEDS: ATORVASTATIN CALCIUM 80 MG TABLET PO SCH (21:57)
--- NOTE | 2017-05-20 23:03 | Palliative Consultation Report ---
Consultation From:: CHELSY [facility]CRACK[facility] - [facility] HPI: Palliative Care Consult Visit. May 20 2017 4:00- 4:50 PM Appreciate palliative care consult request for this 57 year old gentleman who has liver disease and CHF. He was admitted on 05/15/17 with Hypoxia and has required Bipap most of the time since. His oxygen saturations remain god but he has severe air hunger without Bipap. Mr. Lane has mild changes on his liver enzyme studies but has had paracentesis removing 12 Liters of asites a few days ago and had pleurex catheter placed today. His EF on cardiac echo was 35-40% but proBNP was 78664 on admission. Making matters worse, Mr. Lane lives alone. He has an elderly mother nearby but she cannot help him daily. He has a son who intermittently lives with him, but patient says he is not reliable to assist patient. this patient has limited life expectancy obviously, in spite of lab results that do not reflect his obvious condition. From hisptory and consultation with nursing, he has been non-compliant with medical advice and direction. He has DM but will not follow diet. He continues to smoke at home, in spite of his need for CPAP at home and severe dyspnea. Mr. Lane has agreed to go to SNF when he is deemed unsafe to be at home alone. His sister is coming in from [facility] to help with his discharge planning but she cannot stay to care for him. Patient is alert and oreinted. He gets dyspneic with just simeple movements in his bed. He feels as if he has reaccumlated all of the ascites again as the pressure in his abdomen is great again. He refuses morphine or other ain meds because he says he does not have pain. He reports solid BM's last week and diarrhea this week, but says his appetite is fair. His albumin levels are normal at 3.5. . Onset: Just prior to arrival Onset/Duration: Gradual Quality of Pain: No pain Associated Symptoms: Shortness of breath, Weakness Exacerbated by: Movement Past Medical History(Consults) - General Information Source: Patient, [facility] Records Home Medications: Atorvastatin Calcium [Lipitor 80 mg Tablet] 80 mg PO QHS 05/14/17 Sacubitril/Valsartan [Entresto 24 mg-26 mg Tablet] 1 tab PO Q12 01/02/18 Torsemide [Demadex 20 mg Tablet] 20 mg PO QPM 05/14/17 Torsemide [Demadex 20 mg Tablet] 40 mg PO QAM 05/14/17 Allergies/Adverse Reactions: glimepiride Allergy (Severe, Verified 05/15/17 11:41) Coma - Social History Lives with: Alone Family History: Hypertension Parental Family History Reviewed: No Children Family History Reviewed: No Sibling(s) Family History Reviewed.: No Smoking Status: Current Every Day Smoker Cigarettes Packs Per Day: 0.2 Number of Years Smokin Last Time Smoked: 05/14/2016 Frequency of Alcohol Use: Rare Hx Recreational Drug Use: No Drugs: None Hx Prescription Drug Abuse: No - Past Medical History Cardiac Medical History: Reports: Hx Congestive Heart Failure - Combined systolic and diastolic., Hx Heart Attack, Hx Hypercholesterolemia, Hx Hypertension, Hx Peripheral Vascular Disease Denies: Hx Pulmonary Embolism Pulmonary Medical History: Reports: Hx Bronchitis, Hx Sleep Apnea - CPAP, pressure 15. No home oxygen. Denies: Hx COPD Neurological Medical History: Denies: Hx Seizures Endocrine Medical History: Reports: Hx Diabetes Mellitus Type 2, Hx Hypothyroidism - States he might be hypothyroid, according to recent test, but not sure.. Denies: Hx Diabetes Mellitus Type 1, Hx Hyperthyroidism Renal/ Medical History: Denies: Hx Peritoneal Dialysis GI Medical History: Denies: Hx Cirrhosis, Hx Gastroesophageal Reflux Disease, Hx Hepatitis Musculoskeltal Medical History: Denies Hx Arthritis Psychiatric Medical History: Reports: Hx Anxiety Denies: Hx Depression Infectious Medical History: Denies: Hx C-Diff, Hx Hepatitis, Hx MRSA - Surgical History Past Surgical History: Reports: Hx Appendectomy, Hx Cardiac Catheterization, Hx Cardiac Surgery - 5 stents, pacer/defib, Hx Internal Defibrillator, Hx Pacemaker - AICD Review of systems Constitutional: Malaise, Weakness, Weight gain EENT: Vertigo Cardiovascular: Dyspnea Respiratory: Short of breath Musculoskeltal: No symptoms reported Ojective:Exam Vital Signs: Temp Pulse Resp BP Pulse Ox 97.6 F 90 20 114/69 100 05/20/17 11:46 05/20/17 14:00 05/20/17 11:46 05/20/17 11:46 05/20/17 11:46 Intake & Output 05/19/17 05/20/17 05/21/17 06:59 06:59 06:59 Intake Total 718 419 350 Output Total 950 375 300 Balance -232 44 50 Weight 143.7 kg 142.4 kg - General General Appearance: Alert In distress: Mild - HEENT Head: Normocephalic Eyes: Normal Mucous membrane: Moist - Neck Neck: Supple - Respiratory Respiratory Status: Labored Breath sounds: Rhonchi - Cardiovascular Rhythm: Regular - Abdominal Inspection: Normal - pleurex catheter in place abdomen Distension: Distended Bowel Sounds: Hypoactive - Extremities Upper extremity: Edema Lower extremities: Edema - Neurological Cognition: Normal Orientation: AAOx4 Speech: Normal Cranial nerves: Normal 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 - Psychological Associated symptoms: Anxious Objective-Diagnostic Laboratory: 05/20/17 04:44 05/19/17 04:16 05/20/17 04:44 WBC 5.7 RBC 3.33 L Hgb 8.8 L Hct 27.0 L MCV 81 MCH 26.4 L MCHC 32.6 RDW 18.1 H Plt Count 222 05/15/17 14:07 Ascities Fluid AFB Smear Concentration - Final 05/15/17 14:07 Ascities Fluid Acid Fast Bacilli Smear - Final 05/15/17 14:07 Ascities Fluid Fungal Smear - Final 05/15/17 14:07 Ascities Fluid Fungal Smear - Final 05/15/17 05/15/17 05/15/17 01:27 07:17 07:17 Creatine Kinase 78 CK-MB (CK-2) 2.33 1.87 Troponin I 0.020 0.018 NT-Pro-B Natriuret Pep 05/15/17 05/15/17 05/16/17 13:10 13:10 04:28 Creatine Kinase 77 CK-MB (CK-2) 1.84 Troponin I 0.020 NT-Pro-B Natriuret Pep 93309 H 05/17/17 04:42 Creatine Kinase CK-MB (CK-2) Troponin I NT-Pro-B Natriuret Pep 39979 H Plan and Recommendation Plan and Recommendation: Hospice Liason, Mari Vidales RN has met with patient and has agreed to meet with patient and his sister tomorrow to discuss hospice services. Case will be reviewed with hospice director of golf since unusual to assure care can be provided in home. Patient agrees to move to SNF when unable to live alone. I will try to meet with patient and his sister also to review MOST form and patients wishes for end of life. He has requested to be DNR. Spoke with patient about his care at home, and about getting morphine to help him breath. He agreed to try it at home although he has not agreed to have anything in the hospital. Discussed using medications to help symptoms. Will follow and will hopefully be able to have hospice help him at home although this is a risk sending him home. Will review these factors with patient and his sister. - Time Spent with Patient Time spent with patient: 40 to 60 Minutes - total 50 min with patient, chart review and consultation with nurse in addition to conversation with sister on the telephone.
[2017-05-21] MEDS: MIDODRINE HCL 5 MG TABLET PO SCH ×3 (05:04→13:53)
[2017-05-21 05:12] LABS: HEMATOCRIT 27.4 % (37.9-51.0); MEAN CORPUSCULAR HEMOGLOBIN 26.5 pg (27.0-33.4); MEAN CORPUSCULAR VOLUME 80 fl (80-97); PLATELET COUNT 232 10^3/uL (150-450); RED CELL DISTRIBUTION WIDTH 18.4 % (11.5-14.0); WHITE BLOOD COUNT 5.5 10^3/uL (4.0-10.5)
[2017-05-21 05:28] LABS: INTERNATIONAL RATION (INR) 1.18; PARTIAL THROMBOPLASTIN TIME 43.9 SEC (23.5-35.8); PROTHROMBIN TIME 15.8 SEC (11.4-15.4)
[2017-05-21] MEDS ORDERED: ONDANSETRON 4 MG TAB.RAPDIS PO PRN (10:24)
[2017-05-21] MEDS: DIGOXIN 0.125 MG TABLET PO SCH (10:44)
[2017-05-21] MEDS: SPIRONOLACTONE 25 MG TABLET PO SCH (10:44)
[2017-05-21] MEDS: ASPIRIN 81 MG TABLET, ENT COATED PO SCH (10:45)
[2017-05-21] MEDS: SACUBITRIL/VALSARTAN 24 MG/26 MG TABLET PO SCH ×2 (10:46→23:17)
[2017-05-21] MEDS: MORPHINE SULFATE 10 MG/5 ML ORAL SOLUTION UDCUP PO PRN (15:41)
--- NOTE | 2017-05-21 16:59 | PDOC PROGRESS REPORT ---
Subjective Progress Note for:: 05/21/17 Subjective:: Patient upset because patient's sister has decided not to care for patient at home. Patient is disappointed that he is not able to go home today. Patient's daughter states that she is trying to see if she can take FMLA from work to care for her father. Patient's daughter also states that she is looking for other alternatives i.e. other people to help take care of patient at home. Nursing reports the patient is complaining of shortness of breath and would like morphine. Reason For Visit: PLEURAL EFF,ACITIES,END STAGE LIVER,HEART FAILURE, Physical Exam Vital Signs: Temp Pulse Resp BP Pulse Ox 99.6 F 82 22 H 113/77 100 05/21/17 04:43 05/21/17 14:00 05/21/17 12:00 05/21/17 04:43 05/21/17 12:00 Intake & Output 05/20/17 05/21/17 05/22/17 06:59 06:59 06:59 Intake Total 419 350 Output Total 375 675 Balance 44 -325 Weight 142.4 kg 144.7 kg General appearance: PRESENT: no acute distress, morbidly obese Head exam: PRESENT: atraumatic, normocephalic Eye exam: PRESENT: conjunctiva pink, EOMI. ABSENT: scleral icterus Ear exam: PRESENT: normal external ear exam Mouth exam: PRESENT: moist, tongue midline Neck exam: ABSENT: carotid bruit, JVD, lymphadenopathy, thyromegaly Respiratory exam: PRESENT: other - Breath sounds heard anterior upper lobes, patient diminished at bases bilaterally Cardiovascular exam: PRESENT: RRR. ABSENT: diastolic murmur, rubs, systolic murmur Pulses: PRESENT: normal dorsalis pedis pul Vascular exam: PRESENT: normal capillary refill GI/Abdominal exam: PRESENT: other - Distended, tender to palpation, Pleurx catheter in place Rectal exam: PRESENT: deferred Extremities exam: PRESENT: full ROM. ABSENT: calf tenderness, clubbing, pedal edema Neurological exam: PRESENT: alert, awake, oriented to person, oriented to place , oriented to time, oriented to situation, CN II-XII grossly intact. ABSENT: motor sensory deficit Psychiatric exam: PRESENT: agitated. ABSENT: homicidal ideation, suicidal ideation Skin exam: PRESENT: dry, intact, warm. ABSENT: cyanosis, rash Results Laboratory Results: 05/21/17 04:20 05/19/17 04:16 05/21/17 04:20 WBC 5.5 RBC 3.40 L Hgb 9.0 L Hct 27.4 L MCV 80 MCH 26.5 L MCHC 33.0 RDW 18.4 H Plt Count 232 05/15/17 14:07 Ascities Fluid AFB Smear Concentration - Final 05/15/17 14:07 Ascities Fluid Acid Fast Bacilli Smear - Final 05/15/17 14:07 Ascities Fluid Fungal Smear - Final 05/15/17 14:07 Ascities Fluid Fungal Smear - Final 05/15/17 05/15/17 05/15/17 01:27 07:17 07:17 Creatine Kinase 78 CK-MB (CK-2) 2.33 1.87 Troponin I 0.020 0.018 NT-Pro-B Natriuret Pep 05/15/17 05/15/17 05/16/17 13:10 13:10 04:28 Creatine Kinase 77 CK-MB (CK-2) 1.84 Troponin I 0.020 NT-Pro-B Natriuret Pep 49090 H 05/17/17 04:42 Creatine Kinase CK-MB (CK-2) Troponin I NT-Pro-B Natriuret Pep 08219 H Impressions: Chest X-Ray 05/15/17 00:00 IMPRESSION: Only minimal if any interval decrease in size of the right pleural effusion. There is associated air space consolidation. Other findings as noted above Paracentesis Ultrasound 05/15/17 12:06 IMPRESSION: Successful ultrasound-guided diagnostic and therapeutic paracentesis Drainage Catheter Insertion 05/20/17 00:00 IMPRESSION: Intra procedural imaging and fluoro Guidance Fluoroscopy 05/20/17 00:00 IMPRESSION: Intra procedural imaging and fluoro Assessment & Plan - Diagnosis (1) Acute hypoxemic respiratory failure Is this a current diagnosis for this admission?: Yes Plan: In setting of Acute on Chronic Systolic CHF with EF 35% and suspected Hepatic Disease S/P Pleurx cath placement: Will continue current treatment. Will write order for 2 liter drainage daily. (2) Acute exacerbation of congestive heart failure Qualifiers: Congestive heart failure type: combined Qualified Code(s): I50.43 - Acute on chronic combined systolic (congestive) and diastolic (congestive) heart failure Is this a current diagnosis for this admission?: Yes Plan: Secondary Systolic 35%: Will continue aldactone. (3) Pleural effusion Is this a current diagnosis for this admission?: Yes Plan: Continue current treatment. (4) Acute on chronic combined systolic (congestive) and diastolic (congestive) heart failure Is this a current diagnosis for this admission?: Yes Plan: with EF 35%: Will continue current treatment. (5) Anasarca Is this a current diagnosis for this admission?: Yes Plan: Will continue current treatment. Will place pt on Lasix. (6) Ascites Qualifiers: Ascites type: other type Qualified Code(s): R18.8 - Other ascites Is this a current diagnosis for this admission?: Yes Plan: S/P Pleurx: Will restart lasix. (7) Non-compliance Is this a current diagnosis for this admission?: Yes Plan: Supportive care. (8) Obesity (BMI 30-39.9) Is this a current diagnosis for this admission?: Yes Plan: supportive care. (9) Hepatic disorder Is this a current diagnosis for this admission?: Yes Plan: Suspect Hepatic Disorder: Will continue supportive care. - Time Time Spent with patient: 25-34 minutes
[2017-05-21] MEDS ORDERED: FUROSEMIDE 40 MG TABLET PO ONE (17:30)
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
[2017-05-21] MEDS: TAMSULOSIN HCL 0.4 MG CAP.SR.24H PO SCH (23:16)
[2017-05-21] MEDS: ATORVASTATIN CALCIUM 80 MG TABLET PO SCH (23:17)
[2017-05-22] MEDS: MIDODRINE HCL 5 MG TABLET PO SCH ×3 (05:18→13:26)
[2017-05-22 05:22] LABS: ANION GAP 5 (5-19); BLOOD UREA NITROGEN 30 mg/dL (7-20); CALCIUM 8.1 mg/dL (8.4-10.2); CARBON DIOXIDE 29 mmol/L (22-30); CHLORIDE 99 mmol/L (98-107); GLUCOSE 92 mg/dL (75-110); POTASSIUM 4.5 mmol/L (3.6-5.0); SODIUM 133.4 mmol/L (137-145)
[2017-05-22] MEDS: ASPIRIN 81 MG TABLET, ENT COATED PO SCH (08:56)
[2017-05-22] MEDS: DIGOXIN 0.125 MG TABLET PO SCH (08:56)
[2017-05-22] MEDS: MORPHINE SULFATE 10 MG/5 ML ORAL SOLUTION UDCUP PO PRN (09:04)
[2017-05-22] MEDS: SACUBITRIL/VALSARTAN 24 MG/26 MG TABLET PO SCH (11:59)
[2017-05-22] MEDS: SPIRONOLACTONE 25 MG TABLET PO SCH (11:59)
--- NOTE | 2017-05-22 12:39 | DISCHARGE SUMMARY E ---
Discharge Summary NAME: KEN ZAYAS : 1960 AGE: 57Y ADMITTED: 05/14/2017 DISCHARGED: 05/22/2017 CODE STATUS: DO NOT RESUSCITATE/DO NOT INTUBATE WITH PALLIATIVE CARE/HOSPICE. DISCHARGE DIAGNOSES: 1. Jcgoj-ip-[id number] systolic and diastolic congestive heart failure with an EF of 35%. 2. Anasarca secondary to #1. 3. [id number] hypoxemic respiratory failure secondary to #1. 4. Large pleural effusion with chronic drain. 5. Ascites. 6. Hepatic congestion and subsequent hepatic failure due to cardiohepatic syndrome. 7. Medical and medicinal noncompliance. 8. Obesity with a BMI of 39.7. 9. Peripheral vascular disease. 10. Chronic kidney disease stage 3. 11. Pulmonary hypertension. 12. Permanent pacemaker placement. 13. Tobacco dependency, continuous. 14. Coronary artery disease. DISCHARGE MEDICATIONS: 1. Aldactone 25 mg p.o. daily. 2. Morphine 10 mg p.o. q.12 h. p.r.n. 3. Midodrine 10 mg p.o. q.12 h. 4. Aspirin 81 mg p.o. daily. 5. Torsemide 40 mg p.o. q.a.m. 6. Torsemide 20 mg p.o. hour of sleep. 7. Entresto 24/ one tablet p.o. q.12 h. 8. Lipitor 80 mg p.o. every hour of sleep. DIET: As tolerated. ACTIVITY: As per home health/palliative care standards. DIAGNOSTICS: Lab values are as follows: Hematology on 05/21/2017: WBCs are 5.5, hemoglobin 9.0, hematocrit 27.4, platelet count is 232,000. Coagulation obtained on 05/21/2017: PT is 15.8, INR 1.18. Chemistry obtained on 05/22/2017: Sodium is 133, potassium 4.5, chloride 99, carbon dioxide 29, BUN 30, creatinine 1.49, glucose 92, calcium 8.1. HISTORY OF PRESENT ILLNESS: The patient is a 57-year-old male with a past medical history of coronary artery disease and congestive heart failure and severe pulmonary hypertension. The patient presented to the emergency department with a chief complaint of shortness of breath, abdominal distension and leg edema. The patient has a long history of noncompliance and does have known end-stage liver disease of assumed cirrhosis. The patient has had ever increasing symptoms of distension, orthopnea and dyspnea. The patient had denied any recent medication but does admit to dietary indiscretion. In the emergency department the patient was found to have anasarca with bilateral pleural effusions, ascites, a BNP of 20,000. The patient was given IV Lasix and was referred to the hospitalist for admission and management. HOSPITAL COURSE: The patient was admitted to [facility]. The patient was aggressively diuresed with improvement in his symptoms. The patient did require BiPAP for a period of time. The patient was started on blood pressure medications and the patient was seen and evaluated by both Cardiology and Palliative Care. Additionally the patient was seen by Dr. Johnson with Gastroenterology who felt that most of the patient's symptoms were consistent with cardiohepatic syndrome. The patient was seen and evaluated by Palliative Care and given the patient's noncompliance and lack of desire to come to the hospital, the patient will be followed by Palliative Care for a hospice model of care, as the patient's goal #1 is for pain control and then secondly not to return to the hospital. This will be obliged. The patient states that he does have outpatient support in terms of family and that he will be able to manage at home. The patient's overall prognosis is quite poor, as the patient persistently does remain hypotensive and, therefore, has to be on midodrine to keep his blood pressures up. The patient is in agreeance to the overall plan. DISCHARGE PLANNING: The patient will be followed by Palliative Care with [facility] in an outpatient basis. Time spent on this discharge including assessment and plan, physical examination, patient education, review of records and discharge collaboration is 35 minutes. DICTATING PHYSICIAN: GET CASTREJON NP [id number] PHY#: [id number] ID: [id number] JOB#: [id number] ACCT: [id number] cc:CHUY REYES M.D., MICHAEL NP >
[2017-05-22 15:47] VITALS: BP 84/62
== END 2017-05-22 17:10 | disposition home or self-care (01) | DRG 291 ==
LOC: ER 19:11 → EH 20:40 → 3W 23:14
PROVIDERS: ADMIT Internal Medicine; ATTEND Internal Medicine
PROC: 5A09557 Assistance with Respiratory Ventilation, Greater than 96 Consecutive Hours, Continuous Positive Airway Pressure (ICD-10-PCS; 2017-05-14)
PROC: 0W9G3ZZ Drainage of Peritoneal Cavity, Percutaneous Approach (ICD-10-PCS; principal; 2017-05-15)
PROC: 30233N0 Transfusion of Autologous Red Blood Cells into Peripheral Vein, Percutaneous Approach (ICD-10-PCS; 2017-05-16)
PROC: 0J9830Z Drainage of Abdomen Subcutaneous Tissue and Fascia with Drainage Device, Percutaneous Approach (ICD-10-PCS; 2017-05-20)
DX: I13.0 Hypertensive heart and chronic kidney disease with heart failure and stage 1 through stage 4 chronic kidney disease, or unspecified chronic kidney disease (principal); I50.43 Acute on chronic combined systolic (congestive) and diastolic (congestive) heart failure; J96.21 Acute and chronic respiratory failure with hypoxia; J90 Pleural effusion, not elsewhere classified; R18.8 Other ascites; I25.5 Ischemic cardiomyopathy; E11.22 Type 2 diabetes mellitus with diabetic chronic kidney disease; N18.3 Chronic kidney disease, stage 3 (moderate); Z66 Do not resuscitate; D63.1 Anemia in chronic kidney disease; I95.9 Hypotension, unspecified; G47.33 Obstructive sleep apnea (adult) (pediatric); K74.60 Unspecified cirrhosis of liver; I73.9 Peripheral vascular disease, unspecified; I27.20 Pulmonary hypertension, unspecified; I25.10 Atherosclerotic heart disease of native coronary artery without angina pectoris; E03.9 Hypothyroidism, unspecified; E78.5 Hyperlipidemia, unspecified; F41.9 Anxiety disorder, unspecified; F32.9 Major depressive disorder, single episode, unspecified; Z79.899 Other long term (current) drug therapy; Z88.8 Allergy status to other drugs, medicaments and biological substances; Z95.810 Presence of automatic (implantable) cardiac defibrillator; I25.2 Old myocardial infarction; F17.210 Nicotine dependence, cigarettes, uncomplicated; Z91.14 Patient's other noncompliance with medication regimen
CPT/HCPCS: 36415; 36430; 49083; 49418; 71045; 76937; 77001; 80048; 80076; 82550; 82553; 82962; 83735; 83880; 84484; 85025; 85027; 85610; 85730; 86850; 86900; 86901; 86920; 87015; 87070; 87075; 87101; 87116; 87205; 87206; 87252; 89050; 90686; 93005; 93010; 93306; 94660; 99285; G8978-GP; G8979-GP; J1644; J1940; J2250; J3010; J3490; P9016; P9047; S0119

== ENCOUNTER 2018-01-25 22:08 | Inpatient (IN) | payer MEDICARE ==
--- NOTE | 2018-01-25 22:24 | ER Document Report ---
ED Medical Screen (RME) - General Chief Complaint: Breathing Difficulty Stated Complaint: BREATHING ISSUES Time Seen by Provider: 01/25/18 22:21 Mode of Arrival: Wheelchair Information source: Patient Notes: 57-year-old male presents to ED for complaint of increased shortness of breath. He does have a permanent paracentesis tube for drainage of his ascites due to end-stage liver failure. He states that it is not draining properly any needs that assessed as well. Patient does have decreased breath sounds to the right lung. His O2 sat is 96%. Patient states he is having no pain he is just short of breath due to the pressure from his ascites present against his lungs. I have greeted and performed a rapid initial assessment of this patient. A comprehensive ED assessment and evaluation of the patient, analysis of test results and completion of medical decision making process will be conducted by an additional ED providers. TRAVEL OUTSIDE OF THE [place] IN LAST 30 DAYS: No - Related Data Allergies/Adverse Reactions: glimepiride Allergy (Severe, Verified 05/15/17 11:41) Coma Past Medical History - Past Medical History Cardiac Medical History: Reports: Hx Congestive Heart Failure - Combined systolic and diastolic., Hx Heart Attack, Hx Hypercholesterolemia, Hx Hypertension, Hx Peripheral Vascular Disease Denies: Hx Pulmonary Embolism Pulmonary Medical History: Reports: Hx Bronchitis, Hx Sleep Apnea - CPAP, pressure 15. No home oxygen. Denies: Hx COPD Neurological Medical History: Denies: Hx Seizures Endocrine Medical History: Reports: Hx Diabetes Mellitus Type 2, Hx Hypothyroidism - States he might be hypothyroid, according to recent test, but not sure.. Denies: Hx Diabetes Mellitus Type 1, Hx Hyperthyroidism Renal/ Medical History: Denies: Hx Peritoneal Dialysis GI Medical History: Denies: Hx Cirrhosis, Hx Gastroesophageal Reflux Disease, Hx Hepatitis Musculoskeltal Medical History: Denies Hx Arthritis Psychiatric Medical History: Reports: Hx Anxiety Denies: Hx Depression Infectious Medical History: Denies: Hx C-Diff, Hx Hepatitis, Hx MRSA Past Surgical History: Reports: Hx Appendectomy, Hx Cardiac Catheterization, Hx Cardiac Surgery - 5 stents, pacer/defib, Hx Internal Defibrillator, Hx Pacemaker - AICD - Immunizations Hx Diphtheria, Pertussis, Tetanus Vaccination: Yes History of Influenza Vaccine for 02/2017 - 07/2017 Season: No Doctor's Discharge - Discharge Referrals: WORRIAX,KEN, MD [Primary Care Provider] - Follow up as needed
--- NOTE | 2018-01-25 23:42 | ER Document Report ---
ED General - General Chief Complaint: Breathing Difficulty Stated Complaint: BREATHING ISSUES Time Seen by Provider: 01/25/18 22:21 Mode of Arrival: Wheelchair Notes: Patient is 57-year-old male who presents with complaint of difficulty breathing. He has chronic ascites. He uses Pleurx bottles to help drain the excess fluid. He says that he is only getting out 100-200 mL's each time. Says he feels as if the drains are working appropriately but is used to get much more fluid out and he still feels as if he is becoming more short of breath and still feels somewhat distended. No fevers. No other complaints at this time. TRAVEL OUTSIDE OF THE [place] IN LAST 30 DAYS: No - Related Data Allergies/Adverse Reactions: glimepiride Allergy (Severe, Verified 05/15/17 11:41) Coma Past Medical History - General Information source: Patient - Social History Smoking Status: Current Every Day Smoker Chew tobacco use (# tins/day): No Frequency of alcohol use: None Drug Abuse: None Family History: Hypertension Patient has suicidal ideation: No Patient has homicidal ideation: No - Past Medical History Cardiac Medical History: Reports: Hx Congestive Heart Failure - Combined systolic and diastolic., Hx Heart Attack, Hx Hypercholesterolemia, Hx Hypertension, Hx Peripheral Vascular Disease Denies: Hx Pulmonary Embolism Pulmonary Medical History: Reports: Hx Bronchitis, Hx Sleep Apnea - CPAP, pressure 15. No home oxygen. Denies: Hx COPD Neurological Medical History: Denies: Hx Seizures Endocrine Medical History: Reports: Hx Diabetes Mellitus Type 2, Hx Hypothyroidism - States he might be hypothyroid, according to recent test, but not sure.. Denies: Hx Diabetes Mellitus Type 1, Hx Hyperthyroidism Renal/ Medical History: Denies: Hx Peritoneal Dialysis GI Medical History: Denies: Hx Cirrhosis, Hx Gastroesophageal Reflux Disease, Hx Hepatitis Musculoskeletal Medical History: Denies Hx Arthritis Psychiatric Medical History: Reports: Hx Anxiety Denies: Hx Depression Infectious Medical History: Denies: Hx C-Diff, Hx Hepatitis, Hx MRSA Past Surgical History: Reports: Hx Appendectomy, Hx Cardiac Catheterization, Hx Cardiac Surgery - 5 stents, pacer/defib, Hx Internal Defibrillator, Hx Pacemaker - AICD - Immunizations Hx Diphtheria, Pertussis, Tetanus Vaccination: Yes Review of Systems - Review of Systems Notes: My Normal Review Basic REVIEW OF SYSTEMS: CONSTITUTIONAL : Denies fever, chills, or sweats. Denies recent illness. Lungs: Difficulty breathing. RESPIRATORY: Denies cough, cold, or chest congestion. Denies shortness of breath, difficulty breathing, or wheezing. GASTROINTESTINAL: abdominal distention. Ascites. MUSCULOSKELETAL: Denies neck or back pain or joint pain or swelling. SKIN: Denies rash or skin lesions. HEMATOLOGIC : Denies easy bruising or bleeding. NEUROLOGICAL: Denies altered mental status or loss of consciousness. Denies headache. Denies weakness or paralysis or loss of use of either side. Denies problems with gait or speech. Denies sensory or motor loss. ALL OTHER SYSTEMS REVIEWED AND NEGATIVE. Physical Exam - Vital signs Vitals: Resp BP Pulse Ox 14 126/91 H 98 01/25/18 22:59 01/25/18 22:59 01/25/18 22:59 - Notes Notes: General Appearance: Well nourished, alert, cooperative, no acute distress, no obvious discomfort. Vitals: reviewed, See vital signs table. Head: no swelling or tenderness to the head Eyes: PERRL, EOMI, Conjuctiva clear Mouth: No decreasd moisture Neck: Supple, no neck tenderness, No thyromegaly Lungs: No wheezing, decreased breath sounds on the right, No accessory muscle use, good air exchange bilaterally. Heart: Normal rate, Regular rythm, No murmur, no rub Abdomen: Normal BS, soft, No rigidity, abdominal distention. Pleurx catheter in place. Extremities: strength 5/5 in all extremities, good pulses in all extremities, no swelling or tenderness in the extremities, no edema. Skin: warm, dry, appropriate color, no rash Neuro: speech clear, oriented x 3, normal affect, responds appropriately to questions. Course - Re-evaluation Re-evalutation: 01/25/18 23:38 On x-ray it appears that the patient's lung could potentially be full of fluid on the right side. This could be affecting his breathing. I did call Dr. Todd Quick, radiologist on house, who requests an ultrasound of the patient's lung to make sure the patient does have a heavy dye elevated diaphragm before potentially doing drainage. I have done ultrasound patient's abdomen we have hooked up the Pleurex bottle to his drain. Just proximal 100 mL's out in its very slow draining. On ultrasound she either has a large amount of fluid in his lower abdomen or he has a distended bladder which patient admits that he does not empty very much she is some urinate so therefore I will place a Casey catheter in him to see if he has a large amount of retained urine in his bladder and see if relieving this helps. 01/26/18 01:05 Patient went ultrasound and had an ultrasound performed. Dr. Miller looked at the ultrasound and said the patient has compression of the right lung with effusion. She is said he may benefit in the future from chest tube placement. I did compare this to the patient's previous imaging and this seems very consistent with what he had back in May as well. It is unclear if the patient's pleural drain is actually draining appropriately. I will obtain a CT scan. Will place him on BiPAP to see if he can lay flat for the CT scan. 01/26/18 01:07 01/26/18 06:58 When I did a bedside ultrasound of the patient's abdomen did see the patient had what appeared to be large fluid collection. I Did Pl., Casey catheter and he did not mention his bladder. He still has large fluid collection in the pelvic region. I therefore obtain a CT scan which showed the patient has a large loculated fluid collection with air. I did speak with the surgeon, Dr. Nguyen, who recommended that I discuss this with interventional radiology for potential drainage and he may need a replacement of his peritoneal drain as well. I did speak with Dr. Miller who agrees to see the patient in morning to evaluate to have this performed. I spoke with the hospitalist, Dr. Gandaar, who agrees to admit the patient. Dictation of this chart was performed using voice recognition software; therefore, there may be some unintended grammatical errors. - Vital Signs Vital signs: Temp Pulse Resp BP Pulse Ox 23 H 125/89 H 98 01/26/18 06:01 01/26/18 06:01 01/26/18 06:01 - Laboratory Result Diagrams: 01/25/18 23:56 01/25/18 23:56 Laboratory results interpreted by me: 01/25/18 01/25/18 01/25/18 23:56 23:56 23:56 RBC 3.79 L Hgb 9.7 L Hct 29.7 L MCV 78 L MCH 25.7 L RDW 18.7 H Seg Neuts % (Manual) 81 H PT 17.1 H APTT 41.2 H Sodium 129.2 L Chloride 94 L Calcium 8.2 L Direct Bilirubin 0.9 H ALT 18 L NT-Pro-B Natriuret Pep Albumin 2.6 L 01/25/18 23:56 RBC Hgb Hct MCV MCH RDW Seg Neuts % (Manual) PT APTT Sodium Chloride Calcium Direct Bilirubin ALT NT-Pro-B Natriuret Pep 24671 H Albumin Discharge - Discharge Clinical Impression: Intraabdominal fluid collection Dyspnea Qualifiers: Dyspnea type: unspecified Qualified Code(s): R06.00 - Dyspnea, unspecified Liver failure Qualifiers: Liver failure chronicity: chronic Hepatic coma status: with hepatic coma Qualified Code(s): K72.11 - Chronic hepatic failure with coma Condition: Stable Disposition: ADMITTED OBSERVATION Admitting Provider: Hospitalist Unit Admitted: Telemetry
--- NOTE | 2018-01-25 23:57 | RADIOLOGY REPORT (SQ) ---
EXAM DESCRIPTION: CHEST 2 VIEWS COMPLETED DATE/TIME: 01/25/2018 10:36 pm REASON FOR STUDY: short of breath COMPARISON: 10/18/2016 two-view chest AP chest 05/15/2017 EXAM PARAMETERS: NUMBER OF VIEWS: two views TECHNIQUE: Digital Frontal and Lateral radiographic views of the chest acquired. RADIATION DOSE: NA LIMITATIONS: none FINDINGS: LUNGS AND PLEURA: Trace left pleural effusion in the posterior costophrenic sulcus. On the right side, opacification of the lower half right hemithorax is present, likely due to a [place] of elevated right hemidiaphragm and chronic right pleural fluid/ pleural thickening. There is right basilar consolidation likely atelectasis. Pneumonia could not be excluded. MEDIASTINUM AND HILAR STRUCTURES: No masses or contour abnormalities. HEART AND VASCULAR STRUCTURES: Moderate cardiomegaly BONES: No acute findings. HARDWARE: Left-sided pacemaker/defibrillator OTHER: No other significant finding. IMPRESSION: Opacified right lower hemithorax, likely due to a combination of elevated hemidiaphragm, chronic collapse/ consolidation right lower lobe and middle lobe, and right pleural fluid/ pleural t hickening. TECHNICAL DOCUMENTATION: JOB ID: [id number] [employer]- All Rights Reserved Reading location - IP/workstation name: [email or web address]
[2018-01-26] MEDS ORDERED: FUROSEMIDE INJ/PF 40 MG/4 ML SDV IV ONE (00:25)
[2018-01-26 00:26] LABS: HEMATOCRIT 29.7 % (37.9-51.0); HEMOGLOBIN 9.7 g/dL (13.5-17.0); INTERNATIONAL RATION (INR) 1.33; MEAN CORPUSCULAR HEMOGLOBIN 25.7 pg (27.0-33.4); MEAN CORPUSCULAR HGB CONC 32.8 g/dL (32.0-36.0); MEAN CORPUSCULAR VOLUME 78 fl (80-97); PARTIAL THROMBOPLASTIN TIME 41.2 SEC (23.5-35.8); PLATELET COUNT 354 10^3/uL (150-450); PROTHROMBIN TIME 17.1 SEC (11.4-15.4); RED BLOOD COUNT 3.79 10^6/uL (4.35-5.55); RED CELL DISTRIBUTION WIDTH 18.7 % (11.5-14.0); WHITE BLOOD COUNT 6.2 10^3/uL (4.0-10.5)
--- NOTE | 2018-01-26 00:27 | RADIOLOGY REPORT (SQ) ---
US CHEST HISTORY: Right-sided effusion. COMPARISON: None. TECHNIQUE: Escalera-scale, color Doppler and spectral Doppler images of the chest. FINDINGS: A large right-sided pleural effusion is present surrounding the right lung. Comparison images of the left side demonstrates no pleural effusion. IMPRESSION: Large right pleural effusion.
[2018-01-26 00:40] LABS: ALANINE AMINOTRANSFERASE 18 U/L (21-72); ALBUMIN 2.6 g/dL (3.5-5.0); ALKALINE PHOSPHATASE 114 U/L (38-126); ANION GAP 6 (5-19); ASPARTATE AMINO TRANSFERASE 20 U/L (17-59); BILIRUBIN,DIRECT 0.9 mg/dL (0.0-0.4); BILIRUBIN,TOTAL 1.2 mg/dL (0.2-1.3); BLOOD UREA NITROGEN 15 mg/dL (7-20); CALCIUM 8.2 mg/dL (8.4-10.2); CARBON DIOXIDE 29 mmol/L (22-30); CHLORIDE 94 mmol/L (98-107); GLUCOSE 98 mg/dL (75-110); POTASSIUM 4.4 mmol/L (3.6-5.0); SODIUM 129.2 mmol/L (137-145)
[2018-01-26 00:55] LABS: ABSOLUTE LYMPHOCYTES# (MANUAL) 0.8 10^3/uL (0.5-4.7); ABSOLUTE MONOCYTES # (MANUAL) 0.3 10^3/uL (0.1-1.4); BASOPHILS % (MANUAL) 0 % (0-2); EOSINOPHILS % (MANUAL) 1 % (0-6); LYMPHOCYTES % (MANUAL) 13 % (13-45); MONOCYTES % (MANUAL) 5 % (3-13); SEGMENTED NEUTROPHILS % (MAN) 81 % (42-78); TOTAL CELLS COUNTED 100
[2018-01-26 00:56] LABS: ANISOCYTOSIS 2+; OVALOCYTES SLIGHT; PLATELET COMMENT ADEQUATE; POIKILOCYTOSIS 1+; POLYCHROMASIA SLIGHT; TARGET CELLS SLIGHT
--- NOTE | 2018-01-26 02:21 | RADIOLOGY REPORT (SQ) ---
CT abdomen and pelvis without contrast on 01/26/2018 at 1:18 AM CLINICAL INDICATION: Ascites, catheter malfunction TECHNIQUE: Multiple axial images are obtained throughout the abdomen and pelvis without the administration of contrast. This exam was performed according to our departmental dose-optimization program, which includes automated exposure control, adjustment of the mA and/or kV according to patient size and/or use of iterative reconstruction technique. Total DLP is 1160.36 mGy*cm. COMPARISON: None FINDINGS: Abdomen: There is a moderate to large sized right pleural effusion partially imaged. There is a very small left pleural effusion. There is right greater than left basilar atelectasis. The patient's apparent Pleurx peritoneal catheter enters in the anterior right upper quadrant and terminates in the right anterior pelvis. There is loculated air and fluid collection in the anterior peritoneum that the catheter extends through. This begins along the anterior liver edge and extends inferiorly to the level of the umbilicus. This raises a question of developing abscess formation. This air and fluid collection measures approximately 27.5 x 6.4 x 22.5 cm. There is other moderate amount of ascites in the pelvis. Vascular calcifications are noted. The patient is status post cholecystectomy. There is a 3.6 cm infrarenal abdominal aortic aneurysm. Recommend follow-up imaging every 12 months. No abdominal adenopathy is noted by CT size criteria. There is no free air in the abdomen. The abdominal portion of the GI tract is unremarkable. Pelvis: Anasarca is noted in the subcutaneous tissues. Casey catheter is noted in the bladder. Small amount of ascites is noted in the pelvis. There is no pelvic adenopathy. Pelvic portion of the GI tract is unremarkable. Degenerative changes are noted in the spine. IMPRESSION: 1. Large loculated air and fluid collection in the right anterior abdomen extending into the right lower quadrant may represent developing abscess formation. The patient's Pleurx peritoneal catheter extends into and through this collection. 2. Moderate to large sized right pleural effusion and a very small left pleural effusion with also other ascites and anasarca consistent with some volume overload and/or third spacing. 3. 3.6 cm infrarenal abdominal aortic aneurysm, recommend follow-up imaging every 12 months.
[2018-01-26] MEDS ORDERED: FUROSEMIDE INJ/PF 40 MG/4 ML SDV ONE (02:32)
[2018-01-26] MEDS ORDERED: MAGNESIUM HYDROXIDE SUSP 30 ML UDCUP PO PRN (03:20)
[2018-01-26] MEDS ORDERED: MAG HYDROX/AL HYDROX/SIMETH SUSP 30 ML UDCUP PO PRN (03:20)
[2018-01-26] MEDS ORDERED: LIDOCAINE 5% (700 MG) TRANSDERMAL ADH..PATCH TP ONE (03:27)
[2018-01-26] MEDS ORDERED: (PENDING PHARMACY ID) (Midodrine Hcl [Midodrine Hcl] 10 MG) PO SCH (03:30)
[2018-01-26] MEDS ORDERED: NITROGLYCERIN 5 MG (0.2 MG/HR) PATCH.TD24 TD ONE (03:45)
[2018-01-26 05:33] LABS: CREATINE KINASE MB 1.92 ng/mL (<4.55); TROPONIN I 0.013 ng/mL
[2018-01-26] MEDS: HEPARIN SOD (PORCINE) 5,000 UNIT/ML 1 ML SYRINGE SUBCUT SCH ×3 (06:31→23:50)
[2018-01-26] MEDS: MIDODRINE HCL 5 MG TABLET PO SCH ×2 (06:34→17:33)
--- NOTE | 2018-01-26 06:46 | PDOC H&P ---
History of Present Illness Admission Date/PCP: 01/26/18 04:11 Patient complains of: Abdominal swelling and pain History of Present Illness: KEN ZAYAS is a 57 year old male with a past medical history of coronary artery disease, coronary artery stenting, ischemic cardiomyopathy, congestive heart failure with an ejection fraction of 30% and permanent pacemaker, severe pulmonary hypertension with an RVSP of 60, obstructive sleep apnea, end-stage liver disease with recurrent ascites and Pleurx drain. Presenting with increasing abdominal girth dysfunction of drain. In the emergency room is found to have massive ascites with a loculated peritoneal mass. Interventional radiology is consulted for intervention. Past Medical History Cardiac Medical History: Reports: Congestive Heart Failure - Combined systolic and diastolic., Myocardial Infarction, Hyperlipidema, Hypertension, Peripheral Vascular Disease Denies: Pulmonary Embolism Pulmonary Medical History: Reports: Bronchitis, Sleep Apnea - CPAP, pressure 15. No home oxygen. Denies: Chronic Obstructive Pulmonary Disease (COPD) Neurological Medical History: Denies: Seizures Endocrine Medical History: Reports: Diabetes Mellitus Type 2, Hypothyroidism - States he might be hypothyroid, according to recent test, but not sure. Denies: Diabetes Mellitus Type 1, Hyperthyroidism GI Medical History: Denies: Cirrhosis, Gastroesophageal Reflux Disease, Hepatitis Musculoskeltal Medical History: Denies: Arthritis Psychiatric Medical History: Denies: Depression Infectious Medical History: Denies: Clostridium Difficile, Methicillin-Resistant Staph Aureus Past Surgical History Past Surgical History: Reports: Appendectomy, Cardiac Catheterization, Internal Defibrillator, Pacemaker - AICD Social History Information Source: Patient Smoking Status: Current Every Day Smoker Frequency of Alcohol Use: Rare Hx Recreational Drug Use: No Drugs: None Hx Prescription Drug Abuse: No - Advance Directive Resuscitation Status: Full Code Family History Family History: Hypertension Parental Family History Reviewed: Yes Children Family History Reviewed: Yes Sibling(s) Family History Reviewed.: Yes Medication/Allergy Home Medications: Atorvastatin Calcium [Lipitor 80 mg Tablet] 80 mg PO QHS 05/14/17 Sacubitril/Valsartan [Entresto 24 mg-26 mg Tablet] 1 tab PO Q12 05/14/17 Torsemide [Demadex 20 mg Tablet] 20 mg PO QPM 05/14/17 Torsemide [Demadex 20 mg Tablet] 40 mg PO QAM 05/14/17 Aspirin [Ecotrin 81 mg EC Tablet] 81 mg PO DAILY #30 tabec 05/22/17 Midodrine HCl 10 mg PO Q12H #60 tablet 05/22/17 Morphine Sulfate [Morphine 10 mg/5 ml Oral Soln Udcup] 10 mg PO Q12HP PRN #10 udc 05/22/17 Spironolactone [Aldactone 25 mg Tablet] 25 mg PO DAILY #30 tablet 05/22/17 Allergies/Adverse Reactions: glimepiride Allergy (Severe, Verified 05/15/17 11:41) Coma Review of Systems Constitutional: ABSENT: chills, fever(s), headache(s), weight gain, weight loss Eyes: ABSENT: visual disturbances Ears: ABSENT: hearing changes Cardiovascular: ABSENT: chest pain, dyspnea on exertion, edema, orthropnea, palpitations Respiratory: ABSENT: cough, hemoptysis Gastrointestinal: ABSENT: abdominal pain, constipation, diarrhea, hematemesis, hematochezia, nausea, vomiting Genitourinary: ABSENT: dysuria, hematuria Musculoskeletal: ABSENT: joint swelling Integumentary: ABSENT: rash, wounds Neurological: ABSENT: abnormal gait, abnormal speech, confusion, dizziness, focal weakness, syncope Psychiatric: ABSENT: anxiety, depression, homidical ideation, suicidal ideation Endocrine: ABSENT: cold intolerance, heat intolerance, polydipsia, polyuria Hematologic/Lymphatic: ABSENT: easy bleeding, easy bruising Physical Exam Vital Signs: Temp Pulse Resp BP Pulse Ox 23 H 125/89 H 98 01/26/18 06:01 01/26/18 06:01 01/26/18 06:01 General appearance: PRESENT: cooperative, mild distress. ABSENT: obese Head exam: PRESENT: atraumatic, normocephalic Eye exam: PRESENT: conjunctiva pink, EOMI, PERRLA. ABSENT: scleral icterus Ear exam: PRESENT: normal external ear exam Mouth exam: PRESENT: moist, tongue midline Neck exam: ABSENT: carotid bruit, JVD, lymphadenopathy, thyromegaly Respiratory exam: PRESENT: clear to auscultation sanjeev. ABSENT: rales, rhonchi, wheezes Cardiovascular exam: PRESENT: RRR. ABSENT: diastolic murmur, rubs, systolic murmur Pulses: PRESENT: normal dorsalis pedis pul Vascular exam: PRESENT: normal capillary refill GI/Abdominal exam: PRESENT: normal bowel sounds, soft. ABSENT: distended, guarding, mass, organolmegaly, rebound, tenderness Rectal exam: PRESENT: deferred Extremities exam: PRESENT: full ROM. ABSENT: calf tenderness, clubbing, pedal edema Neurological exam: PRESENT: alert, awake, oriented to person, oriented to place , oriented to time, oriented to situation, CN II-XII grossly intact. ABSENT: motor sensory deficit Psychiatric exam: PRESENT: appropriate affect, normal mood. ABSENT: homicidal ideation, suicidal ideation Skin exam: PRESENT: dry, intact, warm. ABSENT: cyanosis, rash Results Laboratory Results: 01/26/18 01/26/18 04:36 04:36 Creatine Kinase 158 CK-MB (CK-2) 1.92 Troponin I 0.013 Impressions: Chest X-Ray 01/25/18 22:21 IMPRESSION: Opacified right lower hemithorax, likely due to a combination of elevated hemidiaphragm, chronic collapse/ consolidation right lower lobe and middle lobe, and right pleural fluid/ pleural thickening. Chest Ultrasound 01/25/18 23:13 IMPRESSION: Large right pleural effusion. Abdomen/Pelvis CT 01/26/18 00:58 IMPRESSION: 1. Large loculated air and fluid collection in the right anterior abdomen extending into the right lower quadrant may represent developing abscess formation. The patient's Pleurx peritoneal catheter extends into and through this collection. 2. Moderate to large sized right pleural effusion and a very small left pleural effusion with also other ascites and anasarca consistent with some volume overload and/or third spacing. 3. 3.6 cm infrarenal abdominal aortic aneurysm, recommend follow-up imaging every 12 months. Assessment & Plan - Diagnosis (1) Intraabdominal fluid collection Is this a current diagnosis for this admission?: Yes Plan: Interventional radiology consultation pending (2) Liver failure Qualifiers: Liver failure chronicity: chronic Hepatic coma status: with hepatic coma Qualified Code(s): K72.11 - Chronic hepatic failure with coma Is this a current diagnosis for this admission?: Yes Plan: Unclear cause supportive measures, lactulose, fluid and dietary restriction (3) Acute on chronic combined systolic (congestive) and diastolic (congestive) heart failure Is this a current diagnosis for this admission?: Yes Plan: Complicated by right-sided pleural effusion, medical management given advanced cirrhosis. - Time Time Spent: 30 to 50 Minutes - Inpatient Certification Medical Necessity: Need Close Monitoring Due to Risk of Patient Decompensation
[2018-01-26] MEDS: FUROSEMIDE INJ/PF 40 MG/4 ML SDV IV SCH ×2 (10:02→23:52)
[2018-01-26] MEDS: DOCUSATE SODIUM 100 MG CAPSULE PO SCH (10:02)
[2018-01-26] MEDS: SPIRONOLACTONE 25 MG TABLET PO SCH (10:02)
[2018-01-26] MEDS: ASPIRIN 81 MG TABLET, ENT COATED PO SCH (10:02)
[2018-01-26] MEDS: POTASSIUM CHLORIDE 10 MEQ CAPSULE.ER PO SCH ×2 (10:02→23:58)
[2018-01-26 11:06] LABS: CREATINE KINASE MB 1.8 ng/mL (<4.55); TROPONIN I 0.013 ng/mL
--- NOTE | 2018-01-26 16:15 | PDOC PROGRESS REPORT ---
Subjective Progress Note for:: 01/26/18 Subjective:: 57-year-old white male with known cardiomyopathy and end-stage liver disease presents with anasarca and increasing abdominal girth. Patient has a Pleurx catheter in his peritoneum but has developed loculations documented on CT not draining. He is unable to and mobilize the fluid at home. White count normal no evidence of peritonitis Reason For Visit: HEART FAILURE Physical Exam Vital Signs: Temp Pulse Resp BP Pulse Ox 97.4 F 85 14 124/86 H 95 01/26/18 12:14 01/26/18 14:00 01/26/18 12:14 01/26/18 12:14 01/26/18 12:14 Intake & Output 01/25/18 01/26/18 01/27/18 06:59 06:59 06:59 Output Total 425 Balance -425 Weight 128.6 kg General appearance: PRESENT: no acute distress, well-developed, well-nourished Head exam: PRESENT: atraumatic, normocephalic Neck exam: PRESENT: JVD. ABSENT: carotid bruit, lymphadenopathy, thyromegaly Respiratory exam: PRESENT: clear to auscultation sanjeev, crackles - Posteriorly, rales. ABSENT: rhonchi, wheezes Cardiovascular exam: PRESENT: RRR, other - AICD pacemaker present. ABSENT: diastolic murmur, rubs, systolic murmur GI/Abdominal exam: PRESENT: ascites - Pleurx catheter present, normal bowel sounds, soft, other - Abdominal wall edema. ABSENT: distended, guarding, mass, organolmegaly, rebound, tenderness Extremities exam: PRESENT: other - Anasarca Results Laboratory Results: 01/26/18 01/26/18 01/26/18 04:36 04:36 10:27 Creatine Kinase 158 112 CK-MB (CK-2) 1.92 Troponin I 0.013 01/26/18 10:27 Creatine Kinase CK-MB (CK-2) 1.80 Troponin I 0.013 Impressions: Chest X-Ray 01/25/18 22:21 IMPRESSION: Opacified right lower hemithorax, likely due to a combination of elevated hemidiaphragm, chronic collapse/ consolidation right lower lobe and middle lobe, and right pleural fluid/ pleural thickening. Chest Ultrasound 01/25/18 23:13 IMPRESSION: Large right pleural effusion. Abdomen/Pelvis CT 01/26/18 00:58 IMPRESSION: 1. Large loculated air and fluid collection in the right anterior abdomen extending into the right lower quadrant may represent developing abscess formation. The patient's Pleurx peritoneal catheter extends into and through this collection. 2. Moderate to large sized right pleural effusion and a very small left pleural effusion with also other ascites and anasarca consistent with some volume overload and/or third spacing. 3. 3.6 cm infrarenal abdominal aortic aneurysm, recommend follow-up imaging every 12 months. Assessment & Plan - Diagnosis (1) Intraabdominal fluid collection Is this a current diagnosis for this admission?: Yes Plan: Loculated ascitic fluid collection seen by Pleurx catheter. Will consult IR in a.m. when they are available for drainage of fluid collection. (2) Acute on chronic combined systolic (congestive) and diastolic (congestive) heart failure Is this a current diagnosis for this admission?: Yes (3) Anasarca Is this a current diagnosis for this admission?: Yes Plan: Add Zaroxolyn 2.5 daily continue IV Lasix 40 mg every 12 hours and continue spironolactone consider increasing to 50 mg daily. Daily BMP magnesium in a.m. (4) Cardiomyopathy Qualifiers: Cardiomyopathy type: ischemic Qualified Code(s): I25.5 - Ischemic cardiomyopathy Is this a current diagnosis for this admission?: Yes Plan: EF by echocardiogram in May of this year was 35-40%.We will monitor response to diuretics. At this point dobutamine does not seem to be indicated. 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 (7) ALEYDA (obstructive sleep apnea) Is this a current diagnosis for this admission?: Yes Plan: CPAP ordered (8) Liver failure Qualifiers: Liver failure chronicity: chronic Hepatic coma status: with hepatic coma Qualified Code(s): K72.11 - Chronic hepatic failure with coma Is this a current diagnosis for this admission?: Yes Plan: Patient has mild coagulopathy has documented hepatic failure no further workup planned (9) Cardiac defibrillator in situ Is this a current diagnosis for this admission?: Yes Plan: No reported firings. - Time Time Spent with patient: 25-34 minutes
[2018-01-26 17:08] LABS: CREATINE KINASE MB 1.68 ng/mL (<4.55)
[2018-01-26 17:10] LABS: TROPONIN I < 0.012 ng/mL
[2018-01-27] MEDS: HEPARIN SOD (PORCINE) 5,000 UNIT/ML 1 ML SYRINGE SUBCUT SCH ×3 (05:28→21:03)
[2018-01-27] MEDS: MIDODRINE HCL 5 MG TABLET PO SCH ×2 (05:28→17:25)
[2018-01-27 05:39] LABS: ABSOLUTE BASOPHILS # (AUTO) 0.1 10^3/uL (0.0-0.2); ABSOLUTE EOSINOPHILS # (AUTO) 0.1 10^3/uL (0.0-0.6); ABSOLUTE LYMPHOCYTES (AUTO) 1.1 10^3/uL (0.5-4.7); ABSOLUTE MONOCYTES (AUTO) 0.8 10^3/uL (0.1-1.4); ABSOLUTE NEUT (AUTO) 4.1 10^3/uL (1.7-8.2); BASOPHILS % (AUTO) 1.9 % (0-2); EOSINOPHILS % (AUTO) 0.9 % (0-6); HEMATOCRIT 27.8 % (37.9-51.0); HEMOGLOBIN 9.3 g/dL (13.5-17.0); LYMPHOCYTES % (AUTO) 17.6 % (13-45); MEAN CORPUSCULAR HEMOGLOBIN 25.9 pg (27.0-33.4); MEAN CORPUSCULAR HGB CONC 33.4 g/dL (32.0-36.0); MEAN CORPUSCULAR VOLUME 78 fl (80-97); MONOCYTES % (AUTO) 12.9 % (3-13); PLATELET COUNT 350 10^3/uL (150-450); RED BLOOD COUNT 3.58 10^6/uL (4.35-5.55); RED CELL DISTRIBUTION WIDTH 18.5 % (11.5-14.0); SEGMENTED NEUTROPHILS % (AUTO) 66.7 % (42-78); TOTAL CELLS COUNTED % (AUTO) 100 %; WHITE BLOOD COUNT 6.1 10^3/uL (4.0-10.5)
[2018-01-27] MEDS ORDERED: METOLAZONE 2.5 MG TABLET PO SCH (10:00)
[2018-01-27] MEDS: ASPIRIN 81 MG TABLET, ENT COATED PO SCH (10:25)
[2018-01-27] MEDS: DOCUSATE SODIUM 100 MG CAPSULE PO SCH (10:25)
[2018-01-27] MEDS: SPIRONOLACTONE 25 MG TABLET PO SCH (10:25)
[2018-01-27] MEDS: POTASSIUM CHLORIDE 10 MEQ CAPSULE.ER PO SCH ×2 (10:25→21:03)
[2018-01-27] MEDS: FUROSEMIDE INJ/PF 40 MG/4 ML SDV IV SCH ×2 (10:26→21:04)
[2018-01-27] MEDS: NITROGLYCERIN 5 MG (0.2 MG/HR) PATCH.TD24 TD SCH (10:26)
--- NOTE | 2018-01-27 15:35 | PDOC PROGRESS REPORT ---
Subjective Subjective:: 57-year-old white male with known cardiomyopathy and end-stage liver disease presents with anasarca and increasing abdominal girth. Patient has a Pleurx catheter in his peritoneum but has developed loculations documented on CT not draining. He is unable to and mobilize the fluid at home. White count normal no evidence of peritonitis. Patient symptomatically improved over yesterday. Has had good diuresis.Of approximately 2 L.Interventional radiology still not available for the a loculated peritoneal fluid. We will continue to try to mobilize through diuresis. Reason For Visit: HEART FAILURE Physical Exam Vital Signs: Temp Pulse Resp BP Pulse Ox 97.4 F 81 17 130/91 H 93 01/27/18 12:00 01/27/18 12:00 01/27/18 12:00 01/27/18 12:00 01/27/18 12:00 Intake & Output 01/26/18 01/27/18 01/28/18 06:59 06:59 06:59 Intake Total 450 600 Output Total 2425 600 Balance -1974 0 Weight 129.5 kg Results Laboratory Results: 01/27/18 04:18 01/27/18 01/27/18 04:18 04:18 WBC 6.1 RBC 3.58 L Hgb 9.3 L Hct 27.8 L MCV 78 L MCH 25.9 L MCHC 33.4 RDW 18.5 H Plt Count 350 Seg Neutrophils % 66.7 Lymphocytes % 17.6 Monocytes % 12.9 Eosinophils % 0.9 Basophils % 1.9 Absolute Neutrophils 4.1 Absolute Lymphocytes 1.1 Absolute Monocytes 0.8 Absolute Eosinophils 0.1 Absolute Basophils 0.1 Magnesium 1.7 01/26/18 01/26/18 01/26/18 04:36 04:36 10:27 Creatine Kinase 158 112 CK-MB (CK-2) 1.92 Troponin I 0.013 01/26/18 01/26/18 01/26/18 10:27 16:30 16:30 Creatine Kinase 99 CK-MB (CK-2) 1.80 1.68 Troponin I 0.013 < 0.012 Impressions: Chest X-Ray 01/25/18 22:21 IMPRESSION: Opacified right lower hemithorax, likely due to a combination of elevated hemidiaphragm, chronic collapse/ consolidation right lower lobe and middle lobe, and right pleural fluid/ pleural thickening. Chest Ultrasound 01/25/18 23:13 IMPRESSION: Large right pleural effusion. Abdomen/Pelvis CT 01/26/18 00:58 IMPRESSION: 1. Large loculated air and fluid collection in the right anterior abdomen extending into the right lower quadrant may represent developing abscess formation. The patient's Pleurx peritoneal catheter extends into and through this collection. 2. Moderate to large sized right pleural effusion and a very small left pleural effusion with also other ascites and anasarca consistent with some volume overload and/or third spacing. 3. 3.6 cm infrarenal abdominal aortic aneurysm, recommend follow-up imaging every 12 months. Assessment & Plan - Diagnosis (1) Intraabdominal fluid collection Is this a current diagnosis for this admission?: Yes Plan: Loculated ascitic fluid collection seen by Pleurx catheter. Will consult IR in a.m. when they are available for drainage of fluid collection. (2) Acute on chronic combined systolic (congestive) and diastolic (congestive) heart failure Is this a current diagnosis for this admission?: Yes Plan: Continue Zaroxolyn 2.5 daily IV Lasix 40 mg every 12 and spironolactone. Monitor electrolytes on a daily basis.A.m. labs not done will order stat labs currently. (3) Anasarca Is this a current diagnosis for this admission?: Yes Plan: Add Zaroxolyn 2.5 daily continue IV Lasix 40 mg every 12 hours and continue spironolactone consider increasing to 50 mg daily. 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 (7) ALEYDA (obstructive sleep apnea) Is this a current diagnosis for this admission?: Yes Plan: CPAP ordered (8) Cardiac defibrillator in situ Is this a current diagnosis for this admission?: Yes (9) Liver failure Qualifiers: Liver failure chronicity: chronic Hepatic coma status: with hepatic coma Qualified Code(s): K72.11 - Chronic hepatic failure with coma Is this a current diagnosis for this admission?: Yes - Time Time Spent with patient: 25-34 minutes
[2018-01-27 17:36] LABS: ABSOLUTE BASOPHILS # (AUTO) 0.1 10^3/uL (0.0-0.2); ABSOLUTE EOSINOPHILS # (AUTO) 0.1 10^3/uL (0.0-0.6); ABSOLUTE LYMPHOCYTES (AUTO) 0.9 10^3/uL (0.5-4.7); ABSOLUTE MONOCYTES (AUTO) 0.6 10^3/uL (0.1-1.4); ABSOLUTE NEUT (AUTO) 4.7 10^3/uL (1.7-8.2); EOSINOPHILS % (AUTO) 1.2 % (0-6); HEMATOCRIT 30.1 % (37.9-51.0); HEMOGLOBIN 9.9 g/dL (13.5-17.0); LYMPHOCYTES % (AUTO) 14.2 % (13-45); MEAN CORPUSCULAR HEMOGLOBIN 25.7 pg (27.0-33.4); MEAN CORPUSCULAR HGB CONC 32.9 g/dL (32.0-36.0); MEAN CORPUSCULAR VOLUME 78 fl (80-97); PLATELET COUNT 361 10^3/uL (150-450); RED BLOOD COUNT 3.85 10^6/uL (4.35-5.55); RED CELL DISTRIBUTION WIDTH 18.8 % (11.5-14.0); SEGMENTED NEUTROPHILS % (AUTO) 73.6 % (42-78); TOTAL CELLS COUNTED % (AUTO) 100 %; WHITE BLOOD COUNT 6.4 10^3/uL (4.0-10.5)
[2018-01-27 18:02] LABS: ANION GAP 5 (5-19); BLOOD UREA NITROGEN 17 mg/dL (7-20); CALCIUM 8.3 mg/dL (8.4-10.2); CARBON DIOXIDE 33 mmol/L (22-30); CHLORIDE 92 mmol/L (98-107); GLUCOSE 124 mg/dL (75-110); PHOSPHORUS 3.9 mg/dL (2.5-4.5); POTASSIUM 4.7 mmol/L (3.6-5.0); SODIUM 130.1 mmol/L (137-145)
[2018-01-28] MEDS: HEPARIN SOD (PORCINE) 5,000 UNIT/ML 1 ML SYRINGE SUBCUT SCH ×3 (05:51→21:42)
[2018-01-28] MEDS: MIDODRINE HCL 5 MG TABLET PO SCH ×2 (05:51→17:24)
[2018-01-28 06:41] LABS: ANION GAP 8 (5-19); BLOOD UREA NITROGEN 18 mg/dL (7-20); CALCIUM 8.2 mg/dL (8.4-10.2); CARBON DIOXIDE 31 mmol/L (22-30); CHLORIDE 92 mmol/L (98-107); GLUCOSE 117 mg/dL (75-110); POTASSIUM 4.4 mmol/L (3.6-5.0); SODIUM 131.1 mmol/L (137-145)
[2018-01-28] MEDS: METOLAZONE 2.5 MG TABLET PO SCH (08:57)
[2018-01-28] MEDS: POTASSIUM CHLORIDE 10 MEQ CAPSULE.ER PO SCH ×2 (11:13→21:41)
[2018-01-28] MEDS: ASPIRIN 81 MG TABLET, ENT COATED PO SCH (11:13)
[2018-01-28] MEDS: DOCUSATE SODIUM 100 MG CAPSULE PO SCH (11:14)
[2018-01-28] MEDS: FUROSEMIDE INJ/PF 40 MG/4 ML SDV IV SCH ×2 (11:14→21:41)
[2018-01-28] MEDS: SPIRONOLACTONE 25 MG TABLET PO SCH (11:14)
[2018-01-28] MEDS: NITROGLYCERIN 5 MG (0.2 MG/HR) PATCH.TD24 TD SCH (11:14)
--- NOTE | 2018-01-28 13:47 | PDOC PROGRESS REPORT ---
Subjective Progress Note for:: 01/28/18 Subjective:: 57-year-old white male with known cardiomyopathy and end-stage liver disease presents with anasarca and increasing abdominal girth. Patient has a Pleurx catheter in his peritoneum but has developed loculations documented on CT not draining. He is unable to and mobilize the fluid at home. White count normal no evidence of peritonitis. Patient symptomatically improved over yesterday. Has had good diuresis.Of approximately 2 L.Interventional radiology still not available for the a loculated peritoneal fluid. We will continue to try to mobilize through diuresis. Patient improved diuresing well.Has lost an additional 1.5 L. Reason For Visit: HEART FAILURE Physical Exam Vital Signs: Temp Pulse Resp BP Pulse Ox 97.5 F 71 18 102/73 98 01/28/18 04:58 01/28/18 09:49 01/28/18 09:49 01/28/18 09:49 01/28/18 09:49 Intake & Output 01/27/18 01/28/18 01/29/18 06:59 06:59 06:59 Intake Total 450 990 Output Total 2425 2600 Balance -1974 -161 Weight 129.5 kg 126.9 kg General appearance: PRESENT: no acute distress, well-developed, well-nourished Neck exam: ABSENT: carotid bruit, JVD, lymphadenopathy, thyromegaly Respiratory exam: PRESENT: clear to auscultation sanjeev. ABSENT: rales, rhonchi, wheezes Cardiovascular exam: PRESENT: RRR. ABSENT: diastolic murmur, rubs, systolic murmur GI/Abdominal exam: PRESENT: normal bowel sounds, soft, other - Catheter right side of abdomen. ABSENT: distended, guarding, mass, organolmegaly, rebound, tenderness Extremities exam: PRESENT: full ROM. ABSENT: calf tenderness, clubbing, pedal edema Neurological exam: PRESENT: alert, awake, oriented to person, oriented to place , oriented to time, oriented to situation, CN II-XII grossly intact. ABSENT: motor sensory deficit Results Laboratory Results: 01/27/18 17:25 01/28/18 05:38 01/27/18 01/27/18 01/28/18 17:25 17:25 05:38 WBC 6.4 RBC 3.85 L Hgb 9.9 L Hct 30.1 L MCV 78 L MCH 25.7 L MCHC 32.9 RDW 18.8 H Plt Count 361 Seg Neutrophils % 73.6 Lymphocytes % 14.2 Monocytes % 10.0 Eosinophils % 1.2 Basophils % 1.0 Absolute Neutrophils 4.7 Absolute Lymphocytes 0.9 Absolute Monocytes 0.6 Absolute Eosinophils 0.1 Absolute Basophils 0.1 Sodium 130.1 L 131.1 L Potassium 4.7 4.4 Chloride 92 L 92 L Carbon Dioxide 33 H 31 H Anion Gap 5 8 BUN 17 18 Creatinine 1.16 1.14 Est GFR ( Amer) > 60 > 60 Est GFR (Non-Af Amer) > 60 > 60 Glucose 124 H 117 H Calcium 8.3 L 8.2 L Phosphorus 3.9 Magnesium 1.8 1.7 01/26/18 01/26/18 01/26/18 04:36 04:36 10:27 Creatine Kinase 158 112 CK-MB (CK-2) 1.92 Troponin I 0.013 01/26/18 01/26/18 01/26/18 10:27 16:30 16:30 Creatine Kinase 99 CK-MB (CK-2) 1.80 1.68 Troponin I 0.013 < 0.012 Impressions: Chest X-Ray 01/25/18 22:21 IMPRESSION: Opacified right lower hemithorax, likely due to a combination of elevated hemidiaphragm, chronic collapse/ consolidation right lower lobe and middle lobe, and right pleural fluid/ pleural thickening. Chest Ultrasound 01/25/18 23:13 IMPRESSION: Large right pleural effusion. Abdomen/Pelvis CT 01/26/18 00:58 IMPRESSION: 1. Large loculated air and fluid collection in the right anterior abdomen extending into the right lower quadrant may represent developing abscess formation. The patient's Pleurx peritoneal catheter extends into and through this collection. 2. Moderate to large sized right pleural effusion and a very small left pleural effusion with also other ascites and anasarca consistent with some volume overload and/or third spacing. 3. 3.6 cm infrarenal abdominal aortic aneurysm, recommend follow-up imaging every 12 months. Assessment & Plan - Diagnosis (1) Intraabdominal fluid collection Is this a current diagnosis for this admission?: Yes Plan: Loculated ascitic fluid collection seen by Pleurx catheter. Will consult IR in a.m. when they are available for drainage of fluid collection. (2) Acute on chronic combined systolic (congestive) and diastolic (congestive) heart failure Is this a current diagnosis for this admission?: Yes Plan: Continue Zaroxolyn 2.5 daily IV Lasix 40 mg every 12 and spironolactone. Monitor electrolytes on a daily basis.A.m. labs not done will order stat labs currently. Patient 3-1/2 L negative since admission. Continue diuresis continue to monitor electrolytes. May benefit from Zaroxolyn 2.5 mg Saturday on discharge. (3) Anasarca Is this a current diagnosis for this admission?: Yes Plan: Add Zaroxolyn 2.5 daily continue IV Lasix 40 mg every 12 hours and continue spironolactone consider increasing to 50 mg daily. -3.5 L fluid balance.Continue to monitor (4) Cardiomyopathy Qualifiers: Cardiomyopathy type: ischemic Qualified Code(s): I25.5 - Ischemic cardiomyopathy Is this a current diagnosis for this admission?: Yes Plan: EF by echocardiogram in May of this year was 35-40%.We will monitor response to diuretics. At this point dobutamine does not seem to be indicated. 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 (7) ALEYDA (obstructive sleep apnea) Is this a current diagnosis for this admission?: Yes Plan: CPAP ordered (8) Cardiac defibrillator in situ Is this a current diagnosis for this admission?: Yes Plan: No reported firings. (9) Liver failure Qualifiers: Liver failure chronicity: chronic Hepatic coma status: with hepatic coma Qualified Code(s): K72.11 - Chronic hepatic failure with coma Is this a current diagnosis for this admission?: Yes Plan: Patient has mild coagulopathy has documented hepatic failure no further workup planned - Time Time Spent with patient: 15-24 minutes
[2018-01-29] MEDS: HEPARIN SOD (PORCINE) 5,000 UNIT/ML 1 ML SYRINGE SUBCUT SCH ×3 (05:38→21:45)
[2018-01-29] MEDS: MIDODRINE HCL 5 MG TABLET PO SCH ×2 (05:38→20:16)
[2018-01-29 06:20] LABS: ANION GAP 8 (5-19); BLOOD UREA NITROGEN 18 mg/dL (7-20); CALCIUM 8.3 mg/dL (8.4-10.2); CARBON DIOXIDE 31 mmol/L (22-30); CHLORIDE 90 mmol/L (98-107); GLUCOSE 97 mg/dL (75-110); POTASSIUM 4.5 mmol/L (3.6-5.0); SODIUM 128.7 mmol/L (137-145)
[2018-01-29] MEDS ORDERED: LIDOCAINE 1% INJ-PF (10 MG/ML) 30 ML SDV ONE ×2 (09:54→17:01)
--- NOTE | 2018-01-29 11:37 | PDOC CONSULTATION ---
Consultation Consult Date: 01/29/18 Consult reason:: Dysfunctional peritoneal catheter History of Present Illness Admission Date/PCP: 01/26/18 04:11 History of Present Illness: KEN ZAYAS is a 57 year old male seen at the request of the hospitalist service. The patient has an indwelling peritoneal catheter, that he uses at home to drain ascites. It was placed in May, percutaneously. The patient reports that over the last several weeks the amount of drainage has become less and less. The fluid is dark in color and cloudy. The patient reports fatigue, malaise, shortness of breath, right lower chest pain, right upper quadrant abdominal pain. The pt's pain is mild, 4 out of 10. Nothing makes his pain better or worse. Nothing makes his shortness of breath better or worse. Past Medical History Cardiac Medical History: Reports: Congestive Heart Failure - Combined systolic and diastolic., Myocardial Infarction, Hyperlipidema, Hypertension, Peripheral Vascular Disease Denies: Pulmonary Embolism Pulmonary Medical History: Reports: Bronchitis, Sleep Apnea - CPAP, pressure 15. No home oxygen. Denies: Chronic Obstructive Pulmonary Disease (COPD) Neurological Medical History: Denies: Seizures Endocrine Medical History: Reports: Diabetes Mellitus Type 2, Hypothyroidism - States he might be hypothyroid, according to recent test, but not sure. Denies: Diabetes Mellitus Type 1, Hyperthyroidism GI Medical History: Reports: Cirrhosis Denies: Gastroesophageal Reflux Disease, Hepatitis Musculoskeltal Medical History: Denies: Arthritis Psychiatric Medical History: Denies: Depression Infectious Medical History: Denies: Clostridium Difficile, Methicillin-Resistant Staph Aureus Past Surgical History Past Surgical History: Reports: Appendectomy, Cardiac Catheterization, Internal Defibrillator, Pacemaker - AICD, Other - Peritoneal drainage catheter Social History Smoking Status: Current Every Day Smoker Cigarettes Packs Per Day: 1 Frequency of Alcohol Use: Rare Hx Recreational Drug Use: No Drugs: None Hx Prescription Drug Abuse: No - Advance Directive Resuscitation Status: Full Code Family History Family History: Hypertension Parental Family History Reviewed: Yes Children Family History Reviewed: Yes Sibling(s) Family History Reviewed.: Yes Medication/Allergy Home Medications: No Home Medications 01/26/18 Allergies/Adverse Reactions: glimepiride Allergy (Severe, Verified 05/15/17 11:41) Coma Review of Systems Constitutional: PRESENT: chills, fatigue, weakness Eyes: ABSENT: visual disturbances Ears: ABSENT: hearing changes Nose, Mouth, and Throat: ABSENT: sore throat Cardiovascular: PRESENT: chest pain, palpitations Respiratory: PRESENT: dyspnea Gastrointestinal: PRESENT: abdominal pain, bloating, vomiting Integumentary: ABSENT: pruritus, rash Neurological: ABSENT: abnormal speech, confusion Psychiatric: PRESENT: anxiety. ABSENT: depression Endocrine: ABSENT: cold intolerance, heat intolerance Hematologic/Lymphatic: ABSENT: easy bleeding, easy bruising Physical Exam Vital Signs: Temp Pulse Resp BP Pulse Ox 97.6 F 79 16 120/75 96 01/29/18 03:38 01/29/18 07:00 01/29/18 03:38 01/29/18 03:38 01/29/18 08:00 Intake & Output 01/28/18 01/29/18 01/30/18 06:59 06:59 06:59 Intake Total 990 1877 Output Total 2600 3100 Balance -1610 -1223 Weight 126.9 kg 126.4 kg General appearance: PRESENT: mild distress - Respiratory Head exam: PRESENT: atraumatic, normocephalic Eye exam: PRESENT: EOMI, PERRLA Mouth exam: PRESENT: moist, neck supple Neck exam: ABSENT: lymphadenopathy, meningismus, tenderness, thyromegaly, tracheal deviation Respiratory exam: PRESENT: decreased breath sounds - Right side, rhonchi, tachypnea. ABSENT: chest wall tenderness Pulses: PRESENT: normal radial pulses Vascular exam: PRESENT: pallor GI/Abdominal exam: PRESENT: distended, tenderness - Right sided Rectal exam: PRESENT: deferred Extremities exam: ABSENT: clubbing Musculoskeletal exam: ABSENT: deformity Neurological exam: PRESENT: alert, awake, oriented to person, oriented to place , oriented to time, oriented to situation Psychiatric exam: ABSENT: agitated, anxious, depressed Focused psych exam: ABSENT: delusional Skin exam: PRESENT: pallor. ABSENT: cyanosis, erythema Results Laboratory Results: 01/27/18 17:25 01/29/18 05:21 01/29/18 05:21 Sodium 128.7 L Potassium 4.5 Chloride 90 L Carbon Dioxide 31 H Anion Gap 8 BUN 18 Creatinine 1.16 Est GFR ( Amer) > 60 Est GFR (Non-Af Amer) > 60 Glucose 97 Calcium 8.3 L Magnesium 1.6 01/26/18 01/26/18 01/26/18 04:36 04:36 10:27 Creatine Kinase 158 112 CK-MB (CK-2) 1.92 Troponin I 0.013 01/26/18 01/26/18 01/26/18 10:27 16:30 16:30 Creatine Kinase 99 CK-MB (CK-2) 1.80 1.68 Troponin I 0.013 < 0.012 Impressions: Chest X-Ray 01/25/18 22:21 IMPRESSION: Opacified right lower hemithorax, likely due to a combination of elevated hemidiaphragm, chronic collapse/ consolidation right lower lobe and middle lobe, and right pleural fluid/ pleural thickening. Chest Ultrasound 01/25/18 23:13 IMPRESSION: Large right pleural effusion. Abdomen/Pelvis CT 01/26/18 00:58 IMPRESSION: 1. Large loculated air and fluid collection in the right anterior abdomen extending into the right lower quadrant may represent developing abscess formation. The patient's Pleurx peritoneal catheter extends into and through this collection. 2. Moderate to large sized right pleural effusion and a very small left pleural effusion with also other ascites and anasarca consistent with some volume overload and/or third spacing. 3. 3.6 cm infrarenal abdominal aortic aneurysm, recommend follow-up imaging every 12 months. Assessment & Plan - Diagnosis (1) Hydrothorax Is this a current diagnosis for this admission?: Yes (2) Peritoneal dialysis catheter infection Qualifiers: Encounter type: initial encounter Qualified Code(s): T85.71XA - Infection and inflammatory reaction due to peritoneal dialysis catheter, initial encounter Is this a current diagnosis for this admission?: Yes (3) Intra-abdominal abscess Is this a current diagnosis for this admission?: Yes - Plan Summary Plan Summary: This is a 57-year-old male with multiple issues. The patient has a large right sided hydrothorax, likely related to his CHF and liver disease. The patient has significant dyspnea on exam today. I have recommended thoracentesis to assist with his breathing difficulties. Patient has agreed to this. Risks/ benefits discussed, informed consent obtained, and all questions answered. He also has evidence of intra-abdominal abscess surrounding the patient's peritoneal drainage catheter. I plan to remove this catheter at the bedside today. I will introduce a large bore pigtail catheter percutaneously in order to drain the abscess. If this is not successful, the patient may require OR drainage. Start broad spectrum abx. This has been discussed with the patient at length. Risks/benefits discussed, informed consent obtained, and all questions answered.
[2018-01-29] MEDS: METOLAZONE 2.5 MG TABLET PO SCH (11:42)
[2018-01-29] MEDS: POTASSIUM CHLORIDE 10 MEQ CAPSULE.ER PO SCH ×2 (11:42→21:44)
[2018-01-29] MEDS: SPIRONOLACTONE 25 MG TABLET PO SCH (11:42)
[2018-01-29] MEDS: DOCUSATE SODIUM 100 MG CAPSULE PO SCH (11:43)
[2018-01-29] MEDS: NITROGLYCERIN 5 MG (0.2 MG/HR) PATCH.TD24 TD SCH (11:43)
[2018-01-29] MEDS: ASPIRIN 81 MG TABLET, ENT COATED PO SCH (11:43)
[2018-01-29] MEDS: FUROSEMIDE INJ/PF 40 MG/4 ML SDV IV SCH ×2 (11:43→21:45)
--- NOTE | 2018-01-29 18:28 | PDOC PROGRESS REPORT ---
Subjective Progress Note for:: 01/29/18 Subjective:: KEN ZAYAS is a 57 year old male with a past medical history of coronary artery disease, coronary artery stenting, ischemic cardiomyopathy, congestive heart failure with an ejection fraction of 30% and permanent pacemaker, severe pulmonary hypertension with an RVSP of 60, obstructive sleep apnea, end-stage liver disease with recurrent ascites and Pleurx drain. Presenting with increasing abdominal girth dysfunction of drain. In the emergency room is found to have massive ascites with a loculated peritoneal mass. Interventional radiology was consulted for intervention. 01/29/18: Ken has been responding reasonably well to medical therapy. He has had some weight loss and some reduction in his edema but it is substantially less compared to what he would probably gain from the interventional radiology approach to his intra-abdominal loculations. We have decided to continue medical therapy until such time as interventional radiology has returned to providing services here at [facility]. He is not having any particular pain but does occasionally feel anxious and short of breath. He is somewhat concerned that he is not improving more quickly. Reason For Visit: HEART FAILURE Physical Exam Vital Signs: Temp Pulse Resp BP Pulse Ox 97.6 F 93 16 120/75 96 01/29/18 03:38 01/29/18 14:00 01/29/18 03:38 01/29/18 03:38 01/29/18 08:00 Intake & Output 01/28/18 01/29/18 01/30/18 06:59 06:59 06:59 Intake Total 990 1877 Output Total 2600 3100 Balance -1610 -1223 Weight 126.9 kg 126.4 kg General appearance: PRESENT: cooperative, mild distress Head exam: PRESENT: atraumatic, normocephalic Eye exam: PRESENT: conjunctiva pink. ABSENT: conjunctival injection Ear exam: PRESENT: normal external ear exam. ABSENT: drainage Mouth exam: PRESENT: neck supple, tongue midline Neck exam: ABSENT: tenderness, thyromegaly Respiratory exam: PRESENT: rales - Mild by basilar rales are noted, symmetrical , unlabored. ABSENT: accessory muscle use, crackles, prolonged expiratory phas , retraction, rhonchi Cardiovascular exam: PRESENT: gallop - S4 gallop rhythm is noted, RRR, other - Heart sounds are overall somewhat distant. ABSENT: clicks, rubs, systolic murmur Pulses: PRESENT: normal carotid pulses, normal radial pulses Vascular exam: PRESENT: normal capillary refill. ABSENT: pallor GI/Abdominal exam: PRESENT: ascites, normal bowel sounds, soft Rectal exam: PRESENT: deferred Extremities exam: PRESENT: full ROM, +2 edema - Of the bilateral lower extremities. ABSENT: clubbing Musculoskeletal exam: PRESENT: full ROM, normal inspection Neurological exam: PRESENT: alert, awake, oriented to person, oriented to place , oriented to time, oriented to situation, CN II-XII grossly intact. ABSENT: motor sensory deficit Psychiatric exam: PRESENT: anxious, normal mood Skin exam: ABSENT: jaundice, rash, urticaria Results Laboratory Results: 01/27/18 17:25 01/29/18 05:21 01/29/18 05:21 Sodium 128.7 L Potassium 4.5 Chloride 90 L Carbon Dioxide 31 H Anion Gap 8 BUN 18 Creatinine 1.16 Est GFR ( Amer) > 60 Est GFR (Non-Af Amer) > 60 Glucose 97 Calcium 8.3 L Magnesium 1.6 01/26/18 01/26/18 01/26/18 04:36 04:36 10:27 Creatine Kinase 158 112 CK-MB (CK-2) 1.92 Troponin I 0.013 01/26/18 01/26/18 01/26/18 10:27 16:30 16:30 Creatine Kinase 99 CK-MB (CK-2) 1.80 1.68 Troponin I 0.013 < 0.012 Impressions: Chest X-Ray 01/25/18 22:21 IMPRESSION: Opacified right lower hemithorax, likely due to a combination of elevated hemidiaphragm, chronic collapse/ consolidation right lower lobe and middle lobe, and right pleural fluid/ pleural thickening. Chest Ultrasound 01/25/18 23:13 IMPRESSION: Large right pleural effusion. Abdomen/Pelvis CT 01/26/18 00:58 IMPRESSION: 1. Large loculated air and fluid collection in the right anterior abdomen extending into the right lower quadrant may represent developing abscess formation. The patient's Pleurx peritoneal catheter extends into and through this collection. 2. Moderate to large sized right pleural effusion and a very small left pleural effusion with also other ascites and anasarca consistent with some volume overload and/or third spacing. 3. 3.6 cm infrarenal abdominal aortic aneurysm, recommend follow-up imaging every 12 months. Assessment & Plan - Diagnosis (1) Intraabdominal fluid collection Is this a current diagnosis for this admission?: Yes Plan: We will continue medical therapy until such time as interventional radiology is available to reduce the loculations present in the abdominal cavity and thereby allowing complete drainage of the peritoneal dialysis fluid. (2) Acute on chronic combined systolic (congestive) and diastolic (congestive) heart failure Is this a current diagnosis for this admission?: Yes Plan: Patient's medications will be continued as at present as his symptoms seem to be reasonably well-controlled at this time. (3) Anasarca Is this a current diagnosis for this admission?: Yes Plan: Patient's overall problem anasarca is related to his chronic heart failure and will be addressed by continuing his current medical regimen. - Time Time Spent with patient: 35 or more minutes Medications reviewed and adjusted accordingly: Yes Anticipated discharge: Home
[2018-01-29] MEDS ORDERED: ONDANSETRON HCL INJ/PF 4 MG/2 ML SDV IV PRN (19:36)
--- NOTE | 2018-01-29 20:39 | RADIOLOGY REPORT (SQ) ---
EXAM DESCRIPTION: CHEST SINGLE VIEW COMPLETED DATE/TIME: 01/29/2018 8:01 pm REASON FOR STUDY: s/p thoracentesis COMPARISON: 01/25/2018 EXAM PARAMETERS: NUMBER OF VIEWS: One view. TECHNIQUE: Single frontal radiographic view of the chest acquired. RADIATION DOSE: NA LIMITATIONS: None. FINDINGS: LUNGS AND PLEURA: No pneumothorax. Significantly diminished right pleural effusion, minim al residual. 6 cm opacity overlying the right mid lung. Left lung appears clear. MEDIASTINUM AND HILAR STRUCTURES: Stable. HEART AND VASCULAR STRUCTURES: Stable cardiomegaly. BONES: No acute findings. HARDWARE: Cardiac defibrillator. OTHER: No other significant finding. IMPRESSION: No pneumothorax. Significantly diminished right pleural effusion, minimal residual. 6 cm opacity overlying the right mid lung. TECHNICAL DOCUMENTATION: JOB ID: [id number] [id number] 2010 [employer]- All Rights Reserved Reading location - IP/workstation name: [email or web address]
--- NOTE | 2018-01-29 21:59 | Operative Report ---
Nonrecallable Operative Report DATE OF SURGERY: 01/29/18 PREOPERATIVE DIAGNOSIS: 1. Shortness of breath. 2. Large volume right sided hydrothorax POSTOPERATIVE DIAGNOSIS: Same as above OPERATION: Ultrasound-guided right-sided thoracentesis SURGEON: KEERTHI MCKEON ANESTHESIA: Local TISSUE REMOVED OR ALTERED: 3.2 L of pleural fluid COMPLICATIONS: None apparent ESTIMATED BLOOD LOSS: Minimal PROCEDURE: Procedure in detail: After informed consent was obtained from the patient, he was sat in the upright position in the hospital room. The area of the right posterior chest was prepped and draped in a normal sterile fashion. The ultrasound was used to identify the large pleural fluid collection. The skin of the back was infiltrated with 1% lidocaine. Under direct ultrasonic guidance a thoracentesis catheter was percutaneously inserted into the thoracic cavity, over top of a rib. This was done under direct ultrasonic guidance. Clear, yellow fluid was returned into the syringe. The catheter was slid over the needle and into the thoracic cavity. 3.2 L of pleural fluid was removed from the right chest. When no more fluid could be returned, the catheter was removed under suction. A dressing was placed, and the procedure was concluded. All sponge, instrument, and needle counts were correct. Condition: Fair.
--- NOTE | 2018-01-29 22:09 | Operative Report ---
Nonrecallable Operative Report DATE OF SURGERY: 01/29/18 PREOPERATIVE DIAGNOSIS: Large, complex right sided intra-abdominal fluid collection (suspicious for abscess) POSTOPERATIVE DIAGNOSIS: Same as above OPERATION: Ultrasound-guided percutaneous intraperitoneal drainage catheter placement. SURGEON: KEERTHI MCKEON ANESTHESIA: Local TISSUE REMOVED OR ALTERED: 300cc of turbid abdominal fluid COMPLICATIONS: None apparent ESTIMATED BLOOD LOSS: Minimal PROCEDURE: Drains/implants: 14 [place] drain. Procedure in detail: After informed consent was obtained, the patient was laid in the supine position in the hospital room. The area of the abdomen was prepped and draped in a normal sterile fashion. An ultrasound was used to identify the large right-sided intra-abdominal fluid collection. Once this was identified, the skin of the abdominal wall was infiltrated with 1% lidocaine. A small incision was created, and a 14 [place] drain was inserted percutaneously into the fluid collection. This was done under direct ultrasonic guidance. Dark yellow, turbid fluid was returned in the syringe. The drain was inserted over the needle. Approximately 300 cc of dark yellow, turbid fluid was returned from the intra-abdominal fluid collection. A sample of this fluid was sent for culture. The tube was sutured to the abdominal skin using 2-0 nylon suture. Approximately 60 cc of sterile saline was instilled into the intra-abdominal cavity and aspirated. A suction bulb was attached to the catheter. A dressing was fashioned, and the procedure was concluded. All sponge, instrument, and needle counts were correct. Condition: Fair.
[2018-01-30] MEDS ORDERED: DOXYCYCLINE HYCLATE 100 MG TABLET PO ONE (00:06)
[2018-01-30] MEDS: DOXYCYCLINE HYCLATE 100 MG TABLET PO SCH ×3 (00:20→21:41)
[2018-01-30] MEDS: HEPARIN SOD (PORCINE) 5,000 UNIT/ML 1 ML SYRINGE SUBCUT SCH ×3 (05:21→21:41)
[2018-01-30] MEDS: MIDODRINE HCL 5 MG TABLET PO SCH ×2 (05:21→17:29)
[2018-01-30 06:33] LABS: ANION GAP 6 (5-19); BLOOD UREA NITROGEN 17 mg/dL (7-20); CALCIUM 8.4 mg/dL (8.4-10.2); CARBON DIOXIDE 34 mmol/L (22-30); CHLORIDE 89 mmol/L (98-107); GLUCOSE 90 mg/dL (75-110); POTASSIUM 4.8 mmol/L (3.6-5.0); SODIUM 129.3 mmol/L (137-145)
--- NOTE | 2018-01-30 08:50 | PDOC PROGRESS REPORT ---
Subjective Progress Note for:: 01/30/18 Subjective:: Patient states that he feels better and is breathing easier and has less abdominal pain. Reason For Visit: HEART FAILURE Physical Exam Vital Signs: Temp Pulse Resp BP Pulse Ox 97.2 F 73 18 114/76 97 01/30/18 03:20 01/30/18 07:00 01/30/18 03:20 01/30/18 03:20 01/30/18 03:20 Intake & Output 01/29/18 01/30/18 01/31/18 06:59 06:59 06:59 Intake Total 1877 1056 Output Total 3100 4295 Balance -1223 -5453 Weight 126.4 kg 121.2 kg General appearance: PRESENT: no acute distress, cooperative Respiratory exam: PRESENT: clear to auscultation sanjeev Cardiovascular exam: PRESENT: RRR GI/Abdominal exam: PRESENT: other - Soft with subtle erythema along the right abdomen. Diffuse induration. Minimal tenderness however. Drain tube in place draining out clear serosanguineous fluid. Results Laboratory Results: 01/27/18 17:25 01/30/18 05:45 01/30/18 05:45 Sodium 129.3 L Potassium 4.8 Chloride 89 L Carbon Dioxide 34 H Anion Gap 6 BUN 17 Creatinine 1.18 Est GFR ( Amer) > 60 Est GFR (Non-Af Amer) > 60 Glucose 90 Calcium 8.4 01/26/18 01/26/18 01/26/18 04:36 04:36 10:27 Creatine Kinase 158 112 CK-MB (CK-2) 1.92 Troponin I 0.013 01/26/18 01/26/18 01/26/18 10:27 16:30 16:30 Creatine Kinase 99 CK-MB (CK-2) 1.80 1.68 Troponin I 0.013 < 0.012 Impressions: Chest Ultrasound 01/25/18 23:13 IMPRESSION: Large right pleural effusion. Abdomen/Pelvis CT 01/26/18 00:58 IMPRESSION: 1. Large loculated air and fluid collection in the right anterior abdomen extending into the right lower quadrant may represent developing abscess formation. The patient's Pleurx peritoneal catheter extends into and through this collection. 2. Moderate to large sized right pleural effusion and a very small left pleural effusion with also other ascites and anasarca consistent with some volume overload and/or third spacing. 3. 3.6 cm infrarenal abdominal aortic aneurysm, recommend follow-up imaging every 12 months. Chest X-Ray 01/29/18 00:00 IMPRESSION: No pneumothorax. Significantly diminished right pleural effusion, minimal residual. 6 cm opacity overlying the right mid lung. Assessment & Plan - Diagnosis (1) Peritoneal dialysis catheter infection Qualifiers: Encounter type: initial encounter Qualified Code(s): T85.71XA - Infection and inflammatory reaction due to peritoneal dialysis catheter, initial encounter Is this a current diagnosis for this admission?: Yes Plan: Possible peritoneal fluid infection status post drainage yesterday. Will await culture results. The gross output currently appears serosanguineous however. Patient has responded well with his thoracentesis and peritoneal fluid drainage with easier breathing and less abdominal pain.
[2018-01-30] MEDS: DOCUSATE SODIUM 100 MG CAPSULE PO SCH (09:15)
[2018-01-30] MEDS: POTASSIUM CHLORIDE 10 MEQ CAPSULE.ER PO SCH ×2 (09:22→21:41)
[2018-01-30] MEDS: ASPIRIN 81 MG TABLET, ENT COATED PO SCH (09:22)
[2018-01-30] MEDS: METOLAZONE 2.5 MG TABLET PO SCH (09:22)
[2018-01-30] MEDS: SPIRONOLACTONE 25 MG TABLET PO SCH (09:22)
[2018-01-30] MEDS: FUROSEMIDE INJ/PF 40 MG/4 ML SDV IV SCH ×2 (09:22→21:41)
[2018-01-30] MEDS: NITROGLYCERIN 5 MG (0.2 MG/HR) PATCH.TD24 TD SCH (09:23)
--- NOTE | 2018-01-30 17:48 | PDOC PROGRESS REPORT ---
Subjective Progress Note for:: 01/30/18 Subjective:: KEN LANE is a 57 year old male with a past medical history of coronary artery disease, coronary artery stenting, ischemic cardiomyopathy, congestive heart failure with an ejection fraction of 30% and permanent pacemaker, severe pulmonary hypertension with an RVSP of 60, obstructive sleep apnea, end-stage liver disease with recurrent ascites and Pleurx drain. Presenting with increasing abdominal girth dysfunction of drain. In the emergency room is found to have massive ascites with a loculated peritoneal mass. Interventional radiology was consulted for intervention. 01/29/18: Ken has been responding reasonably well to medical therapy. He has had some weight loss and some reduction in his edema but it is substantially less compared to what he would probably gain from the interventional radiology approach to his intra-abdominal loculations. We have decided to continue medical therapy until such time as interventional radiology has returned to providing services here at [facility]. He is not having any particular pain but does occasionally feel anxious and short of breath. He is somewhat concerned that he is not improving more quickly. On 01/30/18: Mr. Lane states that he is feeling considerably better today he can breathe much better and he is a lot more comfortable since he had his right pleural effusion drained and an intra-abdominal loculation drained. Safely perform thoracentesis and a peritoneal centesis last evening removing 3.2 L from Ken' right chest and 300 mL from his abdomen. Cultures were sent from those specimens. He will be continued on antibiotic therapy and observe closely over the next several days until such time as interventional radiology is available to replace his peritoneal dialysis catheter and resolve his intra-abdominal loculations. He is agreeable to this plan. Reason For Visit: HEART FAILURE Physical Exam Vital Signs: Temp Pulse Resp BP Pulse Ox 98.0 F 69 16 119/76 99 01/30/18 15:55 01/30/18 15:55 01/30/18 15:55 01/30/18 15:55 01/30/18 15:55 Intake & Output 01/29/18 01/30/18 01/31/18 06:59 06:59 06:59 Intake Total 1877 1056 Output Total 3100 4295 Balance -1223 -6409 Weight 126.4 kg 121.2 kg General appearance: PRESENT: no acute distress, cooperative Head exam: PRESENT: atraumatic, normocephalic Eye exam: PRESENT: conjunctiva pink. ABSENT: conjunctival injection Ear exam: PRESENT: normal external ear exam. ABSENT: bleeding, drainage Mouth exam: PRESENT: moist, tongue midline Neck exam: ABSENT: thyromegaly, tracheal deviation Respiratory exam: PRESENT: clear to auscultation sanjeev, symmetrical, unlabored Cardiovascular exam: PRESENT: RRR. ABSENT: clicks, diastolic murmur, gallop, rubs, systolic murmur Pulses: PRESENT: normal radial pulses Vascular exam: PRESENT: normal capillary refill. ABSENT: pallor GI/Abdominal exam: PRESENT: normal bowel sounds, soft Rectal exam: PRESENT: deferred Extremities exam: PRESENT: +1 edema - Bilateral lower extremities below the knees, more prominent on the right than the left.. ABSENT: joint swelling Musculoskeletal exam: ABSENT: deformity, dislocation Neurological exam: PRESENT: alert, oriented to person, oriented to place, oriented to time, oriented to situation, CN II-XII grossly intact. ABSENT: motor sensory deficit Psychiatric exam: PRESENT: appropriate affect, normal mood Skin exam: ABSENT: jaundice, rash, urticaria Results Laboratory Results: 01/27/18 17:25 01/30/18 05:45 01/30/18 05:45 Sodium 129.3 L Potassium 4.8 Chloride 89 L Carbon Dioxide 34 H Anion Gap 6 BUN 17 Creatinine 1.18 Est GFR ( Amer) > 60 Est GFR (Non-Af Amer) > 60 Glucose 90 Calcium 8.4 01/26/18 01/26/18 01/26/18 04:36 04:36 10:27 Creatine Kinase 158 112 CK-MB (CK-2) 1.92 Troponin I 0.013 01/26/18 01/26/18 01/26/18 10:27 16:30 16:30 Creatine Kinase 99 CK-MB (CK-2) 1.80 1.68 Troponin I 0.013 < 0.012 Impressions: Chest Ultrasound 01/25/18 23:13 IMPRESSION: Large right pleural effusion. Abdomen/Pelvis CT 01/26/18 00:58 IMPRESSION: 1. Large loculated air and fluid collection in the right anterior abdomen extending into the right lower quadrant may represent developing abscess formation. The patient's Pleurx peritoneal catheter extends into and through this collection. 2. Moderate to large sized right pleural effusion and a very small left pleural effusion with also other ascites and anasarca consistent with some volume overload and/or third spacing. 3. 3.6 cm infrarenal abdominal aortic aneurysm, recommend follow-up imaging every 12 months. Chest X-Ray 01/29/18 00:00 IMPRESSION: No pneumothorax. Significantly diminished right pleural effusion, minimal residual. 6 cm opacity overlying the right mid lung. Assessment & Plan - Diagnosis (1) Intraabdominal fluid collection Is this a current diagnosis for this admission?: Yes Plan: We will continue medical therapy until such time as interventional radiology is available to reduce the loculations present in the abdominal cavity and thereby allowing complete drainage of the peritoneal dialysis fluid. (2) Acute on chronic combined systolic (congestive) and diastolic (congestive) heart failure Is this a current diagnosis for this admission?: Yes (3) Anasarca Is this a current diagnosis for this admission?: Yes Plan: Patient's overall problem anasarca is related to his chronic heart failure and will be addressed by continuing his current medical regimen. (4) Dyspnea Qualifiers: Dyspnea type: unspecified Qualified Code(s): R06.00 - Dyspnea, unspecified Is this a current diagnosis for this admission?: Yes Plan: Ken presented with worsening dyspnea which has significantly improved since his right thoracentesis on 01/29/2018. He will be observed closely for a recurrence of his right pleural effusion. (5) Pleural effusion Is this a current diagnosis for this admission?: Yes Plan: Mr. Lane had a right pleural effusion at the time of admission. This was addressed by Dr. Wren on 01/29/2018 with a thoracentesis performed on the right chest evacuating 3.2 L of fluid. Observation for recurrence of the pleural effusion will be maintained. - Time Time Spent with patient: 25-34 minutes Medications reviewed and adjusted accordingly: Yes
[2018-01-31] MEDS: HEPARIN SOD (PORCINE) 5,000 UNIT/ML 1 ML SYRINGE SUBCUT SCH ×3 (05:51→21:40)
[2018-01-31] MEDS: MIDODRINE HCL 5 MG TABLET PO SCH ×2 (05:52→17:53)
[2018-01-31] MEDS: METOLAZONE 2.5 MG TABLET PO SCH (08:38)
[2018-01-31] MEDS: ASPIRIN 81 MG TABLET, ENT COATED PO SCH (10:24)
[2018-01-31] MEDS: SPIRONOLACTONE 25 MG TABLET PO SCH (10:24)
[2018-01-31] MEDS: DOXYCYCLINE HYCLATE 100 MG TABLET PO SCH ×2 (10:24→21:40)
[2018-01-31] MEDS: POTASSIUM CHLORIDE 10 MEQ CAPSULE.ER PO SCH ×2 (10:24→21:40)
[2018-01-31] MEDS: NITROGLYCERIN 5 MG (0.2 MG/HR) PATCH.TD24 TD SCH (10:24)
[2018-01-31] MEDS: FUROSEMIDE INJ/PF 40 MG/4 ML SDV IV SCH ×2 (10:25→21:40)
[2018-01-31] MEDS: DOCUSATE SODIUM 100 MG CAPSULE PO SCH (10:25)
--- NOTE | 2018-01-31 14:03 | PDOC PROGRESS REPORT ---
Subjective Progress Note for:: 01/31/18 Subjective:: KEN LANE is a 57 year old male with a past medical history of coronary artery disease, coronary artery stenting, ischemic cardiomyopathy, congestive heart failure with an ejection fraction of 30% and permanent pacemaker, severe pulmonary hypertension with an RVSP of 60, obstructive sleep apnea, end-stage liver disease with recurrent ascites and Pleurx drain. Presenting with increasing abdominal girth dysfunction of drain. In the emergency room is found to have massive ascites with a loculated peritoneal mass. Interventional radiology was consulted for intervention. 01/29/18: Ken has been responding reasonably well to medical therapy. He has had some weight loss and some reduction in his edema but it is substantially less compared to what he would probably gain from the interventional radiology approach to his intra-abdominal loculations. We have decided to continue medical therapy until such time as interventional radiology has returned to providing services here at [facility]. He is not having any particular pain but does occasionally feel anxious and short of breath. He is somewhat concerned that he is not improving more quickly. 01/30/18: Mr. Lane states that he is feeling considerably better today he can breathe much better and he is a lot more comfortable since he had his right pleural effusion drained and an intra-abdominal loculation drained. Safely perform thoracentesis and a peritoneal centesis last evening removing 3.2 L from Ken' right chest and 300 mL from his abdomen. Cultures were sent from those specimens. He will be continued on antibiotic therapy and observe closely over the next several days until such time as interventional radiology is available to replace his peritoneal dialysis catheter and resolve his intra-abdominal loculations. He is agreeable to this plan. 01/31/18: Ken states that he feels about the same although he feels like he may have some slight congestion starting in his lung again. His breathing remains very relaxed and he still feels as though he can take a good deep breath. He has been more comfortable since thoracentesis and paracentesis. His appetite has been fairly good. He denies nausea, vomiting and diarrhea. Reason For Visit: HEART FAILURE Physical Exam Vital Signs: Temp Pulse Resp BP Pulse Ox 97.9 F 65 18 120/65 98 01/31/18 07:40 01/31/18 07:40 01/31/18 07:40 01/31/18 07:40 01/31/18 07:40 Intake & Output 01/30/18 01/31/18 02/01/18 06:59 06:59 06:59 Intake Total 1056 237 Output Total 4295 3230 60 Balance -5739 -2993 -60 Weight 121.2 kg 118.2 kg General appearance: PRESENT: no acute distress, cooperative Head exam: PRESENT: atraumatic, normocephalic Eye exam: ABSENT: periorbital swelling, scleral icterus Ear exam: PRESENT: normal external ear exam. ABSENT: drainage Mouth exam: PRESENT: neck supple, tongue midline Neck exam: ABSENT: thyromegaly, tracheal deviation Respiratory exam: PRESENT: decreased breath sounds - At the right base, symmetrical, unlabored. ABSENT: rales, rhonchi Cardiovascular exam: PRESENT: RRR. ABSENT: bradycardia, clicks, diastolic murmur, gallop, rubs, systolic murmur, tachycardia Vascular exam: PRESENT: normal capillary refill. ABSENT: pallor GI/Abdominal exam: PRESENT: normal bowel sounds, soft Rectal exam: PRESENT: deferred Extremities exam: PRESENT: full ROM. ABSENT: joint swelling, +1 edema - Right lower extremity with trace of edema in the left lower extremity Musculoskeletal exam: ABSENT: deformity, dislocation Neurological exam: PRESENT: alert, oriented to person, oriented to place, oriented to time, oriented to situation, CN II-XII grossly intact. ABSENT: motor sensory deficit Psychiatric exam: PRESENT: appropriate affect, normal mood Skin exam: ABSENT: jaundice, rash, urticaria Results Laboratory Results: 01/27/18 17:25 01/30/18 05:45 01/26/18 01/26/18 01/26/18 04:36 04:36 10:27 Creatine Kinase 158 112 CK-MB (CK-2) 1.92 Troponin I 0.013 01/26/18 01/26/18 01/26/18 10:27 16:30 16:30 Creatine Kinase 99 CK-MB (CK-2) 1.80 1.68 Troponin I 0.013 < 0.012 Impressions: Chest Ultrasound 01/25/18 23:13 IMPRESSION: Large right pleural effusion. Abdomen/Pelvis CT 01/26/18 00:58 IMPRESSION: 1. Large loculated air and fluid collection in the right anterior abdomen extending into the right lower quadrant may represent developing abscess formation. The patient's Pleurx peritoneal catheter extends into and through this collection. 2. Moderate to large sized right pleural effusion and a very small left pleural effusion with also other ascites and anasarca consistent with some volume overload and/or third spacing. 3. 3.6 cm infrarenal abdominal aortic aneurysm, recommend follow-up imaging every 12 months. Chest X-Ray 01/29/18 00:00 IMPRESSION: No pneumothorax. Significantly diminished right pleural effusion, minimal residual. 6 cm opacity overlying the right mid lung. Assessment & Plan - Diagnosis (1) Intraabdominal fluid collection Is this a current diagnosis for this admission?: Yes Plan: We will continue medical therapy until such time as interventional radiology is available to reduce the loculations present in the abdominal cavity and thereby allowing complete drainage of the peritoneal dialysis fluid. He responded well to paracentesis performed by surgery with reduction in his overall symptoms. The paracentesis fluid was sent for culture and thus far shows no growth. (2) Acute on chronic combined systolic (congestive) and diastolic (congestive) heart failure Is this a current diagnosis for this admission?: Yes (3) Anasarca Is this a current diagnosis for this admission?: Yes Plan: Patient's overall problem anasarca is related to his chronic heart failure and will be addressed by continuing his current medical regimen. He does appear to have some response to his current regimen as his edema is very gradually reducing in severity. (4) Dyspnea Qualifiers: Dyspnea type: unspecified Qualified Code(s): R06.00 - Dyspnea, unspecified Is this a current diagnosis for this admission?: Yes Plan: Ken presented with worsening dyspnea which has significantly improved since his right thoracentesis on 01/29/2018. He will be observed closely for a recurrence of his right pleural effusion. (5) Pleural effusion Is this a current diagnosis for this admission?: Yes Plan: Mr. Lane had a right pleural effusion at the time of admission. This was addressed by Dr. Wren on 01/29/2018 with a thoracentesis performed on the right chest evacuating 3.2 L of fluid. Observation for recurrence of the pleural effusion will be maintained. - Time Time Spent with patient: 25-34 minutes
--- NOTE | 2018-01-31 17:46 | PDOC PROGRESS REPORT ---
Subjective Progress Note for:: 01/31/18 Reason For Visit: HEART FAILURE; intraabdominal fluid collection Physical Exam Vital Signs: Temp Pulse Resp BP Pulse Ox 97.5 F 69 20 117/75 97 01/31/18 12:04 01/31/18 14:00 01/31/18 12:04 01/31/18 12:04 01/31/18 12:04 Intake & Output 01/30/18 01/31/18 02/01/18 06:59 06:59 06:59 Intake Total 1056 237 Output Total 4295 3230 60 Balance -3239 -2993 -60 Weight 121.2 kg 118.2 kg General appearance: PRESENT: no acute distress GI/Abdominal exam: PRESENT: distended, soft - presence of two catheters, one capped, the second connected to a HARI bulb with clear yellow fluid Results Laboratory Results: 01/27/18 17:25 01/30/18 05:45 01/26/18 01/26/18 01/26/18 04:36 04:36 10:27 Creatine Kinase 158 112 CK-MB (CK-2) 1.92 Troponin I 0.013 01/26/18 01/26/18 01/26/18 10:27 16:30 16:30 Creatine Kinase 99 CK-MB (CK-2) 1.80 1.68 Troponin I 0.013 < 0.012 Impressions: Chest Ultrasound 01/25/18 23:13 IMPRESSION: Large right pleural effusion. Abdomen/Pelvis CT 01/26/18 00:58 IMPRESSION: 1. Large loculated air and fluid collection in the right anterior abdomen extending into the right lower quadrant may represent developing abscess formation. The patient's Pleurx peritoneal catheter extends into and through this collection. 2. Moderate to large sized right pleural effusion and a very small left pleural effusion with also other ascites and anasarca consistent with some volume overload and/or third spacing. 3. 3.6 cm infrarenal abdominal aortic aneurysm, recommend follow-up imaging every 12 months. Chest X-Ray 01/29/18 00:00 IMPRESSION: No pneumothorax. Significantly diminished right pleural effusion, minimal residual. 6 cm opacity overlying the right mid lung. Assessment & Plan - Diagnosis (1) Hydrothorax Is this a current diagnosis for this admission?: Yes (2) Intraabdominal fluid collection Is this a current diagnosis for this admission?: Yes - Plan Summary Plan Summary: A/ POD #2 after thoracenthesis and drainage of right lateral intraabdominal fluid collection with drain placement under ultrasound guidance Much decreased output from intraabdominal fluid collection drain: occlusion vs. complete drainage of fluid collection (30 mL during past 24 hrs) Cx's of intraabdominal fluid collection are negative on day #2 P/ Abdominal Ultrasound of right lateral fluid collection tomorrow If the fluid collection has been completely drained and cx are negative, I will remove the recently placed intraabdominal drain (01/29/18)
--- NOTE | 2018-01-31 23:04 | RADIOLOGY REPORT (SQ) ---
EXAM DESCRIPTION: US ABDOMEN LIMITED COMPLETED DATE/TME: 01/31/2018 00:00 CLINICAL HISTORY: 57 years, Male, size of R intraperitoneal fluid collection Compared to prior CT dated 01/26/2018. Findings: There is is a complex heterogeneous fluid collection in the right upper quadrant as well as the left upper quadrant. These correlate with CT findings. IMPRESSION: Complex heterogeneous fluid collections in the upper abdomen, particularly in the right upper quadrant, correlating with prior CT.
[2018-02-01] MEDS: HEPARIN SOD (PORCINE) 5,000 UNIT/ML 1 ML SYRINGE SUBCUT SCH ×3 (05:44→21:26)
[2018-02-01] MEDS: MIDODRINE HCL 5 MG TABLET PO SCH ×2 (05:44→19:48)
[2018-02-01] MEDS: ASPIRIN 81 MG TABLET, ENT COATED PO SCH (10:57)
[2018-02-01] MEDS: FUROSEMIDE INJ/PF 40 MG/4 ML SDV IV SCH (10:57)
[2018-02-01] MEDS: SPIRONOLACTONE 25 MG TABLET PO SCH (10:57)
[2018-02-01] MEDS: METOLAZONE 2.5 MG TABLET PO SCH (10:57)
[2018-02-01] MEDS: NITROGLYCERIN 5 MG (0.2 MG/HR) PATCH.TD24 TD SCH (10:58)
[2018-02-01] MEDS: DOXYCYCLINE HYCLATE 100 MG TABLET PO SCH ×2 (10:58→21:25)
[2018-02-01] MEDS: DOCUSATE SODIUM 100 MG CAPSULE PO SCH (10:59)
[2018-02-01 11:02] LABS: ANION GAP 7 (5-19); BLOOD UREA NITROGEN 21 mg/dL (7-20); CALCIUM 8.7 mg/dL (8.4-10.2); CARBON DIOXIDE 37 mmol/L (22-30); CHLORIDE 85 mmol/L (98-107); GLUCOSE 119 mg/dL (75-110); SODIUM 129.1 mmol/L (137-145)
[2018-02-01] MEDS: POTASSIUM CHLORIDE 10 MEQ CAPSULE.ER PO SCH (11:13)
--- NOTE | 2018-02-01 12:03 | PDOC PROGRESS REPORT ---
Subjective Progress Note for:: 02/01/18 Subjective:: no c/o Reason For Visit: HEART FAILURE Physical Exam Vital Signs: Temp Pulse Resp BP Pulse Ox 97.9 F 63 18 109/67 97 02/01/18 07:49 02/01/18 07:49 02/01/18 07:49 02/01/18 07:49 02/01/18 07:49 Intake & Output 01/31/18 02/01/18 02/02/18 06:59 06:59 06:59 Intake Total 237 1285 Output Total 3230 3435 Balance -2993 -2150 Weight 118.2 kg 110.4 kg General appearance: PRESENT: no acute distress GI/Abdominal exam: PRESENT: firm, other - right HARI and right tunnelled catheter in place; skin slightly discolored Skin exam: PRESENT: other - Right side abdominal skin slightly discolored, not tender Results Laboratory Results: 01/27/18 17:25 02/01/18 10:15 02/01/18 10:15 Sodium 129.1 L Potassium 5.0 Chloride 85 L Carbon Dioxide 37 H Anion Gap 7 BUN 21 H Creatinine 1.62 H Est GFR ( Amer) 54 L Est GFR (Non-Af Amer) 44 L Glucose 119 H Calcium 8.7 01/26/18 01/26/18 01/26/18 04:36 04:36 10:27 Creatine Kinase 158 112 CK-MB (CK-2) 1.92 Troponin I 0.013 01/26/18 01/26/18 01/26/18 10:27 16:30 16:30 Creatine Kinase 99 CK-MB (CK-2) 1.80 1.68 Troponin I 0.013 < 0.012 Impressions: Chest Ultrasound 01/25/18 23:13 IMPRESSION: Large right pleural effusion. Abdomen/Pelvis CT 01/26/18 00:58 IMPRESSION: 1. Large loculated air and fluid collection in the right anterior abdomen extending into the right lower quadrant may represent developing abscess formation. The patient's Pleurx peritoneal catheter extends into and through this collection. 2. Moderate to large sized right pleural effusion and a very small left pleural effusion with also other ascites and anasarca consistent with some volume overload and/or third spacing. 3. 3.6 cm infrarenal abdominal aortic aneurysm, recommend follow-up imaging every 12 months. Chest X-Ray 01/29/18 00:00 IMPRESSION: No pneumothorax. Significantly diminished right pleural effusion, minimal residual. 6 cm opacity overlying the right mid lung. Abdomen Ultrasound 01/31/18 00:00 IMPRESSION: Complex heterogeneous fluid collections in the upper abdomen, particularly in the right upper quadrant, correlating with prior CT. Assessment & Plan - Diagnosis (1) Hydrothorax Is this a current diagnosis for this admission?: Yes (2) Intraabdominal fluid collection Is this a current diagnosis for this admission?: Yes - Plan Summary Plan Summary: A/ S/P HARI drain placement into right side intraabdominal fluid collection HARI drainage increased during past 24 hrs, most likely due to a corrected kinking of the tubing Culture form the fluid collection are negative so far US of the abdomen still shows a persistent right side complex fluid collection P/ As output from the HARI has resiumed, plan to continue HARI drainage of the fluid collection Waiting for final fluid cx HARI tpo beremoved once output is < 30 Ml/day
--- NOTE | 2018-02-01 12:15 | PDOC PROGRESS REPORT ---
Subjective Progress Note for:: 02/01/18 Subjective:: KEN LANE is a 57 year old male with a past medical history of coronary artery disease, coronary artery stenting, ischemic cardiomyopathy, congestive heart failure with an ejection fraction of 30% and permanent pacemaker, severe pulmonary hypertension with an RVSP of 60, obstructive sleep apnea, end-stage liver disease with recurrent ascites and Pleurx drain. Presenting with increasing abdominal girth dysfunction of drain. In the emergency room is found to have massive ascites with a loculated peritoneal mass. Interventional radiology was consulted for intervention. 01/29/18: Ken has been responding reasonably well to medical therapy. He has had some weight loss and some reduction in his edema but it is substantially less compared to what he would probably gain from the interventional radiology approach to his intra-abdominal loculations. We have decided to continue medical therapy until such time as interventional radiology has returned to providing services here at [facility]. He is not having any particular pain but does occasionally feel anxious and short of breath. He is somewhat concerned that he is not improving more quickly. 01/30/18: Mr. Lane states that he is feeling considerably better today he can breathe much better and he is a lot more comfortable since he had his right pleural effusion drained and an intra-abdominal loculation drained. Safely perform thoracentesis and a peritoneal centesis last evening removing 3.2 L from Ken' right chest and 300 mL from his abdomen. Cultures were sent from those specimens. He will be continued on antibiotic therapy and observe closely over the next several days until such time as interventional radiology is available to replace his peritoneal dialysis catheter and resolve his intra-abdominal loculations. He is agreeable to this plan. 01/31/18: Ken states that he feels about the same although he feels like he may have some slight congestion starting in his lung again. His breathing remains very relaxed and he still feels as though he can take a good deep breath. He has been more comfortable since thoracentesis and paracentesis. His appetite has been fairly good. He denies nausea, vomiting and diarrhea. 01/31/18: Today Ken states that he feels like he would like to just go home and stop taking medications understanding that he would . He says that he would like to find some way to reach the same and without having to go through the discomfort/pain of dying with congestive heart failure. He is asked if I would make a referral to someone who would help him achieve that end (such as hospice) . I have discussed this at length with him and he appears to be making a rational decision and appears to me to be of sound mind and under no duress to make this type of choice. He will agreed to being seen by a psychiatrist or counselor to evaluate his rationality for making such a decision as well as evaluate his mental and emotional status such that other options for treatment of depression or dysthymia might be made available if appropriate. His edema continues to improve and his respiratory status remains reasonably comfortable. Surgery is reevaluating his intra-abdominal fluid collections and may wish to do another abdominal tap. Surgery is also continuing to evaluate his right pleural effusion for recurrence that might require an additional thoracentesis. I will be converting all of his medications to oral therapies at this time replacing his IV furosemide with oral torsemide. His serum potassium has been running close to 5 for several days and therefore we will reduce the dose of oral potassium being provided. Serum creatinine has been gradually increasing and I will continue to monitor this once the IV furosemide has been discontinued. Reason For Visit: HEART FAILURE Physical Exam Vital Signs: Temp Pulse Resp BP Pulse Ox 97.9 F 63 18 109/67 97 02/01/18 07:49 02/01/18 07:49 02/01/18 07:49 02/01/18 07:49 02/01/18 07:49 Intake & Output 01/31/18 02/01/18 02/02/18 06:59 06:59 06:59 Intake Total 237 1285 Output Total 3230 3435 Balance -2993 -2150 Weight 118.2 kg 110.4 kg General appearance: PRESENT: no acute distress, cooperative Head exam: PRESENT: atraumatic, normocephalic Eye exam: PRESENT: conjunctiva pink, EOMI. ABSENT: nystagmus, periorbital swelling, scleral icterus Ear exam: PRESENT: normal external ear exam. ABSENT: bleeding, drainage Mouth exam: PRESENT: moist, tongue midline Neck exam: ABSENT: thyromegaly, tracheal deviation Respiratory exam: PRESENT: rales - Minimal bilateral fine rales at the bases, symmetrical, unlabored. ABSENT: accessory muscle use, prolonged expiratory phas , retraction, rhonchi, wheezes Cardiovascular exam: PRESENT: gallop - Soft S4 gallop, irregular rhythm. ABSENT : bradycardia, clicks, rubs, tachycardia Vascular exam: PRESENT: normal capillary refill. ABSENT: pallor GI/Abdominal exam: PRESENT: normal bowel sounds, soft Rectal exam: PRESENT: deferred Extremities exam: PRESENT: full ROM, +2 edema - Bilateral lower extremities below the knee. ABSENT: joint swelling Musculoskeletal exam: PRESENT: ambulatory - With walker. ABSENT: deformity, dislocation Neurological exam: PRESENT: alert, awake, oriented to person, oriented to place , oriented to time, oriented to situation, CN II-XII grossly intact. ABSENT: motor sensory deficit Psychiatric exam: PRESENT: appropriate affect, normal mood, other - Contemplating his own as he sees very little quality of life had for him. Skin exam: ABSENT: jaundice, rash, urticaria Results Laboratory Results: 01/27/18 17:25 02/01/18 10:15 02/01/18 10:15 Sodium 129.1 L Potassium 5.0 Chloride 85 L Carbon Dioxide 37 H Anion Gap 7 BUN 21 H Creatinine 1.62 H Est GFR ( Amer) 54 L Est GFR (Non-Af Amer) 44 L Glucose 119 H Calcium 8.7 01/26/18 01/26/18 01/26/18 04:36 04:36 10:27 Creatine Kinase 158 112 CK-MB (CK-2) 1.92 Troponin I 0.013 01/26/18 01/26/18 01/26/18 10:27 16:30 16:30 Creatine Kinase 99 CK-MB (CK-2) 1.80 1.68 Troponin I 0.013 < 0.012 Impressions: Chest Ultrasound 01/25/18 23:13 IMPRESSION: Large right pleural effusion. Abdomen/Pelvis CT 01/26/18 00:58 IMPRESSION: 1. Large loculated air and fluid collection in the right anterior abdomen extending into the right lower quadrant may represent developing abscess formation. The patient's Pleurx peritoneal catheter extends into and through this collection. 2. Moderate to large sized right pleural effusion and a very small left pleural effusion with also other ascites and anasarca consistent with some volume overload and/or third spacing. 3. 3.6 cm infrarenal abdominal aortic aneurysm, recommend follow-up imaging every 12 months. Chest X-Ray 01/29/18 00:00 IMPRESSION: No pneumothorax. Significantly diminished right pleural effusion, minimal residual. 6 cm opacity overlying the right mid lung. Abdomen Ultrasound 01/31/18 00:00 IMPRESSION: Complex heterogeneous fluid collections in the upper abdomen, particularly in the right upper quadrant, correlating with prior CT. Assessment & Plan - Diagnosis (1) Intraabdominal fluid collection Is this a current diagnosis for this admission?: Yes Plan: We will continue medical therapy until such time as surgery and/or interventional radiology is available to reduce the loculations present in the abdominal cavity and thereby allowing complete drainage of the peritoneal dialysis fluid. He responded well to paracentesis performed by surgery with reduction in his overall symptoms. The paracentesis fluid was sent for culture and thus far shows no growth. (2) Acute on chronic combined systolic (congestive) and diastolic (congestive) heart failure Is this a current diagnosis for this admission?: Yes (3) Anasarca Is this a current diagnosis for this admission?: Yes Plan: Patient's overall problem anasarca is related to his chronic heart failure and will be addressed by continuing his current medical regimen. He does appear to have some response to his current regimen as his edema is very gradually reducing in severity. His diuretic therapy will be converted to all oral agents with torsemide substituted for IV furosemide. (4) Dyspnea Qualifiers: Dyspnea type: unspecified Qualified Code(s): R06.00 - Dyspnea, unspecified Is this a current diagnosis for this admission?: Yes Plan: Ken presented with worsening dyspnea which has significantly improved since his right thoracentesis on 01/29/2018. He will be observed closely for a recurrence of his right pleural effusion. (5) Pleural effusion Is this a current diagnosis for this admission?: Yes Plan: Mr. Lane had a right pleural effusion at the time of admission. This was addressed by Dr. Wren on 01/29/2018 with a thoracentesis performed on the right chest evacuating 3.2 L of fluid. Observation for recurrence of the pleural effusion will be maintained. (6) Chronic disease of cardiovascular system Is this a current diagnosis for this admission?: Yes Plan: Mr. Lane has realized that his quality of life going forward is poor and will probably be worsening over time. He is seriously considering evidence which would result in his . He expresses concern over the discomfort/pain of dying in congestive heart failure and he is apparently not willing to end his own life by his own hand. He is asked for referral to someone who would help him get to his end of life with less discomfort or pain. Prior to any referral to hospice I have discussed with him the necessity, in my opinion, to be evaluated by psychiatry and he has consented to speak with a counselor or psychiatrist for evaluation of his mental status, somnolence of mine, ability to make rational and reasonable decisions and reassurance that he is not under some real or imagined duress to make such a decision. A great deal of time was spent in this discussion. - Time Time Spent with patient: 35 or more minutes Medications reviewed and adjusted accordingly: Yes Anticipated discharge: Home
[2018-02-01] MEDS: TORSEMIDE 20 MG TABLET PO SCH (13:08)
[2018-02-01] MEDS ORDERED: TEMAZEPAM 15 MG CAPSULE PO PRN (22:54)
[2018-02-02] MEDS: MIDODRINE HCL 5 MG TABLET PO SCH (06:53)
[2018-02-02] MEDS: HEPARIN SOD (PORCINE) 5,000 UNIT/ML 1 ML SYRINGE SUBCUT SCH ×2 (06:53→14:03)
--- NOTE | 2018-02-02 07:34 | PDOC PROGRESS REPORT ---
Subjective Progress Note for:: 02/02/18 Subjective:: no c/o Reason For Visit: HEART FAILURE Physical Exam Vital Signs: Temp Pulse Resp BP Pulse Ox 97.1 F 65 16 112/72 97 02/02/18 03:16 02/02/18 03:16 02/02/18 03:16 02/02/18 03:16 02/02/18 03:16 Intake & Output 02/01/18 02/02/18 02/03/18 06:59 06:59 06:59 Intake Total 1285 1082 Output Total 3435 3310 Balance -2150 -8 Weight 110.4 kg 109.1 kg General appearance: PRESENT: no acute distress GI/Abdominal exam: PRESENT: distended, soft, other - presence of HARI and subcutaneous tunnelled catheter in the right lateral quadrant with clear fluid Results Laboratory Results: 01/27/18 17:25 02/01/18 10:15 02/01/18 10:15 Sodium 129.1 L Potassium 5.0 Chloride 85 L Carbon Dioxide 37 H Anion Gap 7 BUN 21 H Creatinine 1.62 H Est GFR ( Amer) 54 L Est GFR (Non-Af Amer) 44 L Glucose 119 H Calcium 8.7 01/26/18 01/26/18 01/26/18 04:36 04:36 10:27 Creatine Kinase 158 112 CK-MB (CK-2) 1.92 Troponin I 0.013 01/26/18 01/26/18 01/26/18 10:27 16:30 16:30 Creatine Kinase 99 CK-MB (CK-2) 1.80 1.68 Troponin I 0.013 < 0.012 Impressions: Chest Ultrasound 01/25/18 23:13 IMPRESSION: Large right pleural effusion. Abdomen/Pelvis CT 01/26/18 00:58 IMPRESSION: 1. Large loculated air and fluid collection in the right anterior abdomen extending into the right lower quadrant may represent developing abscess formation. The patient's Pleurx peritoneal catheter extends into and through this collection. 2. Moderate to large sized right pleural effusion and a very small left pleural effusion with also other ascites and anasarca consistent with some volume overload and/or third spacing. 3. 3.6 cm infrarenal abdominal aortic aneurysm, recommend follow-up imaging every 12 months. Chest X-Ray 01/29/18 00:00 IMPRESSION: No pneumothorax. Significantly diminished right pleural effusion, minimal residual. 6 cm opacity overlying the right mid lung. Abdomen Ultrasound 01/31/18 00:00 IMPRESSION: Complex heterogeneous fluid collections in the upper abdomen, particularly in the right upper quadrant, correlating with prior CT. Assessment & Plan - Diagnosis (1) Hydrothorax Is this a current diagnosis for this admission?: Yes (2) Intraabdominal fluid collection Is this a current diagnosis for this admission?: Yes - Plan Summary Plan Summary: A/ HARI drain cx negative Output @ 60 mL day P/ No additional acute General Surgery issues identified at this time and no additional intervention planned By my viewpoint, the patient can be discharged to home or facilityany time Patient to empty HARI bulb daily, record output, and bring record to clinic on day of appointment Follow up with Dr. Nguyen in [address] scan A/P with IV/oral contrast to be done one-two days before appointment with Dr. Nguyen as outpatient Routine HARI care Sponge bath only I will sign off. Please, call me with questions.
[2018-02-02] MEDS: DOXYCYCLINE HYCLATE 100 MG TABLET PO SCH (09:34)
[2018-02-02] MEDS: TORSEMIDE 20 MG TABLET PO SCH (09:34)
[2018-02-02] MEDS: SPIRONOLACTONE 25 MG TABLET PO SCH (09:34)
[2018-02-02] MEDS: DOCUSATE SODIUM 100 MG CAPSULE PO SCH (09:35)
[2018-02-02] MEDS: METOLAZONE 2.5 MG TABLET PO SCH (09:35)
[2018-02-02] MEDS: NITROGLYCERIN 5 MG (0.2 MG/HR) PATCH.TD24 TD SCH (09:35)
[2018-02-02] MEDS: ASPIRIN 81 MG TABLET, ENT COATED PO SCH (09:35)
[2018-02-02] MEDS ORDERED: POTASSIUM CHLORIDE 10 MEQ CAPSULE.ER PO SCH (13:00)
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
[2018-02-02 13:54] VITALS: BP 124/86
== END 2018-02-02 15:35 | disposition home or self-care (01) | DRG 291 ==
LOC: ER 22:08 → OBSVTOIN 01-26 04:11 → EH 01-26 04:11 → 3S 01-26 08:57
PROVIDERS: ADMIT Internal Medicine; ATTEND Internal Medicine
PROC: 0W9G30Z Drainage of Peritoneal Cavity with Drainage Device, Percutaneous Approach (ICD-10-PCS; 2018-01-26)
PROC: 5A09557 Assistance with Respiratory Ventilation, Greater than 96 Consecutive Hours, Continuous Positive Airway Pressure (ICD-10-PCS; 2018-01-26)
PROC: 0W993ZX Drainage of Right Pleural Cavity, Percutaneous Approach, Diagnostic (ICD-10-PCS; principal; 2018-01-29)
DX: I13.0 Hypertensive heart and chronic kidney disease with heart failure and stage 1 through stage 4 chronic kidney disease, or unspecified chronic kidney disease (principal); I50.43 Acute on chronic combined systolic (congestive) and diastolic (congestive) heart failure; R18.8 Other ascites; J90 Pleural effusion, not elsewhere classified; J94.8 Other specified pleural conditions; I25.5 Ischemic cardiomyopathy; Z66 Do not resuscitate; N18.3 Chronic kidney disease, stage 3 (moderate); E11.22 Type 2 diabetes mellitus with diabetic chronic kidney disease; D63.1 Anemia in chronic kidney disease; K72.10 Chronic hepatic failure without coma; K74.60 Unspecified cirrhosis of liver; I25.10 Atherosclerotic heart disease of native coronary artery without angina pectoris; I27.20 Pulmonary hypertension, unspecified; G47.33 Obstructive sleep apnea (adult) (pediatric); E78.5 Hyperlipidemia, unspecified; E11.51 Type 2 diabetes mellitus with diabetic peripheral angiopathy without gangrene; I25.2 Old myocardial infarction; E03.9 Hypothyroidism, unspecified; Z88.8 Allergy status to other drugs, medicaments and biological substances; Z90.49 Acquired absence of other specified parts of digestive tract; Z95.5 Presence of coronary angioplasty implant and graft; Z95.810 Presence of automatic (implantable) cardiac defibrillator
CPT/HCPCS: 36415; 51702; 71045; 71046; 74176; 76604; 76705; 80048; 80053; 82550; 82553; 83735; 83880; 84100; 84484; 85025; 85610; 85730; 87070; 87075; 87205; 94660; 96374; 99285; G8978-GP; G8979-GP; J1644; J1940; J2405; J3490

== ENCOUNTER → 2018-03-03 | Outpatient (CLI) | payer MEDICARE ==
--- NOTE | 2018-03-03 15:39 | RADIOLOGY REPORT (SQ) ---
EXAM DESCRIPTION: CHEST 2 VIEWS COMPLETED DATE/TIME: 03/03/2018 3:17 pm REASON FOR STUDY: R06.02 SHORTNESS OF BREATH COMPARISON: 01/29/2018 EXAM PARAMETERS: NUMBER OF VIEWS: two views TECHNIQUE: Digital Frontal and Lateral radiographic views of the chest acquired. RADIATION DOSE: NA LIMITATIONS: none FINDINGS: LUNGS AND PLEURA: Moderate size right pleural effusion which has reaccumulated since prior study. Minimal atelectasis is noted on the right. Underlying pneumonia or mass cannot be excluded. With minimal left effusion. Left lung is clear. MEDIASTINUM AND HILAR STRUCTURES: No masses or contour abnormalities. HEART AND VASCULAR STRUCTURES: Mild cardiomegaly. Vasculature is within normal limits. BONES: No acute findings. HARDWARE: Left subclavian defibrillator unchanged in position. OTHER: No other significant finding. IMPRESSION: Moderate-sized right pleural effusion and minimal left pleural effusion. TECHNICAL DOCUMENTATION: JOB ID: [id number] [employer]- All Rights Reserved Reading location - IP/workstation name: [email or web address]
== END ==
LOC: RAD 14:50
PROVIDERS: ATTEND Surgery
DX: J90 Pleural effusion, not elsewhere classified (principal); R06.02 Shortness of breath
CPT/HCPCS: 71046

== ENCOUNTER → 2018-03-07 | Outpatient (CLI) | payer MEDICARE ==
--- NOTE | 2018-03-07 11:01 | RADIOLOGY REPORT (SQ) ---
EXAM DESCRIPTION: CT ABD/PELVIS ORAL ONLY COMPLETED DATE/TIME: 03/07/2018 10:42 am REASON FOR STUDY: OTHER ASCITES (R18.8) R18.8 OTHER ASCITES COMPARISON: 01/26/2018 TECHNIQUE: CT scan of the abdomen and pelvis performed without intravenous or oral contrast. Images reviewed with lung, soft tissue, and bone windows. Reconstructed coronal and sagittal MPR images revi ewed. All images stored on PACS. All CT scanners at this facility use dose modulation, iterative reconstruction, and/or weight based d osing when appropriate to reduce radiation dose to as low as reasonably achievable (ALARA). [facility]: Dose Right [facility]: CareDose [facility]: Dose Right [facility]: Teradose 4D [facility]: Smart Adpoints RADIATION DOSE: CT Rad equipment meets quality standard of care and radiation dose reduction techniq ues were employed. CTDIvol: 25.9 mGy. DLP: 1670 mGy-cm.mGy. LIMITATIONS: None. FINDINGS: LOWER CHEST: There is a large right pleural effusion with some compressive atelectasis. T here is a small left effusion. Similar findings were present on prior study. NON-CONTRASTED LIVER, SPLEEN, ADRENALS: No focal hepatic, splenic or adrenal lesions. There is large volume ascites. PANCREAS: No masses. No peripancreatic inflammatory changes. GALLBLADDER: No identified stones by CT criteria. No inflammatory changes to suggest cholecystitis. RIGHT KIDNEY AND URETER: No suspicious masses. Assessment limited by lack of IV contrast. No signif icant calcifications. No hydronephrosis or hydroureter. LEFT KIDNEY AND URETER: No suspicious masses. Assessment limited by lack of IV contrast. No signifi cant calcifications. No hydronephrosis or hydroureter. AORTA AND RETROPERITONEUM: No aneurysm. No retroperitoneal masses or adenopathy. BOWEL AND PERITONEAL CAVITY: There is large volume ascites. Small pockets of air are present in the right upper quadrant collection. This is grossly stable. PleurX type catheter remains in place. APPENDIX: Surgically absent. PELVIS, BLADDER, AND ABDOMINAL WALL:No abnormal masses. No free fluid. Bladder normal. BONES: No significant findings. OTHER: No other significant finding. IMPRESSION: Stable large volume ascites. Small pockets of gas remain in the right upper quadrant co llection. PleurX type catheter remains in place in the right upper quadrant which extends into the p sha. This could represent dialysis catheter. Clinical correlation is needed. Large right pleural effusion, small left effusion and persistent bibasilar atelectasis. COMMENT: Quality ID # [id number]: Final reports with documentation of one or more dose reduction techniques (e.g., Automated exposure control, adjustment of the mA and/or kV according to patient size, use of iterative reconstruction technique) TECHNICAL DOCUMENTATION: JOB ID: [id number] [email or web address]- All Rights Reserved Reading location - IP/workstation name: [email or web address]
== END ==
LOC: RAD 10:02
PROVIDERS: ATTEND Surgery
DX: R18.8 Other ascites (principal)
CPT/HCPCS: 74176

== ENCOUNTER 2018-03-11 17:11 | Inpatient (IN) | payer MEDICARE ==
[2018-03-11 17:47] LABS: ABSOLUTE BASOPHILS # (AUTO) 0.1 10^3/uL (0.0-0.2); ABSOLUTE EOSINOPHILS # (AUTO) 0.1 10^3/uL (0.0-0.6); ABSOLUTE LYMPHOCYTES (AUTO) 0.7 10^3/uL (0.5-4.7); ABSOLUTE NEUT (AUTO) 10.9 10^3/uL (1.7-8.2); BASOPHILS % (AUTO) 0.5 % (0-2); EOSINOPHILS % (AUTO) 0.4 % (0-6); HEMATOCRIT 30.1 % (37.9-51.0); HEMOGLOBIN 9.9 g/dL (13.5-17.0); LYMPHOCYTES % (AUTO) 5.7 % (13-45); MEAN CORPUSCULAR HEMOGLOBIN 25.8 pg (27.0-33.4); MEAN CORPUSCULAR VOLUME 78 fl (80-97); MONOCYTES % (AUTO) 7.5 % (3-13); PLATELET COUNT 540 10^3/uL (150-450); RED BLOOD COUNT 3.84 10^6/uL (4.35-5.55); SEGMENTED NEUTROPHILS % (AUTO) 85.9 % (42-78); TOTAL CELLS COUNTED % (AUTO) 100 %; WHITE BLOOD COUNT 12.7 10^3/uL (4.0-10.5)
[2018-03-11 17:54] LABS: ALANINE AMINOTRANSFERASE 10 U/L (21-72); ALBUMIN 2.8 g/dL (3.5-5.0); ALKALINE PHOSPHATASE 136 U/L (38-126); ANION GAP 9 (5-19); ASPARTATE AMINO TRANSFERASE 17 U/L (17-59); BILIRUBIN,DIRECT 1.1 mg/dL (0.0-0.4); BILIRUBIN,TOTAL 1.6 mg/dL (0.2-1.3); BLOOD UREA NITROGEN 32 mg/dL (7-20); CALCIUM 8.4 mg/dL (8.4-10.2); CARBON DIOXIDE 32 mmol/L (22-30); CHLORIDE 92 mmol/L (98-107); GLUCOSE 142 mg/dL (75-110); LIPASE 62.2 U/L (23-300); POTASSIUM 4.4 mmol/L (3.6-5.0); SODIUM 132.7 mmol/L (137-145); TOTAL PROTEIN 7.4 g/dL (6.3-8.2)
[2018-03-11] MEDS ORDERED: VANCOMYCIN HCL INJ 1000 MG VIAL IV ONE (18:17)
[2018-03-11] MEDS ORDERED: FENTANYL CITRATE INJ/PF 100 MCG/2 ML AMPUL IV ONE (18:17)
[2018-03-11] MEDS ORDERED: CEFTRIAXONE 1 GM/D5W RTU 1 GM/50 ML RTUPB IV ONE (18:23)
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
[2018-03-11 19:54] LABS: INTERNATIONAL RATION (INR) 1.41
[2018-03-11] MEDS ORDERED: IPRATROPIUM/ALBUTEROL 0.5-2.5 MG/3 ML AMPUL NEB PRN (21:30)
[2018-03-11] MEDS ORDERED: PROMETHAZINE HCL INJ 25 MG/1 ML VIAL IV PRN (21:30)
[2018-03-11] MEDS ORDERED: MAG HYDROX/AL HYDROX/SIMETH SUSP 30 ML UDCUP PO PRN (21:30)
[2018-03-11] MEDS ORDERED: ACETAMINOPHEN 325 MG TABLET PO PRN (21:30)
[2018-03-11] MEDS ORDERED: PROMETHAZINE HCL 25 MG TABLET PO PRN (21:30)
[2018-03-11] MEDS ORDERED: MORPHINE SULFATE 10 MG/ML INJ IV PRN (21:44)
[2018-03-11] MEDS ORDERED: VANCOMYCIN HCL 0 MG in DEXTROSE 5%-WATER 250 ML IV NR (21:45)
--- NOTE | 2018-03-11 22:37 | RADIOLOGY REPORT (SQ) ---
EXAM DESCRIPTION: U/S ABD PARACENTESIS COMPLETED DATE/TIME: 03/11/2018 10:28 pm REASON FOR STUDY: Ascites COMPARISON: CT of the abdomen 03/07/2018. LIMITATIONS: None. PROCEDURE: Procedure, risks, benefit, and alternative explained to patient who then gave written con sent. The left lower abdominal wall marked using ultrasound guidance. A time-out was called for cor rect marking verification. Abdomen prepped and draped using sterile technique. Local anesthesia achi eved using 8 ml of 1% lidocaine injection. A 5fr needle/cath set was introduced into the peritoneal cavity. Fluid was drained. The catheter was removed and entry site was covered with sterile bandage . No immediate complications noted. Images acquired during the procedure were stored on PACS. FINDINGS: ENTRY SITE: Left lower quadrant FLUID VOLUME: 3500 cc FLUID ANALYSIS: [place] colored OTHER: Fluid sent to the lab for testing. IMPRESSION: SUCCESSFUL ULTRASOUND GUIDED PARACENTESIS. COMMENT: Patient medication list reviewed:Yes- Quality ID# [id number]:Eligible professional attests to docu menting in the medical record they obtained, updated, or reviewed the patient's current medications. TECHNICAL DOCUMENTATION: JOB ID: [id number] [employer]- All Rights Reserved Reading location - IP/workstation name: [email or web address]
[2018-03-11 22:51] LABS: INTERNATIONAL RATION (INR) 1.46; PROTHROMBIN TIME 18.4 SEC (11.4-15.4)
[2018-03-11 23:01] LABS: FLUID SOURCE ASCITES
[2018-03-11 23:07] LABS: FLUID COLOR YELLOW; FLUID TYPE PERITONEAL
[2018-03-11 23:08] LABS: FLUID VISCOSITY SLIGHTLY VISCOUS
[2018-03-11 23:09] LABS: FLUID APPEARANCE SLIGHTLY HAZY
--- NOTE | 2018-03-11 23:17 | PDOC H&P ---
History of Present Illness Admission Date/PCP: 03/11/18 19:53 KEERTHI MCKEON MD Patient complains of: Shortness of breath History of Present Illness: KEN ZAYAS is a 58 year old male with medical history of chronic liver failure , anasarca, chronic right pleural effusion, chronic ascites with loculation. Patient underwent several thoracentesis and paracentesis. Pleurx catheter was placed in his abdomen May 2017 but unfortunately it stopped working and during his last admission a HARI catheter was placed and removed last Saturday by Dr. sanchez. Patient was supposed to see Dr. sanchez this week for assessment and plan regarding the Pleurx catheter. Patient is nonambulatory. Patient tells me that for the last 3 days his condition is getting worse, he has been unable to breathe comfortable and is sleeping in a recliner, has dry cough and chest pain related with his cough, has noticed his generalized swelling has been worsening as per his last admission; currently on 2 L oxygen nasal cannula placed in the ED, tells me he uses his CPAP at night. Also complains of right- sided abdominal pain, swelling and erythema that has been worsening for the last 2 nights, no active secretions. Has the Pleurx catheter which is clogged and does not same infected in the skin site. Had a CT abdomen and pelvis done 4 days ago for follow-up which shows a stable air in the right upper quadrant collection and ascites unchanged on prior as well as his right side pleural effusion. Denies cough, wheezing, sputum, fever, nausea or vomiting, complains of chills. In the emergency department did have a concern for SBP and to call emergent radiology to do a ultrasound-guided paracentesis, diagnostic and therapeutic. Evidently tachycardic when he goes to the sitting position to lean forward heart rate goes from 100-120s. 30 mg/kg bolus ordered in the ED as well as IV vancomycin and IV Rocephin. Past Medical History Cardiac Medical History: Reports: Congestive Heart Failure - Combined systolic and diastolic., Myocardial Infarction, Hyperlipidema, Hypertension, Peripheral Vascular Disease Denies: Pulmonary Embolism Pulmonary Medical History: Reports: Bronchitis, Sleep Apnea - CPAP, pressure 15. No home oxygen. Denies: Chronic Obstructive Pulmonary Disease (COPD) Neurological Medical History: Denies: Seizures Endocrine Medical History: Reports: Diabetes Mellitus Type 2, Hypothyroidism - States he might be hypothyroid, according to recent test, but not sure. Denies: Diabetes Mellitus Type 1, Hyperthyroidism GI Medical History: Reports: Cirrhosis Denies: Gastroesophageal Reflux Disease, Hepatitis Musculoskeltal Medical History: Denies: Arthritis Psychiatric Medical History: Denies: Depression Infectious Medical History: Denies: Clostridium Difficile, Methicillin-Resistant Staph Aureus Past Surgical History Past Surgical History: Reports: Appendectomy, Cardiac Catheterization, Internal Defibrillator, Pacemaker - AICD, Other - Peritoneal drainage catheter Social History Information Source: Patient Lives with: Family - With mother Smoking Status: Former Smoker Frequency of Alcohol Use: Rare Hx Recreational Drug Use: No Drugs: None Hx Prescription Drug Abuse: No Family History Family History: CAD, Hyperlipidemia, Hypertension, Malignancy Parental Family History Reviewed: Yes - As above Children Family History Reviewed: NA Sibling(s) Family History Reviewed.: NA Medication/Allergy Home Medications: Aspirin [Ecotrin 81 mg EC Tablet] 81 mg PO DAILY 03/11/18 Isosorbide Dinitrate 20mg 20 mg PO Q12 03/11/18 Metolazone [Zaroxolyn 2.5 mg Tablet] 2.5 mg PO ACBRKFST 03/11/18 Midodrine HCl [Proamatine 5 mg Tablet] 10 mg PO BIDACBS 03/11/18 Potassium Chloride [Klor-Con 10 Meq Capsule ER] 10 meq PO BIDBS 03/11/18 Spironolactone [Aldactone 25 mg Tablet] 25 mg PO WBRKFST 03/11/18 Torsemide [Demadex 20 mg Tablet] 80 mg PO WBRKFST 03/11/18 Allergies/Adverse Reactions: glimepiride Allergy (Severe, Verified 05/15/17 11:41) Coma Review of Systems Review of Systems: As outlined in the HPI, all others negative Physical Exam Vital Signs: Temp Pulse Resp BP Pulse Ox 98.0 F 100 24 H 104/81 100 03/11/18 17:44 03/11/18 17:44 03/11/18 21:00 03/11/18 21:00 03/11/18 21:00 Additional comments: General appearance: Cachectic, malnourished, alert and cooperative, and appears to be in no acute distress Head: Normocephalic Eyes: PEERL, EOMI, vision is grossly intact. Ears: External auditory canal and tympanic membranes clear, hearing grossly intact. Nose: No nasal discharge. Throat: Oral cavity and pharynx normal. No inflammation, swelling, exudate or lesions. Neck: Neck supple, nontender without lymphadenopathy, masses or thyromegaly. Cardiac: Normal S1 and S2. No S3, S4 or murmurs. Rhythm is regular and tachycardic. There is severe lower extremities nonpitting edema with erythema. Feet are cold with diminished pulses Lungs: Diminished breath sounds in two thirds inferior of the right lung, diffuse crackles and mild rhonchi, not using accessory muscles. Abdomen: Severe abdominal anasarca with erythema in the right abdomen, tenderness to palpation and swelling. Pleurx catheter with no site infection or secretions. Positive abdominal wave. Unable to assess for hepatosplenomegaly secondary to severe ascites. Extremities: Severe lower extremities nonpitting edema with erythema, chronic skin changes, decreased pulses Neurological: Cranial nerves II through XII grossly intact. Strength and sensation increased in lower extremities Skin: Skin pale, rest as above. Psychiatric: The mental examination revealed the patient was oriented to person , place, and time. The patient was able to demonstrate good judgment on recent , without hallucinations, abnormal affect or abnormal behaviors. Results Laboratory Results: 03/11/18 03/11/18 03/11/18 17:32 17:32 22:35 WBC 12.7 H RBC 3.84 L Hgb 9.9 L Hct 30.1 L MCV 78 L MCH 25.8 L MCHC 33.0 RDW 19.0 H Plt Count 540 H Seg Neutrophils % 85.9 H Lymphocytes % 5.7 L Monocytes % 7.5 Eosinophils % 0.4 Basophils % 0.5 Absolute Neutrophils 10.9 H Absolute Lymphocytes 0.7 Absolute Monocytes 1.0 Absolute Eosinophils 0.1 Absolute Basophils 0.1 PT 18.4 H INR 1.46 Sodium 132.7 L Potassium 4.4 Chloride 92 L Carbon Dioxide 32 H Anion Gap 9 BUN 32 H Creatinine 1.33 H Est GFR ( Amer) > 60 Est GFR (Non-Af Amer) 55 L Glucose 142 H Calcium 8.4 Total Bilirubin 1.6 H Direct Bilirubin 1.1 H AST 17 ALT 10 L Alkaline Phosphatase 136 H Total Protein 7.4 Albumin 2.8 L Lipase 62.2 Impressions: Paracentesis Ultrasound 03/11/18 18:17 IMPRESSION: SUCCESSFUL ULTRASOUND GUIDED PARACENTESIS. Assessment & Plan - Diagnosis (1) Abdominal wall cellulitis Is this a current diagnosis for this admission?: Yes Plan: Right abdominal wall cellulitis for the last 2 days. Patient is a status post recent HARI catheter removal by Dr. sanchez. Will place the patient on IV vancomycin and IV Rocephin. Please follow blood cultures. Lower expected to him placed and appears to do no have site infection, Dr. sanchez was supposed to meet with the patient this week and discuss next step for the clogged Pleurx catheter. (2) Acute on chronic combined systolic (congestive) and diastolic (congestive) heart failure Is this a current diagnosis for this admission?: Yes Plan: Patient has chronic anasarca, initially seems to be dehydrated to the ED attending who gave him 30 mL/kg of fluids. I am going to hold on for the fluids for now. (3) Anasarca Is this a current diagnosis for this admission?: Yes Plan: Secondary to liver failure. Continue with home medications (4) Ascites Qualifiers: Ascites type: other type Qualified Code(s): R18.8 - Other ascites Is this a current diagnosis for this admission?: Yes Plan: Emergent paracentesis has been arranged by the ED attending. At the time of this dictation, successful ultrasound paracentesis was done with removal of 3500 cc of fluid, labs sent. (5) COPD (chronic obstructive pulmonary disease) Qualifiers: Emphysema type: unspecified Is this a current diagnosis for this admission?: Yes Plan: Seems to be compensated, continue with home bronchodilators (6) Coronary artery disease Qualifiers: Coronary Disease-Associated Artery/Lesion type: [place] artery [place] vs. transplanted heart: [place] heart Associated angina: angina presence unspecified Qualified Code(s): I25.10 - Atherosclerotic heart disease of [place] coronary artery without angina pectoris Is this a current diagnosis for this admission?: Yes Plan: Patient does not complain of any cardiac symptomatology, continue with home medications. (7) Liver failure Qualifiers: Liver failure chronicity: chronic Hepatic coma status: with hepatic coma Qualified Code(s): K72.11 - Chronic hepatic failure with coma Is this a current diagnosis for this admission?: Yes Plan: Continue with home medications. (8) Pleural effusion Is this a current diagnosis for this admission?: Yes Plan: Patient had current right thoracentesis, tells me that his shortness of breath has been worsening. Please order for ultrasound-guided thoracentesis. Patient tells me that he was supposed to have one done as an outpatient this week. (9) ALEYDA (obstructive sleep apnea) Is this a current diagnosis for this admission?: Yes Plan: Continue with CPAP - Time Time Spent: 50 to 70 Minutes - Inpatient Certification Based on my medical assessment, after consideration of the patient's comorbidities, presenting symptoms, or acuity I expect that the services needed warrant INPATIENT care.: Yes I certify that my determination is in accordance with my understanding of Medicare's requirements for reasonable and necessary INPATIENT services [42 CFR 412.3e].: Yes Medical Necessity: Risk of Complication if Not Cared For in Hospital - Plan Summary Plan Summary: Case discussed with patient, agrees with plan.
--- NOTE | 2018-03-11 23:23 | RADIOLOGY REPORT (SQ) ---
EXAM DESCRIPTION: XR CHEST 1 VIEW COMPLETED DATE/TME: 03/11/2018 00:00 CLINICAL HISTORY: 58 years, Male, Large right pleural effusion COMPARISON: 03/03/2018 chest x-ray NUMBER OF VIEWS: 1 TECHNIQUE: AP portable upright chest LIMITATIONS: None. FINDINGS: Stable cardiomegaly. Left-sided pacing device. Moderate to large right pleural effusion with a possible loculated component. This has increased slightly from the prior. Osteopenia. No discrete pneumothorax. IMPRESSION: Moderate to large right pleural effusion with a possible loculated component. Stable cardiomegaly and postsurgical change 2010 [employer]- All Rights Reserved
[2018-03-12] MEDS: HEPARIN SOD (PORCINE) 5,000 UNIT/ML 1 ML SYRINGE SUBCUT SCH ×4 (00:06→21:30)
[2018-03-12] MEDS: TEMAZEPAM 7.5 MG CAPSULE PO PRN (00:08)
[2018-03-12 05:23] LABS: ABSOLUTE BASOPHILS # (AUTO) 0.1 10^3/uL (0.0-0.2); ABSOLUTE LYMPHOCYTES (AUTO) 0.6 10^3/uL (0.5-4.7); ABSOLUTE MONOCYTES (AUTO) 0.9 10^3/uL (0.1-1.4); ABSOLUTE NEUT (AUTO) 9.7 10^3/uL (1.7-8.2); BASOPHILS % (AUTO) 0.8 % (0-2); EOSINOPHILS % (AUTO) 0.3 % (0-6); HEMATOCRIT 27.3 % (37.9-51.0); HEMOGLOBIN 8.9 g/dL (13.5-17.0); LYMPHOCYTES % (AUTO) 5.4 % (13-45); MEAN CORPUSCULAR HEMOGLOBIN 25.4 pg (27.0-33.4); MEAN CORPUSCULAR HGB CONC 32.4 g/dL (32.0-36.0); MEAN CORPUSCULAR VOLUME 78 fl (80-97); MONOCYTES % (AUTO) 8.1 % (3-13); PLATELET COUNT 465 10^3/uL (150-450); RED BLOOD COUNT 3.49 10^6/uL (4.35-5.55); RED CELL DISTRIBUTION WIDTH 18.4 % (11.5-14.0); SEGMENTED NEUTROPHILS % (AUTO) 85.4 % (42-78); TOTAL CELLS COUNTED % (AUTO) 100 %; WHITE BLOOD COUNT 11.4 10^3/uL (4.0-10.5)
[2018-03-12 05:43] LABS: ALANINE AMINOTRANSFERASE 9 U/L (21-72); ALBUMIN 2.3 g/dL (3.5-5.0); ALKALINE PHOSPHATASE 117 U/L (38-126); ANION GAP 8 (5-19); ASPARTATE AMINO TRANSFERASE 15 U/L (17-59); BILIRUBIN,DIRECT 0.9 mg/dL (0.0-0.4); BILIRUBIN,TOTAL 1.2 mg/dL (0.2-1.3); BLOOD UREA NITROGEN 32 mg/dL (7-20); CARBON DIOXIDE 31 mmol/L (22-30); CHLORIDE 94 mmol/L (98-107); GLUCOSE 143 mg/dL (75-110); POTASSIUM 4.5 mmol/L (3.6-5.0); SODIUM 133.2 mmol/L (137-145); TOTAL PROTEIN 6.3 g/dL (6.3-8.2)
[2018-03-12 05:59] LABS: APPEARANCE,URINE CLEAR; BILIRUBIN,URINE NEGATIVE (NEGATIVE); COLOR,URINE YELLOW; GLUCOSE, URINE NEGATIVE (NEGATIVE); KETONES,URINE NEGATIVE (NEGATIVE); LEUKOCYTE ESTERASE,URINE NEGATIVE (NEGATIVE); NITRITE,URINE NEGATIVE (NEGATIVE); PROTEIN,URINE 100 mg/dL (NEGATIVE); URINE SPECIFIC GRAVITY 1.012
[2018-03-12] MEDS: POTASSIUM CHLORIDE 10 MEQ CAPSULE.ER PO SCH ×2 (08:46→17:28)
[2018-03-12] MEDS: SPIRONOLACTONE 25 MG TABLET PO SCH (08:47)
[2018-03-12] MEDS: METOLAZONE 2.5 MG TABLET PO SCH (08:47)
[2018-03-12] MEDS: TORSEMIDE 20 MG TABLET PO SCH (08:48)
[2018-03-12] MEDS: MIDODRINE HCL 5 MG TABLET PO SCH ×2 (08:50→17:11)
[2018-03-12] MEDS ORDERED: IPRATROPIUM/ALBUTEROL 0.5-2.5 MG/3 ML AMPUL NEB PRN (08:53)
[2018-03-12] MEDS ORDERED: MORPHINE SULFATE 10 MG/ML INJ IV PRN (09:06)
--- NOTE | 2018-03-12 09:51 | PROGRESS NOTE E ---
Progress Note NAME: KEN ZAYAS : 1960 AGE: 58Y DATE: 03/12/2018 ROOM: 528 SUBJECTIVE: The patient is lying in bed. The patient states he feels a little better now in comparison to when he came in. Does have a CPAP in place. The patient is concerned because he only got fluid off of 1 side of his abdomen and not the whole abdomen. I have called and discussed the case with Dr. Ferguson who will see him for him for surgery. The patient denies any vomiting nor diarrhea. No dizziness, chest pain. The patient has been afebrile. Blood pressure has been in acceptable range. It is slightly tachycardic. The patient does not voice any other concerns at this time. REVIEW OF SYSTEMS: The rest of the review of systems is negative. MEDICATIONS: Reviewed. OBJECTIVE: GENERAL: The patient is a 58-year-old male who is awake, alert. He is oriented to person, place, time, and situation. He is verbal and conversational. Does not appear to be in acute distress. VITAL SIGNS: Temperature is 98.3, pulse 102, respirations 20, blood pressure is 110/74, oxygen saturation is 97% on room air. SKIN: Skin is warm and dry, no rash, not diaphoretic. Patient does have a scaliness of his bilateral lower extremities, slightly jaundice, pale. HEENT: Pupils are reactive. Sclerae is icteric. Does have JVP to the right clavicle. CVS: Heart is irregular. Pacer is in place. No rub. CHEST: Symmetrical, unlabored. Unable to auscultate posterior due to the patient's discomfort. ABDOMEN: Quite distended with ascites. Dressing over PleurX site. There is an area of non-draining possible abscess distal to this. Scrotal edema is noted as well. EXTREMITIES: No clubbing, cyanosis. The patient does have bilateral lower extremity edema, +2. PSYCHIATRIC: Appropriate affect. Pleasant mood. DIAGNOSTICS: Lab values are as follows: Hematology obtained on 03/12/2018: WBC is 11.3, hemoglobin is 8.9, hematocrit is 27.3, platelet count is 465,000. Chemistry obtained on 03/12/2018: Sodium is 133, potassium 4.5, chloride is 110, carbon dioxide 31. BUN is 32, creatinine 1.24. Glucose 143. Calcium is 8.0. Bilirubin is 1.2, AST 15, ALT 9, evon-phos 117. Total protein 6.3, albumin 2.3. ASSESSMENT AND PLAN: 1. Abdominal wall cellulitis. We will cover the patient for anaerobes, therefore we will expand coverage to Zosyn at this time. Continue with vancomycin as well due to the patient's indwelling drain and recent HARI catheter removal. I have consulted surgery and spoke with Dr. Ferguson regarding this. We will follow. 2. Hepatic cirrhosis and subsequent ascites. The patient did have a successful paracentesis of 3.5 liters removed in the Emergency Department. We will continue supportive therapy. 3. Chronic systolic and diastolic congestive heart failure. The patient did appear dry while in the emergency department, therefore, he did receive some volume. Given the patient's profound hyperalbuminemia from his liver failure, most likely he is going to have much difficulty with intravascular volume depletion. At this point the patient does not appear to be in profound pulmonary edema. We will follow. The patient has an EF of 35%. 4. Chronic obstructive pulmonary disease. Continue bronchodilators. He does appear to be compensated. 5. Coronary artery disease. Denies any symptoms at this time. 6. Pleural effusion. The patient has had both right and left thoracentesis. It appears the patient's breathing is worse, therefore he has been scheduled for a thoracentesis today. 7. Obstructive sleep apnea. Continue CPAP. 8. Peripheral vascular disease, overall stable at this time. 9. Chronic kidney disease, stage-III. Creatinine is at baseline. 10. Pulmonary hypertension. 11. Pacemaker. We will have this interrogated at this time. 12. Atrial Fibrillation. Patient is rate controlled. Anticoagulation has been foregone due to cirrhosis and varices. DISPOSITION: The patient is a DO NOT RESUSCITATE/DO NOT INTUBATE as the patient has expressed a desire for natural . This is consistent with the patient's previous discharge visit, as the patient has been managed palliatively in the past. Pending patient's symptomatology and diagnostic findings, will reevaluate in the a.m. Time spent on this followup, including assessment, plan, physical examination, patient education, review of records, and specialty collaboration is 35 minutes. DICTATING PHYSICIAN: GET CASTREJON NP [id number] PHY#: [id number] ID: [id number] JOB#: [id number] ACCT: [id number] cc: > BRIEN
[2018-03-12] MEDS: ASPIRIN 81 MG TABLET, ENT COATED PO SCH (09:59)
[2018-03-12] MEDS: VANCOMYCIN HCL 1,500 MG in DEXTROSE 5%-WATER 250 ML IV SCH ×2 (10:00→21:32)
[2018-03-12] MEDS: ISOSORBIDE DINITRATE 20 MG TABLET PO SCH ×2 (10:00→21:28)
[2018-03-12] MEDS ORDERED: LIDOCAINE 0.5% INJ-PF (5 MG/ML) 50 ML SDV ONE (12:40)
[2018-03-12] MEDS: PIPERACILLIN SODIUM/TAZOBACTAM 4.5 GM in NORMAL SALINE 100 ML IV SCH ×3 (13:01→23:19)
[2018-03-12] MEDS ORDERED: FENTANYL CITRATE INJ/PF 100 MCG/2 ML AMPUL ONE (14:07)
[2018-03-12] MEDS ORDERED: MIDAZOLAM 2 MG/2 ML INJ ONE (14:07)
[2018-03-12] MEDS ORDERED: KETAMINE HCL INJ 500 MG/10 ML VIAL ONE (14:07)
[2018-03-12] MEDS ORDERED: PROPOFOL INJ 200 MG/20 ML VIAL IV ONE (14:08)
[2018-03-12] MEDS: FENTANYL CITRATE INJ/PF 100 MCG/2 ML AMPUL ONE ×2 (15:30→15:35)
[2018-03-12] MEDS ORDERED: DIPHENHYDRAMINE HCL 50 MG/ML VIAL IV PRN (15:35)
[2018-03-12] MEDS ORDERED: ONDANSETRON HCL INJ/PF 4 MG/2 ML SDV IV PRN (15:35)
[2018-03-12] MEDS ORDERED: FENTANYL CITRATE INJ/PF 100 MCG/2 ML AMPUL IV PRN ×2 (15:35)
[2018-03-12] MEDS: METOPROLOL TARTRATE 25 MG TABLET PO SCH ×2 (17:10→21:28)
--- NOTE | 2018-03-12 17:56 | OPERATIVE REPORT E ---
Operative Report NAME: KEN ZAYAS : 1960 AGE: 58Y DATE OF SURGERY: 03/12/2018 ROOM: 528 PREOPERATIVE DIAGNOSIS: ABSCESS OF THE RIGHT UPPER QUADRANT ABDOMINAL WALL. POSTOPERATIVE DIAGNOSIS: ABSCESS OF THE RIGHT UPPER QUADRANT ABDOMINAL WALL. OPERATION: Incision and drainage of abscess at the right abdominal wall. SURGEON: NEWTON DUVAL M.D. ANESTHESIA: Local MAC. INDICATION: This is a 58-year-old male with known history of severe liver cirrhosis with ascites. He had PleurX placed through the peritoneal cavity in the past. He was noted to have a fluctuant area where the original PleurX catheter appears to be placed through. There is a fluctuant area at the site and the patient is very tender at this area. DESCRIPTION OF PROCEDURE: After adequate IV sedation the patient was placed in the supine position. The right upper abdomen area was then prepped and draped in the usual sterile fashion. Appropriate timeout was then called. Next a vertical incision made over the fluctuant area and a gush of purulent material extruded out. Cultures were obtained. The incision was extended to a total of about 2 cm long. Finger palpation of the area was then obtained and no other abscess cavity was noted. However, the catheter appears just underneath the site. The area was then pulse lavaged with a liter of saline solution. Next the subcutaneous area just above the fascia was partially closed with 2 simple sutures using 2-0 Vicryl, keeping the catheter below the subcutaneous area. Skin was left open and dressed with a layer of Xeroform gauze, 4 x 4. Needle, instrument, and sponge counts were all corrected. Estimated blood loss was about 5 mL. The patient then brought to the recovery room in satisfactory condition. DICTATING PHYSICIAN: NEWTON DUVAL M.D. [id number] PHY#: [id number] ID: [id number] JOB#: [id number] ACCT: [id number] cc:NEWTON DUVAL M.D. > [facility]
[2018-03-12] MEDS ORDERED: CEFTRIAXONE 1 GM/D5W RTU 1 GM/50 ML RTUPB IV SCH (18:00)
[2018-03-12] MEDS ORDERED: CEFTRIAXONE SODIUM 1,000 MG in DEXTROSE 5%-WATER 50 ML IV SCH (18:00)
[2018-03-13 04:32] LABS: ABSOLUTE BASOPHILS # (AUTO) 0.2 10^3/uL (0.0-0.2); ABSOLUTE EOSINOPHILS # (AUTO) 0.1 10^3/uL (0.0-0.6); ABSOLUTE LYMPHOCYTES (AUTO) 0.9 10^3/uL (0.5-4.7); ABSOLUTE MONOCYTES (AUTO) 1.2 10^3/uL (0.1-1.4); ABSOLUTE NEUT (AUTO) 9.5 10^3/uL (1.7-8.2); BASOPHILS % (AUTO) 1.3 % (0-2); EOSINOPHILS % (AUTO) 0.7 % (0-6); HEMATOCRIT 26.2 % (37.9-51.0); HEMOGLOBIN 8.7 g/dL (13.5-17.0); LYMPHOCYTES % (AUTO) 7.5 % (13-45); MEAN CORPUSCULAR HGB CONC 33.3 g/dL (32.0-36.0); MEAN CORPUSCULAR VOLUME 78 fl (80-97); MONOCYTES % (AUTO) 9.8 % (3-13); PLATELET COUNT 423 10^3/uL (150-450); RED BLOOD COUNT 3.35 10^6/uL (4.35-5.55); RED CELL DISTRIBUTION WIDTH 18.6 % (11.5-14.0); SEGMENTED NEUTROPHILS % (AUTO) 80.7 % (42-78); TOTAL CELLS COUNTED % (AUTO) 100 %; WHITE BLOOD COUNT 11.8 10^3/uL (4.0-10.5)
[2018-03-13 04:55] LABS: ALANINE AMINOTRANSFERASE 10 U/L (21-72); ALBUMIN 2.3 g/dL (3.5-5.0); ALKALINE PHOSPHATASE 109 U/L (38-126); ANION GAP 9 (5-19); ASPARTATE AMINO TRANSFERASE 13 U/L (17-59); BILIRUBIN,DIRECT 0.9 mg/dL (0.0-0.4); BILIRUBIN,TOTAL 1.2 mg/dL (0.2-1.3); BLOOD UREA NITROGEN 34 mg/dL (7-20); CALCIUM 8.2 mg/dL (8.4-10.2); CARBON DIOXIDE 30 mmol/L (22-30); CHLORIDE 94 mmol/L (98-107); GLUCOSE 126 mg/dL (75-110); POTASSIUM 4.1 mmol/L (3.6-5.0); SODIUM 133.3 mmol/L (137-145); TOTAL PROTEIN 6.5 g/dL (6.3-8.2)
[2018-03-13] MEDS: PIPERACILLIN SODIUM/TAZOBACTAM 4.5 GM in NORMAL SALINE 100 ML IV SCH ×3 (05:26→17:32)
[2018-03-13] MEDS: HEPARIN SOD (PORCINE) 5,000 UNIT/ML 1 ML SYRINGE SUBCUT SCH ×3 (05:30→22:57)
[2018-03-13] MEDS: SPIRONOLACTONE 25 MG TABLET PO SCH (08:58)
[2018-03-13] MEDS: TORSEMIDE 20 MG TABLET PO SCH (08:58)
[2018-03-13] MEDS: POTASSIUM CHLORIDE 10 MEQ CAPSULE.ER PO SCH ×2 (08:58→17:31)
[2018-03-13] MEDS: MIDODRINE HCL 5 MG TABLET PO SCH ×2 (08:58→17:32)
[2018-03-13] MEDS: METOLAZONE 2.5 MG TABLET PO SCH (08:59)
[2018-03-13] MEDS: ASPIRIN 81 MG TABLET, ENT COATED PO SCH (08:59)
[2018-03-13] MEDS: ISOSORBIDE DINITRATE 20 MG TABLET PO SCH ×2 (08:59→22:56)
[2018-03-13] MEDS: METOPROLOL TARTRATE 25 MG TABLET PO SCH ×2 (09:00→22:56)
[2018-03-13] MEDS: VANCOMYCIN HCL 1,500 MG in DEXTROSE 5%-WATER 250 ML IV SCH ×2 (09:00→23:01)
--- NOTE | 2018-03-13 09:07 | RADIOLOGY REPORT (SQ) ---
EXAM DESCRIPTION: CHEST SINGLE VIEW COMPLETED DATE/TIME: 03/13/2018 8:56 am REASON FOR STUDY: right pleural effusion COMPARISON: 03/11/2018 EXAM PARAMETERS: NUMBER OF VIEWS: One view. TECHNIQUE: Single frontal radiographic view of the chest acquired. RADIATION DOSE: NA LIMITATIONS: None. FINDINGS: LUNGS AND PLEURA: Persistent moderate to large right pleural effusion and compressive ate lectasis in the right mid and lower lung zones. Minimal left pleural effusion The left lung remains clear. No pneumothorax. MEDIASTINUM AND HILAR STRUCTURES: No masses. Contour normal. HEART AND VASCULAR STRUCTURES: Cardiomegaly, stable. BONES: No acute findings. HARDWARE: Cardiac pacemaker/defibrillator, unchanged finding. OTHER: No other significant finding. IMPRESSION: 1. Stable examination since the prior study dated 03/11/2018. Moderate to large right pleural effusion and compressive atelectasis changes in the mid and lower lung zones on the right. 2. Stable minimal left pleural effusion. TECHNICAL DOCUMENTATION: JOB ID: [id number] [employer]- All Rights Reserved Reading location - IP/workstation name: [email or web address]
[2018-03-13 10:20] LABS: INTERNATIONAL RATION (INR) 1.41; PROTHROMBIN TIME 17.9 SEC (11.4-15.4)
--- NOTE | 2018-03-13 10:42 | PROGRESS NOTE E ---
Progress Note NAME: KEN ZAYAS : 1960 AGE: 58Y DATE: 03/12/2018 ROOM: 528 SUBJECTIVE: The patient is out of bed to the bedside chair. The patient was extremely rude this morning. This morning I entered the room and introduced myself and the patient relentlessly began complaining about his bed, bathroom, lunch, breakfast, used abusive language towards me and my student. The patient had numerous complains about nonmedical aspects of his care. I did try to put these in prospective, which the patient did not appreciate overall. The patient was not cooperative for a review of systems but did not appear to have any medical concerns other than a drainage from his postop bandage. REVIEW OF SYSTEMS: Unobtained. MEDICATIONS: Reviewed. OBJECTIVE: GENERAL: The patient is a 58-year-old male who is awake, alert. Does not appear to be in distress. VITAL SIGNS: Temperature is 97.4, pulse 96, respirations 16, blood pressure is 105/71, oxygen saturation is 92% on room air. SKIN: Skin is pale. No rash, he is not diaphoretic. HEENT: Pupils are reactive. Mucous membranes appear moist. There is no overt evidence of JVP. CVS: The patient is in a. fib. Random pacer spikes on the monitor. CHEST: Symmetrical, unlabored. Not auscultated. ABDOMEN: Distended with ascites. Postoperative dressing in place. Does have some sanguinous drainage. EXTREMITIES: Does have bilateral pitting edema, scaly skin. PSYCHIATRIC: Patient is easily agitated and angry. DIAGNOSTICS: Lab values are as follows: Hematology obtained on 03/13/2018: WBC is 11.8, hemoglobin is 17.7, hematocrit is 26.2, platelet count is 423,000. Chemistry obtained on 03/13/2018: Sodium is 133, potassium 4.1, chloride is *------*, carbon dioxide 30. BUN is 34, creatinine 1.29. Glucose 126. Calcium is 8.2, magnesium is 1.7, bilirubin is 1.2, AST 13, ALT 10, evon-phos 109. Total protein 6.5, albumin 2.3. ASSESSMENT AND PLAN: 1. Abdominal wall cellulitis. We will cover the patient for anaerobes as well. Continue Zosyn. The patient is postop day number 1 from an incision and drainage of the area. I do appreciate that surgical has helped with this. 2. Hepatic cirrhosis and subsequent ascites. The patient did have a paracentesis of 3.5 liters in the Emergency Department. Unfortunately, this area is loculated. Therefore, the patient only had relief of 1 area. 3. Chronic systolic and diastolic congestive heart failure. The patient actually appeared dry while in the emergency department, therefore, he did receive some volume. The patient does have significant hypoalbuminemia from his liver failure and therefore is going to have difficulty with intravascular volume depletion. At this point the patient does not appear to be in profound pulmonary edema. We will continue to follow. His EF is 35% at this point. 4. Chronic obstructive pulmonary disease. Continue bronchodilators. Recently compensated. 5. Coronary artery disease. Denies any symptoms at this time. 6. Pleural effusion. The patient has a significant right sided pleural effusion. Given his worsening breathing, thoracentesis was scheduled for today. 7. Obstructive sleep apnea. Continue CPAP. 8. Peripheral vascular disease, overall stable. 9. Chronic kidney disease, stage-III. Creatinine is at baseline. 10. Pulmonary hypertension. 11. Pacemaker. Interrogation did not reveal any issue. I do appreciate Cardiology reviewing this. 12. Atrial fibrillation. The patient is rate controlled at this point. Anticoagulation has been foregone due to the patient's cirrhosis and varices and overall frailty. DISPOSITION: The patient is listed as a full code, however, he has made it completely clear that he wants to be a DO NOT RESUSCITATE/DO NOT INTUBATE but has an issue wearing the bracelet. The patient has expressed a desire for natural . However, he says he never wants to feel like he is smothering though. Otherwise, the patient would like to pass peacefully in his sleep and made it completely clear today that he knows that he is going to soon of either his COPD or his heart failure. Time spent on this followup, including assessment, plan, physical examination, patient education, review of records, and specialty collaboration is 35 minutes. DICTATING PHYSICIAN: GET CASTREJON NP [id number] PHY#: [id number] ID: [id number] JOB#: [id number] ACCT: [id number] cc: >
[2018-03-13] MEDS ORDERED: PROMETHAZINE HCL INJ 25 MG/1 ML VIAL IV PRN (15:30)
--- NOTE | 2018-03-13 15:37 | RADIOLOGY REPORT (SQ) ---
EXAM DESCRIPTION: CHEST SINGLE VIEW COMPLETED DATE/TIME: 03/13/2018 3:18 pm REASON FOR STUDY: S/P RT THORACENTESIS COMPARISON: Earlier the same day. NUMBER OF VIEWS: One view. TECHNIQUE: Single frontal radiographic image of the chest acquired. LIMITATIONS: None. FINDINGS: LUNGS AND PLEURA: Decrease in right pleural effusion. No pneumothorax. MEDIASTINUM AND HEART: Stable heart size and mediastinal structures. SUPPORT DEVICES: Appropriate location without change. BONY STRUCTURES: No acute findings. HARDWARE: None. OTHER: No other significant finding. IMPRESSION: No pneumothorax status post right thoracentesis. Reading location - IP/workstation name: [email or web address]
--- NOTE | 2018-03-13 15:38 | RADIOLOGY REPORT (SQ) ---
EXAM DESCRIPTION: U/S THORACENTESIS WITH IMAGING COMPLETED DATE/TIME: 03/13/2018 3:23 pm REASON FOR STUDY: Large right pleural effusion with shortness of ant COMPARISON: None. LIMITATIONS: None. PROCEDURE: Procedure, risks, benefit, and alternative explained to patient who then gave written con sent. The posterior right chest wall was marked using ultrasound guidance. A time-out was called fo r correct marking verification. Chest prepped and draped using sterile technique. Local anesthesia a chieved using Three ml of 1% lidocaine injection. A 6fr Safe-T- Centesis set was introduced into the right pleural space. Fluid was aspirated. The catheter was removed and the entry site was covered with sterile bandage. No immediate complications noted. Images acquired during the procedure were stored on PACS. FINDINGS: ENTRY SITE: posterior right chest. FLUID VOLUME: 800 cc FLUID ANALYSIS: Straw OTHER: Therapeutic only IMPRESSION: SUCCESSFUL THORACENTESIS USING ULTRASOUND GUIDANCE. COMMENT: Patient medication list reviewed: Yes- Quality ID# [id number]:Eligible professional attests to doc umenting in the medical record they obtained, updated, or reviewed the patient's current medications. TECHNICAL DOCUMENTATION: JOB ID: [id number] [employer]- All Rights Reserved Reading location - IP/workstation name: [email or web address]
[2018-03-13] MEDS ORDERED: IPRATROPIUM/ALBUTEROL 0.5-2.5 MG/3 ML AMPUL NEB PRN (16:51)
--- NOTE | 2018-03-13 19:15 | PDOC PROGRESS REPORT ---
Subjective Progress Note for:: 03/13/18 Subjective:: There is a 58-year-old male with an infected cuffed peritoneal catheter. He uses a catheter to drain ascites from his abdomen. He has accumulated a very large abscess in the right abdomen, around the catheter. Previous attempts at percutaneous drainage have failed to alleviate the infection. The patient is currently status post right-sided thoracentesis, and is feeling better. At present he denies shortness of breath, chest pain, nausea, vomiting, dizziness, orthostasis, fevers, chills. He does report abdominal pain, fatigue, and malaise. Reason For Visit: ANASARCA,SEVERE ASCITIS WITH ABD WALL CELLULITIS Physical Exam Vital Signs: Temp Pulse Resp BP Pulse Ox 98.4 F 87 16 102/70 95 03/13/18 11:42 03/13/18 14:00 03/13/18 11:42 03/13/18 11:42 03/13/18 16:00 Intake & Output 03/12/18 03/13/18 03/14/18 06:59 06:59 06:59 Intake Total 402 2688 1381 Output Total 300 2653 1475 Balance 102 35 -94 Weight 123.3 kg 129.7 kg General appearance: PRESENT: obese Head exam: PRESENT: atraumatic, normocephalic Eye exam: PRESENT: EOMI, PERRLA Mouth exam: PRESENT: neck supple Neck exam: ABSENT: meningismus, tenderness, thyromegaly, tracheal deviation Respiratory exam: PRESENT: crackles, tachypnea - Mild Cardiovascular exam: PRESENT: RRR Pulses: PRESENT: normal radial pulses Vascular exam: PRESENT: pallor GI/Abdominal exam: PRESENT: distended, soft, tenderness - Right-sided. ABSENT: rebound, rigid Rectal exam: PRESENT: deferred Extremities exam: ABSENT: clubbing Musculoskeletal exam: ABSENT: deformity Neurological exam: PRESENT: alert, awake, oriented to person, oriented to place , oriented to time, oriented to situation Psychiatric exam: ABSENT: agitated, anxious, depressed Focused psych exam: ABSENT: delusional Skin exam: ABSENT: cyanosis Results Laboratory Results: 03/13/18 04:20 03/13/18 04:20 03/13/18 03/13/18 03/13/18 04:20 04:20 04:20 WBC 11.8 H RBC 3.35 L Hgb 8.7 L Hct 26.2 L MCV 78 L MCH 26.0 L MCHC 33.3 RDW 18.6 H Plt Count 423 Seg Neutrophils % 80.7 H Lymphocytes % 7.5 L Monocytes % 9.8 Eosinophils % 0.7 Basophils % 1.3 Absolute Neutrophils 9.5 H Absolute Lymphocytes 0.9 Absolute Monocytes 1.2 Absolute Eosinophils 0.1 Absolute Basophils 0.2 Sodium 133.3 L Potassium 4.1 Chloride 94 L Carbon Dioxide 30 Anion Gap 9 BUN 34 H Creatinine 1.29 H Est GFR ( Amer) > 60 Est GFR (Non-Af Amer) 57 L Glucose 126 H Calcium 8.2 L Magnesium 1.7 Total Bilirubin 1.2 AST 13 L ALT 10 L Alkaline Phosphatase 109 Ammonia < 8.7 L Total Protein 6.5 Albumin 2.3 L Impressions: Paracentesis Ultrasound 03/11/18 18:17 IMPRESSION: SUCCESSFUL ULTRASOUND GUIDED PARACENTESIS. Thoracentesis Ultrasound 03/13/18 08:00 IMPRESSION: SUCCESSFUL THORACENTESIS USING ULTRASOUND GUIDANCE. Assessment & Plan - Diagnosis (1) Intra-abdominal abscess Is this a current diagnosis for this admission?: Yes (2) Peritoneal dialysis catheter infection Qualifiers: Encounter type: subsequent encounter Qualified Code(s): T85.71XD - Infection and inflammatory reaction due to peritoneal dialysis catheter, subsequent encounter Is this a current diagnosis for this admission?: Yes - Plan Summary Plan Summary: There is a 58-year-old male with an infected cuffed peritoneal catheter. He uses the catheter to drain ascites from his abdomen. He has accumulated a very large abscess in the right abdomen, around the catheter. Previous attempts at percutaneous drainage have failed to alleviate the infection. In light of this , I have recommended surgical intervention. Proposed removal of the peritoneal catheter with drainage of the intra-abdominal abscess. The patient has agreed to this. Risks/benefits discussed, informed consent obtained, and all questions answered.
--- NOTE | 2018-03-13 21:28 | RADIOLOGY REPORT (SQ) ---
EXAM DESCRIPTION: XR CHEST 1 VIEW COMPLETED DATE/TME: 03/13/2018 17:15 CLINICAL HISTORY: 58 years, Male, 2 hr s/p rt thoracentesis COMPARISON: Prior chest x-ray from 3:09 PM of today's date NUMBER OF VIEWS: 1 TECHNIQUE: Frontal view the chest LIMITATIONS: None. FINDINGS: Stable cardiomegaly. Left-sided pacing device. Moderate right pleural effusion with suspected loculated component and adjacent airspace opacity. No discrete pneumothorax. Atheromatous change thoracic aorta. IMPRESSION: Moderate right pleural fluid collection with suspected loculated component and adjacent airspace opacity. No discrete pneumothorax. 2010 [employer]- All Rights Reserved
[2018-03-14] MEDS: PIPERACILLIN SODIUM/TAZOBACTAM 4.5 GM in NORMAL SALINE 100 ML IV SCH ×4 (00:56→17:22)
[2018-03-14] MEDS ORDERED: NORMAL SALINE 1000 ML 1,000 ML IV PRN (01:15)
[2018-03-14] MEDS: TEMAZEPAM 7.5 MG CAPSULE PO PRN (03:58)
[2018-03-14] MEDS: HEPARIN SOD (PORCINE) 5,000 UNIT/ML 1 ML SYRINGE SUBCUT SCH ×2 (05:15→14:09)
--- NOTE | 2018-03-14 07:26 | PDOC PROGRESS REPORT ---
Subjective Reason For Visit: ANASARCA,SEVERE ASCITIS WITH ABD WALL CELLULITIS Physical Exam Vital Signs: Temp Pulse Resp BP Pulse Ox 97.5 F 65 14 96/67 L 97 03/14/18 03:43 03/14/18 03:43 03/14/18 05:33 03/14/18 03:43 03/14/18 03:43 Intake & Output 03/13/18 03/14/18 03/15/18 06:59 06:59 06:59 Intake Total 2688 2333 Output Total 2653 3125 Balance 35 -792 Weight 129.7 kg 126.4 kg Results Laboratory Results: 03/13/18 04:20 03/13/18 04:20 Impressions: Paracentesis Ultrasound 03/11/18 18:17 IMPRESSION: SUCCESSFUL ULTRASOUND GUIDED PARACENTESIS. Thoracentesis Ultrasound 03/13/18 08:00 IMPRESSION: SUCCESSFUL THORACENTESIS USING ULTRASOUND GUIDANCE. Chest X-Ray 03/13/18 17:15 IMPRESSION: Moderate right pleural fluid collection with suspected loculated component and adjacent airspace opacity. No discrete pneumothorax. 2011 [employer]- All Rights Reserved Assessment & Plan - Diagnosis (1) Intra-abdominal abscess Is this a current diagnosis for this admission?: Yes (2) Peritoneal dialysis catheter infection Qualifiers: Encounter type: subsequent encounter Qualified Code(s): T85.71XD - Infection and inflammatory reaction due to peritoneal dialysis catheter, subsequent encounter Is this a current diagnosis for this admission?: Yes - Plan Summary Plan Summary: Patient with an infected peritoneal catheter and a large intra-abdominal abscess. Plan for catheter removal and abscess drainage today. Risks/benefits discussed, informed consent obtained, and all questions answered.
[2018-03-14] MEDS ORDERED: BUPIVACAINE HCL 0.5 % INJ/PF 30 ML SDV ONE (07:39)
[2018-03-14] MEDS ORDERED: ONDANSETRON HCL INJ/PF 4 MG/2 ML SDV ONE (07:42)
[2018-03-14] MEDS ORDERED: GLYCOPYRROLATE 1 MG/5 ML SYRINGE ONE (07:42)
[2018-03-14] MEDS ORDERED: PHENYLEPHRINE HCL INJ/PF 10 MG/1 ML SDV ONE (07:42)
[2018-03-14] MEDS ORDERED: LIDOCAINE 2% INJ-PF (20 MG/ML) 2 ML AMPUL ONE (07:42)
[2018-03-14] MEDS: SPIRONOLACTONE 25 MG TABLET PO SCH (08:11)
[2018-03-14] MEDS: TORSEMIDE 20 MG TABLET PO SCH (08:12)
[2018-03-14] MEDS: METOLAZONE 2.5 MG TABLET PO SCH (08:12)
[2018-03-14] MEDS: MIDODRINE HCL 5 MG TABLET PO SCH (08:12)
[2018-03-14] MEDS: POTASSIUM CHLORIDE 10 MEQ CAPSULE.ER PO SCH (08:12)
[2018-03-14] MEDS ORDERED: MIDAZOLAM 2 MG/2 ML INJ ONE (08:52)
[2018-03-14] MEDS ORDERED: KETAMINE HCL INJ 500 MG/10 ML VIAL ONE (08:52)
[2018-03-14] MEDS ORDERED: FENTANYL CITRATE INJ/PF 100 MCG/2 ML AMPUL ONE (08:52)
[2018-03-14] MEDS: ASPIRIN 81 MG TABLET, ENT COATED PO SCH (09:34)
[2018-03-14] MEDS: METOPROLOL TARTRATE 25 MG TABLET PO SCH ×2 (09:34→21:11)
[2018-03-14] MEDS: ISOSORBIDE DINITRATE 20 MG TABLET PO SCH (09:34)
[2018-03-14] MEDS ORDERED: ONDANSETRON HCL INJ/PF 4 MG/2 ML SDV IV PRN ×2 (09:48→12:31)
[2018-03-14] MEDS ORDERED: PROMETHAZINE HCL INJ 25 MG/1 ML VIAL IV PRN ×3 (09:48→19:05)
[2018-03-14] MEDS ORDERED: FENTANYL CITRATE INJ/PF 100 MCG/2 ML AMPUL IV PRN ×3 (09:48)
[2018-03-14] MEDS ORDERED: DIPHENHYDRAMINE HCL 50 MG/ML VIAL IV PRN ×2 (09:48→12:31)
[2018-03-14] MEDS ORDERED: MORPHINE SULFATE 10 MG/ML INJ IV PRN ×2 (09:48→10:37)
[2018-03-14] MEDS ORDERED: HYDROCODONE/ACETAMINOPHEN 10-325 MG TABLET PO PRN (10:37)
--- NOTE | 2018-03-14 10:37 | Operative Report ---
Operative Report DATE OF SURGERY: 03/14/18 PREOPERATIVE DIAGNOSIS: 1. Infected peritoneal catheter. 2. Large intra- abdominal abscess. POSTOPERATIVE DIAGNOSIS: Same as above. OPERATION: 1 exploratory laparotomy (mini lap). 2. Drainage of large intra- abdominal abscess. 3. Removal of infected peritoneal catheter. SURGEON: KEERTHI MCKEON ANESTHESIA: LMAC TISSUE REMOVED OR ALTERED: Wound culture. COMPLICATIONS: None apparent ESTIMATED BLOOD LOSS: Minimal PROCEDURE: Drains/implants: 15 Kinyarwanda round Chris drain in the abscess cavity. Procedure in detail: After informed consent was obtained, the patient was brought to the operating room and laid in the supine position. The area of the abdomen was prepped and draped in a normal sterile fashion. The peritoneal catheter was seen exiting the abdominal skin in the right upper quadrant. A right upper quadrant incision was then created. Dissection was carried down through the tissue using sharp dissection and electrocautery. The catheter was identified and was traced to its insertion site. The muscles of the abdomen were opened in transverse fashion in the right upper quadrant. The large abscess cavity was entered. The incision was opened large enough to admit a hand. A large amount of thick, fibrino-purulent material was found inside the abscess cavity. This was removed manually. The cavity was then copiously irrigated and suctioned. A drain was then placed through a separate stab incision. Drain was sutured in place using 2-0 nylon suture. Attention was then turned to closure of the abdominal fascia. The posterior layer was closed using 0 Vicryl suture in simple running fashion. The anterior layer was closed using 0 Vicryl suture in interrupted figure-of- eight fashion. The wound was then packed with a Xeroform gauze and a dressing was placed. The procedure at this time was concluded. All sponge, instrument, and needle counts were correct x2. Condition: Fair.
[2018-03-14 11:49] LABS: VANCOMYCIN,TROUGH 26.6 ug/mL (5.0-20.0)
[2018-03-14] MEDS ORDERED: LORAZEPAM INJ 2 MG/1 ML VIAL IV PRN (12:26)
[2018-03-14] MEDS ORDERED: HYDROMORPHONE HCL INJ/PF 2 MG/ML AMPULE IV PRN ×2 (12:27→17:23)
[2018-03-14] MEDS ORDERED: HYDROMORPHONE HCL INJ/PF 2 MG/ML AMPULE ONE (12:42)
[2018-03-14 13:20] VITALS: BP 104/73
[2018-03-14] MEDS ORDERED: HYDROMORPHONE HCL INJ/PF 2 MG/ML AMPULE IV ONE (14:00)
--- NOTE | 2018-03-14 16:21 | PROGRESS NOTE E ---
Progress Note NAME: KEN ZAYAS : 1960 AGE: 58Y DATE: 03/14/2018 ROOM: 528 SUBJECTIVE: The patient is lying in bed. The patient had returned from the OR from having an I and D of an abscess. The patient was found to be in some distress. The patient stated that he had no quality of life. The patient who has been on hospice in the past is quite familiar with this process and stated that he did not want to feel suffocate but is ready to leave this world. The patient denies any other changes other than pain that he associates with his perioperative treatment. The patient is agreeable to comfort measures and would like to be a do not resuscitate/ do not intubate with comfort care measures only. The patient is beginning for pain relief stating that his pain is excruciating and that his quality of life is terrible. The patient has already conceded this in the past and has actually again been on hospice. The patient does not voice any other concerns at this time. REVIEW OF SYSTEMS: The rest of review of systems is negative. MEDICATIONS: Medications have been reviewed. OBJECTIVE: GENERAL: The patient is a 58-year-old male who is awake, alert. He is oriented to person, time, place, situation. He is verbal, conversational. He does not appear to be in acute respiratory distress, but is obviously in pain. VITAL SIGNS: Temperature is 97.4, pulse 91, respirations 16, blood pressure is 104/73, oxygen saturation is 97% on 1.5 liters nasal cannula. SKIN: Jaundiced, pale. He is not diaphoretic. HEENT: The patient's mucous membranes appear moist. CARDIOVASCULAR: Heart is regular. CHEST: Diminished, symmetrical. ABDOMEN: Postoperative dressing is clean and intact. Massive ascites. EXTREMITIES: Patient is consistent with anasarca. PSYCHIATRIC: Appropriate affect, pleasant mood. DIAGNOSTICS: Lab values are as follows - Hematology obtained on 03/13/2018; WBC is 11.8, hemoglobin is 8.7, hematocrit is 26.2, platelet count is 243,000. Chemistry obtained on 03/13/2018; sodium is 132, potassium 4.1, chloride is 94, carbon dioxide 30, BUN 34, creatinine 1.29, glucose 126, calcium is 8.2, magnesium is 1.7, bilirubin is 1.2, AST 13, ALT 10, alk-phos 109, total protein 6.5, albumin 2.3. IMPRESSION AND PLAN: 1. ABDOMINAL WALL CELLULITIS. The patient is postop. We will continue Zosyn for now. He is returned from the OR yet again, making this postoperative day #0. Do appreciate surgeries help with this. 2. HEPATIC CIRRHOSIS AND SUBSEQUENT ASCITES. The patient did have a paracentesis in the emergency department, which was some beneficial. Unfortunately the area is loculated. 3. CHRONIC SYSTOLIC AND DIASTOLIC CONGESTIVE HEART FAILURE. The patient's ejection fraction was 35%. 4. CHRONIC OBSTRUCTIVE PULMONARY DISEASE. We will continue bronchodilators. The patient has recently decompensated. 5. CORONARY ARTERY DISEASE. Denies any symptoms at this time. 6. PLEURAL EFFUSION. The patient has significant right-sided pleural effusion. Given his worsening breathing a thoracentesis was performed with improvement. 7. OBSTRUCTIVE SLEEP APNEA. Continue CPAP. 8. CHRONIC KIDNEY DISEASE STAGE 3. Creatinine is at baseline. 9. PULMONARY HYPERTENSION. 10. PACEMAKER. Interrogation did not reveal an issue. 11. ATRIAL FIBRILLATION. The patient is rate controlled at this point. CODE STATUS: The patient is a do not resuscitate/do not intubated with comfort care measures only. DISPOSITION: The patient has expressed the desire for a natural . We will discuss AICD deactivation. Give the patient pain medication as comfort measures are at the top of his priority list. TIME SPENT: On this follow up, including assessment and plan, physical examination, patient education, review of records is 40 minutes. Addendum: I once again rounded on the patient this afternoon and spoke with his mother who was present at the bedside and active in the patient's care. Mother stated that she is familiar with and As a critical care nurse can no longer watch her son suffer. Mother stated The patient has been occupied with dying for the last month stating He is miserable. Patient and mother are agreeable to the activation of AICD. Will continue comfort measures. DICTATING PHYSICIAN: GET CASTREJON NP [id number] PHY#: [id number] ID: [id number] JOB#: [id number] ACCT: [id number] cc: > MTDD
--- NOTE | 2018-03-14 22:15 | Progress Note ---
Provider Note Provider Note: Nurse called me and let me know the patient at 21:40
--- NOTE | 2018-03-16 20:01 | DEATH SUMMARY E ---
Summary NAME: KEN ZAYAS : 1960 AGE: 58Y ADMITTED: 03/11/2018 : CODE STATUS: DO NOT RESUSCITATE, DO NOT INTUBATE, WITH COMFORT CARE MEASURES ONLY. FINAL DIAGNOSES: Includes: 1. Hepatic cirrhosis and profound ascites. 2. Abdominal wall cellulitis. 3. Chronic systolic and diastolic congestive heart failure. AICD had been deactivated. 4. Chronic obstructive pulmonary disease. 5. Coronary artery disease. 6. Recurrent pleural effusion. 7. Obstructive sleep apnea. 8. Chronic kidney disease stage 3. 9. Hypertension. 10. Atrial fibrillation. DIAGNOSTICS: Lab values are as follows: Hematology on 03/13/2018: WBC is 11.8, hemoglobin is 8.7, hematocrit is 26.2, platelet count was 232,000. Coagulation obtained on 03/13/2018: PT is 17.9, INR is 1.41. Chemistry obtained on 03/13/2018: Sodium is 133, potassium is 4.1, chloride is 94, carbon dioxide 30, BUN 34, creatinine is , glucose 126, calcium is 8.2, magnesium is 1.7, bilirubin is 1.2, AST 13, ALT is 10, alk phos 109, ammonia is 8.7, total protein is 6.5, albumin 2.3, lipase is 62.2. Urinalysis obtained on 03/12/2018: Color yellow, appearance clear, pH is 5.0, specific gravity is 1.012, protein 100, glucose negative, ketones negative, occult blood small, nitrate negative, bilirubin negative, urobilinogen is 2.0, leukocyte esterase is negative, WBCs 1, RBCs 6, casts 1. Microbiology: Blood culture sent on 03/11/2018 revealed no growth. Ascites fluid obtained on 03/11/2018 revealed no growth. Wound culture obtained on 03/12/2018 reveals E. coli and Enterobacter cloacae. Wound culture obtained on 03/14/2018 reveals a gram negative mylene. HISTORY OF PRESENT ILLNESS: The patient is a 58-year-old male with a past medical history of heart failure and cirrhosis that is well known to the hospitalist service. The patient actually has been on hospice earlier in the year. The patient presented to the Emergency Department with a chief complaint of shortness of breath. The patient was noted to have recurrent pleural effusions and has had several thoracenteses. The patient did have a Pleurx catheter placed in his abdomen in May for palliative draining. Unfortunately, it stopped working during a previous admission. A HARI catheter was placed and removed last Saturday in Dr. Nguyen's office. The patient was supposed to see Dr. Nguyen this week for assessment and plan regarding the Pleurx catheter, however, the patient did not make it to the appointment. The patient had explained that 3 days prior to presentation, his condition had been getting worse and it had become more and more difficult for him to breathe. He was sleeping in a recliner, had a dry cough, chest pain that was associated with generalized swelling which had been worsening. The patient required oxygen in the Emergency Department and the patient had a CT of the abdomen and pelvis which showed air in the right upper quadrant, collection of ascites unchanged from previous imaging. The patient was noted to be tachycardic with a heart rate of 100-120 and therefore, he received a fluid bolus in the Emergency Department as well as IV vancomycin and Rocephin. He was referred to the hospitalist for admission and management. HOSPITAL COURSE: The patient was admitted to continuous telemetry unit. The patient was placed on broad spectrum antibiotic coverage including anaerobes, given his cellulitis. There was concern for significant abdominal infection. The patient went to the OR on two separate occasions due to abdominal abscesses. Upon return from the patient's last visit, he stated that his quality of life was gone. The patient said he feared above all else being suffocated by not having enough air. The patient stated that he was ready to have a peaceful passing and would like to be on comfort measures only. The patient prioritized his pain control over all other measures. The patient was agreeable to having his AICD deactivated. Although the rep was not in the area, a magnet was placed over his chest. The mother who was present at the bedside who is a retired critical care nurse, did understand this process and was in agreement that the patient did not have much quality of life and being comfortable was consistent with his previous voiced wishes. The patient was given Dilaudid for pain control, Ativan for anxiety, Phenergan for nausea, and the patient peacefully at 2140 hours. TIME SPENT: On this note is 7 minutes. DICTATING PHYSICIAN: GET CASTREJON NP [id number] PHY#: [id number] ID: [id number] JOB#: [id number] ACCT: [id number] cc:GET CASTREJON NP >
== END 2018-03-14 21:40 | DRG 420 ==
LOC: ER 17:11 → EH 19:53 → 5 22:31
PROVIDERS: ADMIT Internal Medicine; ATTEND Internal Medicine
PROC: 0W9G3ZZ Drainage of Peritoneal Cavity, Percutaneous Approach (ICD-10-PCS; 2018-03-11)
PROC: 0W9F3ZX Drainage of Abdominal Wall, Percutaneous Approach, Diagnostic (ICD-10-PCS; principal; 2018-03-12 16:00)
PROC: 0W993ZZ Drainage of Right Pleural Cavity, Percutaneous Approach (ICD-10-PCS; 2018-03-13)
PROC: 0W9G00Z Drainage of Peritoneal Cavity with Drainage Device, Open Approach (ICD-10-PCS; 2018-03-14)
PROC: 0WPG00Z Removal of Drainage Device from Peritoneal Cavity, Open Approach (ICD-10-PCS; 2018-03-14)
DX: K72.11 Chronic hepatic failure with coma (principal); I50.43 Acute on chronic combined systolic (congestive) and diastolic (congestive) heart failure; R18.8 Other ascites; L02.211 Cutaneous abscess of abdominal wall; L03.311 Cellulitis of abdominal wall; T85.698A Other mechanical complication of other specified internal prosthetic devices, implants and grafts, initial encounter; T85.79XA Infection and inflammatory reaction due to other internal prosthetic devices, implants and grafts, initial encounter; I13.0 Hypertensive heart and chronic kidney disease with heart failure and stage 1 through stage 4 chronic kidney disease, or unspecified chronic kidney disease; K74.60 Unspecified cirrhosis of liver; Z66 Do not resuscitate; E11.22 Type 2 diabetes mellitus with diabetic chronic kidney disease; N18.3 Chronic kidney disease, stage 3 (moderate); B96.20 Unspecified Escherichia coli [E. coli] as the cause of diseases classified elsewhere; I73.9 Peripheral vascular disease, unspecified; J44.9 Chronic obstructive pulmonary disease, unspecified; E03.9 Hypothyroidism, unspecified; I25.10 Atherosclerotic heart disease of native coronary artery without angina pectoris; E78.00 Pure hypercholesterolemia, unspecified; G47.33 Obstructive sleep apnea (adult) (pediatric); I25.2 Old myocardial infarction; Z87.891 Personal history of nicotine dependence
CPT/HCPCS: 32555; 36415; 49083; 700; 71045; 80053; 80202; 81001; 82140; 82962; 83690; 83735; 840; 85025; 85610; 85730; 87040; 87070; 87075; 87077; 87186; 87205; 89050; 94660; 94667; 94799; 96365; 96367; 96375; 99291; J0696; J1170; J1644; J2250; J2270; J2370; J2405; J2543; J2550; J2704; J3010; J3370; J3490; J7030; J7060